=== PATIENT | female | born 1940 | race Caucasian/White ===

== ENCOUNTER 2023-04-08 11:16 | Outpatient (OUT) | payer MEDICARE, SELFPAY ==
--- NOTE | 2023-04-08 11:19 | MM_ITS ---
Patient Name: ARLEY TIPTON MR#: [id number] : 1940 Exam Date: 04/08/2023 Ordering Doctor: DR. ANABEL SALINAS . RADIOLOGY REPORT PROCEDURE: MM TOMOSYNTHESIS SCREENING BI COMPARISON: MG MAMM SCREEN 3D JAMEE CAD, 04/04/2021. MG MAMM SCREEN 3D JAMEE CAD, 04/07/2022. INDICATIONS: Screening Calculator Name NCI Breast Cancer Risk Assessment Tool 5 Year Breast Cancer Risk 1.10% Lifetime Breast Cancer Risk 1.50% Personal Breast Cancer No Personal Ovarian Cancer No Treatments None Family Cancers Aunt-maternal with breast cancer at age ~60. LOCATION: [facility] BREAST COMPOSITION: Heterogeneously dense,which may obscure small masses. FINDINGS: DIAGNOSTIC CATEGORY 2--BENIGN FINDING. NO CHANGE FROM COMPARISON. Scattered benign-appearing calcifications are present. Scattered benign-appearing lymph nodes are present. RIGHT BREAST: No significant suspicious finding. LEFT BREAST: No significant suspicious finding. RECOMMENDATIONS: ROUTINE MAMMOGRAM AND CLINICAL EVALUATION IN 12 MONTHS. PLEASE NOTE: A NORMAL MAMMOGRAM DOES NOT EXCLUDE THE POSSIBILITY OF BREAST CANCER. A CLINICALLY SUSPICIOUS PALPABLE LUMP SHOULD BE BIOPSIED. Dictated by: Remigio Martinez MD on 04/09/2023 at 08:20 Approved by: Remigio Martinez MD on 04/09/2023 at 08:24
== END 2023-04-08 11:17 | disposition home or self-care (01) ==
LOC: MAMMO 11:16
PROVIDERS: PCP Family Medicine; Visit Provider Family Medicine
DX: Z12.31 Encounter for screening mammogram for malignant neoplasm of breast (principal); Z80.3 Family history of malignant neoplasm of breast
CPT/HCPCS: 77063; 77067

== ENCOUNTER 2024-04-11 09:27 | Outpatient (OUT) | payer MEDICARE, SELFPAY ==
--- NOTE | 2024-04-11 09:29 | MM_ITS ---
Patient Name: ARLEY TIPTON MR#: [id number] : 1940 Exam Date: 04/11/2024 Ordering Doctor: DR. ANABEL SALINAS . RADIOLOGY REPORT PROCEDURE: MM TOMOSYNTHESIS SCREENING BI COMPARISON: MG MAMM SCREEN 3D JAMEE CAD, 04/07/2022. MM TOMOSYNTHESIS SCREENING BI, 04/08/2023. INDICATIONS: Screening Calculator Name NCI Breast Cancer Risk Assessment Tool 5 Year Breast Cancer Risk 1.10% Lifetime Breast Cancer Risk 1.30% Personal Breast Cancer No Personal Ovarian Cancer No Treatments None Family Cancers Aunt-maternal with breast cancer at age ~60. LOCATION: [facility] BREAST COMPOSITION: The breasts are heterogeneously dense,which may obscure small masses. FINDINGS: DIAGNOSTIC CATEGORY 2--BENIGN FINDING. NO CHANGE FROM COMPARISON. Scattered benign-appearing calcifications are present. Scattered benign-appearing lymph nodes are present. RIGHT BREAST: No significant suspicious finding. LEFT BREAST: No significant suspicious finding. RECOMMENDATIONS: ROUTINE MAMMOGRAM AND CLINICAL EVALUATION IN 12 MONTHS. PLEASE NOTE: A NORMAL MAMMOGRAM DOES NOT EXCLUDE THE POSSIBILITY OF BREAST CANCER. A CLINICALLY SUSPICIOUS PALPABLE LUMP SHOULD BE BIOPSIED. Dictated by: Remigio Martinez MD on 04/11/2024 at 12:05 Approved by: Remigio Martinez MD on 04/11/2024 at 12:07
== END 2024-04-11 09:28 | disposition home or self-care (01) ==
LOC: MAMMO 09:27
PROVIDERS: PCP Family Medicine; Visit Provider Family Medicine
DX: Z12.31 Encounter for screening mammogram for malignant neoplasm of breast (principal); Z80.3 Family history of malignant neoplasm of breast
CPT/HCPCS: 77063; 77067

== ENCOUNTER 2025-03-12 14:31 | Outpatient (REF) | payer MEDICARE, SELFPAY ==
--- OUTSIDE RECORDS SUMMARY | 2025-03-07 10:11 | XMS_ITS | Continuity of Care Document ---
Author Organization [facility] Address [address] [place] [address] Phone Care Team Providers Care Recreational Therapist Name Role Phone Elbert Clifford MD Other Provider Reinaldo Linton MD Attending Provider Reinaldo Linton MD Referring Provider Mehnaz Cooney APPRAISER-C Primary Care Provider Deepak Marshall II, MD Attending Provider [phone] NO FAMILY, PHYSICIAN Primary Care Provider Unava ilable Deepak Marshall II, MD Other Provider Merlene Wiley RN Other Provider Unavailable Misty Merino RN Other Provider Unavailable Helen De La Cruz RN Other Provider Unavailable Nicole Ball RN Other Provider Unavailable Liliana Costello RN Other Provider Unavailable Monse Nunes RN Other Provider Unavailable Maame Renee MD Other Provider Gianna Veloz DO Other Provider [phone] Ismael Merchant MD Other Provider Jose Garcia DO Other Provider Yovanny Boss MD Other Provider Clarisa Omer MD Other Provider Steve Valdez DO Other Provider Unavailab Paxton Guerrero MD Other Provider Unavailable Zak-Roland, Fela ELECTRICAL LABORATORY TECHNICIAN Other Provider [phone] Lydia Shipley MD Other Provider Gail Gutiérrez MD Other Provider Unavailable Jennifer Rodriguez MD Other Provider Steve Gutierrez DO Other Provider [phone] Darell Nobles MD Other Provider Nic Garcia MD Other Provider Annika Espinal APPRAISER-C Other Provider Chaya Muñoz ELECTRICAL LABORATORY TECHNICIAN Other Provider Unavailable Ashkan Mcbride MD Other Provider Ashwin Gamboa MD Other Provider Shamika Jaimes MD Other Provider Unavailable Warren Novoa DO Other Provider Smiley Nance APRN Other Provider Dennis Rao DO Other Provider Zelda Bejarano MD Other Provider Cat Bruner ELECTRICAL LABORATORY TECHNICIAN Other Provider Luzmaria Caceres ELECTRICAL LABORATORY TECHNICIAN Other Provider [phone] Noemi Luke MD Other Provider Unavailable Uli Robertson MD Other Provider Gris Nunez DO Other Provider Jerry Tellez MD Other Provider Yvonne Osborne MD Other Provider Shirley Greene APRN Other Provider Unavailable Rommel Hoyos MD Other Provider Alli Campos MD Other Provider [phone] Paxton Gonsalves MD Other Provider Brenton Rouse MD Other Provider Marta Fried APRN Other Provider Sveta Cerrato ELECTRICAL LABORATORY TECHNICIAN Other Provider Eliza Bojorquez MD Other Provider Tina Wang RN Other Provider Unavailable Alli Nunes MD Other Provider Ildefonso Lawrence MD Attending Provider Alli Nunes MD Admit Provider Candace Potter APRN Attending Provider Alli Nunes MD Attending Provider NON STAFF Primary Care Provider Lui Reeder MD Emergency Provider Deepak Marshall II, MD Admit Provider Care Teams Patient Care Team Team Status: Active Member Role/Relationship Status Dates Mehnaz Cooney NP-C Primary Care Provider Active Visit Care Team Team Status: Inactive Member Role/Relationship Status Dates Elbert Clifford MD Other Provider Active Start: January 09, 2025 End: January 09, 2025Mahmoud Othman , MDAttending ProviderActiveStart: January 09, 2025 End: January 09, 2025Mahmoud Othman , MDReferring ProviderActiveStart: January 09, 2025 End: January 09, 2025Jocordelia Cooney APPRAISER-CPrimary Care ProviderActive Start: January 09, 2025 End: January 09, 2025 Visit Care Team Team Status: Inactive Member Role/Relationship Status Dates Deepak Marshall II, MD Attending Provider Active Start: January 10, 2025 End: January 10, 2025Mehnaz Cooney APPRAISER-CPrimary Care ProviderActive Start: January 10, 2025 End: January 10, 2025 Visit Care Team Team Status: Active Member Role/Relationship Status Dates Deepak Marshall II, MD Attending Provider Active Start: January 18, 2025 Mehnaz Cooney APPRAISER-CPrimary Care ProviderActiveStart: January 18, 2025 Visit Care Team Team Status: Inactive Member Role/Relationship Status Dates PHYSICIAN NO FAMILY Primary Care Provider Active Start: January 18, 2025 End: January 18, 2025Apolonia Saldivar II ProviderActiveStart: January 18, 2025 End: January 18, 2025 Visit Care Team Team Status: Inactive Member Role/Relationship Status Dates PHYSICIAN NO FAMILY Primary Care Provider Active Start: January 19, 2025 End: January 19, 2025Apolonia Saldivar II ProviderActiveStart: January 19, 2025 End: January 19, 2025 Visit Care Team Team Status: Active Member Role/Relationship Status Dates Deepak Marshall II, MD Other Provider Active S tart: January 29, 2025 PHYSICIAN NO FAMILYPrimary Care ProviderActiveStart: January 29, 2025 Merlene Wiley , RNOther ProviderActiveStart: January 29, 2025 Misty Merino , RNOther ProviderActiveStart: January 29, 2025 Helen De La Cruz , ANTONIOOther ProviderActiveStart: January 29, 2025 Nicole Ball , ANTONIOOther ProviderActiveStart: January 29, 2025 Liliana Costello , ANTONIOOther ProviderActiveStart: January 29, 2025 Monse Nunes , ANTONIOOther ProviderActiveStart: January 29, 2025 Maaem Renee MDOther ProviderActiveStart: January 29, 2025 Gianna Veloz , DOOther ProviderActiveStart: January 29, 2025 Ismael Merchant MDOther ProviderActiveStart: January 29, 2025 Jose Garcia DOOther ProviderActiveStart: January 29, 2025 Yovanny Boss MDOther ProviderActiveStart: January 29, 2025 Clarisa Omer MDOther ProviderActiveStart: January 29, 2025 Steve Valdez , DOOther ProviderActiveStart: January 29, 2025 Paxton Parker MDOther ProviderActiveStart: January 29, 2025 Fela Mi , APRNOther ProviderActiveStart: January 29, 2025 Lydia Shipley MDOther ProviderActiveStart: January 29, 2025 Gail Gutiérrez MDOther ProviderActiveStart: January 29, 2025 Jennifer Rodriguez MDOther ProviderActiveStart: January 29, 2025 Steve Gutierrez , DOOther ProviderActiveStart: January 29, 2025 Darell Nobles MDOther ProviderActiveStart: January 29, 2025 Nic Garcia MDOther ProviderActiveStart: January 29, 2025 Annika Espinal , APPRAISER-COther ProviderActiveStart: January 29, 2025 Chaya Muñoz , APRNOther ProviderActiveStart: January 29, 2025 Ashkan Mcbride MDOther ProviderActiveStart: January 29, 2025 Ashwin Gamboa MDOther ProviderActiveStart: January 29, 2025 Shamika Jaimes MDOther ProviderActiveStart: January 29, 2025 Warren Novoa , DOOther ProviderActiveStart: January 29, 2025 Smiley Nance , APRNOther ProviderActiveStart: January 29, 2025 Dennis Rao , DOOther ProviderActiveStart: January 29, 2025 Zelda Bejarano MDOther ProviderActiveStart: January 29, 2025 aCt Bruner , APRNOther ProviderActiveStart: January 29, 2025 Luzmaria Caceres , APRNOther ProviderActiveStart: January 29, 2025 Noemi Luke MDOther ProviderActiveStart: January 29, 2025 Uli Robertson MDOther ProviderActiveStart: January 29, 2025 Gris Nunez , DOOther ProviderActiveStart: January 29, 2025 Jerry Tellez MDOther ProviderActiveStart: January 29, 2025 Yvonne Osborne MDOther ProviderActiveStart: January 29, 2025 Shirley Greene , APRNOther ProviderActiveStart: January 29, 2025 Rommel Hoyos MDOther ProviderActiveStart: January 29, 2025 Alli Campos MDOther ProviderActiveStart: January 29, 2025 Paxton Gonsalves MDOther ProviderActiveStart: January 29, 2025 Brenton Rouse MDOther ProviderActiveStart: January 29, 2025 Marta Fried , APRNOther ProviderActiveStart: January 29, 2025 Sveta Cerrato , APRNOther ProviderActiveStart: January 29, 2025 Eliza Bojorquez MDOther ProviderActiveStart: January 29, 2025 Tina Wang , ANTONIOOther ProviderActiveStart: January 29, 2025 Alli Nunes MDOther ProviderActiveStart: January 29, 2025 Ildefonso Lawrence MDAttending ProviderActiveStart: January 29, 2025 Visit Care Team Team Status: Active Member Role/Relationship Status Dates PHYSICIAN NO FAMILY Primary Care Provider Active Start: January 30, 2025 Alli Nunes MDAdmit ProviderActiveStart: January 30, 2025 Alli Nunes MDOther ProviderActiveStart: January 30, 2025 Merlene Wiley , ANTONIOOther ProviderActiveStart: January 30, 2025 Misty Merino , ANTONIOOther ProviderActiveStart: January 30, 2025 Helen De La Cruz , ANTONIOOther ProviderActiveStart: January 30, 2025 Nicole Ball , ANTONIOOther ProviderActiveStart: January 30, 2025 Liliana Costello RNOther ProviderActiveStart: January 30, 2025 Monse Nunes RNOther ProviderActiveStart: January 30, 2025 Maame Renee MDOther ProviderActiveStart: January 30, 2025 Gianna Veloz , DOOther ProviderActiveStart: January 30, 2025 Ismael Merchant MDOther ProviderActiveStart: January 30, 2025 Jose Garcia , DOOther ProviderActiveStart: January 30, 2025 Yovanny Boss MDOther ProviderActiveStart: January 30, 2025 Clarisa Omer MDOther ProviderActiveStart: January 30, 2025 Steve Valdez DOOther ProviderActiveStart: January 30, 2025 Paxton Parker MDOther ProviderActiveStart: January 30, 2025 Fela Mi , APRNOther ProviderActiveStart: January 30, 2025 Lydia Shipley MDOther ProviderActiveStart: January 30, 2025 Gail Gutiérrez MDOther ProviderActiveStart: January 30, 2025 Jennifer Rodriguez MDOther ProviderActiveStart: January 30, 2025 Steve Gutierrez DOOther ProviderActiveStart: January 30, 2025 Darell Nobles MDOther ProviderActiveStart: January 30, 2025 Nic Garcia MDOther ProviderActiveStart: January 30, 2025 Annika Espinal , APPRAISER-COther ProviderActiveStart: January 30, 2025 Chaya Muñoz , APRNOther ProviderActiveStart: January 30, 2025 Ashkan Mcbride MDOther ProviderActiveStart: January 30, 2025 Ashwin Gamboa MDOther ProviderActiveStart: January 30, 2025 Shamika Jaimes MDOther ProviderActiveStart: January 30, 2025 Warren Novoa , DOOther ProviderActiveStart: January 30, 2025 Smiley Nance , APRNOther ProviderActiveStart: January 30, 2025 Dennis Rao , DOOther ProviderActiveStart: January 30, 2025 Zelda Bejarano MDOther ProviderActiveStart: January 30, 2025 Cat Bruner , APRNOther ProviderActiveStart: January 30, 2025 Luzmaria Caceres , APRNOther ProviderActiveStart: January 30, 2025 Noemi Luke MDOther ProviderActiveStart: January 30, 2025 Uil Robertson MDOther ProviderActiveStart: January 30, 2025 Gris Nunez , DOOther ProviderActiveStart: January 30, 2025 Jerry Tellez MDOther ProviderActiveStart: January 30, 2025 Yvonne Osborne MDOther ProviderActiveStart: January 30, 2025 Shirley Greene , APRNOther ProviderActiveStart: January 30, 2025 Rommel Hoyos MDOther ProviderActiveStart: January 30, 2025 Alli Campos MDOther ProviderActiveStart: January 30, 2025 Paxton Gonsalves MDOther ProviderActiveStart: January 30, 2025 Brenton Rouse MDOther ProviderActiveStart: January 30, 2025 Marta Fried , APRNOther ProviderActiveStart: January 30, 2025 Sveta Cerrato , APRNOther ProviderActiveStart: January 30, 2025 Eliza Bojorquez MDOther ProviderActiveStart: January 30, 2025 Tina Wang RNOther ProviderActiveStart: January 30, 2025 Candace Potter APRNAttending ProviderActiveStart: January 30, 2025 Visit Care Team Team Status: Active Member Role/Relationship Status Dates PHYSICIAN NO FAMILY Primary Care Provider Active Start: February 06, 2025 Patience Courtney ProviderActiveStart: February 06, 2025 Johnie Courtneyending ProviderActiveStart: February 06, 2025 Alli Nunes MDOther ProviderActiveStart: February 06, 2025 Merlene Wiley , ANTONIOOther ProviderActiveStart: February 06, 2025 Misty Merino , ANTONIOOther ProviderActiveStart: February 06, 2025 Helen De La Cruz , ANTONIOOther ProviderActiveStart: February 06, 2025 Nicole Ball , ANTONIOOther ProviderActiveStart: February 06, 2025 Liliana Costello , ANTONIOOther ProviderActiveStart: February 06, 2025 Monse Nunes , ANTONIOOther ProviderActiveStart: February 06, 2025 Maame Renee MDOther ProviderActiveStart: February 06, 2025 Gianna Veloz DOOther ProviderActiveStart: February 06, 2025 Ismael Merchant MDOther ProviderActiveStart: February 06, 2025 Jose Garcia DOOther ProviderActiveStart: February 06, 2025 Yovanny Boss MDOther ProviderActiveStart: February 06, 2025 Clarisa Omer MDOther ProviderActiveStart: February 06, 2025 Steve Valdez DOOther ProviderActiveStart: February 06, 2025 Paxton Parker MDOther ProviderActiveStart: February 06, 2025 Fela Mi , APRNOther ProviderActiveStart: February 06, 2025 Lydia Shipley MDOther ProviderActiveStart: February 06, 2025 Gail Gutiérrez MDOther ProviderActiveStart: February 06, 2025 Jennifer Rodriguez MDOther ProviderActiveStart: February 06, 2025 Steve Gutierrez DOOther ProviderActiveStart: February 06, 2025 Darell Nobles MDOther ProviderActiveStart: February 06, 2025 Nic Garcia MDOther ProviderActiveStart: February 06, 2025 Annika J Pampa , APPRAISER-COther ProviderActiveStart: February 06, 2025 Chaya Muñoz , APRNOther ProviderActiveStart: February 06, 2025 Ashkan Mcbride MDOther ProviderActiveStart: February 06, 2025 Ashwin Gamboa MDOther ProviderActiveStart: February 06, 2025 Shamika Jaimes MDOther ProviderActiveStart: February 06, 2025 Warren Novoa , DOOther ProviderActiveStart: February 06, 2025 Smiley Nance , APRNOther ProviderActiveStart: February 06, 2025 Dennis Rao , DOOther ProviderActiveStart: February 06, 2025 Zelda Bejarano MDOther ProviderActiveStart: February 06, 2025 Cat Bruner , APRNOther ProviderActiveStart: February 06, 2025 Luzmaria Caceres , APRNOther ProviderActiveStart: February 06, 2025 Noemi Luke MDOther ProviderActiveStart: February 06, 2025 Uli Robertson MDOther ProviderActiveStart: February 06, 2025 Gris Nunez , DOOther ProviderActiveStart: February 06, 2025 Jerry Tellez MDOther ProviderActiveStart: February 06, 2025 Yvonne Osborne MDOther ProviderActiveStart: February 06, 2025 Shirley Greene , APRNOther ProviderActiveStart: February 06, 2025 Rommel Hoyos MDOther ProviderActiveStart: February 06, 2025 Alli Campos MDOther ProviderActiveStart: February 06, 2025 Paxton Gonsalves MDOther ProviderActiveStart: February 06, 2025 Brenton Rouse MDOther ProviderActiveStart: February 06, 2025 Marta Fried , APRNOther ProviderActiveStart: February 06, 2025 Sveta Cerrato , APRNOther ProviderActiveStart: February 06, 2025 Eliza Bojorquez MDOther ProviderActiveStart: February 06, 2025 Tina Wang RNOther ProviderActiveStart: February 06, 2025 Visit Care Team Team Status: Inactive Member Role/Relationship Status Dates NON STAFF Primary Care Provider Active Start: February 11, 2025 End: February 11, 2025Lui Bruner MDEmer[facility]cy ProviderActiveStart: February 11, 2025 End: February 11, 2025 Visit Care Team Team Status: Inactive Member Role/Relationship Status Dates Deepak Marshall II, MD Attending Provider Active Start: February 14, 2025 End: February 14, 2025NON STAFFPrimary Care ProviderActiveStart: February 14, 2025 End: February 14, 2025 Visit Care Team Team Status: Inactive Member Role/Relationship Status Dates NON STAFF Primary Care Provider Active Start: February 14, 2025 End: February 14, 2025Apolonia Saldivar II ProviderActiveStart: February 14, 2025 End: February 14, 2025 Visit Care Team Team Status: Inactive Member Role/Relationship Status Dates Deepak Marshall II, MD Attending Provider Active Start: February 21, 2025 End: February 21, 2025Jocordelia Cooney , APPRAISER-CPrimary Care ProviderActiveStart: February 21, 2025 End: February 21, 2025 Visit Care Team Team Status: Inactive Member Role/Relationship Status Dates Deepak Marshall II, MD Attending Provider Active Start: February 21, 2025 End: February 21, 2025Jocordelia Cooney , APPRAISER-CPrimary Care ProviderActiveStart: February 21, 2025 End: February 21, 2025 Visit Care Team Team Status: Active Member Role/Relationship Status Dates Mehnaz Cooney , APPRAISER-C Primary Care Provider Active Start: February 21, 2025 Patience Saldivar II ProviderActiveStart: February 21, 2025 Deepak Marshall II, MDOther ProviderActiveStart: February 21, 2025 Apolonia Courtney ProviderActiveStart: February 21, 2025 Alli Nunes MDOther ProviderActiveStart: February 21, 2025 Misty Merino , ANTONIOOther ProviderActiveStart: February 21, 2025 Hleen De La Cruz , ANTONIOOther ProviderActiveStart: February 21, 2025 Nicole Ball , ANTONIOOther ProviderActiveStart: February 21, 2025 Liliana Costello , ANTONIOOther ProviderActiveStart: February 21, 2025 Monse Nunes , ANTONIOOther ProviderActiveStart: February 21, 2025 Maame Renee MDOther ProviderActiveStart: February 21, 2025 Gianna Veloz , DOOther ProviderActiveStart: February 21, 2025 Ismael Merchant MDOther ProviderActiveStart: February 21, 2025 Jose Garcia , DOOther ProviderActiveStart: February 21, 2025 Yovanny Boss MDOther ProviderActiveStart: February 21, 2025 Clarisa Omer MDOther ProviderActiveStart: February 21, 2025 Steve Valdez , DOOther ProviderActiveStart: February 21, 2025 Paxton Parker MDOther ProviderActiveStart: February 21, 2025 Fela Mi , APRNOther ProviderActiveStart: February 21, 2025 Lydia Shipley MDOther ProviderActiveStart: February 21, 2025 Gail Gutiérrez MDOther ProviderActiveStart: February 21, 2025 Jennifer Rodriguez MDOther ProviderActiveStart: February 21, 2025 Steve Gutierrez , DOOther ProviderActiveStart: February 21, 2025 Darell Nobles MDOther ProviderActiveStart: February 21, 2025 Nic Garcia MDOther ProviderActiveStart: February 21, 2025 Annika Espinal , APPRAISER-COther ProviderActiveStart: February 21, 2025 Chaya Muñoz , APRNOther ProviderActiveStart: February 21, 2025 Ashkan Mcbride MDOther ProviderActiveStart: February 21, 2025 Ashwin Gamboa MDOther ProviderActiveStart: February 21, 2025 Shamika Jaimes MDOther ProviderActiveStart: February 21, 2025 Warren Novoa , DOOther ProviderActiveStart: February 21, 2025 Smiley Nance , APRNOther ProviderActiveStart: February 21, 2025 Dennis Rao DOOther ProviderActiveStart: February 21, 2025 Zelda Bejarano MDOther ProviderActiveStart: February 21, 2025 Cat Bruner , APRNOther ProviderActiveStart: February 21, 2025 Luzmaria Caceres , APRNOther ProviderActiveStart: February 21, 2025 Noemi Luke MDOther ProviderActiveStart: February 21, 2025 Uli Robertson MDOther ProviderActiveStart: February 21, 2025 Gris Nunez , DOOther ProviderActiveStart: February 21, 2025 Jerry Tellez MDOther ProviderActiveStart: February 21, 2025 Yvonne Osborne MDOther ProviderActiveStart: February 21, 2025 Shirley Greene , APRNOther ProviderActiveStart: February 21, 2025 Rommel Hoyos MDOther ProviderActiveStart: February 21, 2025 Alli Campos MDOther ProviderActiveStart: February 21, 2025 Paxton Gonsalves MDOther ProviderActiveStart: February 21, 2025 Brenton Rouse MDOther ProviderActiveStart: February 21, 2025 Marta Fried , APRNOther ProviderActiveStart: February 21, 2025 Sveta Cerrato , APRNOther ProviderActiveStart: February 21, 2025 Eliza Bojorquez MDOther ProviderActiveStart: February 21, 2025 Tina Wang RNOther ProviderActiveStart: February 21, 2025 Visit Care Team Team Status: Active Member Role/Relationship Status Dates Mehnaz Cooney APPRAISER-C Primary Care Provider Active Start: February 23, 2025 Patience Courtney ProviderActiveStart: February 23, 2025 Alli Nunes MDOther ProviderActiveStart: February 23, 2025 Merlene Wiley RNOther ProviderActiveStart: February 23, 2025 Misty Merino , ANTONIOOther ProviderActiveStart: February 23, 2025 Helen De La Cruz , ANTONIOOther ProviderActiveStart: February 23, 2025 Nicole Ball RNOther ProviderActiveStart: February 23, 2025 Liliana Costello RNOther ProviderActiveStart: February 23, 2025 Monse Nunes RNOther ProviderActiveStart: February 23, 2025 Maame Renee MDOther ProviderActiveStart: February 23, 2025 Gianna Veloz , DOOther ProviderActiveStart: February 23, 2025 Ismael Merchant MDOther ProviderActiveStart: February 23, 2025 Jose Garcia , DOOther ProviderActiveStart: February 23, 2025 Yovanny Boss MDOther ProviderActiveStart: February 23, 2025 Clarisa Omer MDOther ProviderActiveStart: February 23, 2025 Steve Valdez , DOOther ProviderActiveStart: February 23, 2025 Paxton Parker MDOther ProviderActiveStart: February 23, 2025 Fela Mi , APRNOther ProviderActiveStart: February 23, 2025 Lydia Shipley MDOther ProviderActiveStart: February 23, 2025 Gail Gutiérrez MDOther ProviderActiveStart: February 23, 2025 Jennifer Rodriguez MDOther ProviderActiveStart: February 23, 2025 Steve Gutierrez , DOOther ProviderActiveStart: February 23, 2025 Darell Nobles MDOther ProviderActiveStart: February 23, 2025 Nic Garcia MDOther ProviderActiveStart: February 23, 2025 Annika Espinal , APPRAISER-COther ProviderActiveStart: February 23, 2025 Chaya Muñoz , APRNOther ProviderActiveStart: February 23, 2025 Ashkan Mcbride MDOther ProviderActiveStart: February 23, 2025 Ashwin Gamboa MDOther ProviderActiveStart: February 23, 2025 Shamika Jaimes MDOther ProviderActiveStart: February 23, 2025 Warren Novoa , DOOther ProviderActiveStart: February 23, 2025 Smiley Nance , APRNOther ProviderActiveStart: February 23, 2025 Dennis Roa , DOOther ProviderActiveStart: February 23, 2025 Zelda Bejarano MDOther ProviderActiveStart: February 23, 2025 Cat Bruner , APRNOther ProviderActiveStart: February 23, 2025 Luzmaria Caceres , APRNOther ProviderActiveStart: February 23, 2025 Noemi Luke MDOther ProviderActiveStart: February 23, 2025 Uli Robertson MDOther ProviderActiveStart: February 23, 2025 Gris Nnuez , DOOther ProviderActiveStart: February 23, 2025 Jerry Tellez MDOther ProviderActiveStart: February 23, 2025 Yvonne Osborne MDOther ProviderActiveStart: February 23, 2025 Shirley Greene , APRNOther ProviderActiveStart: February 23, 2025 Rommel Hoyos MDOther ProviderActiveStart: February 23, 2025 Alli Campos MDOther ProviderActiveStart: February 23, 2025 Paxton Gonsalves MDOther ProviderActiveStart: February 23, 2025 Brenton Rouse MDOther ProviderActiveStart: February 23, 2025 Marta Fried , APRNOther ProviderActiveStart: February 23, 2025 Sveta Cerrato , APRNOther ProviderActiveStart: February 23, 2025 Eliza Bojorquez MDOther ProviderActiveStart: February 23, 2025 Tina Wang RNOther ProviderActiveStart: February 23, 2025 Ildefonso Lawrence MDAttending ProviderActiveStart: February 23, 2025 Visit Care Team Team Status: Active Member Role/Relationship Status Dates Mehnaz Cooney APPRAISER-C Primary Care Provider Active Start: February 28, 2025 Patience Saldivar II ProviderActiveStart: February 28, 2025 Apolonia Saldivar II ProviderActiveStart: February 28, 2025 Deepak Marshall II, MDOther ProviderActiveStart: February 28, 2025 Perez Courtney ProviderActiveStart: February 28, 2025 Visit Care Team Team Status: Active Member Role/Relationship Status Dates Mehnaz Cooney APPRAISER-C Primary Care Provider Active Start: March 02, 2025 Patience Courtney ProviderActiveStart: March 02, 2025 Apolonia Courtney ProviderActiveStart: March 02, 2025 Alli Des , MDOther ProviderActiveStart: March 02, 2025 Merlene Wiley , ANTONIOOther ProviderActiveStart: March 02, 2025 Misty Merino , ANTONIOOther ProviderActiveStart: March 02, 2025 Helen De La Cruz , ANTONIOOther ProviderActiveStart: March 02, 2025 Nicole Ball , ANTONIOOther ProviderActiveStart: March 02, 2025 Liliana Costello , RNOther ProviderActiveStart: March 02, 2025 Monse Nunes , ANTONIOOther ProviderActiveStart: March 02, 2025 Maame Renee MDOther ProviderActiveStart: March 02, 2025 Gianna Veloz , DOOther ProviderActiveStart: March 02, 2025 Ismael Merchant MDOther ProviderActiveStart: March 02, 2025 Jose Garcia , DOOther ProviderActiveStart: March 02, 2025 Yovanny Boss MDOther ProviderActiveStart: March 02, 2025 Clarisa Omer MDOther ProviderActiveStart: March 02, 2025 Steve Valdez DOOther ProviderActiveStart: March 02, 2025 Paxton Parker MDOther ProviderActiveStart: March 02, 2025 Fela Mi , APRNOther ProviderActiveStart: March 02, 2025 Lydia Shipley MDOther ProviderActiveStart: March 02, 2025 Gail Gutiérrez MDOther ProviderActiveStart: March 02, 2025 Jennifer Rodriguez MDOther ProviderActiveStart: March 02, 2025 Steve Gutierrez DOOther ProviderActiveStart: March 02, 2025 Darell Nobles MDOther ProviderActiveStart: March 02, 2025 Nic Garcia MDOther ProviderActiveStart: March 02, 2025 Annika Espinal , APPRAISER-COther ProviderActiveStart: March 02, 2025 Chaya Muñoz , APRNOther ProviderActiveStart: March 02, 2025 Ashkan Mcbride MDOther ProviderActiveStart: March 02, 2025 Ashwin Gamboa MDOther ProviderActiveStart: March 02, 2025 Shamika Jaimes MDOther ProviderActiveStart: March 02, 2025 Warren R Sommer , DOOther ProviderActiveStart: March 02, 2025 Smiley Nance , APRNOther ProviderActiveStart: March 02, 2025 Dennis Rao , DOOther ProviderActiveStart: March 02, 2025 Zelda Bejarano MDOther ProviderActiveStart: March 02, 2025 Cat Bruner , APRNOther ProviderActiveStart: March 02, 2025 Luzmaria Caceres , APRNOther ProviderActiveStart: March 02, 2025 Noemi Luke MDOther ProviderActiveStart: March 02, 2025 Uli Robertson MDOther ProviderActiveStart: March 02, 2025 Gris Nunez , DOOther ProviderActiveStart: March 02, 2025 Jerry Tellez MDOther ProviderActiveStart: March 02, 2025 Yvonne Osborne MDOther ProviderActiveStart: March 02, 2025 Shirley Greene , APRNOther ProviderActiveStart: March 02, 2025 Rommel Hoyos MDOther ProviderActiveStart: March 02, 2025 Alli Campos MDOther ProviderActiveStart: March 02, 2025 Paxton Gonsalves MDOther ProviderActiveStart: March 02, 2025 Brenton Rouse MDOther ProviderActiveStart: March 02, 2025 Marta Fried , APRNOther ProviderActiveStart: March 02, 2025 Sveta Cerrato , APRNOther ProviderActiveStart: March 02, 2025 Eliza Bojorquez MDOther ProviderActiveStart: March 02, 2025 Tina Wang RNOther ProviderActiveStart: March 02, 2025 Chief Complaint and Reason for Visit Chief Complaint Admit Date Z01.810 sob January 09, 2025 10:37am Hip pain January 10, 2025 9:58am Pre Op RTH January 18, 2025 11:02am H&P RTHA -INPT/REHAB January 18 11:55am Prolonged January 19, 2025 6:00am Hip pain January 29, 2025 10 :48am right hip osteoarthritis s/p volodymyr January 30, 2025 4:21pm right hip osteoarthritis s/p volodymyr February 06, 2025 12:00am Right hip pain, hx hip replacement Octob er 2024 4:06pm 2 WK POST OP RTHA February 14, 2025 1 :43pm standing February 14, 2025 2 :10pm GROIN PAIN February 21, 2025 8 :56am Z47.1 - Aftercare following joint replac ement surg February 21, 2025 9:01am Orif - Rt Proximal Femur/Total Hip Jimmie ion February 21, 2025 10:54am Right Periprosthetic Femur Fx s/p VOLODYMYR Re vision February 23, 2025 6:47pm Orif - Rt Proximal Femur/Total Hip Jimmie ion February 28, 2025 12:00am Right Periprosthetic Femur Fx s/p VOLODYMYR Re vision March 02, 2025 12:00am Reason for Visit Admit Date Primary osteoarthritis of right hip Sept emb2024 11:55am 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 O ctober 2024 10:48am Status post total replacement of right h ip January 29, 2025 10:48am Primary osteoarthritis of right hip Jano 2024 10:48am Age-related osteoporosis wit hout current pathological fracture January 30, 2025 4:21pm Class 2 obesity with body ma ss index (BMI) of 37.0 to 37.9 in adult January 30, 2025 4:21pm Hyperlipidemia January 30, 2025 4: 21pm Hypertension January 30, 2025 4: 21pm Impaired mobility and activities of mohamud y living January 30, 2025 4:21pm Postoperative anemia January 30, 2025 4 :21pm Status post total replacement of right h ip January 30, 2025 4:21pm Primary osteoarthritis of right hip 2024 4:21pm Aftercare following right hip joint repl acement surgery February 14, 2025 1:43pm Aftercare following right hip joint repl acement surgery February 21, 2025 8:56am Periprosthetic fracture arou nd internal prosthetic right hip joint February 21, 2025 8:56am Status post total replacement of right h ip February 21, 2025 8:56am Aftercare following right hip joint repl acement surgery February 21, 2025 10:54am Age-related osteoporosis wit hout current pathological fracture February 21, 2025 10:54am Class 2 obesity with body ma ss index (BMI) of 37.0 to 37.9 in adult February 21, 2025 10:54am Impaired mobility and activities of mohamud y living February 21, 2025 10:54am Postoperative anemia February 21, 2025 10:54am Periprosthetic fracture arou nd internal prosthetic right hip joint February 21, 2025 10:54am Status post total replacement of right h ip February 21, 2025 10:54am Primary osteoarthritis of right hip Octo 2024 10:54am Age-related osteoporosis wit hout current pathological fracture February 23, 2025 6:47pm Class 2 obesity with body ma ss index (BMI) of 37.0 to 37.9 in adult February 23, 2025 6:47pm Hyperlipidemia February 23, 2025 6 :47pm Hypertension February 23, 2025 6 :47pm Impaired mobility and activities of mohamud y living February 23, 2025 6:47pm Pain February 23, 2025 6 :47pm Postoperative anemia February 23, 2025 6:47pm Periprosthetic fracture arou nd internal prosthetic right hip joint February 23, 2025 6:47pm Status post total replacement of right h ip February 23, 2025 6:47pm Reason for Referral Type Reason(s) Provider Provider Contact Information P rovider Address Start Date Follow up with rehab physician as needed-PCP, call to schedule follow up appointment with PCP after dischargeFollow up as need with rehab physicianCall to schedule follow up appointment with PCP after dischargeAnastasia Oh MD Work Phone: [phone] [employer] [place] [employer] [facility] [address]Vzieeh up with rehab physician as neededAlli Nunes MDWork Phone: [phone] [facility], [address] [facility] [address]FisotlAnastasia Oh MDWork Phone: [phone] [employer] [facility] [address]-PBR, call to schedule follow up appointment with PCP after dischargeMehnaz Cooney CNPWork Phone: [facility] [address] [facility] [address]FOD [id number] [address] [facility] [address]QcbojcAnastasia Oh MDWork Phone: [phone] [place] [address]Kdzuti up as need with rehab physicianAlli Nunes MDWork Phone: [phone] [facility], [address] [place] [address]EmskcjAnastasia Oh MDWork Phone: [phone] [place] [address]Aznj to schedule follow up appointment with PCP after discharge Mehnaz Cooney CNPWork Phone: [facility] [address] [facility] [address] Allergies, Adverse Reactions, Alerts Allergen Type Severity Reaction Last Updated Verified Status Sulfa (Sulfonamide Antibiotics) Allergy Unknown itch February 21, 2025 8:46am Yes Active oxycodone Adverse Reaction Unknown Nausea February 21, 2025 8:46am Yes Active Social History Smoking Status Status Start Date End Date Date of Observa tion Never smoked tobacco (finding) February 24, 2025 3:43pm Observation Status Observation Response Date of Response Legal Sex Female (finding) Sex Assigned At [facility] 1940 Social History Assessments Assessment Value Date Recorded SDOH Follow up February 02, 2025 1:44pmQuestionAnswerDate RecordedHas the SDOH screening changed since admission?NOctober 2024 1:44pm Assessment Value Date Recorded SDOH Follow up February 23, 2025 11:16amQuestionAnswerDate RecordedHas the SDOH screening changed since admission?NOctober 2024 11:16am Assessment Value Date Recorded SDOH Follow up March 02, 2025 1:24pmQuestionAnswerDate RecordedHas the SDOH screening changed since admission?NNoveerica 2024 1:24pm Family History Relationship Condition Age at Onset Recorded Date/T krista father Myocardial infarction Unknown motherCerebrovascular accident (CVA)UnknownType 2 diabetes mellitusUnknown HypertensionUnknownbrotherMalignant neoplasm of lungUnknownbrotherMalignant neoplasm of lungUnknownbrotherMalignant neoplasm of lungUnknownbrotherChronic obstructive pulmonary diseaseUnknownsisterMalignant neoplasm of stomachUnknown Problems Active Problems Problem Diagnosis/Recorded Date Onset Date Stat us Insomnia March 06, 2025 12:15pm Unknown Active 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 November 09, 2024 2:40pm Unknown Active Age-related osteoporosis wit hout current pathological fracture November 09, 2024 2:39pm Unknown Active Impaired mobility and activi ties of daily living January 31, 2025 4:48pm Unknown Active Pain February 02, 2025 11:46am Unknown A ctive Hyperlipidemia January 08, 2023 11:31am Unknown Active Aftercare following right hi p joint replacement surgery February 14, 2025 1:34pm Unknown Active Postoperative anemia January 31, 2025 3:44pm Unknown Active Right hip pain November 08, 2024 12:34pm Unknown Ac tive Hypertension January 10, 2025 9:44am Unknown Active Class 2 obesity with body ma ss index (BMI) of 37.0 to 37.9 in adult January 31, 2025 9:02am Unknown Acti ve Inactive/Resolved Problems Problem Diagnosis/Recorded Date Onset Date Stat us Periprosthetic fracture arou nd internal prosthetic right hip joint February 22, 2025 7:33am Unknown Resolve d Status post total replacemen t of right hip January 30, 2025 10:59am Unknown Resolved Strain of muscle of right hip February 11, 2025 6:46p m Unknown Resolved Medications Medication Status Dose Units Route Directions Qty Days Refills S tart Date Stop Date End Date Reason(s) Instructions Adherence Ketorolac 10 mg tablet Discontinued 10 MG PO Ever y 6 hours as needed for pain 20 0Oct2024 11:00pmOctober 2024 5:05pmmaximum total duration of 5 days from all oral, intranasal, or parenteral formulationsTramadol 50 mg tablet Iqwjgvobijzo96HQGXT1N as needed for Pain Scale 6 - 704691Amygcxe 2024 2:19pmNovember 2024 12:16pmPain Status post total replacement of right hip Pain, unspecified Presence of right artificial hip jointOxycodone 5 mg jmcrjpYjmggnutiunv0LSRMR8S as needed for Lzjf8169Izxfoza 2024October 2024 8:48amAftercare following right hip joint replacement surgery Aftercare following joint replacement surgery Presence of right artificial hip jointMultivitamin qzberjCjqfjopwgzfk4WIZZZWkkto morningSeptember 2024 11:00pmOctober 2024 11:47amLactobacillus Combination No.4 (Probiotic) 3 billion cell haqmyduYzwzndrzqver6896XAD CELLSPO Every morningSeptember 2024 11:00pmOctober 2024 11:47amadminister with a mealCalcium Carbonate-Vitamin D3 (Calcium 600 + D(3)) 600 mg-10 mcg (400 unit) hqoaiuQimsmfytoamr4EKQMXCfeda dailySeptember 2024 11:00pmOctober 2024 11:47amCoenzyme Q10 (Coq-10) 100 mg jdhqyqtVlbfetknutla205PKYBRebvl at bedtimeSeptember 2024 11:00pmOctober 2024 11:47amAmlodipine 2.5 mg tabletDiscontinued2.5MGPODaily at bedtimeSeptember 2024 11:00pm January 18, 2025 11:06amAcetaminophen 500 mg afmkpbDrcxsxfqwkpu3444UEKRIggsa 6 hours as needed for painSept2024 11:00pmJanuary 30, 2025 3:05pmOn Hold: Resume on 03/01/25.Nabumetone 500 mg olupanAqxapqfapopd404PIIUZgzsx daily January 07, 2023 11:00pmJuly 2024 12:04pmPravastatin 20 mg tablet Phcroivctyab02DWFYNensv at bedtimeSeptember 2022 11:00pmOctober 2024 11:47amAspirin 81 mg Tablet,Delayed Release (Dr/Ec)Oxxbedgfteze25LFUKIzjpm at bedtimeSeptember 2022 11:00pmOct2024 11:47amOn Hold: Resume on 03/06/25.Polyethylene Glycol 3350 (Miralax) 17 gram/dose gmvvekDbgblttehcwa44ME POdaily as needed for constipationJanuary 29, 2025 11:00pmOctober 2024 11:47am1 packed mixed with 8 ounces of fluid.Amlodipine 5 mg TabletDiscontinued5 JNBWHghqj44843Djebknl 9th, 2025 11:00pmOctober 2024 10:24amAspirin 81 mg Tablet,Delayed Release (Dr/Ec)Ibstkgynflkd49XEUTTjdkd fqgfu91916Dcdluiv 9th, 2025 11:00pmNov2024 12:16pmCefadroxil 500 mg QtbceneZoyxmrssyjac413 MGPOTwice grfaa621JvkfxaaFebruary 01, 2025 11:00pmOct2024 12:52pmDocusate Sodium 100 mg QhlzxzvPurjihgcsmyg159ZTOJBtbyl daily as needed for Wbkotgkfhpey36 0Oct2024 11:00pmOct2024 12:52pmPravastatin 20 mg Tablet Wuvsct94LHLMTbzzg at itidyxk58706Kbtswsl 9th, 2025 11:00pmUnknownGabapentin 100 mg GoenkafKqmfvr351CIWNXidxm at uivjkln52206Fmupyll 2024 11:00pmUnknown Calcium Carbonate-Vitamin D3 (Oyster Shell Calcium-Vit D3) 500 mg-5 mcg (200 unit) HqrkyoKkupehtnzyba4FOZCIQmoom ppvek08040Jyfyzjc 9th, 2025 11:00pmNov2024 12:15pmMelatonin 5 mg TueovqSopohkakccjm7DDZGLjgcf at clnpedr30226 February 01, 2025 11:00pmOcttristar [facility] 2024 10:24amMultivitamin With Folic Acid (Thera) 400 mcg WwiieiRqcgki0VRXPKQhksw pbpmakq18233Gjzsjdc2024 11:00pm UnknownL.Acid,Para-B.Bifidum-S.Therm (Risaquad) 8 billion cell BwyugpaLflpll4FGF POEvery ofpklnp13559Ykbfmpa 9th, 2025 11:00pmUnknownPrednisone 10 mg Tablet Rfcfujyclkez31CFOZHphlg654Ewhrboe 9th, 2025 11:00pmOct2024 12:52pm Tramadol 50 mg FzaetdAuwgybeuynjc24ZXBBF3R as needed for Pain Scale 6 - 475752 February 01, 2025 11:00pmOct2024 2:20pmPain Status post total replacement of right hip Pain, unspecified Presence of right artificial hip jointHydrocodone-Acetaminophen 5-325 mg tablet Discontinued0.5TABPOEVERY 4-6 HOURS as needed for Mcry031Nkvfhxc2024March 06, 2025 12:16pmStrain of muscle of right hip Strain of muscle, fascia and tendon of right hip, initial encounterDocusate Sodium 100 mg srcqotzHqqfuohbejir598LZONSypxi as needed for constipationOct2024 11:00pmMarch 06, 2025 12:16pmAmlodipine 5 mg CovgzzLfbhmd1UDNR Every eveningOcttristar [facility] 2024 11:00pmUnknownAcetaminophen 500 mg tablet Enbmkxetlkfr9287NRCQZtgem 6 hoursOct2024 11:00pmMarch 06, 2025 12:16pmdo not reconcile dos 01/29/25. med to bedMelatonin 5 mg CpzouvPxaqju4RZSK Daily at bedtime as needed for sleepOcttristar [facility] 2024 11:00pmUnknownTemazepam 7.5 mg CapsuleActive7.5MGPODaily at bedtime as needed for Tlzmtkzb15838Tcwerxag 11th, 2025 12:00amInsomnia Insomnia, unspecifiedUnknownLoperamide 2 mg IxnbssjOplnfw7GGRHL6W as needed for Ifpzmlay21Welljept2024 12:00amUnknownHydrocodone-Acetaminophen 5-325 mg GxfdwzHthxtc9UCGXAP5L as needed for pain (scale score 7-10)3070March 06ftercare following right hip joint replacement surgery Pain of right hip Aftercare following joint replacement surgery Presence of right artificial hip joint Pain in right hipUnknownPantoprazole 40 mg Tablet,Delayed Release (Dr/Ec)Active 24VPVEYgtnl69489Zgpxuwdj 11th, 2025 12:00amUnknownRx Discharge Order Notice Lxdqvu5SGTXECHEIVFODAPouv66Tfffanyu 11th, 2025 12:00amUnknownAcetaminophen 500 mg UjtrqsHvakit3206ANNLF9O as needed for Fever Or Echh12Plakhcsb2024 12:00amUnknownAscorbic Acid (Vitamin C) (Vitamin C) 500 mg WpagcdUssxxn349YKCX Twice pqxaw32461EmthsyodMarch 06, 2025 12:00amUnknownAspirin 81 mg Tablet,Delayed Release (Dr/Ec)Dltmxc53WSWPSvuma pjojm43703Ozkqtpmw 11th, 2025 12:15pmUnknown Calcium Carbonate-Vitamin D3 (Oyster Shell Calcium-Vit D3) 500 mg-5 mcg (200 unit) TcsuanJjfmza8OVVNZQsncm mhqrh40670Luuzpfwc 11th, 2025 12:15pmUnknown Amlodipine 5 mg bjremfVglmbzizfbeg3FKFKMrpyrNfugtssdc 2024 11:00pmOctober 2024 11:47amSennosides-Docusate Sodium (Senokot-S) 8.6-50 mg tablet Rmsqyrvkxvwv3KAYIBqhyza96712Rtcwngnhy 2024 11:00pmOctober 2024 3:07pm do not reconcile dos 01/29/25. med to bedAcetaminophen 500 mg tabletDiscontinued 3937MHZLW1E300417Ifchctdtt 2024 11:00pmOctober 2024 10:24amdo not reconcile dos 01/29/25. med to bedCefadroxil 500 mg tnzwkudBzaxbwwloevo285WCTZ U55D1096Htqdngsid 2024 11:00pmOctober 2024 11:47amdo not reconcile dos 01/29/25. med to bedPolyethylene Glycol 3350 (Miralax) 17 gram/dose powder Mkqtouyzfton11QGTNwrdcr504Twifjfuan 2024 11:00pmOct2024 3:08pm1 packed mixed with 8 ounces of fluid.Tramadol 50 mg jcmfhrOnegclqmgdow94FNBRA6H as needed for Pemq9843Btkigtoqy 2024 11:00pmOctober 2024 3:08pm Primary osteoarthritis of right hip Unilateral primary osteoarthritis, right hipPrednisone 10 mg tabletDiscontinued 27YOAKtnzpy98592Wwloqdjto 2024 11:00pmOctober 2024 11:47amdo not reconcile dos 01/29/25. med to bedOndansetron Hcl 4 mg fhlyojGveonqgaefsr5RMFBG4H as needed for Sptgwz63Grbisiqvx 5 11:00pmOctober 2024 11:47amdo not reconcile dos 01/29/25. med to bedOxycodone 5 mg qdygkvHcrgumewwksq4FZSOC0E as needed for Qrey8810Favijasnn 25th, 2025October 2024 11:47amPrimary osteoarthritis of right hip Unilateral primary osteoarthritis, right hipdo not reconcile dos 01/29/25. med to bedAspirin 81 mg tablet,delayed release (DR/EC)Oykoqmpdkohg24WPPOLdcpi lzckv9010 0Sept2024 11:00pmOctober 2024 11:47amdo not reconcile dos 01/29/25. med to bedGabapentin 100 mg eokbmqfKfihzsrxtytg279FYPRUyedl at bedtime November 08, 2024 11:00pmOctober 2024 11:47amEtodolac 500 mg tablet Rtxkdbndtpfi848FZUQSwlfl morningJuly 2024 11:00pmOctober 2024 11:47amOn Hold: Resume on 03/01/25.Methylprednisolone (Medrol (Enoc)) 4 mg tablets,dose sfcoDdaiqbrwnclq8FVSXyr woodbvih65Nssuxdn 21st, 2025 11:00pmOctober 2024 8:48am Medical Equipment Device Date Implanted Date Explanted Device Deta ils Coated femoral stem prosthesis, modular February 22, 2025 JOSE: ()[id number] Issuing Agency: [facility] Device Id: [id number] Expiration Date: 2032-09-22 Lot Number: [id number] femoral stem prosthesis, modularOct2024 JOSE: ()[id number] Issuing Agency: [facility] Device Id: [id number] Expiration Date: 2032-11-15 Lot Number: [id number] femoral head prosthesisOctober 2024UDI: [id number] Issuing Agency: [facility] Device Id: [id number] Expiration Date: 2034-10-27 Lot Number: [id number] bone wireOctober 2024UDI: ()[id number] Issuing Agency: [facility] Device Id: [id number] Expiration Date: 2035-01-07 Lot Number: [id number] bone wireOctober 2024UDI: ()[id number] Issuing Agency: [facility] Device Id: [id number] Expiration Date: 2035-01-07 Lot Number: [id number] bone wireOctober 2024UDI: ()[id number] Issuing Agency: [facility] Device Id: [id number] Expiration Date: 2035-01-07 Lot Number: [id number] bone wireOctober 2024UDI: ()[id number] Issuing Agency: [facility] Device Id: [id number] Expiration Date: 2035-01-07 Lot Number: [id number] bone wireOctober 2024UDI: ()[id number] Issuing Agency: [facility] Device Id: [id number] Expiration Date: 2035-01-07 Lot Number: [id number] 30CC CRUSHEDOctober , ANCELLOUS 30CC CRUSHEDOctober , etabular shellOctober 2024UDI: ()[id number] Issuing Agency: [facility] Device Id: [id number] Expiration Date: 2033-05-14 Lot Number: [id number] bone screw, non-bioabsorbable, sterileOctober 2024UDI: ()[id number] Issuing Agency: [facility] Device Id: [id number] Expiration Date: 2034-05-31 Lot Number: [id number] bone screw, non-bioabsorbable, sterileOctober 2024UDI: ()[id number] Issuing Agency: [facility] Device Id: [id number] Expiration Date: 2034-09-14 Lot Number: [id number]-asudmcvqwqf polyethylene acetabular linerOctober 2024UDI: ()[id number] Issuing Agency: [facility] Device Id: [id number] Expiration Date: 2029-11-04 Lot Number: [id number] femoral head prosthesisOctober , 2024October 2024UDI: ()[id number] Issuing Agency: [facility] Device Id: [id number] Expiration Date: 2034-11-28 Lot Number: [id number] hip femur prosthesis, modularOctober , 2024October 2024UDI: ()[id number] Issuing Agency: [facility] Device Id: [id number] Expiration Date: 2029 Lot Number: [id number] Procedures Procedure Date Performed Status Urine Culture January 10, 2025 completed XR hip RT min 2V(w/wo pelvis)* February 21 8:02am completed NM natalee perf SPECT rest & str January 08 11:00pm completed XR hip RT min 2V(w/wo pelvis)* February 11 5:56pm completed XR hip RT min 2V(w/wo pelvis)* February 14 1:10pm completed Relevant Diagnostic Tests and/or Laboratory Data Laboratory Results Test Collection Date/Time Result Date/Time Result Interpretation Reference Range Result Comment Performing Site Corrected White Blood Count January 10, 2025 9:45am January 10, 2025 10:26am 9.2 10*3/uL 3.8-11.6[facility] [id number] [address] [place] [address]Dwbzzpsngbt WBC CountSeptember 2024 9:45amSeptember 2024 10:26am9.2 10*3/uL3.8-11.6F[facility] [id number] [address] [facility] [address]Bxv Blood CountSeptember 2024 9:45amSeptember 2024 10:26am4.67 10*6/uL3.60-5.00[facility] [id number] [address] [facility] [address]CcakcydtikCotyaeymv 2024 9:45amSeptember 2024 10:26am13.8 g/dL11.8-15.4FSub[facility] [id number] [address] [facility] [address]VntdyfbyziNegigcgwv 2024 9:45amSeptember 2024 10:26am41.7 %34.0-46.4FSub[facility] [id number] [address] [facility] [address]Elym Corpuscular VolumeSeptember 2024 9:45amSeptember 2024 10:26am89.4 yL82-168DwaxrazsuClinton Memorial [facility] [id number] [address] [facility] [address]Pcjq Corpuscular HemoglobinSeptember 2024 9:45amSeptember 2024 10:26am29.7 pg24.7-34.3FSub[facility] [id number] [address] [facility] [address]Omuz Corpuscular Hemoglobin ConcentSeptember 2024 9:45am Aleshia 2024 10:26am33.2 g/dL32.0-35.0[facility] [id number] [address] [facility] [address]Jdw Cell Distribution WidthSeptember 2024 9:45amSeptember 2024 10:26am13.4 %11.9-15.3FSub[facility] [id number] [address] [facility] [address]Lsajvval CountSeptember 2024 9:45amSeptember 2024 10:04qc926 10*3/wW232-387JuxgcpkveCl[facility] [id number] [address] [facility] [address]Uqti Platelet VolumeSeptember 2024 9:45amSeptember 2024 10:26am6.9 fL6.3-10.7FSub[facility] [id number] [address] [facility] [address]Xbtmnqzaumq (%) (Auto)January 10, 2025 9:45amSeptember 2024 10:26am64.5 %.[facility] [id number] [address] [facility] [address]Tfqtcpttews (%) (Auto)January 10, 2025 9:45amSeptember 2024 10:26am26.2 %.[facility] [id number] [address] [facility] [address]Gfmyajudt (%) (Auto)January 10, 2025 9:45amSeptember 2024 10:26am5.9 %.[facility] [id number] [address] [facility] [address]Ffzpkqwafkc (%) (Auto)January 10, 2025 9:45amSeptember 2024 10:26am2.2 %.[facility] [id number] [address] [facility] [address]Ibcrehquf (%) (Auto)January 10, 2025 9:45amSeptember 2024 10:26am1.2 %.[facility] [id number] [address] [facility] 32[address]Klmpyrmzz RBC Relative Count (auto)January 10, 2025 9:45am January 10, 2025 10:26am0.0 /100{WBC}0-0.5FSub[facility] [id number] [address] [facility] [address]Eyrwvyqfesn # (Auto)January 10, 2025 9:45amSeptember 2024 10:26am5.9 10*3/uL1.8-7.7FSub[facility] [id number] [address] [facility] [address]Skaapjdxgwz # (Auto)January 10, 2025 9:45amSeptember 2024 10:26am2.4 10*3/uL1.00-4.8[facility] [id number] [address] [facility] [address]Uswfpwcpj # (Auto)January 10, 2025 9:45amSeptember 2024 10:26am0.5 10*3/uL0.0-0.8[facility] [id number] [address] [facility] [address]Mllhvuwoigw # (Auto)January 10, 2025 9:45amSeptember 2024 10:26am0.2 10*3/uL0.0-0.45[facility] [id number] [address] [facility] [address]Ezshzlpwm # (Auto)January 10, 2025 9:45amSeptember 2024 10:26am0.1 10*3/uL0.0-0.2FSub[facility] [id number] [address] [facility] [address]Leyue ColorSeptember 2024 10:15amSeptember 2024 10:50amYellowYellowClinton Memorial Hospital Ctr [id number] [address] [facility] [address]Wkvum AppearanceSeptember 2024 10:15amSeptember 2024 10:50amCloudyAbnormal (applies to non-numeric results)ClearClinton [facility] [id number] [address] [facility] [address]Rbiqw Specific GravitySeptember 2024 10:15amSeptember 2024 10:50am1.0211.001-1.030[facility] [id number] [address] [facility] [address]Rdrni pHSeptember 2024 10:15amSeptember 2024 10:50am5.55.0-9.0[facility] [id number] [address] [facility] 16[address]Ohckc Leukocyte EsteraseSeptember 2024 10:15amSeptember 2024 10:50am4+Above high normalNegativeClinton Memorial Hospital [facility]tr [id number] [address] [facility] [address]Zhvhs NitriteSeptember 2024 10:15amSeptember 2024 10:50amPositiveAbove high normalNegativeClinton [facility] [id number] [address] [facility] [address]Gyleo ProteinSeptember 2024 10:15amSeptember 2024 10:50amNegative mg/dLNegativeClinton [facility] [id number] [address] [facility] [address]Gctsw Glucose (UA)January 10, 2025 10:15amSeptember 2024 10:50amNormal mg/dLNormalClinton Memorial Hospital Ctr [id number] [address] [facility] [address]Rxhse KetonesSeptember 2024 10:15amSeptember 2024 10:50amNegativeNegativeClinton Memorial Hospital [facility] [id number] [address] [facility] [address]Apeaz UrobilinogenSeptember 2024 10:15amSeptember 2024 10:50amNormal mg/dLNormHocking [facility] [id number] [address] [facility] [address]Xtpyw BilirubinSeptember 2024 10:15amSeptember 2024 10:50am2+Above high normalNegOur [facility] [id number] [address] [facility] [address]Bjfmu Occult BloodSeptember 2024 10:15amSeptember 2024 10:50amNegativeNegativeClinton Memorial Hospital [facility] [id number] [address] [facility] [address]Mkuuy RBCSeptember 2024 10:15amSeptember 2024 10:78qy6-4 [HPF]0-[facility] [id number] [address] [facility] [address]Zobgn WBCSeptember 2024 10:15amSeptember 2024 10:67ad72-441 [HPF]Above high normal0-4FSub[facility] [id number] [address] [facility] [address]Wkree WBC ClumpsSeptember 2024 10:15amSeptember 2024 10:50amMany [LPF]Above high normalNone [facility] [id number] [address] [facility] [address]Petey Squamous Epithelial CellsSeptember 2024 10:15am Aleshia 2024 10:39ol3-0 [HPF]Above high normal0-2F[facility] [id number] [address] [facility] [address]Hpfjy BacteriaSeptember 2024 10:15amSeptember 2024 10:50am4+ [HPF]Above high normalNone [facility] [id number] [address] [facility] [address]Vfrhx Hyaline CastsSeptember 2024 10:15amSeptember 2024 10:81tt2-6 [LPF]0-8[facility] [id number] [address] [facility] [address]Fwzoa MucusSeptember 2024 10:15amSeptember 2024 10:50amRare [LPF][facility] [id number] [address] [facility] 18396Pruwnrs LevelSeptember 2024 9:45amSeptember 2024 11:12am96 mg/nL87-171EMQ recommended reference rangeRandom Glucose Reference Range is dependent on time and content of last meal. Glucose of more than 200 mg/dL in a nonstressed, ambulatory subject supports the diagnosisof Diabetes Mellitus.[facility] [id number] [address] [facility] [address]Btacm Urea NitrogenSeptember 2024 9:45amSeptember 2024 11:12am25 mg/dL7-25[facility] [id number] [address] [facility] [address]87[address]RpfdthwlrvVninpdyfy 2024 9:45amSeptember 2024 11:12am0.92 mg/dL0.60-1.20[facility] [id number] [address] [facility] [address]246Vgaetvayp GFR (CKD-EPI)January 10, 2025 9:45amSeptember 2024 11:12am> 60.0 mL/MinClinton Memorial Hospital Ctr [id number] [address] [facility] [address]Pcxyqq LevelSeptember 2024 9:45amSeptember 2024 11:41rw350 mmol/V804-620OwklnjskmClinton Memorial Hospital Ctr [id number] [address] [facility] 318[address]Xgdgxdfju LevelSeptember 2024 9:45amSeptember 2024 11:12am4.4 mmol/L3.5-5.1FSuburban Community Hospital & [facility] [id number] [address] [facility] [address]Ntxbthdd LevelSeptember 2024 9:45amSeptember 2024 11:45yt039 mmol/J38-456AtesedfesClinton Memorial Hospital Ctr [id number] [address] [facility] [address]003Pqptfu Dioxide LevelSeptember 2024 9:45amSeptember 2024 11:12am25.9 mmol/L21.0-31.0[facility] [id number] [address] [facility] [address]31Qdzyo GapSeptember 2024 9:45amSeptember 2024 11:12am13.5 mEq/L6.0-15.0[facility] [id number] [address] [facility] 19957Usqqvzf LevelSeptember 2024 9:45amSeptember 2024 11:12am9.9 mg/dL8.6-10.3FSub[facility] & [facility] [id number] [address] [facility] [address]444Umpfzpbg Creatinine Clearance (ChemSeptember 2024 9:45am January 10, 2025 11:12amN/AFSuburban Community Hospital & [facility] [id number] [address] [facility] 24887NbppylieliydYqmpixoio 2024 9:45amSeptember 2024 3:62rf346 umol/L0-285Published reference interval for apparently healthysubjects between age 20 and 60 is 205 - 285 umol/L and in apoorly controlled diabetic population is 228 - 563 umol/Lwith a mean of 396 umol/L.Performed at: - [facility] [id number] Director: Kasi Loera PhD, Phone: [phone] Microbiology Results Procedure Source Result Collection Date/Time Result Date/Time Result Comment Performing Site Urine Culture Urine, Clean-Voided Midstream Escherichia coli January 10, 2025 11:15am January 12, 2025 9:26am [facility] [id number] [address] [place], [place] [address] Diagnostic Imaging Reports Author Opal Cook [facility] HospitalAuthoredSeptember 2024 6:59pmReport Dictated Date/TimeDictated ByStatusRadiology ReportSeptember 2024 6:59pm Anastasia Connor MD [facility] [place] [address] [place] [address] Nuclear Medicine Report Signed Patient: Kristy Ashraf MR#: [id number] : 1940 Acct:[id number] Age/Sex: 84 / F ADM Date: 5 Loc: Room: Type: [facility] Attending Dr: Reinaldo Linton MD Copies to: Opal Cook MD, [facility] Reinaldo Linton MD~ Ordering Provider: Reinaldo Linton MD Date of Service: 01/09/25 NM/NM natalee perf SPECT rest & str: chest pain Lexiscan Cardiolite Stress Test ORDERED BY: Dr. Reinaldo Linton. INDICATION: An 85-year-old patient with chest pain. Resting images were obtained after intravenous administration of 25.8 mCi of Cardiolite given on 01/10/2025, and stress images were obtained after intravenous administration of 29 mCi of Cardiolite given after Lexiscan administration on 01/09/2025. Subsequently, gated SPECT MPI was obtained. TOMOGRAPHIC DATA: The study is normal and demonstrated homogeneous tracer uptake. The gated study is normal and demonstrated normal ejection fraction at 62% with normal TID at 1.22. CONCLUSION: 1. Normal Lexiscan Cardiolite SPECT MPI. 2. No tomographic evidence of ischemia or prior myocardial infarction. 3. Normal left ventricular volume and wall motion. Ejection fraction 62% with normal TID at 1.22. No previous studies are available for comparison. Transcribed By: JULIAN 01/11/25 2519 Dictated By: Opal Cook MD, [facility] 01/11/25 7969 Signed By: <Electronically signed by [facility] Opal Cook> 01/12/25 0850 Author Fermín Lozoya [facility] HospitalAuthoredOcttristar [facility] 2024 8:29amReportDictated Date/TimeDictated ByStatusRadiology ReportOctober 2024 8:29amMamilton Lozoya II MDcompSuburban [facility] [place] [address] [place] [address] XRay Report Signed Patient: Kristy Ashraf MR#: [id number] : 1940 Acct:[id number] Age/Sex: 84 / F ADM Date: 5 Loc: ER Room: Type: [facility] ER Attending Dr: Copies to: Lui Bruner MD~ Ordering Provider: Lui Bruner MD Date of Service: 02/11/25 XR/XR hip RT min 2V(w/wo pelvis)*: Extremity Injury, Lower XR hip RT min 2V(w/wo pelvis)* 02/11/2025 7:22 PM SIGNS AND SYMPTOMS: Right hip and groin pain PROTOCOL: Frontal radiograph of the pelvis with frontal and crosstable lateral views of the right hip COMPARISON: 01/29/2025 FINDINGS: Total hip arthroplasty hardware is present bilaterally. No evidence of fracture or dislocation. Postoperative subcutaneous emphysema is noted lateral to the greater trochanter. Degenerative changes are noted in the lumbar spine. XR/XR hip RT min 2V(w/wo pelvis)* IMPRESSION: Uncomplicated total hip arthroplasty hardware bilaterally. Subcutaneous emphysema is noted adjacent to the greater trochanter of the right hip which may be postoperative. No underlying infectious etiology is not excluded. Impression dictated by: Fermín Lozoya M.D. 02/12/2025 8:30 AM Dictation Location: RADIO-PC-23 Transcribed By: OG 02/12/25829 Dictated By: Fermín Lozoya II, MD 02/12/25828 Signed By: <Electronically signed by Fermín Lozoya II, MD in OV> 02/12/25829 Author Fermín Lozoya [facility] HospitalAuthosutter medical center, sacramentoOcttristar [facility] 2024 9:09pmReportDictated Date/TimeDictated ByStatusRadiology ReportOctober 2024 9:09pmFermín Lozoya II [facility] [address] [place] [address] XRay Report Signed Patient: Kristy Ashraf MR#: [id number] : 1940 Acct:[id number] Age/Sex: 84 / F ADM Date: 5 [place] [facility] [place]: Type: [facility] Attending Dr: Deepak Marshall II, MD Copies to: Deepak Marshall MD~ Ordering Provider: Deepak Marshall MD Date of Service: 02/14/25 XR/XR hip RT min 2V(w/wo pelvis)*: standing XR hip RT min 2V(w/wo pelvis)* 02/14/2025 3:11 PM SIGNS AND SYMPTOMS: Total hip arthroplasty hardware PROTOCOL: Frontal radiograph of the pelvis with crosstable lateral view of the right hip COMPARISON: 02/11/2025 FINDINGS: Total hip arthroplasty hardware is redemonstrated without change in alignment or hardware complication. There is no fracture or dislocation. Postoperative subcutaneous emphysema is noted along the soft tissues lateral to the right hip. XR/XR hip RT min 2V(w/wo pelvis)* IMPRESSION: Uncomplicated total right hip arthroplasty. Impression dictated by: Fermín Lozoya M.D. 02/14/2025 9:09 PM Dictation Location: RADIO-PC-17 Transcribed By: OG 02/14/252108 Dictated By: Fermín Lozoya II, MD 02/14/252108 Signed By: <Electronically signed by Fermín Lozoya II, MD in [place]> 02/14/252108 Author Sharron Valentine [facility] HospitalOcttristar [facility] 2024 10:26amReport Dictated Date/TimeDictated ByStatusRadiology ReportOctober 2024 10:26am June [facility] centerjyotsnaC[facility] [address] [place] [address] XRay Report Signed Patient: Kristy Ashraf MR#: [id number] : 1940 Acct:[id number] Age/Sex: 84 / F ADM Date: 5 [place] [facility] [place]: Type: [facility] Attending Dr: Deepak Marshall II, MD Copies to: Deepak Marshall MD~ Ordering Provider: Deepak Marshall MD Date of Service: 02/21/25 XR/XR hip RT min 2V(w/wo pelvis)*: Z47.1 - Aftercare following joint replacement surgery AP WEIGHTBEARING PELVIS AND RIGHT HIP - 2 views: CLINICAL HISTORY: Follow-up hip replacement COMPARISON: 02/12/2025 AP weightbearing view the pelvis and crosstable lateral view of the right hip were obtained. Patient has bilateral hip prostheses. There is no new periprosthetic fracture at the proximal right femur with mild telescoping of the femoral component down the shaft. The left hip prosthesis is stable. There is also a partially imaged plate at the left femoral shaft. An old left inferior pubic ramus fracture is seen. There is no dislocation. The SI joints are intact. Degenerative changes visualized at the lower imaged lumbar spine. There are no significant soft tissue abnormalities. XR/XR hip RT min 2V(w/wo pelvis)* IMPRESSION: NEW RIGHT PERIPROSTHETIC FEMUR FRACTURE. Impression dictated by: Sharron Valentine M.D. 02/21/2025 10:31 AM Dictation Location: [place] [address] Transcribed By: [facility] 02/21/25 1031 Dictated By: Sharron Valentine MD 02/21/25 1026 Signed By: <Electronically signed by MD Sharron Valentine in [place]> 02/21/25 1031 Vital Signs Vital Reading Result Reference Range Collection Date/Time Heart Rate 85 /min 60-100 January 09, 2025 10:24am BP Systolic 167 mm[Hg] 100-140 January 09, 2025 10:24am BP Diastolic 74 mm[Hg] 60-100 January 09, 2025 10:24am Height 60 [in_i] January 18, 2025 11:84wbTmqycw23.82 kgSeptember 2024 11:07amBP Yvqoifzw260 mm[Hg]100-140September 2024 11:42amBP Recfrkxhd50 mm[Hg]60-100 January 18, 2025 11:42amBMI (Body Mass Index)36.5 kg/x6Ntogojuog 2024 11:40jwGnbiul75 [in_i]January 29, 2025 5:34mfSgipaw28.70 kgOctober 2024 5:00amBody Eitvmirnvjz67.3 [degF]97.6-99.0January 30, 2025 3:00amHeart Rate89 /otp81-988Djdgrdw 2024 11:32amRespiratory rate16 /ywq55-97Gksslhz 2024 11:32amOxygen saturation by Pulse yostyahe97 %95-100January 30, 2025 11:32amBP Xvixcuhl020 mm[Hg]100-140January 30, 2025 11:32amBP Nzzsuavvp52 mm[Hg]60-100 January 30, 2025 11:32amInhaled oxygen flow rate2 L/minOctober 2024 11:59chNybblh55 [in_i]January 31, 2025 11:31inOxsanf37.00 kgOctober 2024 5:00amBody Fctoiehufth27.7 [degF]97.6-99.0October 2024 12:58pmHeart Rate79 /zwb11-348Rfgrwdr 2024 12:58pmRespiratory rate18 /tis41-79Hrgoumu 2024 12:58pmOxygen saturation by Pulse %95-100October 2024 12:58pmBP Olzwammb260 mm[Hg]100-140February 04, 2025 12:58pmBP Dobbtyrbt98 mm[Hg]60-100February 04, 2025 12:45xxOkdqcp26 [in_i]February 11, 2025 3:17pm Jvsvcl40.00 kgOctober 2024 3:17pmBody Nplltvqcjlq29.1 [degF]97.6-99.0 February 11, 2025 5:35pmHeart Rate73 /sxf10-416Thiphvh 2024 5:35pm Respiratory rate18 /uhf45-69Wgshulg 2024 5:35pmOxygen saturation by Pulse qzbdypnt542 %95-100[facility] 2024 5:35pmBP Evksnydf785 mm[Hg]100-140[facility] 2024 5:35pmBP Penrhzxvx92 mm[Hg]60-100[facility] 2024 5:05ntTumtwc61 [in_i]February 22, 2025 12:15jbAysqlb95.60 [facility] 2024 5:00amBody Jtyqvzslyag90.0 [degF]97.6-99.0[facility] 2024 2:32pmHeart Rate99 /tos32-890 February 23, 2025 2:32pmRespiratory rate18 /pds31-20Ozumgce 2024 2:32pm Oxygen saturation by Pulse bksunsqj58 %95-100[facility] 2024 2:32pmBP Idoazfle408 mm[Hg]100-140[facility] 2024 2:32pmBP Ryfbkppql56 mm[Hg]60-100 February 23, 2025 2:32pmInhaled oxygen flow rate1 L/minUp Health System 2024 3:16kxGavojb87 [in_i]March 01, 2025 12:89ulQwhxjm01.20 [facility] 2024 6:22amBody Tjkawpukhph24.4 [degF]97.6-99.0[facility] 2024 2:00pmHeart Rate 119 /yur57-240Dnuefdul 2024 2:00pmRespiratory rate18 /fsc90-73Tizpozkl 12th, 2025 2:00pmOxygen saturation by Pulse qovmttde39 %95-100[facility]2024 2:00pmBP Mitpbfai126 mm[Hg]100-140[facility] 2024 2:00pmBP Dzceircog62 mm[Hg]60-100[facility]2024 2:00pmInhaled oxygen flow rate1 L/minOhio County Hospital 2024 5:48am Advance Directives Advance Directive Response Recorded Date/ Time Advance Directives No December 4:01pm Insurance Providers Guarantor Kristy Fox Ashraf Address [address] [place] [address]Pzwev[employer] Info.Home Phone: Coverage Status Update:2025 Payer Group Member ID Coverage Type Subscriber Relationship to Subscriber Effective Date Expiration Date Medicare [id number] Ruddy Ashraf Id: [id number] [address] [place] [address] Home Phone: Email: [email or web address] Rehab-IP Part A [id number] Ruddy Ashraf Id: [id number] [address] [place] [address] Home Phone: Email: [email or web address] [place] [address] Work Phone: [phone] A Ashraf Id: [id number] [address] [place] [address] Home Phone: Email: [email or web address] Encounters Encounter Location(s) Arrival/Admit Date Discharge/Departure Date Discharge/Departure Disposition Provider(s) Departed Clinical -Electrodiag nostics January 09, 2025 10:37am January 09, 2025 10:38am Discharged to home care or self care (routine discharge) Reinaldo Linton MD Departed Clinical -Pre-Surgica l Testing January 10, 2025 9:58am January 10, 2025 9:59am Discharged to home care or self care (routine discharge) Anastasia Oh MD Registered Recurring -Physical Therapy [place] Dec 11:02am Anastasia Oh MDDeparted Physician/Provider [facility] 11:55amSeptember 2024 1:02pmDischarged to home care or self care (routine discharge)Anastasia Oh MDDeparted Physician/Provider [facility] 20[facility] 6:00amSeptember 2024 11:59pmDischarged to home care or self care (routine discharge)Anastasia Oh-patient / Wls-noxqj-Dwufcvesj [facility]October 2024 10:48amGarcía Stroud-patient / Qzx-nbfiv-Himzaefvt [facility]October 2024 4:21pmElenMONA Lynnon-patient / Rnq-eeqbn-Ucqfpqxqa [facility]ineOctober 2024 12:00amMeghan Courtneyarted Emergency-Emergency RoomOctober 2024 4:06pmOctober 2024 8:09pmDischarged to home care or self care (routine discharge)[facility]ed [facility] February 14, 2025 1:43pmOctober 2024 2:33pmDischarged to home care or self care (routine discharge)Anastasia Oh MDDeparted Clinical-[facility] [place] [facility] 2024 2:10pmOctober 2024 2:11pmDischarged to home care or self care (routine discharge)Anastasia Oh MDDeparted Physician/Provider [facility] 2024 8:56amOctober 2024 10:35amDischarged to home care or self care (routine discharge)Anastasia Oh MDDeparted Clinical-[facility]Ray [facility] 2024 9:01amOctober 2024 9:02amDischarged to home care or self care (routine discharge)Anastasia Oh-patient / Uep-itdlz-Rhmzboqew [facility]October 2024 10:54amBraydon Courtney-patient / Muz-xlemm-Gwhfgprgb [facility]ineOctober 2024 6:47pmGarcía Stroud-patient / Rij-hswob-Kfdxmllwj [facility] 2024 12:00amAnastasia Oh-patient / Src-fihyb-Azwxyfdxh [facility] 2024 12:00amAlli Nunes MD Recent Diagnosis Onset Date Admit Date Primary osteoarthritis of right hip Unknown January 18, 2025 11:55am Other nursing home (current) drug therapy Unknown January 29, 2025 10:48am Status post total replacement of right hip Unkno wn January 29, 2025 10:48am Primary osteoarthritis of right hip Unknown January 29, 2025 10:48am Age-related osteoporosis wit hout current pathological fracture Unknown January 30, 2025 4:21pm Class 2 obesity with body ma ss index (BMI) of 37.0 to 37.9 in adult Unknown January 30, 2025 4:21pm Hyperlipidemia Unknown January 30 4:21pm Hypertension Unknown January 30 4:21pm Impaired mobility and activi ties of daily living Unknown January 30, 2025 4:21pm Postoperative anemia Unknown January 4:21pm Status post total replacement of right hip Unkno wn January 30, 2025 4:21pm Primary osteoarthritis of right hip Unknown January 30, 2025 4:21pm Aftercare following right hi p joint replacement surgery Unknown February 14, 2025 1:43pm Aftercare following right hi p joint replacement surgery Unknown February 21, 2025 8:56am Periprosthetic fracture arou nd internal prosthetic right hip joint Unknown February 21, 2025 8:56am Status post total replacement of right hip Unkno wn February 21, 2025 8:56am Aftercare following right hi p joint replacement surgery Unknown February 21, 2025 10:54am Age-related osteoporosis wit hout current pathological fracture Unknown February 21, 2025 10:54am Class 2 obesity with body ma ss index (BMI) of 37.0 to 37.9 in adult Unknown February 21, 2025 10:54am Impaired mobility and activi ties of daily living Unknown February 21, 2025 10:54am Postoperative anemia Unknown January 10:54am Periprosthetic fracture arou nd internal prosthetic right hip joint Unknown February 21, 2025 10:54am Status post total replacement of right hip Unkno wn February 21, 2025 10:54am Primary osteoarthritis of right hip Unknown February 21, 2025 10:54am Age-related osteoporosis wit hout current pathological fracture Unknown February 23, 2025 6:47pm Class 2 obesity with body ma ss index (BMI) of 37.0 to 37.9 in adult Unknown February 23, 2025 6:47pm Hyperlipidemia Unknown February 23 6:47pm Hypertension Unknown February 23 6:47pm Impaired mobility and activi ties of daily living Unknown February 23, 2025 6:47pm Pain Unknown February 23 6:47pm Postoperative anemia Unknown January 6:47pm Periprosthetic fracture arou nd internal prosthetic right hip joint Unknown February 23, 2025 6:47pm Status post total replacement of right hip Unkno wn February 23, 2025 6:47pm Assessments Diagnosis Onset Date Resolution Status Admit Date Primary osteoarthritis of right hip deletedSept2024 11:55am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acute January 29, 2025 10:48amStatus post total replacement of right hipinactive January 29, 2025 10:48amPrimary osteoarthritis of right hipdeletedOct2024 10:48amAge-related osteoporosis without current pathological fractureacute January 30, 2025 4:21pmClass 2 obesity with body mass index (BMI) of 37.0 to 37.9 in adultacuteOctober 2024 4:21pmHyperlipidemiaacuteOctober 2024 4:21pmHypertensionacuteOctober 2024 4:21pmImpaired mobility and activities of daily livingacuteOctober 2024 4:21pmPostoperative anemiaacuteOctober 2024 4:21pmStatus post total replacement of right hipinactiveOctober 2024 4:21pmPrimary osteoarthritis of right hipdeletedOctober 2024 4:21pm Aftercare following right hip joint replacement surgeryacuteOctober 2024 1:43pmAftercare following right hip joint replacement surgeryacuteOctober 2024 8:56amPeriprosthetic fracture around internal prosthetic right hip joint inactiveOctober 2024 8:56amStatus post total replacement of right hip inactiveOctober 2024 8:56amAftercare following right hip joint replacement surgeryacuteOctober 2024 10:54amAge-related osteoporosis without current pathological fractureacuteOctober 2024 10:54amClass 2 obesity with body mass index (BMI) of 37.0 to 37.9 in adultacuteOctober 2024 10:54amImpaired mobility and activities of daily livingacuteOctober 2024 10:54am Postoperative anemiaacuteOctober 2024 10:54amPeriprosthetic fracture around internal prosthetic right hip jointinactiveOctober 2024 10:54am Status post total replacement of right hipinactiveOctober 2024 10:54am Primary osteoarthritis of right hipdeletedOctober 2024 10:54amAge-related osteoporosis without current pathological fractureacuteOctober 2024 6:47pm Class 2 obesity with body mass index (BMI) of 37.0 to 37.9 in adultacuteOctober 2024 6:47pmHyperlipidemiaacuteOctober 2024 6:47pmHypertensionacute February 23, 2025 6:47pmImpaired mobility and activities of daily livingacute February 23, 2025 6:47pmPainacuteOctober 2024 6:47pmPostoperative anemia acuteOctober 2024 6:47pmPeriprosthetic fracture around internal prosthetic right hip jointinactiveOctober 2024 6:47pmStatus post total replacement of right hipinactiveOctober 2024 6:47pm Plan of Treatment Future Tests Future scheduled test information is unavailable Pending Tests Pending diagnostic test information is unavailable Future Visits Future appointment information is unavailable Future Procedures Procedure Name Ordered Date Scheduled Date Admit Status Order January 29, 2025 6:28am Octo 2024 4:55pm Consult to Adult Hospitalist January 29, 2025 6 :28am January 29, 2025 4:55pm Discharge Order January 30, 2025 1:05pm January 30, 2025 1:05pm Consult to Physiatry January 29, 2025 6:28am Oc tober 2024 4:55pm Initiate Home Health February 01, 2025 11:56am Admit Status OrderOctober 2024 3:22pmOctober 2024 3:24pmConsult to Adult HospitalistOctober 2024 3:22pmOctober 2024 3:24pmDischarge Order February 02, 2025 11:47amOctober 2024 11:47amDiet SupplementOctober 2024 6:58pmOctober 2024 6:58pmAdmit Status OrderOctober 2024 6:54pm February 22, 2025 6:55pmDischarge OrderOctober 2024 4:20pmOctober 2024 4:20pmConsult to PhysiatryOctober 2024 6:54pmOctober 2024 6:56pmInit[facility] 2024 12:14pmDME Home Medical Equipment March 02, 2025 12:13pmDiet SupplementOctober 2024 6:24pmOctober 2024 6:24pmAdmit Status OrderOctober 2024 6:10pmOctober 2024 6:10pm Consult to Adult HospitalistOcttristar [facility] 2024 6:10pmOctober 2024 6:10pm Discharge [facility] 2024 12:11pmNovember 2024 12:11pm Future Medications Future medication information is unavailable Patient Instructions Instruction Admit Date 3M Prevana Plus 125 Therapy January 29, 2025 10:48am 3M Prevana Plus 125 Therapy Know your MedsOctober 2024 4:21pmHip pain in adults Leg Muscle Strain EDOctober 2024 4:06pm3M Prevana Plus 125 TherapyOctober 2024 10:54amKnow your MedsOctober 2024 6:47pm
--- OUTSIDE RECORDS SUMMARY | 2025-03-12 14:38 | XMS_ITS | Continuity of Care Document ---
Author Organization [facility] Address [address] [place] [address] Phone Care Team Providers Care Marble Mechanic Helper Name Role Phone Elbert Clifford MD Other Provider Reinaldo Linton MD Attending Provider Reinaldo Linton MD Referring Provider Mehnaz Cooney RESEARCH ASSOCIATE MOLECULAR BIOLOGY-C Primary Care Provider Deepak Marshall II, MD Attending Provider NO FAMILY, PHYSICIAN Primary Care Provider Unava ilable Deepak Marshall II, MD Other Provider Merlene Wiley RN Other Provider Unavailable Misty Merino RN Other Provider Unavailable Helen De La Cruz RN Other Provider Unavailable Nicole Ball RN Other Provider Unavailable Liliana Costello RN Other Provider Unavailable Monse Nunes RN Other Provider Unavailable Maame Renee MD Other Provider [phone] Gianna Veloz DO Other Provider Ismael Merchant MD Other Provider [phone] Jose Garcia DO Other Provider Yovanny Boss MD Other Provider Clarisa Omer MD Other Provider Steve Valdez DO Other Provider Unavailab Paxton Guerrero MD Other Provider Unavailable Zak[place], Fela SAMPLING THEORY TEACHER Other Provider [phone] Lydia Shipley MD Other Provider Gail Gutiérrez MD Other Provider Unavailable Jennifer Rodriguez MD Other Provider Steve Gutierrez DO Other Provider Darell Nobles MD Other Provider Nic Garcia MD Other Provider Annika Espinal RESEARCH ASSOCIATE MOLECULAR BIOLOGY-C Other Provider Chaya Muñoz SAMPLING THEORY TEACHER Other Provider Unavailable Ashkan Mcbride MD Other Provider Ashwin Gamboa MD Other Provider Shamika Jaimes MD Other Provider Unavailable Warren Novoa DO Other Provider Smiley Nance APRN Other Provider Dennis Rao DO Other Provider Zelda Bejarano MD Other Provider Cat Bruner SAMPLING THEORY TEACHER Other Provider [phone] Luzmaria Caceres SAMPLING THEORY TEACHER Other Provider Noemi Luke MD Other Provider Unavailable Uli Robertson MD Other Provider [phone] Gris Nunez DO Other Provider [phone] Jerry Tellez MD Other Provider Yvonne Osborne MD Other Provider Shirley Greene APRN Other Provider Unavailable Rommel Hoyos MD Other Provider Alli Campos MD Other Provider Paxton Gonsalves MD Other Provider Brenton Rouse MD Other Provider Marta Fried APRN Other Provider Sveta Cerrato SAMPLING THEORY TEACHER Other Provider Eliza Bojorquez MD Other Provider Tina Wang RN Other Provider Unavailable Alli Nunes MD Other Provider Ildefonso Lawrence MD Attending Provider Alli Nnues MD Admit Provider Candace Potter APRN Attending Provider [phone] Alli Nunes MD Attending Provider NON STAFF Primary Care Provider Lui Reeder MD Emergency Provider Deepak Marshall II, MD Admit Provider Care Teams Patient Care Team Team Status: Active Member Role/Relationship Status Dates Mehnaz Cooney RESEARCH ASSOCIATE MOLECULAR BIOLOGY-C Primary Care Provider Active Visit Care Team Team Status: Inactive Member Role/Relationship Status Dates Elbert Clifford MD Other Provider Active Start: January 09, 2025 End: January 09, 2025Mahmoud Othman , MDAttending ProviderActiveStart: January 09, 2025 End: January 09, 2025Mahmoud Othman , MDReferring ProviderActiveStart: January 09, 2025 End: January 09, 2025Jocordelia Cooney RESEARCH ASSOCIATE MOLECULAR BIOLOGY-CPrimary Care ProviderActive Start: January 09, 2025 End: January 09, 2025 Visit Care Team Team Status: Inactive Member Role/Relationship Status Dates Deepak Marshall II, MD Attending Provider Active Start: January 10, 2025 End: January 10, 2025Mehnaz Cooney RESEARCH ASSOCIATE MOLECULAR BIOLOGY-CPrimary Care ProviderActive Start: January 10, 2025 End: January 10, 2025 Visit Care Team Team Status: Active Member Role/Relationship Status Dates Deepak Marshall II, MD Attending Provider Active Start: January 18, 2025 Mehnaz Cooney RESEARCH ASSOCIATE MOLECULAR BIOLOGY-CPrimary Care ProviderActiveStart: January 18, 2025 Visit Care [...] Start: January 19, 2025 End: January 19, 2025RobApolonia Cervantes II ProviderActiveStart: January 19, 2025 End: January [...] Cruz , ANTONIOOther ProviderActiveStart: January 29, 2025 Nicoel Ball , ANTONIOOther ProviderActiveStart: January 29, 2025 Liliana Costello , ANTONIOOther ProviderActiveStart: January 29, 2025 Monse Nunes , ANTONIOOther ProviderActiveStart: January 29, 2025 Maame Renee MDOther ProviderActiveStart: January 29, 2025 Gianna Veloz , DOOther ProviderActiveStart: January 29, 2025 Ismael Merchant MDOther ProviderActiveStart: January 29, 2025 Jose Garcia , DOOther ProviderActiveStart: January 29, 2025 Yovanny Boss [...] ProviderActiveStart: January 29, 2025 Annika Espinal , RESEARCH ASSOCIATE MOLECULAR BIOLOGY-COther ProviderActiveStart: January 29, 2025 Chaya Muñoz , [...] Zelda Bejarano MDOther ProviderActiveStart: January 29, 2025 Cat Bruner , APRNOther ProviderActiveStart: January 29, 2025 [...] ProviderActiveStart: January 29, 2025 Tina Wang , ANTONOIOther ProviderActiveStart: January 29, 2025 Alli Nunes MDOther ProviderActiveStart: January 29, 2025 Ildefonso Lawrence MDAttending ProviderActiveStart: January 29, 2025 Visit Care Team Team Status: Active Member Role/Relationship Status Dates PHYSICIAN NO FAMILY Primary Care Provider Active Start: January 30, 2025 Sade Courtneyit ProviderActiveStart: January 30, 2025 Alli Nunes MDOther [...] MDOther ProviderActiveStart: January 30, 2025 Jose Garcia DOOther ProviderActiveStart: January 30, 2025 Yovanny Boss [...] ProviderActiveStart: January 30, 2025 Annika Espinal , RESEARCH ASSOCIATE MOLECULAR BIOLOGY-COther ProviderActiveStart: January 30, 2025 Chaya Muñoz , [...] Noemi Luke MDOther ProviderActiveStart: January 30, 2025 Uli Robertson MDOther ProviderActiveStart: January 30, 2025 Gris [...] APRNOther ProviderActiveStart: January 30, 2025 Sveta Cerrato APRNOther ProviderActiveStart: January 30, 2025 Eliza Bojorquez [...] Nic Garcia MDOther ProviderActiveStart: February 06, 2025 Annkia J [place] , RESEARCH ASSOCIATE MOLECULAR BIOLOGY-COther ProviderActiveStart: February 06, 2025 Chaya Muñoz , [...] 11, 2025 End: February 11, 2025Lui Bruner MDEmerchicot memorial [facility] centercy ProviderActiveStart: February 11, 2025 End: [...] 2025 End: February 21, 2025Jocordelia Cooney , RESEARCH ASSOCIATE MOLECULAR BIOLOGY-CPrimary Care ProviderActiveStart: February 21, 2025 End: February 21, 2025 Visit Care Team Team Status: Inactive Member Role/Relationship Status Dates Deepak Marshall II, MD Attending Provider Active Start: February 21, 2025 End: February 21, 2025Jocordelia Cooney , RESEARCH ASSOCIATE MOLECULAR BIOLOGY-CPrimary Care ProviderActiveStart: February 21, 2025 End: February 21, 2025 Visit Care Team Team Status: Active Member Role/Relationship Status Dates Mehnaz Cooney , RESEARCH ASSOCIATE MOLECULAR BIOLOGY-C Primary Care Provider Active Start: February 21, 2025 Patience Saldivar II ProviderActiveStart: February 21, 2025 Deepak Marshall II, MDOther ProviderActiveStart: February 21, 2025 Apolonia Courtney ProviderActiveStart: February 21, 2025 Alli Nunes MDOther ProviderActiveStart: February 21, 2025 Misty Merino , ANTONIOOther ProviderActiveStart: February 21, 2025 Helen De La Cruz , ANTONIOOther ProviderActiveStart: February 21, 2025 Nicole Ball RNOther ProviderActiveStart: February 21, 2025 Liliana Costello RNOther ProviderActiveStart: February 21, 2025 Monse Nunes RNOther ProviderActiveStart: February 21, 2025 Maame Renee MDOther ProviderActiveStart: February 21, 2025 Gianna Veloz , DOOther ProviderActiveStart: February 21, 2025 Ismael Merchant MDOther ProviderActiveStart: February 21, 2025 Jose Garcia , DOOther ProviderActiveStart: February 21, 2025 Yovanny Boss MDOther ProviderActiveStart: February 21, 2025 Clarisa Omer MDOther ProviderActiveStart: February 21, 2025 Steve Valdez DOOther ProviderActiveStart: February 21, 2025 Paxton Parker [...] ProviderActiveStart: February 21, 2025 Annika Espinal , RESEARCH ASSOCIATE MOLECULAR BIOLOGY-COther ProviderActiveStart: February 21, 2025 Chaya Muñoz , APRNOther ProviderActiveStart: February 21, 2025 Ashkan Mcbride MDOther ProviderActiveStart: February 21, 2025 Ashwin Gamboa MDOther ProviderActiveStart: February 21, 2025 Shamika Jaimes MDOther ProviderActiveStart: February 21, 2025 Warren Novoa , DOOther ProviderActiveStart: February 21, 2025 Smiley Nance APRNOther ProviderActiveStart: February 21, 2025 Dennis Rao [...] Active Member Role/Relationship Status Dates Mehnaz Cooney RESEARCH ASSOCIATE MOLECULAR BIOLOGY-C Primary Care Provider Active Start: February 23, 2025 Patience Courtney ProviderActiveStart: February 23, 2025 Alli Nunes MDOther ProviderActiveStart: February 23, 2025 Merlene Wiley RNOther ProviderActiveStart: February 23, 2025 Misty Merino , ANTONIOOther ProviderActiveStart: February 23, 2025 Helen De La Cruz , ANTONIOOther ProviderActiveStart: February 23, 2025 Nicole Ball , ANTONIOOther ProviderActiveStart: February 23, 2025 Liliana Costello RNOther ProviderActiveStart: February 23, 2025 Monse Nunes , ANTONIOOther ProviderActiveStart: February 23, 2025 Maame Renee MDOther [...] ProviderActiveStart: February 23, 2025 Annika Espinal , RESEARCH ASSOCIATE MOLECULAR BIOLOGY-COther ProviderActiveStart: February 23, 2025 Chaya Muñoz , APRNOther ProviderActiveStart: February 23, 2025 Ashkan Mcbride MDOther ProviderActiveStart: February 23, 2025 Ashwin Gamboa MDOther ProviderActiveStart: February 23, 2025 Shamika Jaimes MDOther ProviderActiveStart: February 23, 2025 Warren Novoa , DOOther ProviderActiveStart: February 23, 2025 Smiley Nance , APRNOther ProviderActiveStart: February 23, 2025 Dennis Rao , DOOther ProviderActiveStart: February 23, 2025 Zelda Bejarano MDOther ProviderActiveStart: February 23, 2025 Cat Bruner , APRNOther ProviderActiveStart: February 23, 2025 Luzmaria Caceres , APRNOther ProviderActiveStart: February 23, 2025 Noemi Luke MDOther ProviderActiveStart: February 23, 2025 Uli Robertson MDOther ProviderActiveStart: February 23, 2025 Katiefaisal Greensein , DOOther ProviderActiveStart: February 23, 2025 Jerry [...] Active Member Role/Relationship Status Dates Mehnaz Cooney RESEARCH ASSOCIATE MOLECULAR BIOLOGY-C Primary Care Provider Active Start: February 28, 2025 Patience Saldivar II ProviderActiveStart: February 28, 2025 Apolonia Saldivar II ProviderActiveStart: February 28, 2025 Deepak Marshall II, MDOther ProviderActiveStart: February 28, 2025 Alli Nunes MDOther ProviderActiveStart: February 28, 2025 Visit Care Team Team Status: Active Member Role/Relationship Status Dates Mehnaz Cooney RESEARCH ASSOCIATE MOLECULAR BIOLOGY-C Primary Care Provider Active Start: March 02, 2025 Patience Courtney ProviderActiveStart: March 02, 2025 Apolonia Courtney ProviderActiveStart: March 02, 2025 Alli Des , MDOther ProviderActiveStart: March 02, 2025 Merlene Wiley , ANTONIOOther ProviderActiveStart: March 02, 2025 Misty Merino , ANTONIOOther ProviderActiveStart: March 02, 2025 Helen De La Cruz , ANTONIOOther ProviderActiveStart: March 02, 2025 Nicole Ball , RNOther ProviderActiveStart: March 02, 2025 Liliana Costello , [...] ProviderActiveStart: March 02, 2025 Annika Espinal , RESEARCH ASSOCIATE MOLECULAR BIOLOGY-COther ProviderActiveStart: March 02, 2025 Chaya Muñoz , APRNOther ProviderActiveStart: March 02, 2025 Ashkan Mcbride MDOther ProviderActiveStart: March 02, 2025 Ashwin Gamboa MDOther ProviderActiveStart: March 02, 2025 Shamika Jaimes MDOther ProviderActiveStart: March 02, 2025 Warren Novoa DOOther ProviderActiveStart: March 02, 2025 Smiley Nance , APRNOther ProviderActiveStart: March 02, 2025 Dennis Rao , DOOther ProviderActiveStart: March 02, 2025 Zelda Bejarano MDOther ProviderActiveStart: March 02, 2025 Cat Bruner , APRNOther ProviderActiveStart: March 02, 2025 Luzmaria Caceres , APRNOther ProviderActiveStart: March 02, 2025 Noemi Luke MDOther ProviderActiveStart: March 02, 2025 Uli Robertson MDOther ProviderActiveStart: March 02, 2025 Katiefaisal Nunez , DOOther ProviderActiveStart: March 02, 2025 [...] of right hip Sept emb2024 11:55am Other snf (current) drug therapy O ctober 2024 10:48am [...] 2025 4:21pm Primary osteoarthritis of right hip Jano 2024 4:21pm Aftercare following right hip joint [...] PCP after dischargeAnastasia Oh MD Work Phone: [phone] [email or web address] [place] [employer] [facility] [address]Twejlc up with rehab physician as neededAlli Nunes MDWork Phone: [phone] [facility], [address] [facility] [address]PpzyutAnastasia Oh MDWork Phone: [phone] [email or web address] [facility] [address], call to schedule follow up appointment with PCP after dischargeMehnaz Cooney CNPWork Phone: [facility] [address] [facility] [address]GKV [id number] [employer] [facility] [address]SnjlklAnastasia Oh MDWork Phone: [phone] [place] [address]Uzemft up as need with rehab physicianAlli Nunes MDWork Phone: [phone] [facility], [address] [place] [address]NjetuoAnastasia Oh MDWork Phone: [phone] [place] [address]Qvfr to schedule follow up appointment with PCP after discharge Mehnaz Cooney CNPWork Phone: [facility] [address] [facility] [address] Allergies, Adverse Reactions, Alerts Allergen Type Severity [...] Legal Sex Female (finding) Sex Assigned At [facility] 1940 Social History Assessments Assessment Value Date [...] Problems Problem Diagnosis/Recorded Date Onset Date Stat Other intermission coordinator (current) drug therapy November 09, 2024 2:40pm [...] Problems Problem Diagnosis/Recorded Date Onset Date Stat Periprosthetic fracture arou nd internal prosthetic right [...] 6 hours as needed for pain 20 0October 2024 11:00pmOctober 2024 5:05pmmaximum total duration of 5 days from all oral, intranasal, or parenteral formulationsTramadol 50 mg tablet Bnihjd90XSXXZ8S as needed for Pain Scale 6 - 029480Uuvgdnh 2024 2:19pmPain Status post total replacement of right hip Pain, unspecified Presence of right artificial hip jointComplies with drug therapyOxycodone 5 mg teneniKensmicqlnnh3AELPB9X as needed for Wnkf4833Aefqfvk 2024October 2024 8:48amAftercare following right hip joint replacement surgery Aftercare following joint replacement surgery Presence of right artificial hip jointMultivitamin vojqddIzeicugzvxuv2YCLTJCsjwt morningSeptember 2024 11:00pmOctober 2024 11:47amLactobacillus Combination No.4 (Probiotic) 3 billion cell tidnaaeQprwgtkweegw1112QJN CELLSPO Every morningSeptember 2024 11:00pmOctober 2024 11:47amadminister with a mealCalcium Carbonate-Vitamin D3 (Calcium 600 + D(3)) 600 mg-10 mcg (400 unit) qqzexxLdxfcwblfcmo4MMNTQRngiy dailySeptember 2024 11:00pmOctober 2024 11:47amCoenzyme Q10 (Coq-10) 100 mg ehqqhhiWutysiefxdhq575IIZOXiwmf at bedtimeSeptember 2024 11:00pmOctober 2024 11:47amAmlodipine 2.5 mg tabletDiscontinued2.5MGPODaily at bedtimeSeptember 2024 11:00pm January 18, 2025 11:06amAcetaminophen 500 mg zgmanaQfxwrxqmlygn9884ZQLGPfwkr 6 hours as needed for painSeptember 2024 11:00pmOct2024 3:05pmOn Hold: Resume on 03/01/25.Nabumetone 500 mg jbnulsDyrgmsbintgt250CJMGWguve daily January 07, 2023 11:00pmJuly 2024 12:04pmPravastatin 20 mg tablet Oltbyecgxojb29TCTUBngix at bedtimeSeptember 2022 11:00pmOct2024 11:47amAspirin 81 mg Tablet,Delayed Release (Dr/Ec)Qhvkbfwksuzn98VLMSKphkp at bedtimeSeptember 2022 11:00pmFebruary 02, 2025 11:47amOn Hold: Resume on 03/06/25.Polyethylene Glycol 3350 (Miralax) 17 gram/dose enohbkJeohuftnilwc63YN POdaily as needed for constipationJanuary 29, 2025 11:00pmOctober 2024 11:47am1 packed mixed with 8 ounces of fluid.Amlodipine 5 mg TabletDiscontinued5 DJAEVbare32967Gvxireb 2024 11:00pmOctober 2024 10:24amAspirin 81 mg Tablet,Delayed Release (Dr/Ec)Jcnqby17URMAKbqfc jehva92011Vdjfhdu 9th, 2025 11:00pmComplies with drug therapyCefadroxil 500 mg XqjfmdbMgmhhihinxjo815EZLR Twice xjvdo551Bwrwxaw 9th, 2025 11:00pmOct2024 12:52pmDocusate Sodium 100 mg LnvplsyAyhybzwsfnzu259ZGCHXjrfr daily as needed for Gnrzqpktgcbw253 February 01, 2025 11:00pmOct2024 12:52pmPravastatin 20 mg Tablet Ijouzu32ITMNFmega at efjthwc10366Mogdhcx 2024 11:00pmComplies with drug therapyGabapentin 100 mg NavprjfPrnekn150HVRBQzyak at qggnzpp99253Exqupnr 9th, 2025 11:00pmComplies with drug therapyCalcium Carbonate-Vitamin D3 (Oyster Shell Calcium-Vit D3) 500 mg-5 mcg (200 unit) IiqqmjTqkuny3TXQPNZvqqy tdhtb16657 February 01, 2025 11:00pmComplies with drug therapyMelatonin 5 mg Tablet Tafolibareuy8OCJVGprjm at nsuuqhm56356Xzkgbwr 2024 11:00pmOct2024 10:24amMultivitamin With Folic Acid (Thera) 400 mcg EahyiyPhybmf4ZYAFJVkczx aeqwfjr83561Bqpmlvz 9th, 2025 11:00pmComplies with drug therapy L.Acid,Para-B.Bifidum-S.Therm (Risaquad) 8 billion cell FoytnasXkgziy7JUKYNLtyde rrycqkv11122Hninsab 9th, 2025 11:00pmComplies with drug therapyPrednisone 10 mg HtnxiaIawfoicnjbdj48NEAPFaedn784Fljgzfq 9th, 2025 11:00pmOct2024 12:52pmTramadol 50 mg OorfabFpwbkjhkvauc00MKTYL0Y as needed for Pain Scale 6 - 270011Fifemyl 2024 11:00pmOctober 2024 2:20pmPain Status post total replacement of right hip Pain, unspecified Presence of right artificial hip jointHydrocodone-Acetaminophen 5-325 mg tablet Active0.5TABPOEVERY 4-6 HOURS as needed for Neiu910Sfozela 2024Strain of muscle of right hip Strain of muscle, fascia and tendon of right hip, initial encounterComplies with drug therapyDocusate Sodium 100 mg ardfruhHogmmx005ZXKZMwhzj as needed for constipationOct2024 11:00pmComplies with drug therapyAmlodipine 5 mg LhuuuvFjgugn8XHQTEksnd eveningOct2024 11:00pmComplies with drug therapyAcetaminophen 500 mg yiisxxSdrfep0556OCLLJoadr 6 hoursOct2024 11:00pmdo not reconcile dos 01/29/25. med to bedComplies with drug therapy Melatonin 5 mg TbeazaNmwhcr5QYEDNyowc at bedtime as needed for sleepOct2024 11:00pmComplies with drug therapyAmlodipine 5 mg tabletDiscontinued5 MGPODailySeptember 2024 11:00pmOctober 2024 11:47amSennosides- Docusate Sodium (Senokot-S) 8.6-50 mg ttetgvSjebiwgrstms4AFKRSrzoew51062 January 17, 2025 11:00pmOctober 2024 3:07pmdo not reconcile dos 01/29/25. med to bedAcetaminophen 500 mg vhpjsbKwebkyqjpnxk6632SRQFC9Q828922 January 17, 2025 11:00pmOctober 2024 10:24amdo not reconcile dos 01/29/25. med to bedCefadroxil 500 mg dvyriuzEoaoolljbhwh036DCANR52G4404Ibaiikkwg 2024 11:00pmOctober 2024 11:47amdo not reconcile dos 01/29/25. med to bedPolyethylene Glycol 3350 (Miralax) 17 gram/dose gigdfgUryslxnvhrif96PFCSmypbk 770September 2024 11:00pmOctober 2024 3:08pm1 packed mixed with 8 ounces of fluid.Tramadol 50 mg grucsjQnpssudxrwmu69BNEQM6D as needed for Fyla787 0Sept2024 11:00pmOctober 2024 3:08pmPrimary osteoarthritis of right hip Unilateral primary osteoarthritis, right hipPrednisone 10 mg tabletDiscontinued 11ZMSSppkwc63337Hfxbrtqvb 2024 11:00pmOctober 2024 11:47amdo not reconcile dos 01/29/25. med to bedOndansetron Hcl 4 mg szhplqGdjboaawcfct5OKMVS2W as needed for Jdvnnd49Ufspezjdv 2024 11:00pmOctober 2024 11:47amdo not reconcile dos 01/29/25. med to bedOxycodone 5 mg guynbuMjotbpvclcod4SBTNX1B as needed for Nbbf5992Hfxshkjvt 25th, 2025Oct2024 11:47amPrimary osteoarthritis of right hip Unilateral primary osteoarthritis, right hipdo not reconcile dos 01/29/25. med to bedAspirin 81 mg tablet,delayed release (DR/EC)Dodemiwyrawh77YZZWYjutm wvenp2928 0Sept2024 11:00pmOctober 2024 11:47amdo not reconcile dos 01/29/25. med to bedGabapentin 100 mg rlywmhiTfluscgwvywe194MACUDjfdi at bedtime November 08, 2024 11:00pmOct2024 11:47amEtodolac 500 mg tablet Pjapaieywwwy926YEYYOhpgc morningJuly 2024 11:00pmOctober 2024 11:47amOn Hold: Resume on 03/01/25.Methylprednisolone (Medrol (Enoc)) 4 mg tablets,dose jikzUacutozindvc0AYULnq jazgzpmn65Picviee 21st, 2025 11:00pmOctober 2024 8:48am Medical Equipment Device Date Implanted Date Explanted Device Deta ils Coated femoral stem prosthesis, modular February 22, 2025 JOSE: [id number] Issuing Agency: [employer] Device Id: [id number] Expiration Date: 2032-09-22 Lot Number: [id number] femoral stem prosthesis, modularOct2024 JOSE: ()[id number] Issuing Agency: [facility] Device Id: [id number] Expiration Date: 2032-11-15 Lot Number: [id number] femoral head prosthesisOctober 2024UDI: ()[id number] Issuing Agency: [facility] Device Id: [id number] Expiration Date: 2034-10-27 Lot Number: [id number] bone wireOctober 2024UDI: ()[id number] Issuing Agency: [facility] Device Id: [id number] Expiration Date: 2035-01-07 Lot Number: [id number] bone wireOctober 2024UDI: ()[id number] Issuing Agency: [facility] Device Id: [id number] Expiration Date: 2035-01-07 Lot Number: [id number] bone wireOctober 2024UDI: ()[id number] Issuing Agency: [facility] Device Id: [id number] Expiration Date: 2035-01-07 Lot Number: [id number] bone wireOctober 2024UDI: ()[id number] Issuing Agency: [facility] Device Id: [id number] Expiration Date: 2035-01-07 Lot Number: [id number] bone wireOctober 2024UDI: ()[id number] Issuing Agency: [facility] Device Id: [id number] Expiration Date: 2035-01-07 Lot Number: [id number] 30CC CRUSHEDOctober , ANCELLOUS 30CC CRUSHEDOctober 6th, etabular shellOctober , 2024UDI: ()[id number] Issuing Agency: [facility] Device Id: [id number] Expiration Date: 2033-05-14 Lot Number: [id number] bone screw, non-bioabsorbable, sterileOctober 2024UDI: ()[id number] Issuing Agency: [facility] Device Id: [id number] Expiration Date: 2034-05-31 Lot Number: [id number] bone screw, non-bioabsorbable, sterileOctober 2024UDI: ()[id number] Issuing Agency: [facility] Device Id: [id number] Expiration Date: 2034-09-14 Lot Number: [id number]-cihccafelbk polyethylene acetabular linerOctober 2024UDI: ()[id number] Issuing Agency: [facility] Device Id: [id number] Expiration Date: 2029-11-04 Lot Number: [id number] femoral head prosthesisOctober , 2024October 2024UDI: ()[id number] Issuing Agency: [facility] Device Id: [id number] Expiration Date: 2034-11-28 Lot Number: [id number] hip femur prosthesis, modularOctober , 2024October 2024UDI: ()[id number] Issuing Agency: [facility] Device Id: [id number] Expiration Date: 2029 Lot Number: [id number] Procedures Procedure Date Performed Status Urine Culture [...] 9:45am January 10, 2025 10:26am 9.2 10*3/[facility]L [facility] [id number] [address] [facility] [address]Fvdzwpznngc WBC CountSeptember 2024 9:45amSeptember 2024 10:26am9.2 10*3/uL3.8-11.6[facility] [id number] [address] [facility] [address]Cyb Blood CountSeptember 2024 9:45amSeptember 2024 10:26am4.67 10*6/uL3.60-5.00[facility] [id number] [address] [facility] [address]UmphrpptupSyujjvdli 2024 9:45amSeptember 2024 10:26am13.8 g/dL11.8-15.4[facility] [id number] [address] [place] [address]LqzdgvfkumVuaxkdazi 2024 9:45amSeptember 2024 10:26am41.7 %34.0-46.4[facility] [id number] [address] [facility] [address]Ztok Corpuscular VolumeSeptember 2024 9:45amSeptember 2024 10:26am89.4 oJ30-300RugecjcbpOhiohealth [facility] [id number] [address] [facility] [address]Oqpu Corpuscular HemoglobinSeptember 2024 9:45amSeptember 2024 10:26am29.7 pg24.7-34.3[facility] [id number] [address] [facility] [address]Rriz Corpuscular Hemoglobin ConcentSeptember 2024 9:45am January 10, 2025 10:26am33.2 g/dL32.0-35.0[facility] [id number] [address] [facility] [address]Jcq Cell Distribution WidthSept2024 9:45amSeptember 2024 10:26am13.4 %11.9-15.3[facility] [id number] [address] Health [address]Glkifzzj CountSeptember 2024 9:45amSept2024 10:63gy598 10*3/oG555-168FtgfgqrmiOhiohealth [facility] [id number] [address] [facility] [address]Phqa Platelet VolumeSeptember 2024 9:45amSeptember 2024 10:26am6.9 fL6.3-10.7[facility] [id number] [address] [facility] 02572Dkqaibufewy (%) (Auto)January 10, 2025 9:45amSept2024 10:26am64.5 %.[facility] [id number] [address] [facility] 35044Ddbywsufipw (%) (Auto)January 10, 2025 9:45amSept2024 10:26am26.2 %.[facility] [id number] [address] [facility] 35197Kqcescbwb (%) (Auto)January 10, 2025 9:45amSept2024 10:26am5.9 %.[facility] [id number] [address] [facility] 47472Uhatbbcfuoq (%) (Auto)January 10, 2025 9:45amSept2024 10:26am2.2 %.[facility] [id number] [address] [facility] 60539Luryedgdc (%) (Auto)January 10, 2025 9:45amSept2024 10:26am1.2 %.[facility] [id number] [address] [facility] 24157Ktwjvwqyg RBC Relative Count (auto)January 10, 2025 9:45am January 10, 2025 10:26am0.0 /100{WBC}0-0.5[facility] [id number] [address] [facility] 03052Krococfkxpc # (Auto)January 10, 2025 9:45amSeptember 2024 10:26am5.9 10*3/uL1.8-7.7[facility] [id number] [address] [facility] 54010Dknngqfpcyg # (Auto)January 10, 2025 9:45amSeptember 2024 10:26am2.4 10*3/uL1.00-4.8[facility] [id number] [address] [facility] 01473Jdoxmwsts # (Auto)January 10, 2025 9:45amSeptember 2024 10:26am0.5 10*3/uL0.0-0.8[facility] [id number] [address] [facility] 09283Rxzhldrqbjn # (Auto)January 10, 2025 9:45amSeptember 2024 10:26am0.2 10*3/uL0.0-0.45[facility] [id number] [address] [facility] 55643Kkodyiusv # (Auto)January 10, 2025 9:45amSeptember 2024 10:26am0.1 10*3/uL0.0-0.2[facility] [id number] [address] [facility] 23[address]Iokje ColorSeptember 2024 10:15amSeptember 2024 10:50amYellowYellowOhiohealth O'Bleness Hospital Ctr [id number] [address] [facility] 08702Dyhvd AppearanceSeptember 2024 10:15amSeptember 2024 10:50amCloudyAbnormal (applies to non-numeric results)ClearOhiohealth O'Bleness Hospital [facility] [id number] [address] [facility] 35713Tofuv Specific GravitySeptember 2024 10:15amSeptember 2024 10:50am1.0211.001-1.030[facility] [id number] [address] [facility] 85948Feupk pHSeptember 2024 10:15amSeptember 2024 10:50am5.55.0-9.0[facility] [id number] [address] [facility] 05000Fdvfw Leukocyte EsteraseSeptember 2024 10:15amSeptember 2024 10:50am4+Above high normalNegativeOhiohealth O'Bleness Hospital [facility] [id number] [address] [facility] 80256Tytdd NitriteSeptember 2024 10:15amSeptember 2024 10:50amPositiveAbove high normalNegativeOhiohealth O'Bleness [facility] [id number] [address] [facility] 39384Nkvrd ProteinSeptember 2024 10:15amSeptember 2024 10:50amNegative mg/dLNegativeOhiohealth O'Blen[facility] [id number] [address] [facility] 11146Gxyui Glucose (UA)January 10, 2025 10:15amSeptember 2024 10:50amNormal mg/dLNormalOhiohealth O'Bleness Hospital [facility]tr [id number] [address] [facility] 80349Etpak KetonesSeptember 2024 10:15amSeptember 2024 10:50amNegativeNegativeOhiohealth O'Bleness Hospital [facility] [id number] [address] [facility] 550[address]Gaion UrobilinogenSeptember 2024 10:15amSeptember 2024 10:50amNormal mg/dLNormalOhiohealth O'Bleness Hospital [facility] [id number] [address] [facility] 94837Hjzaf BilirubinSeptember 2024 10:15amSeptember 2024 10:50am2+Above high normalNegativeOhiohealth O'Bleness [facility] [id number] [address] [facility] 04065Rxjdi Occult BloodSeptember 2024 10:15amSeptember 2024 10:50amNegativeNegativeOhiohealth O'Bleness Hospital [facility] [id number] [address] [facility] 74529Rfxnt RBCSeptember 2024 10:15amSeptember 2024 10:72dm5-6 [HPF]0-4FL[facility] [id number] [address] [facility] 09694Qqssk WBCSeptember 2024 10:15amSeptember 2024 10:03ge55-368 [HPF]Above high normal0-4[facility] [id number] [address] [facility] 64330Kzapi WBC ClumpsSeptember 2024 10:15amSeptember 2024 10:50amMany [LPF]Above high normalNone SeenOhiohealth O'Bleness Hospital Ctr [id number] [address] [facility] 55737Xsfxa Squamous Epithelial CellsSeptember 2024 10:15am Aleshia 2024 10:10rr4-6 [HPF]Above high normal0-2[facility] [id number] [address] [facility] 64698Bjmuy BacteriaSeptember 2024 10:15amSeptember 2024 10:50am4+ [HPF]Above high normalNone [facility] [id number] [address] [facility] 15810Jmdwi Hyaline CastsSeptember 2024 10:15amSeptember 2024 10:90fq1-0 [LPF]0-8[facility] [id number] [address] [facility] 66725Gjhkh MucusSeptember 2024 10:15amSeptember 2024 10:50amRare [LPF][facility] [id number] [address] [facility] 17645Wfzsyqg LevelSeptember 2024 9:45amSeptember 2024 11:12am96 mg/pY23-482MLG recommended reference rangeRandom Glucose Reference Range is dependent on time and content of last meal. Glucose of more than 200 mg/dL in a nonstressed, ambulatory subject supports the diagnosisof Diabetes Mellitus.[facility] [id number] [address] [facility] 08708Tuoma Urea NitrogenSeptember 2024 9:45amSeptember 2024 11:12am25 mg/dL7-25[facility] [id number] [address] [facility] 44568ItiwtgxkmxNqpbvqyuc 2024 9:45amSeptember 2024 11:12am0.92 mg/dL0.60-1.20[facility] [id number] [address] [facility] 81455Fuuszrnex GFR (CKD-EPI)January 10, 2025 9:45amSeptember 2024 11:12am> 60.0 mL/MinOhiohealth O'Bleness Hospital Ctr [id number] [address] [facility] 81116Bprsep LevelSeptember 2024 9:45amSeptember 2024 11:72lc903 mmol/A418-427KwnkomwofOhiohealth O'Bleness Hospital Ctr [id number] [address] [place] 3829870Potassium LevelSeptember 2024 9:45amSeptember 2024 11:12am4.4 mmol/L3.5-5.1FL[facility] [id number] [address] [facility] 18002Zqwsycdd LevelSeptember 2024 9:45amSeptember 2024 11:72bk805 mmol/G61-462EdptzipubOhiohealth O'Bleness Hospital Ctr [id number] [address] [place] 3829870Carbon Dioxide LevelSeptember 2024 9:45amSeptember 2024 11:12am25.9 mmol/L21.0-31.0[facility] [id number] [address] [facility] 94617Pivqq GapSeptember 2024 9:45amSeptember 2024 11:12am13.5 mEq/L6.0-15.0[facility] [id number] [address] [facility] 62826Oxaxlec LevelSeptember 2024 9:45amSeptember 2024 11:12am9.9 mg/dL8.6-10.3[facility] [id number] [address] [place] 3829870Pharmacy Creatinine Clearance (ChemSeptember 2024 9:45am January 10, 2025 11:12amN/[facility] [id number] [address] [place] [address] 41594GdnystcqxcxaUecxhwrgo 17th, 2025 9:45amSept2024 3:91pt489 umol/L0-285Published reference interval for apparently healthysubjects between age 20 and 60 is 205 - 285 umol/L and in apoorly controlled diabetic population is 228 - 563 umol/Lwith a mean of 396 umol/L.Performed at: - [facility] [id number] Director: Kasi Loera PhD, Phone: [phone] Microbiology Results Procedure Source Result Collection Date/Time Result Date/Time Result Comment Performing Site Urine Culture Urine, Clean-Voided Midstream Escherichia coli January 10, 2025 11:15am January 12, 2025 9:26am [facility] [id number] [address] [place], [place] [address] Diagnostic Imaging Reports Author Opal Cook [facility] HospitalAuthoredSept2024 6:59pmReport Dictated Date/TimeDictated ByStatusRadiology ReportSept2024 6:59pm Anastasia Connor MD FACCcompBarney [facility] [place] [address] [place], [place] [address] Nuclear Medicine Report Signed Patient: Kristy Ashraf MR#: [id number] : 1940 Acct:[id number] Age/Sex: 84 / F ADM Date: 5 Loc: Room: Type: [facility] Attending Dr: Reinaldo Linton MD Copies to: Opal Cook MD, [facility] Reinaldo Linton MD~ Ordering Provider: Reinaldo Linton [...] studies are available for comparison. Transcribed By: NTS 01/11/25 7945 Dictated By: Opal Cook MD, [facility] 01/11/25 5158 Signed By: <Electronically signed by [facility] Opal Cook> 01/12/25 0850 Author Fermín Lozoya [facility] HospitalAuthoredOcttrigg county hospital 2024 8:29amReportDictated Date/TimeDictated ByStatusRadiology ReportOctober 2024 8:29amMarharsha Lozoya II [facility]ikaompBarney [facility] [place] [address] [place] [address] XRay Report Signed Patient: Kristy Ashraf MR#: [id number] : 1940 Acct:[id number] Age/Sex: 84 / F ADM Date: 5 Loc: ER Room: Type: [facility] ER Attending Dr: Copies to: Lui Bruner [...] Lozoya M.D. 02/12/2025 8:30 AM Dictation Location: [facility] Transcribed By: [facility] 02/12/25829 Dictated By: Fermín Lozoya II, MD 02/12/25828 Signed By: <Electronically signed by Fermín Lozoya II, MD in [place]> 02/12/25 08 Author Fermín Lozoya [facility] HospitalAuthoredOcttrigg county hospital 2024 9:09pmReportDictated Date/TimeDictated ByStatusRadiology ReportOctober 2024 9:09pmFermín Lozoya II [facility] [place] [facility] [address] [place] [address] XRay Report Signed Patient: Kristy Ashraf MR#: [id number] : 1940 Acct:[id number] Age/Sex: 84 / F ADM Date: 5 Loc: [facility]: [facility] Att[facility] Dr: Deepak Marshall II, MD Copies [...] Lozoya M.D. 02/14/2025 9:09 PM Dictation Location: RADIO--17 Transcribed By: [facility] 02/14/252108 Dictated By: Fermín Lozoya II, MD 02/14/252108 Signed By: <Electronically signed by Fermín Lozoya II, MD in [place]> 02/14/252108 Author Sharron Valentine [facility] HospitalAuthoredOcttrigg county hospital 2024 10:26amReport Dictated Date/TimeDictated ByStatusRadiology ReportOctober 2024 10:26am Sharron Valentine [facility] WaurikaompleteFlower Hospital [facility] [address] [place] [id number] XRay Report Signed Patient: Kristy Ashraf MR#: [id number] : 1940 Acct:[id number] Age/Sex: 84 / F ADM Date: 5 Loc: [facility] Room: Type[facility] Attending Dr: Deepak Marshall II, MD Copies [...] Valentine M.D. 02/21/2025 10:31 AM Dictation Location: [place] [address] Transcribed By: OG 02/21/25 1031 Dictated By: Sharron Valentine MD 02/21/25 1026 Signed By: <Electronically signed by MD Sharron Valentine in [place]> 02/21/25 1031 Vital Signs Vital Reading Result Reference Range Collection Date/Time Heart Rate 85 /min 60-100 January 09, 2025 10:24am BP Systolic 167 mm[Hg] 100-140 January 09, 2025 10:24am BP Diastolic 74 mm[Hg] 60-100 January 09, 2025 10:24am Height 60 [in_i] January 18, 2025 11:12jwBzmnju83.82 kgSept2024 11:07amBP Miaidfla122 mm[Hg]100-140Sept2024 11:42amBP Aoceuddsy25 mm[Hg]60-100 January 18, 2025 11:42amBMI (Body Mass Index)36.5 kg/e5Emymegjjp2024 11:78lbOdhvat06 [in_i]January 29, 2025 5:30iqWovmlr09.70 kgOct2024 5:00amBody Zpvvwnrzdmi67.3 [degF]97.6-99.0Oct2024 3:00amHeart Rate89 /lqs19-070IbkzdjcJanuary 30, 2025 11:32amRespiratory rate16 /say66-59Fpiohlv 7th, 2025 11:32amOxygen saturation by Pulse uhyqujma34 %95-100January 30, 2025 11:32amBP Fvwmidru791 mm[Hg]100-140January 30, 2025 11:32amBP Eqluiexln98 mm[Hg]60-100 January 30, 2025 11:32amInhaled oxygen flow rate2 L/minOct2024 11:33btTxhkqe50 [in_i]January 31, 2025 11:77wsOxtmqo50.00 kgOctober 2024 5:00amBody Ojtuzqahrxe29.7 [degF]97.6-99.0Oct2024 12:58pmHeart Rate79 /kbh49-683IzewvvnFebruary 04, 2025 12:58pmRespiratory rate18 /hpw95-84Mxwviob , 2025 12:58pmOxygen saturation by Pulse %95-100October 2024 12:58pmBP Akcrlscn924 mm[Hg]100-140Oct2024 12:58pmBP Pfayrcpco71 mm[Hg]60-100Oct2024 12:50pbTvztur08 [in_i]February 11, 2025 3:17pm Tlejlu66.00 kgOcttrigg county hospital 2024 3:17pmBody Cescjznsouj06.1 [degF]97.6-99.0 February 11, 2025 5:35pmHeart Rate73 /uep14-911Zktpqsv 2024 5:35pm Respiratory rate18 /non39-85Qnbmpcn 19th, 2025 5:35pmOxygen saturation by Pulse uplibofl857 %95-100Octtrigg [facility] hospital 2024 5:35pmBP Ndfirllu389 mm[Hg]100-140Oct2024 5:35pmBP Vsjsjkdgg48 mm[Hg]60-100Oct2024 5:30zcWfazuu38 [in_i]February 22, 2025 12:95vfQskgte38.60 kgOcttrigg county hospital 2024 5:00amBody Mjavksidhvg12.0 [degF]97.6-99.0[facility] 2024 2:32pmHeart Rate99 /ggu09-075 February 23, 2025 2:32pmRespiratory rate18 /hfp39-47Omkutvl 31st, 2025 2:32pm Oxygen saturation by Pulse vdvloegd19 %95-100[facility] 2024 2:32pmBP Skrsanut891 mm[Hg]100-140February 23, 2025 2:32pmBP Kondqplpe91 mm[Hg]60-100 February 23, 2025 2:32pmInhaled oxygen flow rate1 L/minOcttrigg county hospital 2024 3:09uhZpicqb52 [in_i]March 01, 2025 12:88mpGmcjax50.20 kgSaint [facility] 2024 6:22amBody Qsxihyoibch75.6 [degF]97.6-99.0[facility] 2024 5:00amHeart Rate89 /ezy11-581Ltnxapbs 2024 5:00amRespiratory rate16 /ija07-17RzrufvhlMarch 06, 2025 5:00amOxygen saturation by Pulse dqqznzud25 %95-100March 06, 2025 5:00amBP Qasytywz371 mm[Hg]100-140March 06, 2025 5:00amBP Nvhcywjtc23 mm[Hg]60-100March 06, 2025 5:00amInhaled oxygen flow rate1 L/minMarch 03, 2025 5:48am Advance Directives Advance Directive Response Recorded Date/ Time Advance Directives No December 4:01pm Insurance Providers Guarantor Kristy A Ashraf Address [address] [place] [address]Ocwlkvo Info.Home Phone: Coverage Status Update:2025 Payer Group Member ID Coverage Type Subscriber Relationship to Subscriber Effective Date Expiration Date Medicare [id number] A Mayer Id: [id number] [address] [place] [address] Home Phone: Email: [email or web address] [facility] center Rehab-IP Part A [id number] A Ashraf Id: [id number] [address] [place] [address] Home Phone: Email: [email or web address] Care Hospitalna [facility] [address] [place] [address] Work Phone: [phone] A Ashraf Id: [id number] [address] [place] [address] Home Phone: Email: [email or web address] [email or web address] Encounter Location(s) Arrival/Admit Date Discharge/Departure Date [...] Oh MD Registered Recurring -Physical Therapy [place] Sept ember 2024 11:02am Anastasia Oh MDDeparted Physician/Provider [facility] 11:55amSeptember 2024 1:02pmDischarged to home care or self care (routine discharge)Anastasia Oh MDDeparted Physician/Provider [facility] 20[facility] 6:00amSeptember 2024 11:59pmDischarged to home care or self care (routine discharge)Anastasia Oh-patient / Gmc-goxud-[facility]u [facility] 2024 10:48amGarcía Stroud-patient / Ejl-lbngw-Zmbwpwtgh [facility]October 2024 4:21pmJose Angel Hull-patient / Viv-nimww-Qoqosnyhw [facility]October 2024 12:00amYANNI Courtneyeparted Emergency-Emergency RoomOctober 2024 4:06pmOctober 2024 8:09pmDischarged to home care or self care (routine discharge)Departed Physician/Provider Office Visit-[facility] February 14, 2025 1:43pmOctober 2024 2:33pmDischarged to home care or self care (routine discharge)Anastasia Oh MDDeparted Clinical-[facility] 20[facility] 2:10pmOctober 2024 2:11pmDischarged to home care or self care (routine discharge)Anastasia Oh MDDeparted Physician/Provider [facility] 20[facility] 8:56amOctober 2024 10:35amDischarged to home care or self care (routine discharge)Anastasia Oheparted Clinical-XRay [facility] 2024 9:01amOctober 2024 9:02amDischarged to home care or self care (routine discharge)Anastasia Oh-patient / Ltl-ervsn-Kiyusjvfs [facility]October 2024 10:54amAlli Nunes MDNon-patient / Srl-umays-Xxhbvjyow [facility]October 2024 6:47pmGarcía Stroud MDCobre [facility] / Nqw-vcslv-Llkosszwx [facility] 2024 12:00amAnastasia Oh-patient / Lwy-trods-Mofrkwsbu [facility]ineSaint [facility] 2024 12:00amAlli Nunes MD Recent Diagnosis Onset Date Admit Date Primary osteoarthritis of right hip Unknown January 18, 2025 11:55am Other intermission coordinator (current) drug therapy Unknown January 29, 2025 [...] February 21, 2025 10:54am Age-related osteoporosis wit hojulio current pathological fracture Unknown February 23, 2025 [...] Admit Date Primary osteoarthritis of right hip deletedSeptember 2024 11:55amOther intermission coordinator (current) drug therapyacute January 29, 2025 10:48amStatus [...] Health February 01, 2025 11:56am Admit Status OrderOct2024 3:22pmOctober 2024 3:24pmConsult to Adult HospitalistJanuary 30, 2025 3:22pmOctober 2024 3:24pmDischarge Order February 02, 2025 11:47amOctober 2024 11:47amDiet SupplementOct2024 6:58pmOctober 2024 6:58pmAdmit Status OrderOct2024 6:54pm February 22, 2025 6:55pmDischarge OrderOct2024 4:20pmOctober 2024 4:20pmConsult to PhysiatryOctober 2024 6:54pmOctober 2024 6:56pmInitiate Home HealthMarch 02, 2025 12:14pmDME Home Medical Equipment March 02, 2025 12:13pmDiet SupplementOct2024 6:24pmOctober 2024 6:24pmAdmit Status OrderOctober 2024 6:10pmOctober 2024 6:10pm Consult to Adult HospitalistOctober 2024 6:10pmOctober 2024 6:10pm Code StatusOctober 2024 6:10pmOctober 2024 6:10pm Future Medications Future medication information is unavailable Patient Instructions Instruction Admit Date 3M Prevana Plus 125 Therapy January 29, 2025 10:48am 3M Prevana Plus 125 Therapy Know your MedsOctober 2024 4:21pmHip pain in adults Leg Muscle Strain EDOctober 2024 4:06pm3M Prevana Plus 125 TherapyOctober 2024 10:54amKnow your MedsOctober 2024 6:47pm
--- OUTSIDE RECORDS SUMMARY | 2025-03-12 14:39 | XMS_ITS | CCD ---
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 Name Role Phone DR DELMY HOBBS Primary Care Unavailable ANJEL, DR DELMY Paiz Admitting Unavailable ANJEL, DR DELMY Paiz Attending Unavailable ANJEL, DR DELMY Paiz Consulting Unavailable PAMELA, DR GEOVANNA Gross Consulting Unavailable ANJEL, DR DELMY Paiz Admitting Unavailable ANJEL, DR DELMY Paiz Attending Unavailable AJNEL, DR DELMY Paiz Consulting Unavailable ANJEL, DR DELMY Paiz Primary Care Unavailable DELMY HOBBS Primary Care Physician Luiz Costello Primary Care Physician MD Luiz Costello Primary Care Provider DO Dawit Mccormick Attending Provider Micah Cooney Primary Care Physician [phone] MD Luiz Costello Admitting Unavailable MD Luiz Costello Attending Unavailable MD Luiz Costello Admitting Unavailable MD Luiz Costello Attending Unavailable MD Luiz Costello Attending Unavailable MD Luiz Costello Attending Unavailable MD Luiz Costello Attending Unavailable MONICA Cooney Admitting Unavailable MONICA Cooney Attending Unavailable Luiz Costello Admitting Unavailable Luiz Costello Attending Unavailable Luiz Costello Attending Unavailable Luiz Costello Attending Unavailable OBVANESSA CLAUDIO Admitting UnaVANESSA Domingo Attending Luiz Quintero Attending Unavailable Luiz Costello Admitting Unavailable Luiz Costello Attending Unavailable Luiz Costello MD Primary Care Provider [phone] Brandon Gordon Attending Unavailable Brandon Gordon Referring Unavailable Brandon Gordon Admitting Unavailable EVELYN BRENNAN Admitting Unavailable EVELYN BRENNAN Attending Unavailable Tank Kasper Attending Unavailable BOONE RAMIREZ A Attending Unavailable BROWNLEROYS A Referring Unavailable BROWNLEROYS A Attending Unavailable HILLS, BRANDON D Attending Unavailable HILLS, BRANDON D Referring Unavailable PETITTI, NEHAL A Attending Unavailable PETITTI, NEHAL A Attending Unavailable HILLS, BRANDON D Referring Unavailable HILLS, BRANDON D Attending Unavailable ANGIE CHAPPELL Referring Unavailable HILLS, BRANDON D Referring Unavailable HILLS, BRANDON D Referring Unavailable Ivet, Micah L Admitting Unavailable Ivet, Micah L Attending Unavailable Luiz Costello Attending Unavailable Luiz Costello Attending Unavailable Blake Grimes Admitting Unavailable Blake Grimes Attending Unavailable Blake Grimes Referring Unavailable OBERMEYER, VANESSA POLK Admitting Unavai nighat OBERMDECLAN, VANESSA POLK Attending Unavai Blake Akbar Admitting Unavailable Blake Grimes Attending Unavailable EVELYN BRENNAN Referring Unavailable Luiz Costello Attending Unavailable Ivet, OIL WELL ENGINEER Micah Eugene Attending Unavailable Luiz Costello Attending Unavailable Deepak Marshall MD Attending Provider Luiz Costello MD Primary Care Provider NO FAMILY, PHYSICIAN Primary Care Provider Unava ilable Blake Grimes Attending Unavailable Blake Grimes Referring Unavailable ANU, EVELYN Admitting Unavailable BRENNAN, EVELYN Attending Unavailable BRENNAN, EVELYN Referring Unavailable Ivet, Micah Eugene Admitting Unavailable Ivet, Micah Eugene Attending Unavailable BRENNAN, EVELYN Admitting Unavailable BRENNAN, EVELYN Attending Unavailable Blake Grimes Admitting Unavailable Blake Grimes Attending Unavailable MD Luiz Costello Referring Unavailable MD Luiz Costello Attending Unavailable Luiz Costello Attending Unavailable Luiz Costello MD Primary Care Provider Elbert Clifford MD Other Provider Reinaldo Linton MD Attending Provider Reinaldo Linton MD Referring Provider [phone] Ivet PROBATION AND PATROL AGENT-CMicah Primary Care Provider Ivet, OIL WELL ENGINEER Micah L Attending Unavailable Ivet, OIL WELL ENGINEER Micah L Admitting Unavailable Ivet, OIL WELL ENGINEER Micah L Attending Unavailable Ivet, OIL WELL ENGINEER Micah L Admitting Unavailable Ivet, OIL WELL ENGINEER Micah L Attending Unavailable Ievt, Micah L Referring Unavailable Othman, Mahmoud Attending Unavailable Othman, Mahmoud Admitting Unavailable Othman, Mahmoud Attending Unavailable NONE, XXXX Referring Unavailable Othman, Mahmoud Referring Unavailable Othman, Mahmoud Admitting Unavailable Othman, Mahmoud Attending Unavailable Ivet, Micah L Admitting Unavailable Ivet, Micah L Attending Unavailable Ivet, Micah L Attending Unavailable Ivet, Micah L Attending Unavailable Ivet, Micah L Attending Unavailable Ivet, Micah L Admitting Unavailable Blake Grimes Attending Unavailable Blake Grimes Admitting Unavailable Luiz Costello Referring Unavailable Blake Grimes Attending Unavailable Blake Grimes Admitting Unavailable Luiz Costello Referring Unavailable Blake Grimes Attending Unavailable Blake Grimes Admitting Unavailable Luiz Costello Referring Unavailable Blake Grimes Attending Unavailable Blake Grimes Admitting Unavailable Luiz Costello Referring Unavailable Ivet, Imcah L Referring Unavailable Othman, Mahmoud Attending Unavailable Rolando SOLOMON, Deepak Oconnor Other Provider Saurabh ALVAREZ, Merlene Other Provider Unavailable Angelique RN, Misty Other Provider Unavailable Jono RN, Helen Other Provider Unavailable Quinn RN, Nicole Other Provider Unavailable Pravin ALVAREZ, Liliana Other Provider Unavailable Des RN, Monse Other Provider Unavailable Maame Renee MD Other Provider Gianna Veloz DO Other Provider [phone] Ismael Merchant MD Other Provider Jose Garcia DO Other Provider [phone] Yovanny Boss MD Other Provider Clarisa Omer MD Other Provider Angie Valdez DO Other Provider Unavailab nancy Parker MD, Paxton Other Provider Unavailable Fela Mi APRN Other Provider [phone] Lydia Shipley MD Other Provider Gail Gutiérrez MD Other Provider Unavailable Jennifer Rodriguez MD Other Provider Angie Gutierrez DO Other Provider Darell Nobles MD Other Provider Nic Garcia MD Other Provider Teddy PROBATION AND PATROL AGENT-C, Annika Li Other Provider Chaya Muñoz APRN Other Provider Unavailable Ashkan Mcbride MD Other Provider Cooper SOLOMON, Aswhin Other Provider Shamika Jaimes MD Other Provider Unavailable Warren Novoa DO Other Provider Smiley Nance APRN Other Provider Dennis Rao DO Other Provider Darci SOLOMON, Zelda Oconnor Other Provider Cat Bruner APRN Other Provider Luzmaria Caceres APRN Other Provider Marly SOLOMON, Noemi Other Provider Unavailable Uli Robertson MD Other Provider Gris Nunez DO Other Provider Jerry Tellez MD Other Provider Yvonne Osborne MD Other Provider [phone] Shirley Greene APRN Other Provider Unavailable Rommel Hoyos MD Other Provider Alli Campos MD Other Provider Paxton Gonsalves MD Other Provider Brenton Rouse MD Other Provider Marta Fried APRN Other Provider CharlizaSveta Flores APRN Other Provider Reno SOLOMON, Eliza Fox Other Provider Tina Wang RN Other Provider Unavailable Alli Nunes MD Other Provider Alli Nunes MD Admit Provider Alli Nunes MD Attending Provider Melinda SOLOMON, Ildefonso Mariano Attending Provider Candace Potter APRN Attending Provider eDepak Marshall MD Attending Provider [phone] Alli Nunes MD Attending Provider NON STAFF Primary Care Provider Unavailkrishna Bruner MD, Lui Fox Emergency Provider [phone] Deepak Marshall MD Attending Provider NO FAMILY, PHYSICIAN Primary Care Provider Unava ilable Deepak Marshall MD Admit Provider Alli Nunes Admitting Unavailable Alli Nunes Attending Unavailable NO FAMILY, PHYSICIAN Primary Care Unavailable Merlene Wiley Consulting Unavailable Misty Merino Consulting Unavailable DensHelen nuñez Consulting Unavailable Nicole Ball Consulting Unavailable Liliana Costello Consulting Unavailable Monse Nunes Consulting Unavailable Maame Renee Consulting Unavailable Gianna Veloz Consulting Unavailable Ismael Merchant Consulting Unavailable Jose Garcia Consulting UnavailYovanny Walls Consulting Unavailable Clarisa Omer Consulting Unavailable Angie Valdez Consulting Unavailable Paxton Parker Consulting Unavailable Fela Mi Consulting UnavailLydia Jones Consulting Unavailable Gail Gutiérrez Consulting Unavailable Jennifer Rodriguez Consulting Unavailable Angie Gutierrez Consulting Unavailable Darell Nobles Consulting Unavailable Nic Garcia Consulting Unavailable Annika Espinal Consulting Unavailable Chaya Muñoz Consulting Unavailable Ashkan Mcbride Consulting Unavailab Ashwin Fernandez Consulting Unavailable Shamika Jaimes Consulting Unavailable Warren Novoa Consulting Unavailable Smiley Nance Consulting Unavailable Dennis Rao Consulting Unavailable Daromar, Obaydah M Consulting Unavailable Cat Bruner Consulting Unavailable Luzmaria Caceres Consulting Unavailable Alajuan pabload, Alaa Consulting Unavailable Uli Robertson Consulting Unavailable Gris Nunez Consulting Unavailable Jerry Tellez Consulting Unavailable Yvonne Osborne Consulting Unava ilable Shirley Greene Consulting Unavailable Rommel Hoyos Consulting Unavailable Alli Campos Consulting Unavailable Paxton Gonsalves Consulting Unavailable Brenton Rouse Consulting Unavailable Marta Fried Consulting Unavailable Bolzaramy-BinSveta Consulting Unavaila Eliza Grimes Consulting Unavailable Tina Wang Consulting Unavailable NO FAMILY, PHYSICIAN Primary Care Unavailable [place] II, Deepak Oconnor Attending Unavailabl e [place] II, Deepak Oconnor Admitting Unavailabl e Elbert Clifford Consulting Unavai lable Othman, Mahmoud Admitting Unavailable Othman, Mahmoud Referring Unavailable Shaila Mahjonesud Attending Unavailable Micah Cooney Primary Care Unavailable [place] II, Deepak Oconnor Admitting Unavailabl e Rolando II, Deepak Oconnor Attending Unavailabl e NON STAFF Primary Care Unavailable Micah Cooney Primary Care Unavailable [place] II, Deepak Oconnor Attending Unavailabl e [place] II, Deepak Oconnor Admitting UnavailLui Castellano Attending Unavailable NON STAFF Primary Care Unavailable Lui Bruner Admitting Unavailable IvetMicah daigle Primary Care Unavailable Rolando II, Deepak Oconnor Admitting Unavailabl e [place] II, Deepak Oconnor Attending Unavailabl e Micah Cooney Primary Care Unavailable [place] II, Deepak Oconnor Admitting Unavailabl e [place] II, Deepak Oconnor Attending Unavailabl Luiz Sandra Primary Care Unavailable [place] II, Deepak Oconnor Attending Unavailabl e Rolando II, Deepak Oconnor Admitting Unavailabl e IvetMicah daigle Primary Care Unavailable Alli Nunes Consulting Unavailable [place] DOUGLAS, Deepak Oconnor Admitting Unavailabl e [place] II, Deepak Oconnor Attending UnavailMerlene Naylor Consulting Unavailable NO FAMILY, PHYSICIAN Primary Care Unavailable Rolando II, Deepak Oconnor Admitting Unavailabl e [place] II, Deepak Oconnor Attending Unavailabl e Misty Merino Consulting Unavailable Helen De La Cruz Consulting Unavailable Nicole Ball Consulting Unavailable Liliana Costello Consulting Unavailable Monse Nunes Consulting Unavailable Maame Renee Consulting Unavailable Tonya Velozr Consulting Unavailable Ismael Merchant Consulting Unavailable Jose Garcia Consulting UnavailYovanny Walls Consulting Unavailable Clarisa Omer Consulting Unavailable Angie Valdez Consulting Unavailable Paxton Parker Consulting Unavailable Fela Mi Consulting UnavailLydia Jones Consulting Unavailable Gail Gutiérrez Consulting Unavailable Jennifer Rodriguez Consulting Unavailable Angie Gutierrez Consulting Unavailable Darell Nobles Consulting Unavailable Nic Garcia Consulting Unavailable Annika Espinal Consulting Unavailable Chaya Muñoz Consulting Unavailable Ashkan Mcbride Consulting Unavailab Ashwin Fernandez Consulting Unavailable Shamika Jaimes Consulting Unavailable Warren Novoa Consulting Unavailable Smiley Nance Consulting Unavailable Dennis Rao Consulting Unavailable Zelda Bejarano Consulting Unavailable Cat Bruner Consulting Unavailable Luzmaria Caceres Consulting Unavailable Alahmad Alaa Consulting Unavailable Uli Robertson Consulting Unavailable Gris Nunez Consulting Unavailable Jerry Tellez Consulting Unavailable Yvonne Osborne Consulting Unava Shirley Blanchard Consulting Unavailable Rommel Hoyos Consulting Unavailable Alli Campos Consulting Unavailable Paxton Gonsalves S Consulting Unavailable Brenton Rouse Consulting Unavailable Marta Fried Consulting Unavailable Sveta Cerrato Consulting Unavaila Eliza Grimes Consulting Unavailable Tina Wang Consulting Unavailable Alli Nunes Consulting Unavailable Alli Nunes Admitting Unavailable Alli Nunes Attending Unavailable Merlene Wiley Consulting Unavailable Micah Cooney Primary Care Unavailable Misty Merino Consulting Unavailable Helen De La [place] Consulting Unavailable Nicole Ball Consulting Unavailable Liliana Costello Consulting Unavailable Monse Nunes Consulting Unavailable Maame Renee Consulting Unavailable Magdiel, Ronobir Consulting Unavailable Mayur Ismael Consulting Unavailable Mir Garciaistopher Consulting UnavailYovanny Walls Consulting Unavailable Dahlia Omera Consulting Unavailable Angie Valdez Consulting Unavailable Paxton Parker Consulting Unavailable Fela Mi Consulting UnavailLydia Jones Consulting Unavailable Gail Gutiérrez Consulting Unavailable Jennifer Rodriguez Consulting Unavailable Angie Gutierrez Consulting Unavailable Darell Nobles Consulting Unavailable Nic Garcia Consulting Unavailable Annika Espinal Consulting Unavailable Chaya Muñoz Consulting Unavailable Ashkan Mcbride Consulting UnavailAshwin Troy Consulting Unavailable Shamika Jaimes Consulting Unavailable Warren Novoa Consulting Unavailable ObSmiley gomez Consulting Unavailable Dennis Rao Consulting Unavailable DaromaZelda gross Consulting Unavailable Cat Bruner Consulting Unavailable Luzmaria Caceres Consulting Unavailable Noemi Luke Consulting Unavailable Uli Robertson Consulting Unavailable Gris Nunez Consulting Unavailable Jerry Tellez Consulting Unavailable Yvonne Osborne Consulting Unava Shirley Blanchard Consulting Unavailable Rommel Hoyos Consulting Unavailable Alli Campos Consulting Unavailable Paxton Gonsalves Consulting Unavailable Brenton Rouse Consulting Unavailable Marta Fried Consulting Unavailable Sveta Cerrato Consulting Unavaila Eliza Grimes Consulting Unavailable Tina Wang Consulting Unavailable Allergies Allergy ClassificationReported Allergen(s)Allergy TypeDate of OnsetReaction(s) Facility (20 sources)Sulfonamides (Antibiotic); Translations: [sulfa drugs]Drug allergy Unknown (qualifier value)[facility] (18 sources)PhenytoinDrug [id number] Healthcare Work Phone: (18 sources)Sulfonamides (Antibiotic)Drug Sytcjlc61-82-1740AxtjtisDOBY Healthcare (8 sources)oxyCODONE; Translations: [oxycodone]Drug Clknunu73-11-5777LhqrtdChildren'[facility] (8 sources)Sulfonamides (Antibiotic); Translations: [Sulfa (Sulfonamide Antibiotics)]Allergy to [id number] Medications Current Medications MedicationDrug Class(es)DatesSig (Normalized)Sig (Original)acetaminophen 500 mg oral tablet (20 sources)Start: 83-66-5587zygy 2 tablets by mouth every six hoursStart: 01-18-2025 End: 19-85-2732xrjj 2 tablets by mouth every eight hoursAcetaminophen 500 mg tablet Discontinued 1000 MG PO Q8H 180 30 0 January 18, 2025 12:00am February 21, 2025 11:24am do not reconcile dos 01/29/25. med to bedStart: 01-10-2025 End: 71-92-4626hfjg 2 tablets by mouth every six hours as needed for pain Acetaminophen 500 mg tablet Discontinued 1000 MG PO Every 6 hours as needed for pain January 10, 2025 12:00am January 30, 2025 4:05pm On Hold: Resume on 03/01/25.Start: 31-20-2140cekn 650 mg by mouth three times daily as needed for painTylenol 650 mg, Oral, TID, PRN as needed for pain, Refills(s) 0 Start Date: 08/01/24 Status: Ordered Repeat number: 1acetaminophen 325 mg / HYDROcodone bitartrate 5 mg oral tablet (6 sources)Opioid AgonistStart: 76-30-1433fmeq 0.5 tablet by mouth every four to six hours as needed for painacetaminophen 325 mg / oxyCODONE hydrochloride 5 mg oral tablet (1 source)Opioid AgonistStart: 05-21-2024 End: 35-22-5347utlsawpbmdkwp-oxycodone 325 mg-5 mg Tab 1 tab(s), Oral, q6hr for pain for 3 day(s), 12 tab(s), Refill(s) 0, [facility]/pharmacy #[id number], 159, cm, 05/21/24 10:41:00 EST, Height/Length Dosing, 84.5, kg, 05/21/24 10:41:00 EST, Weight Dosing Start Date: 05/21/24 Stop Date: 05/24/24 Status: Orderedaspirin 81 mg delayed release oral tablet (20 sources)Platelet Aggregation Inhibitor, Nonsteroidal Anti-inflammatory Drug Start: 01-18-2025 End: 63-77-2178jhvm 1 tablet by mouth twice dailyStart: 01-08-2023 End: 32-55-7431crzq 1 tablet by mouth once daily at bedtimeAspirin 81 mg Tablet,Delayed Release (Dr/Ec) Discontinued 81 MG PO Daily at bedtime December 12:00am February 02, 2025 12:47pm On Hold: Resume on 03/06/25.ASPIRIN 81 PO Take by mouth ActiveAspirin 81 mg Tab-EC (18 sources)Start: 22-29-7616jeln 1 tablet by mouth once dailyAspirin 81 mg Tab- EC 81 mg = 1 tab(s), Oral, Daily, Refills(s) 0, Blood Thinner Start Date: 04/21/14 Status: Ordered Repeat number: 1Start: 30-92-0338jeyo 1 tablet by mouth once dailyAspirin 81 mg Tab-EC 81 mg = 1 tab(s), Oral, Daily, Refills(s) 0, Blood Thinner Start Date: 04/21/14 Status: Orderedazithromycin 250 mg oral tablet (1 source)Macrolide AntimicrobialStart: 05-24-2024 End: 12-83-7316opjj 1 tablet by mouth once dailyazithromycin (Zithromax Z-Enoc) 250 MG tablet Indications: Cellulitis of right foot Take 1 tablet (250 mg) by mouth Daily for 5 days Use as directed 6 tablet 05/24/2024 05/29/2024 Active Calcium (18 sources)Phosphate Binder, CalciumStart: 92-01-7799Uzpgidx 600+D See Instructions, Refill(s) 0, Take one orally twice a day, Prophylaxis Start Date: 06/04/16 Status: Ordered Repeat number: 1Start: 97-96-8153Zmiehbp 600+D See Instructions, Refill(s) 0, Take one orally twice a day, Prophylaxis Start Date: 06/04/16 Status: OrderedStart: 09-74-9229Wcjlalh 600+D See Instructions, Refill(s) 0, Prophylaxis Start Date: 06/04/16 Status: Orderedcalcium carbonate 1500 mg oral tablet (18 sources)calcium carbonate 1500 (600 Ca) MG tablet every 12 (twelve) hours. Activecalcium carbonate 1250 mg / cholecalciferol 200 unt oral tablet (18 sources)Vitamin DStart: 70-26-4896atto 1 tablet by mouth twice dailyStart: 01-10-2025 End: 56-30-0305wiiw 1 tablet by mouth twice dailyCalcium Carbonate-Vitamin D3 (Calcium 600 + D(3)) 600 mg-10 mcg (400 unit) tablet Discontinued 1 TAB PO Twice daily January 10, 2025 12:00am February 02, 2025 12:47pmCentrum Silver (18 sources)Start: 53-30-6051pswj 1 tablet by mouth once dailyCentrum Silver 1 tab(s), Oral, Daily, Refill(s) 0 Start Date: 06/08/19 Status: Ordered Repeat number: 1Start: 21-74-4012mcdl 1 tablet by mouth once dailyCentrum Silver 1 tab(s), Oral, Daily, Refill(s) 0 Start Date: 06/08/19 Status: Orderedcephalexin 500 mg oral capsule (2 sources)Cephalosporin AntibacterialStart: 01-07-2023 End: 98-89-2846jngf 1 capsule by mouth twice dailycephalexin (Keflex) 500 MG capsule Indications: Basal cell carcinoma of skin of nose Take 1 capsuleby mouth, twice daily, for 10 days. 20 capsule 01/07/2023 05/10/2024 Discontinued (Therapy completed)cetirizine hydrochloride 10 mg oral tablet (3 sources)Histamine-1 Receptor AntagonistStart: 19-28-5313iojf 1 tablet by mouth once dailycetirizine 10 mg Tab 10 mg = 1 tab(s), Oral, Daily, # 90 tab(s), Refills(s) 0, Pharmacy: [facility] [id number], 149, cm, 08/16/23 11:33:00 EDT, Height/Length Dosing, 89.9, kg, 08/16/23 11:33:00 EDT, WeightDosing Start Date: 08/16/23 Status: Ordereddiclofenac sodium 75 mg delayed release oral tablet (4 sources)Nonsteroidal Anti-inflammatory DrugStart: 26-10-3740vfqk 1 tablet by mouth once daily as needed for arthritisdiclofenac sodium 75 mg Oral EC Tab 75 mg = 1 tab(s), Oral, Daily, as needed for arthritis, Refills(s) 0 Start Date: 08/12/22 Status: Ordered End: 08-87-4000jehapcrels sodium (Voltaren XR) 100 mg 24 hr tablet 1 (one) time each day at the same time. 05/10/2024 Discontinued (Therapy completed)disabilty parking placard (18 sources)Start: 60-16-8786smsfbwdzs parking placard disabilty parking placard, multiple medical problems, As Directed for 5 year(s), Print Requisition, Supply Start Date: 08/18/22 Status: Ordered Repeat number: 1Start: 32-21-8076mjhltcorl parking placard disabilty parking placard, multiple medical problems, As Directed for 5 year(s), Print Requisition, Supply Start Date: 08/18/22 Status: Ordereddocusate sodium 100 mg oral capsule (9 sources)Start: 32-54-6857lgqt 1 capsule by mouth once daily as needed for constipationStart: 02-02-2025 End: 49-14-1543whba 1 capsule by mouth twice daily as needed for constipation Docusate Sodium 100 mg Capsule Discontinued 100 MG PO Twice daily as needed for Constipation 60 0 February 02, 2025 12:00am February 14, 2025 1:52pm doxycycline hyclate 100 mg oral capsule (6 sources)Tetracycline-class DrugStart: 03-27-2024 End: 17-85-6714labuwctsqhq (Vibramycin) 100 MG capsule Indications: Cellulitis of right foot Take 1 capsule (100 mg) by mouth in the morning and 1 capsule (100 mg) before bedtime. Do all this for 10 days. Take withat least 8 ounces (large glass) of water, do not lie down for 30 minutes after. 20 capsule 05/23/2024 06/02/2024 Activeelppa CoQ10 50 mg oral capsule (18 sources)Start: 70-26-9489pymc 1 capsule by mouth once dailyelppa CoQ10 50 mg oral capsule 50 mg = 1 cap(s), Oral, Daily, # 30 cap(s), Refills(s) 0 Start Date:04/21/14 Status: Ordered Quantity: 30.0 Unit: cap(s) Repeat number: 1Start: 17-28-8999typj 1 capsule by mouth once dailyelppa CoQ10 50 mg oral capsule 50 mg = 1 cap(s), Oral, Daily, # 30 cap(s), Refills(s) 0 Start Date:04/21/14 Status: Orderedfluconazole 150 mg oral tablet (5 sources)Azole AntifungalStart: 62-98-9250tjqx 1 tablet by mouth onceDiflucan 150 mg Tab 150 mg = 1 tab(s), Oral, Once, # 1 tab(s), Refills(s) 0, Pharmacy: [facility]/pharmacy#[id number], 159, cm, 03/27/24 13:39:00 EST, Height/Length Dosing, 88, kg, 03/27/24 13:39:00 EST, Weight Dosing Start Date: 03/27/24 Status: Ordered Quantity: 1.0 Unit: tab(s) Repeat number: 1 Indications: Pain in unspecified knee; Low back pain, unspecified; Other specified health status; Other obesity due to excess calories; Body mass index [BMI] 34.0-34.9, adult; Urinary tract infection, site not specified;gabapentin 100 mg oral capsule (20 sources)Anti-epileptic AgentStart: 11-09-2024 End: 30-71-5194smec 2 capsules by mouth once daily at bedtimeStart: 11-09-2024 Start: 08-01-2024 End: 71-88-5296daiz 2 capsules by mouth twice dailygabapentin 100 mg Cap 200 mg = 2 cap(s), Oral, BID, X 30 day(s), # 120 cap(s), Refills(s) 2, [id number], cm, 08/01/24 12:40:00 EDT, Height/Length Dosing, 80.9, kg, 08/01/24 12:40:00 EDT, Weight Dosing Start Date: 08/01/24 Stop Date: 10/30/24 Status: Ordered Quantity: 120.0 Unit: cap(s) Repeat number: 3 L.Acid,Para-B.Bifidum-S.Therm (Risaquad) 8 billion cell Capsule (7 sources)Start: 79-02-1157dltp 8 capsules by mouth once daily in the morning L.Acid,Para-B.Bifidum-S.Therm (Risaquad) 8 billion cell Capsule Active 1 CAP PO Every morning February 02, 2025 12:00am Complies with drug therapyStart: 94-15-2521yepk 8 capsules by mouth once daily in the morningStart: 02-02-2025 take 8 capsules by mouth once daily in the morningmelatonin 5 mg oral tablet (9 sources)Start: 02-02-2025 End: 60-90-1470jrsp 1 tablet by mouth once daily at bedtime as needed for sleep Multiple Vitamins-Minerals (CENTRUM SILVER PO) (18 sources)Multiple Vitamins-Minerals (CENTRUM SILVER PO) Take by mouth Active Multivitamin With Folic Acid (Thera) 400 mcg Tablet (7 sources)Start: 24-26-4639kmzn 1 tablet by mouth once daily in the morning Multivitamin With Folic Acid (Thera) 400 mcg Tablet Active 1 TAB PO Every morning 30 30 0 February 02, 2025 12:00am Complies with drug therapyStart: 01-21-9979oqzj 1 tablet by mouth once daily in the morningStart: 98-58-2549dzae 1 tablet by mouth once daily in the morningProbiotic (18 sources)Start: 41-44-3694Ziioygvjg Probiotic Start Date: 05/30/19 Status: Ordered Repeat number: 1Start: 50-06-9862Qdqewkbsl Probiotic Start Date: 05/30/19 Status: OrderedProbiotic Product (PROBIOTIC PO) (18 sources)Probiotic Product (PROBIOTIC PO) Take by mouth ActivetraMADol hydrochloride 50 mg oral tablet (20 sources)Opioid AgonistStart: 02-02-2025 End: 61-76-5705zkzi 1 tablet by mouth every six hours as needed for painStart: 01-18-2025 End: 49-88-3336wxot 1 tablet by mouth every six hours as needed for painTramadol 50 mg tablet Discontinued 50 MG PO Q6H as needed for Pain 40 7 0 January 18, 2025 12:00am January 30, 2025 4:08pm Primary osteoarthritis of right hip Unilateral primary osteoarthritis, right hipStart: 26-19-1841idkh 1 tablet by mouth once daily as neededtraMADOL 50 mg Tab 50 mg = 1 tab(s), Oral, Daily, take as needed, Refills(s) 0 Start Date: 11/18/23 Status: OrderedStart: 10-06-2022 take 1-2 tablets by mouth twice daily as needed for paintraMADOL 50 mg Tab TAKE 1-2 TABLETS BY MOUTH TWICE A DAY NEEDED FOR KNEE PAIN Start Date: 09/23/23 Status: OrderedTumeric (2 sources)Start: 68-28-2831Bvbjqpd Tumeric Start Date: 05/30/19 Status: Ordered ubiquinol 100 mg oral capsule (18 sources)Ubiquinol (Qunol CoQ10/Ubiquinol/Brandon) 100 MG capsule as directed Orally Active Completed/Discontinued Medications MedicationDrug Class(es)DatesSig (Normalized)Sig (Original)amLODIPine 5 mg oral tablet (20 sources)Dihydropyridine Calcium Channel BlockerStart: 01-18-2025 End: 55-23-3630tfms 1 tablet by mouth once dailyAmlodipine 5 mg Tablet Discontinued 5 MG PO Daily 30 30 0 February 02, 2025 12:00am February 21, 2025 11:24amStart: 01-10-2025 End: 21-40-4545uemc 1 tablet by mouth once daily at bedtimeAmlodipine 2.5 mg tablet Discontinued 2.5 MG PO Daily at bedtime January 10, 2025 12:00am January 18, 2025 12:06pmcefadroxil 500 mg oral capsule (16 sources)Cephalosporin AntibacterialStart: 02-02-2025 End: 23-87-8812jvxe 1 capsule by mouth twice dailyCefadroxil 500 mg Capsule Discontinued 500 MG PO Twice daily 6 3 0 February 02, 2025 12:00am February 14, 2025 1:52pmStart: 01-18-2025 End: 05-53-7877ynjj 1 capsule by mouth every twelve hoursCefadroxil 500 mg capsule Discontinued 500 MG PO Q12H 14 7 0 January 18, 2025 12:00am February 02, 2025 12:47pm do not reconcile dos 01/29/25. med to beddocusate sodium 50 mg / sennosides, fdc 8.6 mg oral tablet (9 sources)Start: 01-18-2025 End: 43-67-0236beuc 2 tablets by mouth once dailySennosides-Docusate Sodium (Senokot-S) 8.6-50 mg tablet Discontinued 2 TAB PO daily 60 30 0 January 18, 2025 12:00am January 30, 2025 4:07pm do not reconcile dos 01/29/25. med to bed etodolac 500 mg oral tablet (20 sources)Nonsteroidal Anti-inflammatory DrugStart: 11-09-2024 End: 01-44-4078zsvk 1 tablet by mouth once daily in the morningEtodolac 500 mg tablet Discontinued 500 MG PO Every morning November 09, 2024 12:00am February 02, 2025 12:47pm On Hold: Resume on 03/01/25.Start: 00-08-7019teim 1 tablet by mouth once dailyetodolac 500 mg Tab 500 mg = 1 tab(s), Oral, Daily, Refills(s) 0 Start Date: 02/15/24 Status: Ordered Repeat number: 1Start: 69-49-0307ezsz 1 tablet by mouth twice dailyetodolac 500 mg Tab 500 mg = 1 tab(s), Oral, BID, Refills(s) 0 Start Date: 02/15/24 Status: OrderedRepeat number: 1ketorolac tromethamine 10 mg oral tablet (3 sources)Nonsteroidal Anti-inflammatory Drug, Cyclooxygenase InhibitorStart: 02-18-2025 End: 30-78-9386jbov 1 tablet by mouth every six hours as needed for pain Ketorolac 10 mg tablet Discontinued 10 MG PO Every 6 hours as needed for pain 20 0 February 18, 2025 12:00am February 23, 2025 6:05pm maximum total duration of 5 days from all oral, intranasal, or parenteral formulationsLactobacillus Combination No.4 (Probiotic) 3 billion cell capsule (11 sources)Start: 01-10-2025 End: 99-88-9598mxjp 3 capsules by mouth once daily in the morningLactobacillus Combination No.4 (Probiotic) 3 billion cell capsule Discontinued 3000 MMU CELLS PO Every morning January 10, 2025 12:00am February 02, 2025 12:47pm administer with a mealStart: 27-06-5212krrc 3 capsules by mouth once daily in the morningLactobacillus Combination No.4 (Probiotic) 3 billion cell capsule Active 3000 MMU CELLS PO Every morning January 10, 2025 12:00am administer with a meal Complies with drug therapyStart: 83-79-8065vcmh 3 capsules by mouth once daily in the morningmethylPREDNISolone 4 mg oral tablet (5 sources)CorticosteroidStart: 02-14-2025 End: 55-87-5975Nngfekjiazzwevzmpj (Medrol (Enoc)) 4 mg tablets,dose pack Discontinued 4 MG PO as directed 1 0 February 14, 2025 12:00am February 21, 2025 9:48amMultivitamin tablet (11 sources)Start: 01-10-2025 End: 73-15-0501epnp 1 tablet by mouth once daily in the morningMultivitamin tablet Discontinued 1 TAB PO Every morning January 10, 2025 12:00am February 02, 2025 12:47pmStart: 22-28-3891tkih 1 tablet by mouth once daily in the morningMultivitamin tablet Active 1 TAB PO Every morning January 10, 2025 12:00am Complies with drug therapyStart: 20-04-7572wfhh 1 tablet by mouth once daily in the morningnabumetone 500 mg oral tablet (20 sources)Nonsteroidal Anti-inflammatory DrugStart: 09-23-2023 End: 96-74-0808oera 1 tablet by mouth three times dailynabumetone 500 mg Tab 500 mg = 1 tab(s), Oral, TID, TAKE 1 TABLET BY MOUTH THREE TIMES A DAY Start Date: 09/23/23 Status: OrderedStart: 10-06-2022 End: 84-86-4987rlqw 1 tablet by mouth twice dailyNabumetone 500 mg tablet Discontinued 500 MG PO Twice daily January 08, 2023 12:00am October 1:04pmondansetron 4 mg oral tablet (9 sources)Serotonin-3 Receptor AntagonistStart: 01-18-2025 End: 78-56-5597swmr 1 tablet by mouth every eight hours as needed for nausea Ondansetron Hcl 4 mg tablet Discontinued 4 MG PO Q8H as needed for Nausea 9 0 January 18, 2025 12:00am February 02, 2025 12:47pm do not reconcile dos 01/29/25. med to bedoxyCODONE hydrochloride 5 mg oral tablet (12 sources)Opioid AgonistStart: 02-19-2025 End: 70-40-9569zxrz 1 tablet by mouth every eight hours as needed for pain Oxycodone 5 mg tablet Discontinued 5 MG PO Q8H as needed for Pain 20 7 0 February 19, 20252024 9:48am Aftercare following right hip joint replacement surgery Aftercare following jointreplacement surgery Presence of right artificial hip jointStart: 01-18-2025 End: 15-39-7222yrvx 1 tablet by mouth every four hours as needed for pain Oxycodone 5 mg tablet Discontinued 5 MG PO Q4H as needed for Pain 42 7 0 January 18, 2025 February 02, 2025 12:47pm Primary osteoarthritis of right hip Unilateral primary osteoarthritis, right hip do not reconcile dos 01/29/25. med to bedpolyethylene glycol 3350 68938 mg powder for oral solution (17 sources)Osmotic LaxativeStart: 01-18-2025 End: 78-82-3507Cshtjpgupwyc Glycol 3350 (Miralax) 17 gram/dose powder Discontinued 17 GM PO daily as needed for constipation January 30, 2025 12:00am February 02, 2025 12:47pm 1 packed mixed with 8 ounces of fluid.pravastatin sodium 20 mg oral tablet (20 sources)HMG-CoA Reductase InhibitorStart: 09-22-2015 End: 23-84-5607daxr 1 tablet by mouth once daily at bedtimePravastatin 20 mg tablet Discontinued 20 MG PO Daily at bedtime January 08, 2023 12:00am February 02, 2025 12:47pmpredniSONE 10 mg oral tablet (16 sources)Start: 01-18-2025 End: 00-92-4095iykk 1 tablet by mouth once dailyPrednisone 10 mg Tablet Discontinued 10 MG PO Daily 7 7 0 February 02, 2025 12:00am February 14, 2025 1:52pmubidecarenone 100 mg oral capsule (11 sources)Start: 01-10-2025 End: 91-84-6765Xuqnrxup Q10 (Coq-10) 100 mg capsule Discontinued 100 MG PO Daily at bedtime January 10, 2025 12:00am February 02, 2025 12:47pm Problems Active Problems Problem ClassificationProblemDateDocumented DateEpisodic/ChronicAbdominal pain (1 source)Right lower quadrant pain; Translations: [Right lower quadrant pain] Onset: 58-24-7817HtvmmyokJaljzxporcnrpv/social admission (17 sources)Other reduced mobility; Translations: [Impaired mobility and activities of daily living]Onset: 851522-11-4953XifcuftpAppsvqq kidney disease (7 sources)Chronic kidney disease stage 6A40-23-1796OdsanzkZvzbkpbpieugt of surgical procedures or medical care (4 sources)Periprosthetic fracture; Translations: [Periprosthetic fracture around internal prosthetic right hip joint, initial encounter]Onset: 02-21-2025 13-96-5876RvhdqbisCwfumxivyq associated with dizziness or vertigo (3 sources)Noaddjlde33-36-9092DrmddfchWblyzadlfp and other anemia (15 sources)Anemia; Translations: [Anemia, unspecified]36-20-7467Kyimvphq Deficiency and other anemia (1 source)Anemia, unspecified; Translations: [Anemia, unspecified]Onset: 95-41-0200WtkciicuAtzptzsdl of lipid metabolism (20 sources)Pure hypercholesterolemia, unspecified; Translations: [Mixed hypercholesterolemia and hypertriglyceridemia]Onset: 07-19-2021 Resolved: 88-77-1776UwfthjcXwxnifzlq hypertension (15 sources)Hypertensive disorder; Translations: [Essential (primary) hypertension]Onset: 647337-58-3152PghqbynQjooqidh of lower limb (4 sources)Closed fracture middle phalanx, toe ; Translations: [Nondisplaced fracture of middle phalanx of right lesser toe(s), initial encounter for closed fracture]37-19-7624NtdhnbrnUolfohnr of neck of femur (hip) (1 source)Displaced fracture of lesser trochanter of right femur, initial encounter for closed fracture; Translations: [Displaced fracture of lesser trochanter of right femur, initial encounter for closed fracture]Onset: 26-83-8332RjnbsyebMlumxuuwtnmgm symptoms and ill-defined conditions (20 sources)Female stress incontinence; Translations: [Urge incontinence of urine]Onset: 01-07-2023 Resolved: 692169-65-8612KodqmprZuytcznbxmbbt symptoms and ill-defined conditions (20 sources)Increased frequency of urination; Translations: [Microscopic hematuria]Onset: 01-07-2023 Resolved: 910707-64-7947MsvyfyakHpwppopuj of unspecified nature or uncertain behavior (2 sources)Neoplastic disease; Translations: [Neoplasm of unspecified behavior of bone, soft tissue, and skin]79-18-4281VmpdsdmpMedoyctyksqpbz (20 sources)Arthritis; Translations: [Osteoarthritis]Onset: 01-07-2023 Resolved: 914922-79-4474UfstoyuVzjyktupnxht (20 sources)Senile osteoporosis; Translations: [Age-related osteoporosis without current pathological fracture]Onset: 287298-49-9638OabbmooAtmcw aftercare (13 sources)Patient encounter status; Translations: [Aftercare following joint replacement surgery]71-86-3383YlqdudiDudnq aftercare (1 source)Aftercare following joint replacement surgery; Translations: [Aftercare following joint replacementsurgery]Onset: 94-40-7696QddnfutZxrag aftercare (20 sources)Long-term current use of drug therapy; Translations: [Other skilled nursing (current) drug therapy]EpisodicOther and unspecified benign neoplasm (2 sources)Melanocytic nevus of left upper limb; Translations: [Melanocytic nevi of left upper limb, includingshoulder]80-14-1582SfhuvkgqSfilp bone disease and musculoskeletal deformities (20 sources)Osteopenia; Translations: [Other specified disorders of bone density and structure, unspecified site]Onset: 01-07-2023 Resolved: 433345-53-9657YuelkmweCzkee connective tissue disease (20 sources)History of total hip arthroplasty; Translations: [Presence of right artificial hip joint]63-37-8552YhswezmElegy connective tissue disease (1 source)Presence of right artificial hip joint; Translations: [Presence of right artificial hip joint]Onset: 10-73-7302QnkbcolMwnlu connective tissue disease (3 sources)Pain in right foot; Translations: [Pain in right foot]Onset: 71-79-8712NyckdlysNasjh connective tissue disease (1 source)Pain in left foot; Translations: [Pain in left foot]Onset: 05-21-2024 EpisodicOther non-epithelial cancer of skin (2 sources)History of malignant basal cell neoplasm of skin; Translations: [Personal history of other malignant neoplasm of skin]75-67-1282XljxweunVkvor non-traumatic joint disorders (16 sources)Hip pain; Translations: [Pain in right hip]58-54-7399UpkklrovRekpa nutritional; endocrine; and metabolic disorders (1 source)Body mass index 40+ - severely obese; Translations: [Body mass index (BMI) 40.0-44.9, adult]Onset: 09-57-6912EiskkqyMpauz nutritional; endocrine; and metabolic disorders (15 sources)Body mass index 30+ - vgufwxm50-61-9001LrhsqqgHtosc nutritional; endocrine; and metabolic disorders (15 sources)Obesity; Translations: [Class 2 obesity with body mass index (BMI) of 37.0 to 37.9 in adult]22-50-5652RxtnxgaLojuo nutritional; endocrine; and metabolic disorders (1 source)Body mass index (BMI) 37.0-37.9, adult; Translations: [Body mass index [BMI] 37.0-37.9, adult]Onset: 33-19-1814HehsyjhOvued nutritional; endocrine; and metabolic disorders (19 sources)Weight yhii04-65-7283NqwfyppqQbwsy screening for suspected conditions (not mental disorders or infectious disease) (4 sources)Encounter for screening mammogram for malignant neoplasm of breast; Translations: [ENC SCR MAMMO MALIG NEOPLASM BREAST]Onset: 03-61-1174Vnnsgpdu Other skin disorders (4 sources)Actinic keratosis; Translations: [Actinic keratosis]07-24-2024 EpisodicOther skin disorders (2 sources)Lentiginosis; Translations: [Other melanin hyperpigmentation] 20-45-3028XvjqfestZxnaj upper respiratory disease (17 sources)Seasonal gyptnnp29-88-1068WskhaezFdwdjviygt and visceral atherosclerosis (20 sources)Abdominal aortic atherosclerosis; Translations: [Vascular disorder] Onset: 01-07-2023 Resolved: 712378-94-0630EjrobcsQjcpglw on above:added per 11/24/2023 query response.Residual codes; unclassified (1 source)Family history of malignant neoplasm of breast; Translations: [FAMILY HX MALIG NEOPLASM OF BREAST]Onset: 83-69-1130BpaficdrAvgqxsmr codes; unclassified (7 sources)Pain; Translations: [Pain, unspecified]07-52-3854BhqeplxhNojnamlm codes; unclassified (1 source)Insomnia, unspecified; Translations: [Insomnia, unspecified]Onset: 05-38-1335QhmvruqiXfhfkovc codes; unclassified (1 source)Other specified health status; Translations: [Other specified health status]Onset: 93-58-7495GskusmtdPtobinfq codes; unclassified (1 source)Pain, unspecified; Translations: [Pain, unspecified]Onset: 01-30-2025 EpisodicSkin and subcutaneous tissue infections (5 sources)Cellulitis of right foot; Translations: [Cellulitis of right lower limb]72-34-3810GpszwrwcSljfujcblkc; intervertebral disc disorders; other back problems (11 sources)Lumbosacral spondylosis with radiculopathy; Translations: [Other spondylosis with radiculopathy, lumbosacral region]86-29-2899ArbnyujHxiigtn and strains (7 sources)Strain of muscle of right hip; Translations: [Strain of muscle, fascia and tendon of right hip, initial encounter]Onset: EpisodicUnclassified (14 sources)Does mobilize using rsdh06-32-8409Taomaxnajuzj (7 sources)Hgs-pigivv96-60ochjaq85-86-6178Obflhhgrsowv (14 sources)Follow up with rehab physician as neededUnclassified (14 sources)-PCP, call to schedule follow up appointment with PCP after dischargeUnclassified (1 source)Obesity, class 2; Translations: [Obesity, class 2]Onset: 01-30-2025 Past or Other Problems Problem ClassificationProblemDateDocumented DateEpisodic/ChronicMalaise and fatigue (20 sources)Other fatigue; Translations: [Fatigue]Onset: 07-23-2021 Resolved: 645391-85-7229ZjytttuaVnbod aftercare (1 source)Other oil heaterman (current) drug therapy; Translations: [Other skilled nursing (current) drug therapy]Onset: 99-78-7110VctzfnkuGcdvn circulatory disease (18 sources)Raynaud's disease; Translations: [Raynaud's syndrome without gangrene]Onset: 01-07-2023 Resolved: 228318-51-0742NpzkykdByrqk non-traumatic joint disorders (1 source)Pain in right hip; Translations: [Pain in right hip]Onset: 11-20-2024 EpisodicOther nutritional; endocrine; and metabolic disorders (18 sources)Weight increased; Translations: [Abnormal weight gain]Onset: 01-07-2023 Resolved: 326005-08-8357OyqspcqtNadcrgduf cerebral ischemia (20 sources)Transient cerebral ischemia; Translations: [Transient cerebral ischemic attack, unspecified]Onset: 01-07-2023 Resolved: 641847-96-4135LqmzxboNpfky infection (20 sources)Coronavirus infection; Translations: [Coronavirus infection, unspecified]Onset: 01-07-2023 Resolved: 360819-07-2167Wohhgesd Results Test NameValueInterpretationReference RangeFacilityBasic Metabolic Panelon 83-41-5988Lhvhe gap [Moles/Vol]14.7 mmol/LNormal6.0-15.0The [facility] Physician GroupComment on above:Performed By: #### BMP, CBC #### [place] [address] USACalcium [Mass/Vol]9.0 mg/dLNormal8.6-10.3The [facility] Physician GroupComment on above:Performed By: #### BMP, CBC #### [place] [address] USAChloride [Moles/Vol]105 mmol/VPindyr39-488Vmx [facility] Physician GroupComment on above:Performed By: #### BMP, CBC #### [place] [address] USACO2 [Moles/Vol]24.0 mmol/XDsdinh94.0-31.0The [facility] Physician GroupComment on above:Performed By: #### BMP, CBC #### [facility] [address] [place] [address] USACreatinine [Mass/Vol]0.88 mg/dLNormal0.60-1.20The [facility] Physician GroupComment on above:Performed By: #### BMP, CBC #### [facility] [address] [place] [address] USACreatinine Clr Calc Hanzclxo59.25NormalThe [facility] Physician GroupComment on above:Result Comment: PERFORMED BY: [place] [address] PATHOLOGIST CUTTING TABLE OPERATOR MERY LEAVITT M.D.Performed By: #### BMP, CBC #### [place] [address] USAGFR/1.73 sq M.predicted MDRD (S/P/Bld) [Vol rate/Area] mL/min/{1.73_m2}NormalThe [facility] Physician GroupComment on above:Performed By: #### BMP, CBC #### [place] [address] USAGlucose [Mass/Vol]118 mg/lYVtbk54-729Qnq [facility]ician GroupComment on above:Result Comment: Random Glucose Reference Range is dependent on time and content of last meal. Glucose of more than 200 mg/dL in a nonstressed, ambulatory subject supports the diagnosis of Diabetes Mellitus. ADA recommended reference rangePerformed By: #### BMP, CBC #### [place] [address] USAPotassium [Moles/Vol]3.7 mmol/LNormal3.5-5.1The [facility] Physician GroupComment on above:Performed By: #### BMP, CBC #### [place] [address] USASodium [Moles/Vol]140 mmol/DFbaxhx735-471Jcw [facility] Physician GroupComment on above:Performed By: #### BMP, CBC #### [place] [address] USAUrea nitrogen [Mass/Vol]18 mg/dLNormal7-25The [facility] Physician GroupComment on above:Performed By: #### BMP, CBC #### [place] [address] USAComplete Blood Count Auto Diffon 13-51-3450Sbbxisxds (Bld) [#/Vol]0.1 10*3/uLNormal0.0-0.2The [facility] Physician GroupComment on above: Result Comment: PERFORMED BY: [place] [address] PATHOLOGIST CUTTING TABLE OPERATOR MERY LEAVITT M.D.Performed By: #### BMP, CBC #### [facility] [address] [place] [address] USABasophils/100 WBC (Bld)1.0 %Normal.The [facility] Physician GroupComment on above:Performed By: #### BMP, CBC #### [facility] [address] [place] [address] USAEosinophils (Bld) [#/Vol]0.5 10*3/uLHigh0.0-0.45The [facility] Physician GroupComment on above:Performed By: #### BMP, CBC #### [facility] [address] [place] [address] USAEosinophils/100 WBC (Bld)3.4 %Normal.The [facility] Physician GroupComment on above:Performed By: #### BMP, CBC #### [place] [address] USAErythrocyte distribution width (RBC) [Ratio]14.9 %Normal 11.9-15.3The [facility] Physician GroupComment on above:Performed By: #### BMP, CBC #### [place] [address] USAHematocrit (Bld) [Volume fraction]30.8 %Low34.0-46.4The [facility] Physician GroupComment on above:Performed By: #### BMP, CBC #### [place] [id number] USAHemoglobin (Bld) [Mass/Vol]9.9 g/dLLow11.8-15.4The [facility] Physician GroupComment on above:Performed By: #### BMP, CBC #### [place] [id number] USALymphocytes (Bld) [#/Vol]3.5 10*3/uLNormal1.00-4.8The [facility] Physician GroupComment on above:Performed By: #### BMP, CBC #### [place] [id number] USALymphocytes/100 WBC (Bld)23.7 %Normal.The [facility] Physician GroupComment on above:Performed By: #### BMP, CBC #### [facility] [address]H (RBC) [Entitic mass]28.3 nzVcqndj61.7-34.3The [facility] Physician GroupComment on above:Performed By: #### BMP, CBC #### [facility] [address] [place] [address] USAMCV (RBC) [Entitic vol]87.7 aNAlnlmm86-635Oxj [facility] GroupComment on above:Performed By: #### BMP, CBC #### [facility] [address] [place] [address] USAMean Corpuscular HGB Conc32.2 g/gJHrkjis72.0-35.0The [facility] Physician GroupComment on above:Performed By: #### BMP, CBC #### [place] [address] USAMonocytes (Bld) [#/Vol]0.8 10*3/uLNormal0.0-0.8The [facility] Physician GroupComment on above:Performed By: #### BMP, CBC #### [facility] [address] [place] [address] USAMonocytes/100 WBC (Bld)5.1 %Normal.The [facility] Physician GroupComment on above:Performed By: #### BMP, CBC #### [facility] [address] [place] [address] USANeutrophils (Bld) [#/Vol]9.9 10*3/uLHigh1.8-7.7The [facility] Physician GroupComment on above:Performed By: #### BMP, CBC #### [facility] [address] [place] [address] USANeutrophils/100 WBC (Bld)66.8 %Normal.The [facility] Physician GroupComment on above:Performed By: #### BMP, CBC #### [facility] [address] [place] [address] USANRBC%0.1 /100{WBC}Normal0-0.5The [facility] Comment on above:Performed By: #### BMP, CBC #### [place] [address] USAPlatelet mean volume (Bld) [Entitic vol]6.8 fLNormal 6.3-10.7The [facility] Physician GroupComment on above:Performed By: #### BMP, CBC #### [place] [address] USAPlatelets (Bld) [#/Vol]622 10*3/xNFjtt280-061Ypg [facility] GroupComment on above:Performed By: #### BMP, CBC #### [place] [address] USARBC (Bld) [#/Vol]3.52 10*6/uLLow3.60-5.00The [facility] Physician GroupComment on above:Performed By: #### BMP, CBC #### [place] [address] USAWBC (Bld) [#/Vol]14.8 10*3/uLHigh3.8-11.6The [facility] Physician GroupComment on above:Performed By: #### BMP, CBC #### [place] [address] USAWhite Blood Count14.8 [CFU]/mLHigh3.8-11.6The [facility] Physician GroupComment on above:Performed By: #### BMP, CBC #### [place] [address] USABasic Metabolic Panelon 33-54-8905Tnnei gap [Moles/Vol] 11.9 mmol/LNormal6.0-15.0The [facility] Physician GroupComment on above:Performed By: #### BMP, CBC #### [place] [address] USACalcium [Mass/Vol]8.9 mg/dLNormal8.6-10.3The [facility] Physician GroupComment on above:Performed By: #### BMP, CBC #### [address] [address] USAChloride [Moles/Vol]107 mmol/XXsteyp39-395Jgi [facility] GroupComment on above:Performed By: #### BMP, CBC #### [place] [address] USACO2 [Moles/Vol]25.1 mmol/MQttysp13.0-31.0The [facility] Physician GroupComment on above:Performed By: #### BMP, CBC #### [place] [address] USACreatinine [Mass/Vol]0.77 mg/dLNormal0.60-1.20The [facility] Physician GroupComment on above:Performed By: #### BMP, CBC #### [place] [address] USACreatinine Clr Calc Edghwlvl32.12NormalThe [facility] Physician GroupComment on above:Result Comment: PERFORMED BY: [place] [address] PATHOLOGIST CUTTING TABLE OPERATOR MERY LEAVITT M.D.Performed By: #### BMP, CBC #### [place] [address] USAGFR/1.73 sq M.predicted MDRD (S/P/Bld) [Vol rate/Area] mL/min/{1.73_m2}NormalThe [facility] HospitalComment on above:Performed By: #### BMP, CBC #### [place] [address] USAGlucose [Mass/Vol]91 mg/xNTaqqco49-667Hdd [facility] GroupComment on above:Result Comment: Random Glucose Reference Range is dependent on time and content of last meal. Glucose of more than 200 mg/dL in a nonstressed, ambulatory subject supports the diagnosis of Diabetes Mellitus. ADA recommended reference rangePerformed By: #### BMP, CBC #### [place] [address] USAPotassium [Moles/Vol]4.0 mmol/LNormal3.5-5.1The [facility] GroupComment on above:Performed By: #### BMP, CBC #### [place] [address] USASodium [Moles/Vol]140 mmol/GPkctmo517-931Wiw [facility] Physician GroupComment on above:Performed By: #### BMP, CBC #### [place] [address] USAUrea nitrogen [Mass/Vol]21 mg/dLNormal7-25The [facility] Physician GroupComment on above:Performed By: #### BMP, CBC #### [place] [address] USAComplete Blood Count Auto Diffon [id number] (Bld) [#/Vol]0.0 10*3/uLNormal0.0-0.2The [facility] Physician GroupComment on above: Result Comment: PERFORMED BY: [place] [address] PATHOLOGIST CUTTING TABLE OPERATOR MERY LEAVITT M.D.Performed By: #### BMP, CBC #### [place] [address] USABasophils/100 WBC (Bld)0.2 %Normal.The [facility] Physician GroupComment on above:Performed By: #### BMP, CBC #### [place] [address] USAEosinophils (Bld) [#/Vol]0.5 10*3/uLHigh0.0-0.45The [facility] Physician GroupComment on above:Performed By: #### BMP, CBC #### [place] [address] USAEosinophils/100 WBC (Bld)3.4 %Normal.The [facility] Physician GroupComment on above:Performed By: #### BMP, CBC #### [place] [address] USAErythrocyte distribution width (RBC) [Ratio]15.1 %Normal 11.9-15.3The [facility] Physician GroupComment on above:Performed By: #### BMP, CBC #### [place] [address] USAHematocrit (Bld) [Volume fraction]27.8 %Low34.0-46.4The [facility] Physician GroupComment on above:Performed By: #### BMP, CBC #### [place] [address] USAHemoglobin (Bld) [Mass/Vol]9.0 g/dLLow11.8-15.4The [facility] Physician GroupComment on above:Performed By: #### BMP, CBC #### [place] [address] USALymphocytes (Bld) [#/Vol]3.4 10*3/uLNormal1.00-4.8The [facility] Physician GroupComment on above:Performed By: #### BMP, CBC #### [place] [address] USALymphocytes/100 WBC (Bld)23.2 %Normal.The [facility] Physician GroupComment on above:Performed By: #### BMP, CBC #### [place] [address] USAMCH (RBC) [Entitic mass]28.3 whEfpyxs58.7-34.3The [facility] Physician GroupComment on above:Performed By: #### BMP, CBC #### [place] [address] USAMCV (RBC) [Entitic vol]87.4 vIIopeax37-272Vzs [facility] Physician GroupComment on above:Performed By: #### BMP, CBC #### [place] [address] USAMean Corpuscular HGB Conc32.4 g/hTHaphoc23.0-35.0The [facility] Physician GroupComment on above:Performed By: #### BMP, CBC #### [place] [address] USAMonocytes (Bld) [#/Vol]0.9 10*3/uLHigh0.0-0.8The [facility] Physician GroupComment on above:Performed By: #### BMP, CBC #### [facility] [address] [place] [address] USAMonocytes/100 WBC (Bld)6.0 %Normal.The [facility] Physician GroupComment on above:Performed By: #### BMP, CBC #### [facility] [address] [place] [address] USANeutrophils (Bld) [#/Vol]9.7 10*3/uLHigh1.8-7.7The [facility] Physician GroupComment on above:Performed By: #### BMP, CBC #### [facility] [address] [place] [address] USANeutrophils/100 WBC (Bld)67.2 %Normal.The [facility] Physician GroupComment on above:Performed By: #### BMP, CBC #### [facility] [address] [place] [address] USANRBC%0.1 /100{WBC}Normal0-0.5The [facility] Comment on above:Performed By: #### BMP, CBC #### [facility] [address] [place] [address] USAPlatelet mean volume (Bld) [Entitic vol]6.5 fLNormal 6.3-10.7The [facility] Physician GroupComment on above:Performed By: #### BMP, CBC #### [facility] [address] [place] [address] USAPlatelets (Bld) [#/Vol]512 10*3/tBFkqe227-346Wam [facility] Physician GroupComment on above:Performed By: #### BMP, CBC #### [facility] [address] [place] [address] USARBC (Bld) [#/Vol]3.18 10*6/uLLow3.60-5.00The [facility] Physician GroupComment on above:Performed By: #### BMP, CBC #### [facility] [address] [place] [address] USAWBC (Bld) [#/Vol]14.5 10*3/uLHigh3.8-11.6The [facility] Physician GroupComment on above:Performed By: #### BMP, CBC #### [facility] [address] [place] [address] USAWhite Blood Count14.5 [CFU]/mLHigh3.8-11.6The [facility] Physician GroupComment on above:Performed By: #### BMP, CBC #### [facility] [address] [place] [address] USAXR chest 1V portableon [id number] chest 1V portable [facility] [address] [place], [place] [id number] XRay Report Signed Patient: Arley Ashraf MR#: [id number] : 1940 Acct:[id number] Age/Sex: 84 / F ADM Date: 02/23/25 Loc: Room: [address] [place] [address] Type: ADM IN Attending Dr: Alli Nunes MD Copies to: MD Fela Courtney APRN Ordering Provider: Fela Mi APRN Date of Service: 03/04/25 XR/XR chest 1V portable: intermittent hypoxia XR chest 1V portable 03/04/2025 5:10 AM SIGNS AND SYMPTOMS: intermittent hypoxia PROTOCOL: Frontal radiograph of the chest COMPARISON: None FINDINGS: The trachea is midline. Atherosclerotic changes are noted in the thoracic aorta. The heart and mediastinal structures are within normal limits. The lung parenchyma is clear. The bony thorax is intact. Degenerative changes are noted in the shoulders and thoracic spine. XR/XR chest 1V portable IMPRESSION: No acute cardiopulmonary pathology. Impression dictated by: Fermín Lozoya M.D. 03/04/2025 8:50 AM Dictation Location: [place] [address] Transcribed By: [facility] 03/04/25 0850 Dictated By: Fermín Lozoya II, MD 03/04/25 0848 Signed By: 03/04/25 0850NoUNC Health Physician GroupBasic Metabolic Panelon [id number] gap [Moles/Vol]11.1 mmol/LNormal6.0-15.0The [facility] Physician GroupComment on above:Performed By: #### BMP, CBC #### [facility] [address] [place] [address] USACalcium [Mass/Vol]9.1 mg/dLNormal8.6-10.3The [facility] Physician GroupComment on above:Performed By: #### BMP, CBC #### [facility] [address] [place] [address] USAChloride [Moles/Vol]105 mmol/SAqkppl79-364Rja [facility] Physician GroupComment on above:Performed By: #### BMP, CBC #### [facility] [address] [place] [address] USACO2 [Moles/Vol]28.3 mmol/MNfbwgg83.0-31.0The [facility] Physician GroupComment on above:Performed By: #### BMP, CBC #### [facility] [address] [place] [address] USACreatinine [Mass/Vol]0.80 mg/dLNormal0.60-1.20The [facility] Physician GroupComment on above:Performed By: #### BMP, CBC #### [facility] [address] [place] [address] USACreatinine Clr Calc Cdpsowkt87.12NormAdventHealth Lake Wales Physician GroupComment on above:Result Comment: PERFORMED BY: [place] [address] PATHOLOGIST CUTTING TABLE OPERATOR MERY LEAVITT M.D.Performed By: #### BMP, CBC #### [place] [address] USAGFR/1.73 sq M.predicted MDRD (S/P/Bld) [Vol rate/Area] mL/min/{1.73_m2}NormalThe [facility] Physician GroupComment on above:Performed By: #### BMP, CBC #### [facility] [address] [place] [address] USAGlucose [Mass/Vol]90 mg/dUDbqrrw31-957Cfb [facility] Physician GroupComment on above:Result Comment: Random Glucose Reference Range is dependent on time and content of last meal. Glucose of more than 200 mg/dL in a nonstressed, ambulatory subject supports the diagnosis of Diabetes Mellitus. ADA recommended reference rangePerformed By: #### BMP, CBC #### [place] [address] USAPotassium [Moles/Vol]4.4 mmol/LNormal3.5-5.1The [facility] Physician GroupComment on above:Performed By: #### BMP, CBC #### [place] [address] USASodium [Moles/Vol]140 mmol/HFjpipq323-473Pzf [facility] Physician GroupComment on above:Performed By: #### BMP, CBC #### [place] [address] USAUrea nitrogen [Mass/Vol]20 mg/dLNormal7-25The [facility] Physician GroupComment on above:Performed By: #### BMP, CBC #### [place] [address] USAComplete Blood Count Auto Diffon [id number] (Bld) [#/Vol]0.1 10*3/uLNormal0.0-0.2The [facility] Physician GroupComment on above: Result Comment: PERFORMED BY: [place] [address] PATHOLOGIST CUTTING TABLE OPERATOR MERY LEAVITT M.D.Performed By: #### CBC, BMP #### [place] [address] USABasophils/100 WBC (Bld)0.6 %Normal.The [facility] Physician GroupComment on above:Performed By: #### CBC, BMP #### [place] [address] USAEosinophils (Bld) [#/Vol]0.6 10*3/uLHigh0.0-0.45The [facility] Physician GroupComment on above:Performed By: #### CBC, BMP #### [place] [address] USAEosinophils/100 WBC (Bld)3.6 %Normal.The [facility] Physician GroupComment on above:Performed By: #### CBC, BMP #### [place] [address] USAErythrocyte distribution width (RBC) [Ratio]14.8 %Normal 11.9-15.3The [facility] Physician GroupComment on above:Performed By: #### CBC, BMP #### [place] [address] USAHematocrit (Bld) [Volume fraction]28.0 %Low34.0-46.4The [facility] Physician GroupComment on above:Performed By: #### CBC, BMP #### [place] [address] USAHemoglobin (Bld) [Mass/Vol]9.0 g/dLLow11.8-15.4The [facility] Physician GroupComment on above:Performed By: #### CBC, BMP #### [place] [address] USALymphocytes (Bld) [#/Vol]3.8 10*3/uLNormal1.00-4.8The [facility] Physician GroupComment on above:Performed By: #### CBC, BMP #### [place] [address] USALymphocytes/100 WBC (Bld)24.5 %Normal.The [facility] Physician GroupComment on above:Performed By: #### CBC, BMP #### [place] [address] USAMCH (RBC) [Entitic mass]28.2 ntGxshfj62.7-34.3The [facility] Physician GroupComment on above:Performed By: #### CBC, BMP #### [place] [address] USAMCV (RBC) [Entitic vol]87.2 nNXtaibl55-849Paw [facility] Physician GroupComment on above:Performed By: #### CBC, BMP #### [address] [place] [address] USAMean Corpuscular HGB Conc32.3 g/mUVoutjj01.0-35.0The [facility] Physician GroupComment on above:Performed By: #### CBC, BMP #### [facility] [address] [place] [address] USAMonocytes (Bld) [#/Vol]0.9 10*3/uLHigh0.0-0.8The [facility] Physician GroupComment on above:Performed By: #### CBC, BMP #### [facility] [address] [place] [address] USAMonocytes/100 WBC (Bld)5.8 %Normal.The [facility] Physician GroupComment on above:Performed By: #### CBC, BMP #### [facility] [address] [place] [address] USANeutrophils (Bld) [#/Vol]10.2 10*3/uLHigh1.8-7.7The [facility] Physician GroupComment on above:Performed By: #### CBC, BMP #### [facility] [address] [place] [address] USANeutrophils/100 WBC (Bld)65.5 %Normal.The [facility] Physician GroupComment on above:Performed By: #### CBC, BMP #### [facility] [address] [place] [address] USANRBC%0.1 /100{WBC}Normal0-0.5The [facility] Comment on above:Performed By: #### CBC, BMP #### [facility] [address] [place] [id number] USAPlatelet mean volume (Bld) [Entitic vol]6.5 fLNormal 6.3-10.7The [facility] Physician GroupComment on above:Performed By: #### CBC, BMP #### [facility] [address] [place] [address] USAPlatelets (Bld) [#/Vol]544 10*3/eJOiys485-865Lbi [facility] Physician GroupComment on above:Performed By: #### CBC, BMP #### [facility] [address] [place] [address] USARBC (Bld) [#/Vol]3.21 10*6/uLLow3.60-5.00The [facility] Physician GroupComment on above:Performed By: #### CBC, BMP #### [facility] [address] [place] [address] USAWBC (Bld) [#/Vol]15.5 10*3/uLHigh3.8-11.6The [facility] Physician GroupComment on above:Performed By: #### CBC, BMP #### [facility] [address] [place] [address] USAWhite Blood Count15.5 [CFU]/mLHigh3.8-11.6The [facility] Physician GroupComment on above:Performed By: #### CBC, BMP #### [facility] [address] [place] [address] USABasic Metabolic Panelon 68-94-5313Uwmge gap [Moles/Vol] 13.0 mmol/LNormal6.0-15.0The [facility] Physician GroupComment on above:Performed By: #### BMP, CBC ####[place] [address] USACalcium [Mass/Vol]8.4 mg/dLLow8.6-10.3The [facility] Comment on above:Performed By: #### BMP, CBC ####[facility] [place] [address] USAChloride [Moles/Vol]107 mmol/LNormal 98-107The [facility] Physician GroupComment on above:Performed By: #### BMP, CBC ####[place] [address] USACO2 [Moles/Vol]25.1 mmol/NXwghbf63.0-31.0The [facility] Physician GroupComment on above:Performed By: #### BMP, CBC ####[place] [address] USACreatinine [Mass/Vol]0.86 mg/dLNormal0.60-1.20The [facility] Physician GroupComment on above:Performed By: #### BMP, CBC ####[address] [address] USA Creatinine Clr Calc Xyeqpbtv86.41NormalThe [facility] Physician GroupComment on above:Result Comment: PERFORMED BY: [facility] [address] [place] [id number] PATHOLOGIST CUTTING TABLE OPERATOR MERY LEAVITT M.D.Performed By: #### BMP, CBC ####[place] [address] USAGFR/1.73 sq M.predicted MDRD (S/P/Bld) [Vol rate/Area]mL/min/{1.73_m2}NormalThe [facility] Physician GroupComment on above:Performed By: #### BMP, CBC ####[place] [address] USAGlucose [Mass/Vol]93 mg/iWBvkneq41-904Dgu [facility] Physician GroupComment on above:Result Comment: Random Glucose Reference Range is dependent on time and content of last meal. Glucose of more than 200 mg/dL in a nonstressed, ambulatory subject supports the diagnosis of Diabetes Mellitus. ADA recommended reference rangePerformed By: #### BMP, CBC ####[address] [address] USAPotassium [Moles/Vol] 4.1 mmol/LNormal3.5-5.1The [facility] Physician GroupComment on above:Performed By: #### BMP, CBC ####[place] [address] USASodium [Moles/Vol]141 mmol/VTgtvhv133-160Jap [facility] Physician GroupComment on above:Performed By: #### BMP, CBC ####[place] [address] USAUrea nitrogen [Mass/Vol]25 mg/dL Normal7-25The [facility] Physician GroupComment on above:Performed By: #### BMP, CBC ####[place] [address] [facility] Complete Blood Count Auto Diffon [id number] (Bld) [#/Vol]0.2 10*3/uL Normal0.0-0.2The [facility] Physician GroupComment on above:Result Comment: PERFORMED BY: [facility] [address] [place] [address] PATHOLOGIST CUTTING TABLE OPERATOR MERY LEAVITT M.D.Performed By: #### BMP, CBC ####[place] [address] USABasophils/100 WBC (Bld)1.2 %Normal.The [facility] Physician GroupComment on above:Performed By: #### BMP, CBC ####[address] Eosinophils (Bld) [#/Vol]0.6 10*3/uLHigh0.0-0.45The [facility] Comment on above:Performed By: #### BMP, CBC ####[place] [address] USAEosinophils/100 WBC (Bld)3.9 %Normal. The [facility] Physician GroupComment on above:Performed By: #### BMP, CBC ####[address] Erythrocyte distribution width (RBC) [Ratio]14.9 %Xguyxx35.9-15.3The [facility] Physician GroupComment on above:Performed By: #### BMP, CBC ####[place] [address] USAHematocrit (Bld) [Volume fraction]24.8 %Low34.0-46.4The [facility] Physician GroupComment on above:Performed By: #### BMP, CBC ####[place] [address] USAHemoglobin (Bld) [Mass/Vol]8.0 g/dLLow11.8-15.4The [facility] Physician GroupComment on above:Performed By: #### BMP, CBC ####[address] Lymphocytes (Bld) [#/Vol]3.4 10*3/uLNormal1.00-4.8The [facility] Comment on above:Performed By: #### BMP, CBC ####[place] [address] USALymphocytes/100 WBC (Bld)22.5 %Normal. The [facility] Physician GroupComment on above:Performed By: #### BMP, CBC ####[address]H (RBC) [Entitic mass]28.3 xiZbqejl71.7-34.3The [facility] Physician GroupComment on above:Performed By: #### BMP, CBC ####[address]V (RBC) [Entitic vol]87.3 jUFwskmi98-556Waa [facility] Physician GroupComment on above:Performed By: #### BMP, CBC ####[place] [address] USAMean Corpuscular HGB Conc32.4 g/bMSoetnl81.0-35.0The [facility] Physician GroupComment on above:Performed By: #### BMP, CBC ####[place] [address] USAMonocytes (Bld) [#/Vol]1.0 10*3/uLHigh0.0-0.8 The [facility] Physician GroupComment on above:Performed By: #### BMP, CBC ####[place] [address] USA Monocytes/100 WBC (Bld)6.8 %Normal.The [facility] Physician GroupComment on above:Performed By: #### BMP, CBC ####[place] [address] USANeutrophils (Bld) [#/Vol]9.8 10*3/uLHigh1.8-7.7The [facility] Physician GroupComment on above:Performed By: #### BMP, CBC ####[address] [address] USA Neutrophils/100 WBC (Bld)65.6 %Normal.The [facility] Physician GroupComment on above:Performed By: #### BMP, CBC ####[address] [address] USANRBC%0.1 /100{WBC}Normal0-0.5The [facility] Physician GroupComment on above:Performed By: #### BMP, CBC ####[place] [address] USAPlatelet mean volume (Bld) [Entitic vol]6.6 fLNormal6.3-10.7The [facility] Physician GroupComment on above: Performed By: #### BMP, CBC ####[address] [address] USAPlatelets (Bld) [#/Vol]430 10*3/nBNhpupu246-887Vub [facility] Physician GroupComment on above:Performed By: #### BMP, CBC ####[address] [address] USARBC (Bld) [#/Vol]2.85 10*6/uLLow3.60-5.00The [facility] Physician GroupComment on above:Performed By: #### BMP, CBC ####[address] [address] USAWBC (Bld) [#/Vol]15.0 10*3/uLHigh3.8-11.6The [facility] Physician GroupComment on above:Performed By: #### BMP, CBC ####[address] [address] USAWhite Blood Count15.0 [CFU]/mLHigh3.8-11.6The [facility] Physician GroupComment on above:Performed By: #### BMP, CBC ####[place] [address] USAXR hip RT min 2V(w/wo pelvis)*on [id number] hip RT min 2V(w/wo pelvis)*[facility] [address] [place] [place] [address] XRay Report Signed Patient: Arley Ashraf MR#: [id number] : 1940 Acct:[id number] Age/Sex: 84 / F ADM Date: 02/23/25 Loc: Room: [address] [place] [address] Type: ADM IN Attending Dr: Alli Nunes MD Copies to: Alli Nunes MD Ordering Provider: Alli Nunes MD Date of Service: 03/02/25 XR/XR hip RT min 2V(w/wo pelvis)*: f/u hip XR hip RT min 2V(w/wo pelvis)* 03/02/2025 2:36 PM SIGNS AND SYMPTOMS: Status post total right hip arthroplasty revision PROTOCOL: 4 views of the right hip COMPARISON: 02/22/2025 FINDINGS: There is total right hip arthroplasty hardware status post revision. No hardware complication or malalignment. No fracture or dislocation. 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 Impression dictated by: Fermín Lozoya M.D. 03/02/2025 4:54 PM Dictation Location: [place] [address] Transcribed By: [facility] 03/02/25 1654 Dictated By: Fermín Lozoya II, MD 03/02/25 165 Signed By: 03/02/25 1654NoUNC Health Physician GroupBasic Metabolic Panelon 01-43-4700Iekja gap [Moles/Vol]12.3 mmol/LNormal6.0-15.0The [facility] GroupComment on above:Performed By: #### CBC, BMP ####[facility] [address] [place] [address] USACalcium [Mass/Vol]9.0 mg/dLNormal 8.6-10.3The [facility] Physician GroupComment on above:Performed By: #### CBC, BMP ####[facility] [address] [place] [address] USA Chloride [Moles/Vol]105 mmol/DEbzoru54-693Dyn [facility] Physician GroupComment on above:Performed By: #### CBC, BMP ####[place] [address] [place] [address] USACO2 [Moles/Vol]25.7 mmol/DGcgnwr17.0-31.0The [facility] Physician GroupComment on above:Performed By: #### CBC, BMP ####[place] [address] [place] [address] USA Creatinine [Mass/Vol]0.94 mg/dLNormal0.60-1.20The [facility] Comment on above:Performed By: #### CBC, BMP ####[place] [address] [place] [address] USACreatinine Clr Calc Daaqpfuf85.21 NormalThe [facility] Physician GroupComment on above:Result Comment: PERFORMED BY: [facility] [address] [facility]ENTER[facility] [place] [id number] PATHOLOGIST CUTTING TABLE OPERATOR MERY LEAVITT M.D.Performed By: #### CBC, BMP ####[address] [address] USAGFR/1.73 sq M.predicted MDRD (S/P/Bld) [Vol rate/Area]59.833 mL/min/{1.73_m2}NormalThe [facility] [place] Physician [facility] Comment on above:Performed By: #### CBC, BMP ####[address] [address] USAGlucose [Mass/Vol]114 mg/fRXplc06-474 The [facility] Physician GroupComment on above:Result Comment: Random Glucose Reference Range is dependent on time and content of last meal. Glucose of more than 200 mg/dL in a nonstressed, ambulatory subject supports the diagnosis of Diabetes Mellitus. ADA recommended reference rangePerformed By: #### CBC, BMP ####[place] [address] [place] [address] USAPotassium [Moles/Vol] 4.0 mmol/LNormal3.5-5.1The [facility] Physician GroupComment on above:Performed By: #### CBC, BMP ####[place] [address] USASodium [Moles/Vol]139 mmol/GJoetwi594-541Stf [facility] Physician GroupComment on above:Performed By: #### CBC, BMP ####[address] StreetUrea nitrogen [Mass/Vol]21 mg/dL Normal7-25The [facility] Physician GroupComment on above:Performed By: #### CBC, BMP ####[address] Complete Blood Count Auto Diffon [id number] (Bld) [#/Vol]0.1 10*3/uL Normal0.0-0.2The [facility] [place] [facility] HospitalComment on above:Result Comment: PERFORMED BY: [address] [place] [address] PATHOLOGIST CUTTING TABLE OPERATOR MERY LEAVITT M.D.Performed By: #### CBC, BMP ####[place] [address] USABasophils/100 WBC (Bld)1.1 %Normal.The [facility] Physician GroupComment on above:Performed By: #### CBC, BMP ####[address] Eosinophils (Bld) [#/Vol]0.6 10*3/uLHigh0.0-0.45The [facility] [facility] Comment on above:Performed By: #### CBC, BMP ####[place] [address] USAEosinophils/100 WBC (Bld)4.1 %Normal. The [facility] Physician GroupComment on above:Performed By: #### CBC, BMP ####[address] Erythrocyte distribution width (RBC) [Ratio]13.9 %Ewkqzv78.9-15.3The [facility] Physician GroupComment on above:Performed By: #### CBC, BMP ####[place] [address] USAHematocrit (Bld) [Volume fraction]26.8 %Low34.0-46.4The [facility] Physician GroupComment on above:Performed By: #### CBC, BMP ####[place] [address] USAHemoglobin (Bld) [Mass/Vol]8.7 g/dLLow11.8-15.4The [facility] Physician GroupComment on above:Performed By: #### CBC, BMP ####[place] [address] [place] Lymphocytes (Bld) [#/Vol]2.7 10*3/uLNormal1.00-4.8The [facility] [facility] Comment on above:Performed By: #### CBC, BMP ####[place] [address] USALymphocytes/100 WBC (Bld)20.0 %Normal. The [facility] Physician GroupComment on above:Performed By: #### CBC, BMP ####[place] [address] USAMCH (RBC) [Entitic mass]28.6 hjHqvoyu53.7-34.3The [facility] Physician GroupComment on above:Performed By: #### CBC, BMP ####[place] [address] USAMCV (RBC) [Entitic vol]87.6 hSQbtnnf26-174Jjb [facility] Physician GroupComment on above:Performed By: #### CBC, BMP ####[place] [address] USAMean Corpuscular HGB Conc32.6 g/bSDcvkvx52.0-35.0The [facility] Physician GroupComment on above:Performed By: #### CBC, BMP ####[place] [address] USAMonocytes (Bld) [#/Vol]1.1 10*3/uLHigh0.0-0.8 The [facility] Physician GroupComment on above:Performed By: #### CBC, BMP ####[address] [address] [place] Monocytes/100 WBC (Bld)8.0 %Normal.The [facility] Physician GroupComment on above:Performed By: #### CBC, BMP ####[address] [address] USANeutrophils (Bld) [#/Vol]8.9 10*3/uLHigh1.8-7.7The [facility] [place] Physician GroupComment on above:Performed By: #### CBC, BMP ####[address] [address] [place] Neutrophils/100 WBC (Bld)66.8 %Normal.The [facility] [place] Physician GroupComment on above:Performed By: #### CBC, BMP ####[address] [address] USANRBC%0.0 /100{WBC}Normal0-0.5The [facility] Physician GroupComment on above:Performed By: #### CBC, BMP ####[address] [address] USAPlatelet mean volume (Bld) [Entitic vol]7.1 fLNormal6.3-10.7The [facility] Physician GroupComment on above: Performed By: #### CBC, BMP ####[address] [address] USAPlatelets (Bld) [#/Vol]366 10*3/mJFadaoe490-961Bcs [facility] Physician GroupComment on above:Performed By: #### CBC, BMP ####[address] [address] USARBC (Bld) [#/Vol]3.06 10*6/uLLow3.60-5.00The [facility] Physician GroupComment on above:Performed By: #### CBC, BMP ####[address] [address] USAWBC (Bld) [#/Vol]13.4 10*3/uLHigh3.8-11.6The [facility] Physician GroupComment on above:Performed By: #### CBC, BMP ####[place] [address] USAWhite Blood Count13.4 [CFU]/mLHigh3.8-11.6The [facility] Physician GroupComment on above:Performed By: #### CBC, BMP ####[place] [address] USAComplete Blood Count Auto Diffon [id number] (Bld) [#/Vol]0.1 10*3/uLNormal0.0-0.2The [facility] Physician GroupComment on above:Result Comment: PERFORMED BY: [place] [address] PATHOLOGIST CUTTING TABLE OPERATOR MERY LEAVITT M.D.Performed By: #### CBC, CMP, PAB ####[place] [address] USABasophils/100 WBC (Bld)0.8 % Normal.The [facility] Physician GroupComment on above:Performed By: #### CBC, CMP, PAB ####[place] [address] USAEosinophils (Bld) [#/Vol]0.3 10*3/uLNormal0.0-0.45The [facility] Physician GroupComment on above:Performed By: #### CBC, CMP, PAB ####[place] [address] USAEosinophils/100 WBC (Bld)2.7 % Normal.The [facility] Physician GroupComment on above:Performed By: #### CBC, CMP, PAB ####[place] [address] USAErythrocyte distribution width (RBC) [Ratio]13.4 %Sdqtro28.9-15.3The [facility] Physician GroupComment on above:Performed By: #### CBC, CMP, PAB ####[place] [address] [place] Hematocrit (Bld) [Volume fraction]21.6 %Low34.0-46.4The [facility] Physician GroupComment on above:Performed By: #### CBC, CMP, PAB ####[place] [address] USAHemoglobin (Bld) [Mass/Vol]7.0 g/dLLow11.8-15.4The [facility] Physician GroupComment on above:Performed By: #### CBC, CMP, PAB ####[place] [address] USALymphocytes (Bld) [#/Vol]3.4 10*3/uLNormal1.00-4.8The [facility] Physician GroupComment on above:Performed By: #### CBC, CMP, PAB ####[place] [address] USALymphocytes/100 WBC (Bld)25.9 %Normal.The [facility] Physician GroupComment on above:Performed By: #### CBC, CMP, PAB ####[address] StreetMCH (RBC) [Entitic mass]27.9 bjZarmip99.7-34.3The [facility] Physician GroupComment on above:Performed By: #### CBC, CMP, PAB ####[place] [address] USAMCV (RBC) [Entitic vol]85.7 dECqbvgw32-680Dnc [facility] Physician GroupComment on above:Performed By: #### CBC, CMP, PAB ####[place] [address] USAMean Corpuscular HGB Conc32.6 g/gTQheety72.0-35.0The [facility] Physician GroupComment on above:Performed By: #### CBC, CMP, PAB ####[place] [address] [place] Monocytes (Bld) [#/Vol]1.0 10*3/uLHigh0.0-0.8The [facility] Comment on above:Performed By: #### CBC, CMP, PAB ####[address] [address] USAMonocytes/100 WBC (Bld)7.5 %Normal. The [facility] Physician GroupComment on above:Performed By: #### CBC, CMP, PAB ####[address] [address] [place] Neutrophils (Bld) [#/Vol]8.2 10*3/uLHigh1.8-7.7The [facility] Comment on above:Performed By: #### CBC, CMP, PAB ####[address] [address] USANeutrophils/100 WBC (Bld)63.1 %Normal .The [facility] Physician GroupComment on above:Performed By: #### CBC, CMP, PAB ####[place] [address] USANRBC% 0.1 /100{WBC}Normal0-0.5The [facility] Physician GroupComment on above:Performed By: #### CBC, CMP, PAB ####[address] [address] USAPlatelet mean volume (Bld) [Entitic vol]6.9 fLNormal 6.3-10.7The [facility] Physician GroupComment on above:Performed By: #### CBC, CMP, PAB ####[address] [address] USAPlatelets (Bld) [#/Vol]315 10*3/mLQysxes662-079Rvz [facility] Comment on above:Performed By: #### CBC, CMP, PAB ####[address] [address] USARBC (Bld) [#/Vol]2.52 10*6/uLLow 3.60-5.00The [facility] Physician GroupComment on above:Performed By: #### CBC, CMP, PAB ####[place] [address] USAWBC (Bld) [#/Vol]13.1 10*3/uLHigh3.8-11.6The [facility] Physician GroupComment on above:Performed By: #### CBC, CMP, PAB ####[address] [address] USAWhite Blood Count13.1 [CFU]/mLHigh 3.8-11.6The [facility] Physician GroupComment on above:Performed By: #### CBC, CMP, PAB ####[address] [address] USAComprehensive Metabolic Panelon 85-56-9865Egufxqo [Mass/Vol]3.1 g/dLLow 3.5-5.7The [facility] Physician GroupComment on above:Performed By: #### CBC, CMP, PAB ####[place] [address] USAAlbumin/Globulin [Mass ratio]1.2 {ratio}NormalThe [facility]ician [facility] Comment on above:Performed By: #### CBC, CMP, PAB ####[address] [address] USAALP [Catalytic activity/Vol]58 U/L Hmoehm33-836Ihp [facility] Physician GroupComment on above:Performed By: #### CBC, CMP, PAB ####[address] [address] USAALT [Catalytic activity/Vol]5 U/LLow7-52The [facility] Comment on above:Performed By: #### CBC, CMP, PAB ####[address] [address] USAAnion gap [Moles/Vol]9.7 mmol/LNormal 6.0-15.0The [facility] Physician GroupComment on above:Performed By: #### CBC, CMP, PAB ####[address] [address] USAAST [Catalytic activity/Vol]14 U/FHoztxb94-13Vnb [facility] Comment on above:Performed By: #### CBC, CMP, PAB ####[place] [address] USABilirubin [Mass/Vol]0.3 mg/dLNormal 0.3-1.0The [facility] Physician GroupComment on above:Performed By: #### CBC, CMP, PAB ####[place] [address] USACalcium [Mass/Vol]9.1 mg/dLNormal8.6-10.3The [facility] Physician GroupComment on above:Performed By: #### CBC, CMP, PAB ####[place] [address] USAChloride [Moles/Vol]104 mmol/LNormal 98-107The [facility] Physician GroupComment on above:Performed By: #### CBC CMP, PAB ####[place] [address] [place] CO2 [Moles/Vol]28.8 mmol/VVkndhh95.0-31.0The [facility] Physician GroupComment on above:Performed By: #### CBC, CMP, PAB ####[place] [address] USACreatinine [Mass/Vol]1.27 mg/dLHigh0.60-1.20 The [facility] Physician GroupComment on above:Performed By: #### ROCHELLE CMP, PAB ####[place] [address] USA Creatinine Clr Calc Mjikqehp81.46NormAdventHealth Lake [facility] Physician GroupComment on above:Performed By: #### CBC, CMP, PAB ####[place] [address] USAGFR/1.73 sq M.predicted MDRD (S/P/Bld) [Vol rate/Area]41.700 mL/min/{1.73_m2}NormalThe [facility] Physician GroupComment on above:Performed By: #### CBC, CMP, PAB ####[place] [address] USAGlobulin (S) [Mass/Vol]2.5 g/dLNormAdventHealth [facility] Physician GroupComment on above:Performed By: #### CBC, CMP, PAB ####[address] [address] USAGlucose [Mass/Vol]99 mg/wYQcygkf86-702Mjf [facility] Physician GroupComment on above: Result Comment: Random Glucose Reference Range is dependent on time and content of last meal. Glucose of more than 200 mg/dL in a nonstressed, ambulatory subject supports the diagnosis of Diabetes Mellitus. ADA recommended reference rangePerformed By: #### CBC, CMP, PAB ####[place] [address] USAPotassium [Moles/Vol] 4.5 mmol/LNormal3.5-5.1The [facility] Physician GroupComment on above:Performed By: #### CBC, CMP, PAB ####[place] [address] USAProtein [Mass/Vol]5.6 g/dLLow6.4-8.9The [facility] HospitalComment on above:Performed By: #### CBC, CMP, PAB ####[place] [address] USASodium [Moles/Vol]138 mmol/EKnwnai662-320Ehz [facility] Physician GroupComment on above:Performed By: #### CBC, CMP, PAB ####[place] [address] USAUrea nitrogen [Mass/Vol]28 mg/dLHigh7-25The [facility]ician [facility] HospitalComment on above:Performed By: #### CBC, CMP, PAB ####[place] [address] USALeukoReduced RBCon 02-24-2025 LeukoReduced RBCTRANSFUSED 02/24/25 1403NormAdventHealth [facility]ician Group Prealbuminon 25-30-2220Xkufhblzkv [Mass/Vol]18.3 mg/uCGcvdbm09.0-34.0The [facility] Physician GroupComment on above:Result Comment: PERFORMED BY: [facility] [address] [facility] [place] [id number] PATHOLOGIST CUTTING TABLE OPERATOR MERY LEAVITT M.D.Performed By: #### CBC, CMP, PAB ####[facility] [address] [place] [address] USAType and Screenon 02-24-2025 ABO and Rh group Nom (Bld)Blood group A Rh(D) positiveNoUNC Health Physician GroupComment on above:Order Comment: Comment On hold for OR Transfuse now? N Transfuse now? Y Number of units to transfuse now? 1Result Comment: PERFORMED BY: [facility] [address] [place] [address] PATHOLOGIST CUTTING TABLE OPERATOR MERY LEAVITT M.D.CT femur RT wo conon [id number] femur RT wo [facility] [place] [address] [place] [address] CT Scan Report Signed Patient: Arley Ashraf MR#: [id number] : 1940 Acct:[id number] Age/Sex: 84 / F ADM Date: 02/21/25 Loc: Room: 4V7094-0 Type: ADM IN Attending Dr: Deepak Marshall II, MD Copies to: Deepak Marshall MD Ordering Provider: Deepak Marshall MD Date of Service: 02/21/25 CT/CT femur RT wo con: Sx planning CT right femur WITHOUT CONTRAST WITH 3D RECONSTRUCTIONS: CLINICAL HISTORY: Suspected fracture of femur. Status post VOLODYMYR 01/29/2025. COMPARISON: None TECHNIQUE: Spiral axial unenhanced images were obtained through the right femur. Sagittal, coronal and 3D volume-rendered reconstructions were also reviewed. This CT exam was performed using one or more following dose reduction techniques: Automated exposure control, adjustment of the mA and/or kV according to patient size, or use of iterative reconstruction technique. FINDINGS: Right VOLODYMYR is in place. There appears to be a comminuted fracture involving the anterior cortex of the subtrochanteric region of the right femur. Postoperative changes are seen involving the adjacent musculature and soft tissues with soft tissue gas noted, fluid and swelling. Right pubic rami are intact. CT/CT femur RT wo con IMPRESSION: RIGHT VOLODYMYR IN PLACE WITH SURROUNDING POSTOPERATIVE CHANGES. THERE APPEARS BE A COMMINUTED FRACTURE INVOLVING THE ANTERIOR CORTEX OF THE SUBTROCHANTERIC REGION OF THE RIGHT FEMUR. Impression dictated by: Alli Butler Jr., D.O. 02/23/2025 11:31 AM Dictation Location: [place] [address] Transcribed By: [facility] 02/23/25 1131 Dictated By: Alli Butler Jr, DO 02/23/25 0941 Signed By: 02/23/25 1131NormAdventHealth [facility] Physician [facility] HospitalComplete Blood Count Auto Diffon [id number] (Bld) [#/Vol]0.0 10*3/uLNormal0.0-0.2The [facility] HospitalComment on above:Result Comment: PERFORMED BY: [place] [address] PATHOLOGIST CUTTING TABLE OPERATOR MERY LEAVITT M.D.Performed By: #### CBC, MG, CMP ####[place] [address] USABasophils/100 WBC (Bld)0.3 % Normal.The [facility] Physician GroupComment on above:Performed By: #### CBC, MG, CMP ####[place] [address] [place] Eosinophils (Bld) [#/Vol]0.0 10*3/uLNormal0.0-0.45The [facility] Comment on above:Performed By: #### CBC, MG, CMP ####[place] [address] USAEosinophils/100 WBC (Bld)0.0 %Normal. The [facility] Physician GroupComment on above:Performed By: #### CBC, MG, CMP ####[place] [address] [place] Erythrocyte distribution width (RBC) [Ratio]13.4 %Myleqx49.9-15.3The [facility] HospitalComment on above:Performed By: #### CBC, MG, CMP ####[place] [address] USAHematocrit (Bld) [Volume fraction]25.9 %Low34.0-46.4The [facility] Physician GroupComment on above:Performed By: #### CBC, MG, CMP ####[place] [address] USAHemoglobin (Bld) [Mass/Vol]8.5 g/dLLow 11.8-15.4The [facility] Physician GroupComment on above:Performed By: #### CBC, MG, CMP ####[place] [address] USALymphocytes (Bld) [#/Vol]1.4 10*3/uLNormal1.00-4.8The [facility] Physician GroupComment on above:Performed By: #### CBC, MG, CMP ####[place] [address] USALymphocytes/100 WBC (Bld)9.8 % Normal.The [facility] Physician GroupComment on above:Performed By: #### CBC, MG, CMP ####[address] MCH (RBC) [Entitic mass]28.1 djAwrbwm59.7-34.3The [facility] Comment on above:Performed By: #### CBC, MG, CMP ####[place] [address] USAMCV (RBC) [Entitic vol]85.8 fLNormal 80-100The [facility] Physician GroupComment on above:Performed By: #### CBC, MG, CMP ####[address] Mean Corpuscular HGB Conc32.7 g/qJOzlhan93.0-35.0The [facility] Comment on above:Performed By: #### CBC, MG, CMP ####[place] [address] USAMonocytes (Bld) [#/Vol]0.4 10*3/uL Normal0.0-0.8The [facility] Physician GroupComment on above:Performed By: #### CBC, MG, CMP ####[place] [address] USAMonocytes/100 WBC (Bld)3.0 %Normal.The [facility] Physician GroupComment on above:Performed By: #### CBC, MG, CMP ####[place] [address] USANeutrophils (Bld) [#/Vol]12.4 10*3/uLHigh 1.8-7.7The [facility] Physician GroupComment on above:Performed By: #### CBC, MG, CMP ####[place] [address] [place] Neutrophils/100 WBC (Bld)86.9 %Normal.The [facility] Physician GroupComment on above:Performed By: #### CBC, MG, CMP ####[place] [address] USANRBC%0.0 /100{WBC}Normal0-0.5The [facility] Physician GroupComment on above:Performed By: #### CBC, MG, CMP ####[place] [address] USAPlatelet mean volume (Bld) [Entitic vol]6.6 fLNormal6.3-10.7The [facility] Physician GroupComment on above:Performed By: #### CBC, MG, CMP ####[place] [address] USAPlatelets (Bld) [#/Vol]357 10*3/uLNormal 150-450The [facility] Physician GroupComment on above:Performed By: #### CBC, MG, CMP ####[place] [address] [place] RBC (Bld) [#/Vol]3.02 10*6/uLLow3.60-5.00The [facility] Physician GroupComment on above:Performed By: #### CBC, MG, CMP ####[place] [address] USAWBC (Bld) [#/Vol]14.3 10*3/uLHigh3.8-11.6The [facility] Physician GroupComment on above:Performed By: #### CBC, MG, CMP ####[address] [address] USAWhite Blood Count14.3 [CFU]/mLHigh3.8-11.6The [facility] Physician GroupComment on above:Performed By: #### CBC, MG, CMP ####[place] [address] USAComprehensive Metabolic Panelon 02-23-2025 Albumin [Mass/Vol]3.2 g/dLLow3.5-5.7The [facility] Physician GroupComment on above:Performed By: #### CBC, MG, CMP ####[place] [address] USAAlbumin/Globulin [Mass ratio]1.3 {ratio}Normal The [facility] Physician GroupComment on above:Performed By: #### CBC, MG, CMP ####[place] [address] USAALP [Catalytic activity/Vol]66 U/KCeqwic28-443Ntv [facility] Physician GroupComment on above:Performed By: #### CBC, MG, CMP ####[place] [address] USAALT [Catalytic activity/Vol]7 U/LNormal7-52The [facility] Physician GroupComment on above:Performed By: #### CBC, MG, CMP ####[place] [address] USAAnion gap [Moles/Vol]11.3 mmol/LNormal6.0-15.0The [facility] Physician GroupComment on above:Performed By: #### CBC, MG, CMP ####[place] [address] USAAST [Catalytic activity/Vol]15 U/WZbmrlb25-09 The [facility] Physician GroupComment on above:Performed By: #### CBC, MG, CMP ####[address] Bilirubin [Mass/Vol]0.3 mg/dLNormal0.3-1.0The [facility] Physician GroupComment on above:Performed By: #### CBC, MG, CMP ####[place] [address] USACalcium [Mass/Vol]9.0 mg/dLNormal8.6-10.3The [facility] Physician GroupComment on above:Performed By: #### CBC, MG, CMP ####[place] [address] [place] Chloride [Moles/Vol]104 mmol/VWfxcmh44-871Oix [facility] Physician GroupComment on above:Performed By: #### CBC, MG, CMP ####[place] [address] USACO2 [Moles/Vol]26.9 mmol/QWwvodc73.0-31.0The [facility] Physician GroupComment on above:Performed By: #### CBC, MG, CMP ####[address] Creatinine [Mass/Vol]1.15 mg/dLNormal0.60-1.20The [facility] Comment on above:Performed By: #### CBC, MG, CMP ####[place] [address] USACreatinine Clr Calc Xgnocomt58.92 NormalThe [facility] Physician GroupComment on above:Performed By: #### CBC, MG, CMP ####[place] [address] [place] GFR/1.73 sq M.predicted MDRD (S/P/Bld) [Vol rate/Area]46.974 mL/min/{1.73_m2} NormalThe [facility] Physician GroupComment on above:Performed By: #### CBC, MG, CMP ####[address] Globulin (S) [Mass/Vol]2.5 g/dLNormalThe [facility] Physician GroupComment on above:Performed By: #### CBC, MG, CMP ####[address] [address] USAGlucose [Mass/Vol]137 mg/oTXnpg43-063Jdo [facility] Physician GroupComment on above:Result Comment: Random Glucose Reference Range is dependent on time and content of last meal. Glucose of more than 200 mg/dL in a nonstressed, ambulatory subject supports the diagnosis of Diabetes Mellitus. ADA recommended reference rangePerformed By: #### CBC, MG, CMP ####[place] [address] USAPotassium [Moles/Vol] 5.2 mmol/LHigh3.5-5.1The [facility] Physician GroupComment on above:Performed By: #### CBC, MG, CMP ####[place] [address] USAProtein [Mass/Vol]5.7 g/dLLow6.4-8.9The [facility] Comment on above:Performed By: #### CBC, MG, CMP ####[place] [address] USASodium [Moles/Vol]137 mmol/LNormal 136-145The [facility] Physician GroupComment on above:Performed By: #### CBC, MG, CMP ####[place] [address] [place] Urea nitrogen [Mass/Vol]24 mg/dLNormal7-25The [facility] Physician GroupComment on above:Performed By: #### CBC, MG, CMP ####[place] [address] USAMagnesiumon 73-61-5587Fhaupceuf [Mass/Vol]1.7 mg/dLLow1.9-2.7The [facility] Physician GroupComment on above:Result Comment: PERFORMED BY: [address] [place] [id number] PATHOLOGIST CUTTING TABLE OPERATOR MERY LEAVITT M.D.Performed By: #### CBC, MG, CMP ####[address] [place] [address] USADipstick and Microscopicon 14-17-1303Fdofmhhmzt (U)ClearNormalClearJackson Memorial Hospital Physician GroupComment on above:Order Comment: Name Collection Type:: VoidedPerformed By: #### ADDONUAPLUS, CUU #### [place] [address] USABacteria,UrineRareNormalNone SeenJackson Memorial Hospital Physician GroupComment on above:Order Comment: Name Collection Type:: VoidedPerformed By: #### ADDONUAPLUS, CUU #### [place] [address] USABilirubin,UrineNegativeNormalNegativeJackson Memorial Hospital Physician GroupComment on above:Order Comment: Name Collection Type:: Voided Performed By: #### ADDONUAPLUS, CUU #### [place] [address] USAColor (U)Light-YellowNormalYellowJackson Memorial Hospital Physician GroupComment on above:Order Comment: Name Collection Type:: VoidedPerformed By: #### ADDONUAPLUS, CUU #### [place] [address] USAGlucose Ql (U)NormalNormalNormalThe [facility] Physician GroupComment on above:Order Comment: Name Collection Type:: VoidedPerformed By: #### ADDONUAPLUS, CUU #### [place] [address] USAHyaline Casts,UrineNoneNormal0-8The [facility] Physician GroupComment on above:Order Comment: Name Collection Type:: VoidedResult Comment: PERFORMED BY: [place] [address] PATHOLOGIST CUTTING TABLE OPERATOR MERY LEAVITT M.D.Performed By: #### ADDONUAPLUS, CUU #### [place] [address] USAKetones Ql (U)NegativeNormalNegativeJackson Memorial Hospital Physician GroupComment on above:Order Comment: Name Collection Type:: Voided Performed By: #### ADDONUAPLUS, CUU #### [place] [address] USALeukocyte esterase Test strip Ql (U)4+NormalNegativeThe [facility] Physician GroupComment on above:Order Comment: Name Collection Type:: VoidedPerformed By: #### ADDONUAPLUS, CUU #### [place] [address] USANitrite,UrinePositiveNormalNegativeThe [facility] Physician GroupComment on above:Order Comment: Name Collection Type:: VoidedPerformed By: #### ADDONUAPLUS, CUU #### [place] [address] USAOccult Blood,UrineNegativeNormalNegativeThe [facility] Physician GroupComment on above:Order Comment: Name Collection Type:: Voided Result Comment: PERFORMED BY: [place] [address] PATHOLOGIST CUTTING TABLE OPERATOR MERY LEAVITT M.D.Performed By: #### ADDONUAPLUS, CUU #### [place] [address] USApH (U)7.0 [pH]Normal5.0-9.0The [facility] Comment on above:Order Comment: Name Collection Type:: VoidedPerformed By: #### ADDONUAPLUS, CUU #### [place] [address] USAProtein,UrineNegativeNormalNegativeThe [facility] Physician GroupComment on above:Order Comment: Name Collection Type:: VoidedPerformed By: #### ADDONUAPLUS, CUU #### [place] [address] USARBC,UrineNone SeenNormal0-4The [facility] Comment on above:Order Comment: Name Collection Type:: VoidedPerformed By: #### ADDONUAPLUS, CUU #### [place] [address] USASpecificy [place],Urine1.433Daltpx4.001-1.030The [facility] Physician GroupComment on above:Order Comment: Name Collection Type:: Voided Performed By: #### ESVIN, CUU #### [place] [address] USAUrobilinogen,UrineNormalNormalNormalThe [facility] Physician GroupComment on above:Order Comment: Name Collection Type:: Voided Performed By: #### DARLENEPLUS, CUU #### [place] [address] USAWBC,Gaavv70-92Qmtbco5-7Kcn [facility] Comment on above:Order Comment: Name Collection Type:: VoidedPerformed By: #### ESVIN, CUU #### [place] [address] USAUrine Cultureon 26-03-1435Uprmsnuo identified Cx Nom (U) <9,000 colonies/ml mixed bacterial skin contaminants 2 Days PERFORMED BY: [place] [address] PATHOLOGIST CUTTING TABLE OPERATOR MERY LEAVITT M.D.NormalJackson Memorial Hospital Physician GroupComment on above: Performed By: #### ESVIN, CUU #### [place] [address] USAXR hip RT min 2V(w/wo pelvis)*on 43-90-3009JH hip RT min 2V(w/wo pelvis)*[facility] [place] [address] XRay Report Signed Patient: Arley Ashraf MR#: [id number] : 1940 Acct:[id number] Age/Sex: 84 / F ADM Date: 02/21/25 Loc: 4N Room: 9D5130-4 Type: ADM IN Attending Dr: Deepak Marshall II, MD Copies to: Deepak Marshall MD Ordering Provider: Deepak Marshall MD Date of Service: 02/22/25 XR/XR hip RT min 2V(w/wo pelvis)*: TOTAL RIGHT HIP REVISION Intraoperative fluoroscopy INDICATION: Periprosthetic fracture/revision Dose: 5.06 mGy XR/XR hip RT min 2V(w/wo pelvis)* FINDINGS AND IMPRESSION: Intraoperative images demonstrates removal of the femoral stem, placement of cerclage wires across the fracture and placement of a femoral stem. Impression dictated by: Patrick Zhong M.D. 02/22/2025 10:02 PM Dictation Location: RADIO-PC-29 Transcribed By: OG 02/22/252201 Dictated By: Patrick Zhong MD 02/22/252200 Signed By: 02/22/252201[facility] HospitalXR low pelvis w/RT x-table hipon 38-08-6429TT low pelvis w/RT x-table hipPIKE [facility] [address] XRay Report Signed Patient: Arley Ashraf MR#: [id number] : 1940 Acct:[id number] Age/Sex: 84 / F ADM Date: 02/21/25 Loc: Room: [address] [place] [address] Type: ADM IN Attending Dr: Deepak Marshall II, MD Copies to: Deepak Marshall MD Ordering Provider: Deepak Marshall MD Date of Service: 02/22/25 XR/XR low pelvis w/RT x-table hip: Total hip, do in PACU Single view pelvis and single view crosstable right hip INDICATION: Total hip revision Comparison: 02/21/2025 FINDINGS: Postsurgical changes status post right total hip revision with cerclage wires across the femoral stem. Improved alignment of the periprosthetic fracture status post cerclage wire fixation. Stable appearance of the extensive surgical changes left proximal femur and acetabulum. XR/XR low pelvis w/RT x-table hip IMPRESSION: Satisfactory alignment of the periprosthetic fracture right hip status post cerclage wire placement. Otherwise stable bilateral total hip arthroplasties Impression dictated by: Patrick Zhong M.D. 02/22/2025 9:16 PM Dictation Location: RADIO-PC-29 Transcribed By: OG 02/22/252115 Dictated By: Patrick Zhong MD 02/22/252111 Signed By: 02/22/252115[facility] Physician GroupABO/Rh Retypeon 00-60-5699LAF/RH Recheck ResultPositiveFairmont Hospital and ClinicComment on above: Result Comment: PERFORMED BY: [place] [address] PATHOLOGIST CUTTING TABLE OPERATOR MERY LEAVITT M.D.Basic Metabolic Panelon 66-18-0983Upnyofbvvi Clr Calc Sppmssir92.81NoUNC Health Physician Wayne General HospitalComment on above:Result Comment: PERFORMED BY: [place] [address] PATHOLOGIST CUTTING TABLE OPERATOR MERY LEAVITT M.D.Performed By: #### ESVIN, CUU #### [address] [address] USAGFR/1.73 sq M.predicted MDRD (S/P/Bld) [Vol rate/Area] 58.341 mL/min/{1.73_m2}NormalThe [facility] Physician [facility] HospitalComment on above: Performed By: #### ESVIN, CUU #### [address] [address] USABasophils [#/volume] in Blood by Automated countOrdered By: Deepak Marshall on 40-95-6009Cfgbpejrk (Bld) [#/Vol]0.2 10*3/uLNormal0.0-0.2 [facility] HospitalComment on above:Result Comment: PERFORMED BY: [address] [address] PATHOLOGIST CUTTING TABLE OPERATOR MERY LEAVITT M.D.Performed By: #### BMP, CBC #### [address] [address] USABasophils/100 leukocytes in Blood by Automated count Ordered By: Deepak Marshall on 16-81-7183Biophyybg/100 WBC (Bld)1.3 %Normal. [facility] HospitalComment on above:Performed By: #### BMP, CBC #### [facility] [address] [place] [address] USACalcium [Mass/volume] in Serum or PlasmaOrdered By: Deepak Marshall on 81-66-1107Urjtvah [Mass/Vol]9.6 mg/dLNormal8.6-10.3FBlanchard Valley Health System Blanchard Valley HospitalComment on above:Performed By: #### PAULUAPLUS, CUU #### [facility] [address] [place] [address] USACarbon dioxide, total [Moles/volume] in Serum or Plasma Ordered By: Deepak Marshall on 65-74-2999NJ2 [Moles/Vol]26.5 mmol/LNormal 21.0-31.0[facility] HospitalComment on above:Performed By: #### ADDONUADANIEL, CUU #### [facility] [address] [place] [address] USAChloride [Moles/volume] in Serum or PlasmaOrdered By: Deepak Marshall on 93-51-6929Jfeykysu [Moles/Vol]102 mmol/UUxendh70-547GtyjdhplkHarrison Community HospitalComment on above:Performed By: #### ESVIN, CUU #### [facility] [address] [place] [address] USAComplete Blood Count Auto Diffon 52-88-7688Npvq Corpuscular HGB Conc32.7 g/lNJcgciu70.0-35.0The [facility] Physician GroupComment on above:Performed By: #### BMP, CBC #### [facility] [address] [place] [address] USANRBC%0.0 /100{WBC}Normal0-0.5The [facility]ician Group Comment on above:Performed By: #### BMP, CBC #### [facility] [address] [place] [address] USAWhite Blood Count14.4 [CFU]/mLHigh3.8-11.6The [facility] Physician GroupComment on above:Performed By: #### BMP, CBC #### [facility] [address] [place] [address] USACreatinine [Mass/volume] in Serum or PlasmaOrdered By: Deepak Marshall on 71-16-9263Poxqsdrjid [Mass/Vol]0.96 mg/dLNormal0.60-1.20 [facility] HospitalComment on above:Performed By: #### ADDONUAPLUS, CUU #### [facility] [address] [place] [id number] USAECG 12 lead ECGon 78-86-1594LZX 12 lead [facility]PI[facility] [address] [place] [address] Electrocardiograph Report Signed Patient: Arley Ashraf MR#: [id number] : 1940 Acct:[id number] Age/Sex: 84 / F ADM Date: 02/21/25 Loc: Room: [address] [place] [address] Type: ADM IN Attending Dr: Deepak Marshall II, MD Ordering Provider: Rommel Hoyos MD Date of Service: 02/21/25 ECG/ECG 12 lead ECG: preop Copies to: Test Reason : Blood Pressure : */* mmHG Vent. Rate : 79 BPM Atrial Rate : 79 BPM P-R Int : 154 ms QRS Dur : 82 ms QT Int : 400 ms P-R-T Axes : 62 79 35 degrees QTcB Int : 458 ms Normal sinus rhythm Low voltage QRS Junctional ST depression, probably normal Borderline ECG When compared with ECG of 07-Jan-2023 17:16, Right bundle branch block is no longer present Confirmed by Elbert Clifford ([id number]) on 02/21/2025 3:40:27 PM Referred By: Electronically Signed By: Elbert Clifford Transcribed By: MUS Signed By Elbert Clifford MD 02/21/25 1540[facility] Physician GroupEosinophils [#/volume] in Blood by Automated countOrdered By: Deepak Marshall on 01-26-0351Zdcqzklrecs (Bld) [#/Vol]0.6 10*3/uLHigh0.0-0.45[facility] HospitalComment on above: Performed By: #### BMP, CBC #### [facility] [address] [place] [id number] USAEosinophils/100 leukocytes in Blood by Automated count Ordered By: Deepak Marshall on 40-36-2149Repqjgltxaj/100 WBC (Bld)4.2 %Normal. [facility] HospitalComment on above:Performed By: #### BMP, CBC #### [facility] [address] [place] [address] USAErythrocyte distribution width [Ratio] by Automated count Ordered By: Deepak Marshall on 45-81-1175Hopalijqfig distribution width (RBC) [Ratio]13.6 %Cexeba75.9-15.3FBlanchard Valley Health System Blanchard Valley HospitalComment on above: Performed By: #### BMP, CBC #### [facility] [address] [place] [address] USAErythrocytes [#/volume] in Blood by Automated countOrdered By: Deepak Marshall on 78-40-6054KWB (Bld) [#/Vol]3.71 10*6/uLNormal3.60-5.00 [facility] HospitalComment on above:Performed By: #### BMP, CBC #### [facility] [address] [place] [address] USAGlomerular filtration rate [Volume Rate/Area] in Serum, Plasma or Blood by CreatinineOrdered By: Deepak Marshall on 59-11-0500Lhkrjfhbyg filtration rate [Volume Rate/Area] in Serum, Plasma or Blood by Yjzlibruwl33.341 mL/MinHarrison Community HospitalGlucose [Mass/volume] in Serum or Plasma Ordered By: Deepak Marshall on 32-14-8378Itfljos [Mass/Vol]93 mg/pEKqlqwq39-531 [facility] HospitalComment on above:ADA recommended reference rangeRandom Glucose Reference Range is dependent on time and content of last meal. Glucose of more than 200 mg/dL in a nonstressed, ambulatory subject supports the diagnosisof Diabetes Mellitus.Result Comment: Random Glucose Reference Range is dependent on time and content of last meal. Glucose of more than 200 mg/dL in a nonstressed, ambulatory subject supports the diagnosis of Diabetes Mellitus. ADA recommended reference rangePerformed By: #### ADDONUAPLUS, CUU #### [facility] [address] [place] [address] USAHematocrit [Volume Fraction] of Blood by Automated count Ordered By: Deepak Marshall on 62-35-8959Jiwvnpsmkw (Bld) [Volume fraction]32.1 %Low34.0-46.4FBlanchard Valley Health System Bl[facility] Valley HospitalComment on above:Performed By: #### BMP, CBC #### [facility] [address] [place] [address] USAHemoglobin [Mass/volume] in BloodOrdered By: Deepak Marshall on 82-14-5193Tpqehyirtz (Bld) [Mass/Vol]10.5 g/dLLow11.8-15.4FBlanchard Valley Health System Bl[facility] Valley HospitalComment on above:Performed By: #### BMP, CBC #### [place] [address] USALeukoReduced RBCon 82-08-7520OqsxzNcjpcjd RBCREADYNormal The [facility] Physician GroupLeukocytes [#/volume] corrected for nucleated erythrocytes in Blood by Automated counOrdered By: Deepak Marshall on 02-21-2025 WBC corrected for nucl RBC Auto (Bld) [#/Vol]14.4 10*3/uLHigh3.8-11.6FBlanchard Valley Health System Blanchard Valley HospitalLeukocytes [#/volume] in Blood by Automated countOrdered By: Deepak Marshall on 36-19-2038GNZ (Bld) [#/Vol]14.4 10*3/uLHigh3.8-11.6 [facility] HospitalComment on above:Performed By: #### BMP, CBC #### [facility] [address] [place] [id number] USALymphocytes [#/volume] in Blood by Automated countOrdered By: Deepak Marshall on 54-75-5587Qqjumbfmdhn (Bld) [#/Vol]2.4 10*3/uLNormal 1.00-4.8[facility] HospitalComment on above:Performed By: #### BMP, CBC #### [address] [place] [address] USALymphocytes/100 leukocytes in Blood by Automated count Ordered By: Deepak Marshall on 57-12-8063Zyktyxhvspj/100 WBC (Bld)16.4 %Normal. [facility] HospitalComment on above:Performed By: #### BMP, CBC #### [address] [Entitic mass] by Automated countOrdered By: Deepak Marshall on 23-78-1334PSK (RBC) [Entitic mass]28.3 ugUpjihw16.7-34.3FBlanchard Valley Health System Blanch[facility] Valley HospitalComment on above:Performed By: #### BMP, CBC #### [address] Auto (RBC) [Mass/Vol]Ordered By: Deepak Marshall on 43-89-7106OKWA (RBC) [Mass/Vol]32.7 g/dL32.0-35.0M[facility] Memorial HospitalV [Entitic volume] by Automated countOrdered By: Deepak Marshall on 39-09-3271BWE (RBC) [Entitic vol]86.4 mSPbjjja08-697EvbjkhdmdHarrison Community HospitalComment on above:Performed By: #### BMP, CBC #### [place] [address] USAMonocytes [#/volume] in Blood by Automated countOrdered By: Deepak Marshall on 76-47-6470Afbhhqndy (Bld) [#/Vol]0.9 10*3/uLHigh0.0-0.8 [facility] HospitalComment on above:Performed By: #### BMP, CBC #### [place] [address] USAMonocytes/100 leukocytes in Blood by Automated count Ordered By: Deepak Marshall on 27-82-3602Lecxkrwzk/100 WBC (Bld)6.0 %Normal. [facility] HospitalComment on above:Performed By: #### BMP, CBC #### [place] [address] USANeutrophils [#/volume] in Blood by Automated countOrdered By: Deepak Marshall on 96-16-5931Mzxiwjrutso (Bld) [#/Vol]10.4 10*3/uLHigh 1.8-7.7FBlanchard Valley Health System Blanch[facility] Valley HospitalComment on above:Performed By: #### BMP, CBC #### [facility] [address] [place] [address] USANeutrophils/100 leukocytes in Blood by Automated count Ordered By: Deepak Marshall on 48-23-8560Jnrcmolkgnz/100 WBC (Bld)72.1 %Normal. [facility] HospitalComment on above:Performed By: #### GABBY, CBC #### [facility] [address] [place] [address] USANo Panel InformationOrdered By: Deepak Marshall on 43-85-4104Tutdlulg Creatinine Clearance (Chem42.81[facility] Community HospitalNucleated erythrocytes [Presence] in Blood by Automated countOrdered By: Deepak Marshall on 09-44-8898Yimumtpgv RBC Auto Ql (Bld)0.0 /100{WBC}0-0.5 [facility] Community HospitalPlatelet mean volume [Entitic volume] in Blood by Automated countOrdered By: Deepak Marshall on 13-80-1552Fgwirdlk mean volume (Bld) [Entitic vol]6.5 fLNormal6.3-10.7FBlanchard Valley Health System [facility] HospitalComment on above:Performed By: #### BMP, CBC #### [facility] [address] [place] [address] USAPlatelets [#/volume] in Blood by Automated countOrdered By: Deepak Marshall on 79-32-7731Eitqkbqxo (Bld) [#/Vol]456 10*3/mTSkqz026-798 [facility] HospitalComment on above:Performed By: #### BMP, CBC #### [place] [address] USAPotassium [Moles/volume] in Serum or PlasmaOrdered By: Deepak Marshall on 58-85-4942Hootchdgb [Moles/Vol]4.2 mmol/LNormal3.5-5.1 [facility] HospitalComment on above:Performed By: #### ESVIN, CUU #### [place] [address] USASerum or plasma anion gap determinationOrdered By: Deepak Marshall on 75-17-2892Fxxzm gap [Moles/Vol]11.7 mmol/LNormal6.0-15.0[facility] HospitalComment on above:Performed By: #### ESVIN, CUU #### [place] [address] USASodium [Moles/volume] in Serum or PlasmaOrdered By: Deepak Marshall on 82-53-0018Vutpml [Moles/Vol]136 mmol/ZBcvmuj750-671KrifigldwHarrison Community HospitalComment on above:Performed By: #### ESVIN, CUU #### [facility] [address] [place] [address] USAType and Screenon 22-81-5218SPF and Rh group Nom (Bld) Blood group A Rh(D) positiveNoUNC Health Physician GroupComment on above: Order Comment: Comment On hold for OR Transfuse now? NResult Comment: PERFORMED BY: [place] [address] PATHOLOGIST CUTTING TABLE OPERATOR MERY LEAVITT M.D.Urea nitrogen [Mass/volume] in Serum or PlasmaOrdered By: Deepak Marshall on 03-18-7533Vvwf nitrogen [Mass/Vol]34 mg/dLHigh7-25[facility] HospitalComment on above:Performed By: #### ESVIN, CUU #### [place] [id number] USAX-ray reportOrdered By: Sharron Valentine on 45-19-8397Syvmd reportPIKE [facility] [address] [place] [id number] XRay Report Signed Patient: Arley Ashraf MR#: [id number] : 1940 Acct:[id number] Age/Sex: 84 / F ADM Date: 5 Loc: SOXD Room: Type: REG CLI Attending Dr: Deepak Marshall II, MD Copies [...] proximal right femur with mild telescoping of thefemoral component down the shaft. The left hip [...] Valentine M.D. 02/21/2025 10:31 AM Dictation Location: [place] [address] Transcribed By: [facility] 02/21/25 1031 Dictated By: Sharron Valentine MD 02/21/25 1026 Signed By: 02/21/25 1031 [facility] Work Phone: XR hip RT min 2V(w/wo pelvis)*on 09-37-7317SQ hip RT min 2V(w/wo pelvis)*[facility] [address] [place] [address] XRay Report Signed Patient: Arley Ashraf MR#: [id number] : 1940 Acct:[id number] Age/Sex: 84 / F ADM Date: 02/21/25 Loc: SOXD Room: Type: REG CLI Attending Dr: Deepak Marshall II, MD Copies to: Deepak Marshall MD Ordering Provider: Deepak Marshall MD Date of [...] Valentine M.D. 02/21/2025 10:31 AM Dictation Location: [place] [address] Transcribed By: [facility] 02/21/25 1031 Dictated By: Sharron Valentine MD 02/21/25 1026 Signed By: 02/21/25 1031[facility] Physician GroupX-ray reportOrdered By: Fermín Lozoya on 12-65-0857Ppecz reportPIKE COMMUNITY [facility] [address] [place] [address] XRay Report Signed Patient: Arley Ashraf MR#: [id number] : 1940 Acct:[id number] Age/Sex: 84 / F ADM Date: 5 Loc: [facility] Room: Type: [facility] Attending Dr: Deepak Marshall II, MD [...] hardware is redemonstrated without change in alignment orhardware complication. There is no fracture or dislocation. Postoperative subcutaneous emphysema is noted along the soft tissues lateral to the right hip. XR/XR hip RT min 2V(w/wo pelvis)* IMPRESSION: Uncomplicated total right hip arthroplasty. Impression dictated by: Fermín Lozoya M.D. 02/14/2025 9:09 PM Dictation Location: [place] [address] Transcribed By: [facility] 02/14/252108 Dictated By: Fermín Lozoya II, MD 02/14/252108 Signed By: 02/14/252108 [facility] Work Phone: XR hip RT min 2V(w/wo pelvis)*on 85-33-6266FA hip RT min 2V(w/wo pelvis)*[facility] [place] [facility] [address] [place] [address] XRay Report Signed Patient: Arley Ashraf MR#: [id number] : 1940 Acct:[id number] Age/Sex: 84 / F ADM Date: 02/14/25 Loc: [facility] Room: Type: [facility] Attending Dr: Deepak Marshall II, MD Copies to: Deepak Marshall MD Ordering Provider: Deepak Marshall MD Date of [...] Fermín Lozoya II, MD 02/14/252108 Signed By: 02/14/252108[facility] Physician [facility] HospitalXR hip RT min 2V(w/wo pelvis)*on 52-01-1832FN hip RT min 2V(w/wo pelvis)*[facility] [address] [place] [address] XRay Report Signed Patient: Arley Ashraf MR#: [id number] : 1940 Acct:[id number] Age/Sex: 84 / F ADM Date: 02/11/25 Loc: ER Room: Type: [facility] ER Attending Dr: Copies to: Lui Bruner MD Ordering Provider: Lui Bruner MD Date of [...] Fermín Lozoya II, MD 02/12/25828 Signed By: 02/12/2530NormalThe [facility] Physician GroupComplete Blood Count Auto Diffon 09-19-3990Owgkcimtr (Bld) [#/Vol]0.2 10*3/uLNormal0.0-0.2The [facility] Physician GroupComment on above:Result Comment: PERFORMED BY: [place] [address] PATHOLOGIST CUTTING TABLE OPERATOR MERY LEAVITT M.D.Performed By: #### ADDANIKETPLUS, CUU #### [place] [address] USABasophils/100 WBC (Bld)1.2 %Normal.The [facility] Physician GroupComment on above:Performed By: #### ADDBRIANUAPLUS, CUU #### [place] [address] USAEosinophils (Bld) [#/Vol]0.3 10*3/uLNormal0.0-0.45The [facility] Physician GroupComment on above:Performed By: #### ADDONUAPLUS, CUU #### [place] [address] USAEosinophils/100 WBC (Bld)2.1 %Normal.The [facility] Physician GroupComment on above:Performed By: #### ADDONUAPLUS, CUU #### [place] [address] USAErythrocyte distribution width (RBC) [Ratio]12.7 %Normal 11.9-15.3The [facility] Physician GroupComment on above:Performed By: #### ADDONUAPLUS, CUU #### [place] [address] USAHematocrit (Bld) [Volume fraction]29.5 %Low34.0-46.4The [facility] Physician GroupComment on above:Performed By: #### ADDONUAPLUS, CUU #### [place] [address] USAHemoglobin (Bld) [Mass/Vol]9.8 g/dLLow11.8-15.4The [facility] Physician GroupComment on above:Performed By: #### ESVIN, CUU #### [place] [address] USALymphocytes (Bld) [#/Vol]2.7 10*3/uLNormal1.00-4.8The [facility] Physician GroupComment on above:Performed By: #### ESVIN, CUU #### [place] [address] USALymphocytes/100 WBC (Bld)19.8 %Normal.The [facility] Physician GroupComment on above:Performed By: #### ESVIN, CUU #### [place] [address] USAMCH (RBC) [Entitic mass]29.4 ibCioogj78.7-34.3The [facility] Physician GroupComment on above:Performed By: #### ESVIN, CUU #### [place] [address] USAMCV (RBC) [Entitic vol]88.9 vNApqknl60-845Prx [facility] Physician GroupComment on above:Performed By: #### ESVIN, CUU #### [place] [address] USAMean Corpuscular HGB Conc33.1 g/uLKrvkus69.0-35.0The [facility] Physician GroupComment on above:Performed By: #### ESVIN, CUU #### [place] [address] USAMonocytes (Bld) [#/Vol]1.2 10*3/uLHigh0.0-0.8The [facility] Physician GroupComment on above:Performed By: #### DARLENEPLUS, CUU #### [place] [address] USAMonocytes/100 WBC (Bld)8.6 %Normal.The [facility] Physician GroupComment on above:Performed By: #### ADDONUAPLUS, CUU #### [facility] [address] [place] [address] USANeutrophils (Bld) [#/Vol]9.4 10*3/uLHigh1.8-7.7The [facility] Physician GroupComment on above:Performed By: #### ADDONUAPLUS, CUU #### [facility] [address] [place] [address] USANeutrophils/100 WBC (Bld)68.3 %Normal.The [facility] Physician GroupComment on above:Performed By: #### ADDONUAPLUS, CUU #### [facility] [address] [place] [address] USANRBC%0.1 /100{WBC}Normal0-0.5The [facility] Comment on above:Performed By: #### ESVIN, CUU #### [facility] [address] [place] [address] USAPlatelet mean volume (Bld) [Entitic vol]6.8 fLNormal 6.3-10.7The [facility] Physician GroupComment on above:Performed By: #### ESVIN, CUU #### [facility] [address] [place] [address] USAPlatelets (Bld) [#/Vol]299 10*3/hDOpwnfv325-594Rmi [facility] Physician GroupComment on above:Performed By: #### ADDONSAMPLUS, CUU #### [facility] [address] [place] [address] USARBC (Bld) [#/Vol]3.32 10*6/uLLow3.60-5.00The [facility] Physician GroupComment on above:Performed By: #### CHRISTOPHERONUAPLUS, CUU #### [facility] [address] [place] [address] USAWBC (Bld) [#/Vol]13.7 10*3/uLHigh3.8-11.6The [facility] Physician GroupComment on above:Performed By: #### ADDONUAPLUS, CUU #### [facility] [address] [place] [address] USAWhite Blood Count13.7 [CFU]/mLHigh3.8-11.6The [facility] Physician GroupComment on above:Performed By: #### ESVIN, CUU #### [place] [address] USAComprehensive Metabolic Panelon 34-28-8625Fvwdldj [Mass/Vol]3.4 g/dLLow3.5-5.7The [facility] Physician GroupComment on above: Performed By: #### ESVIN, CUU #### [place] [address] USAAlbumin/Globulin [Mass ratio]1.3 {ratio}NormalThe [facility] Physician GroupComment on above:Performed By: #### ESVIN, CUU #### [place] [address] USAALP [Catalytic activity/Vol]52 U/ZMtirwk90-201Vac [facility] Physician GroupComment on above:Performed By: #### ESVIN, CUU #### [place] [address] USAALT [Catalytic activity/Vol]7 U/LNormal7-52The [facility] Physician GroupComment on above:Performed By: #### ESVIN, CUU #### [place] [address] USAAnion gap [Moles/Vol]10.7 mmol/LNormal6.0-15.0The [facility] Physician GroupComment on above:Performed By: #### ESVIN, CUU #### [facility] [address] [place] [address] USAAST [Catalytic activity/Vol]16 U/YLzhyho86-59Rsq [facility] Physician GroupComment on above:Performed By: #### ESVIN, CUU #### [facility] [address] [place] [address] USABilirubin [Mass/Vol]0.5 mg/dLNormal0.3-1.0The [facility] Physician GroupComment on above:Performed By: #### ESVIN, CUU #### [place] [address] USACalcium [Mass/Vol]8.4 mg/dLLow8.6-10.3The [facility] Physician GroupComment on above:Performed By: #### ESVIN, CUU #### [place] [address] USAChloride [Moles/Vol]107 mmol/VAwdxev38-786Fyr [facility] Physician GroupComment on above:Performed By: #### ESVIN, CUU #### [place] [address] USACO2 [Moles/Vol]25.4 mmol/VJqzxmf41.0-31.0The [facility] Physician GroupComment on above:Performed By: #### ESVIN, CUU #### [place] [address] USACreatinine [Mass/Vol]0.87 mg/dLNormal0.60-1.20The [facility] Physician GroupComment on above:Performed By: #### ESVIN CUU #### [place] [address] USACreatinine Clr Calc Cmvcbjng83.40NormDelaware County Hospitale [facility] Physician GroupComment on above:Performed By: #### ESVIN, CUU #### [place] [address] USAGFR/1.73 sq M.predicted MDRD (S/P/Bld) [Vol rate/Area] mL/min/{1.73_m2}NormalThe [facility] Physician GroupComment on above:Performed By: #### ESVIN, CUU #### [place] [address] USAGlobulin (S) [Mass/Vol]2.7 g/dLNormDelaware County Hospitale [facility] Physician GroupComment on above:Performed By: #### ESVIN, CUU #### [place] [address] USAGlucose [Mass/Vol]99 mg/hCVukaiv91-278Wca [facility] Physician GroupComment on above:Result Comment: Random Glucose Reference Range is dependent on time and content of last meal. Glucose of more than 200 mg/dL in a nonstressed, ambulatory subject supports the diagnosis of Diabetes Mellitus. ADA recommended reference rangePerformed By: #### ESVIN, CUU #### [place] [address] USAPotassium [Moles/Vol]4.1 mmol/LNormal3.5-5.1The [facility] Physician GroupComment on above:Performed By: #### ESVIN CUU #### [place] [address] USAProtein [Mass/Vol]6.1 g/dLLow6.4-8.9The [facility] Physician GroupComment on above:Performed By: #### ESVIN, CUU #### [place] [address] USASodium [Moles/Vol]139 mmol/TEzhpwi317-074Qud [facility] Physician GroupComment on above:Performed By: #### ESVIN CUU #### [place] [address] USAUrea nitrogen [Mass/Vol]19 mg/dLNormal7-25The [facility] Physician GroupComment on above:Performed By: #### ESVIN CUU #### [place] [address] USAPrealbuminon 10-53-3624Jkhmprfdtb [Mass/Vol]16.1 mg/dLLow 17.0-34.0The [facility] Physician GroupComment on above:Result Comment: PERFORMED BY: [place] [address] PATHOLOGIST CUTTING TABLE OPERATOR MERY LEAVITT M.D.Performed By: #### ESVIN, CUU #### [place] [address] USABasic Metabolic Panelon 76-47-8885Qanuk gap [Moles/Vol] 10.0 mmol/LNormal6.0-15.0The [facility] Physician GroupComment on above:Performed By: #### ESVIN CUU #### [place] [address] USACalcium [Mass/Vol]8.5 mg/dLLow8.6-10.3The [facility] Physician GroupComment on above:Performed By: #### ESVIN CUU #### [place] [address] USAChloride [Moles/Vol]106 mmol/RWzzzgw13-184Lkl [facility] Physician GroupComment on above:Performed By: #### ESVIN CUU #### [place], [place] [address] USACO2 [Moles/Vol]25.5 mmol/CIvduge78.0-31.0The [facility] Physician GroupComment on above:Performed By: #### ESVIN CUU #### [place] [address] USACreatinine [Mass/Vol]0.87 mg/dLNormal0.60-1.20The [facility] Physician GroupComment on above:Performed By: #### ESVIN CUU #### [place] [address] USACreatinine Clr Calc Ohokwnqt15.40NormalThe [facility] Physician GroupComment on above:Result Comment: PERFORMED BY: [place] [address] PATHOLOGIST CUTTING TABLE OPERATOR MERY LEAVITT M.D.Performed By: #### ESVIN CUU #### [place] [address] USAGFR/1.73 sq M.predicted MDRD (S/P/Bld) [Vol rate/Area] mL/min/{1.73_m2}NormalThe [facility] Physician GroupComment on above:Performed By: #### ESVIN CUU #### [place] [id number] USAGlucose [Mass/Vol]115 mg/cNUhbp45-029Tfg [facility] Physician GroupComment on above:Result Comment: Random Glucose Reference Range is dependent on time and content of last meal. Glucose of more than 200 mg/dL in a nonstressed, ambulatory subject supports the diagnosis of Diabetes Mellitus. ADA recommended reference rangePerformed By: #### ESVIN, CUU #### [place] [address] USAPotassium [Moles/Vol]4.5 mmol/LNormal3.5-5.1The [facility] Physician GroupComment on above:Performed By: #### ESVIN CUU #### [place] [address] USASodium [Moles/Vol]137 mmol/OKxspxm019-302Mik [facility] Physician GroupComment on above:Performed By: #### ESVIN CUU #### [place] [address] USAUrea nitrogen [Mass/Vol]25 mg/dLNormal7-25The [facility] Physician GroupComment on above:Performed By: #### ESVIN CUU #### [place] [address] USAComplete Blood Count Auto Diffon 35-47-4093Yexosocvx (Bld) [#/Vol]0.1 10*3/uLNormal0.0-0.2The [facility] Physician GroupComment on above: Result Comment: PERFORMED BY: [place] [address] PATHOLOGIST CUTTING TABLE OPERATOR MERY LEAVITT M.D.Performed By: #### ESVIN, CUU #### [place] [address] USABasophils/100 WBC (Bld)1.0 %Normal.The [facility] Physician GroupComment on above:Performed By: #### ESVIN, CUU #### [place] [address] USAEosinophils (Bld) [#/Vol]0.1 10*3/uLNormal0.0-0.45The [facility] Physician GroupComment on above:Performed By: #### ESVIN, CUU #### [place] [address] USAEosinophils/100 WBC (Bld)1.1 %Normal.The [facility] Physician GroupComment on above:Performed By: #### ESVIN, CUU #### [place] [address] USAErythrocyte distribution width (RBC) [Ratio]12.6 %Normal 11.9-15.3The [facility] Physician GroupComment on above:Performed By: #### ESVIN, CUU #### [place] [address] USAHematocrit (Bld) [Volume fraction]31.0 %Low34.0-46.4The [facility] Physician GroupComment on above:Performed By: #### ESVIN, CUU #### [place] [address] USAHemoglobin (Bld) [Mass/Vol]10.2 g/dLLow11.8-15.4The [facility] Physician GroupComment on above:Performed By: #### ESVIN, CUU #### [place] [address] USALymphocytes (Bld) [#/Vol]2.4 10*3/uLNormal1.00-4.8The [facility] Physician GroupComment on above:Performed By: #### ESVIN, CUU #### [place] [address] USALymphocytes/100 WBC (Bld)18.7 %Normal.The [facility] Physician GroupComment on above:Performed By: #### ESVIN, CUU #### [place] [address] USAMCH (RBC) [Entitic mass]29.3 cpXxwmrg30.7-34.3The [facility] Physician GroupComment on above:Performed By: #### ESVIN, CUU #### [place] [address] USAMCV (RBC) [Entitic vol]88.5 xCQsomvj22-981Dln [facility] Physician GroupComment on above:Performed By: #### ESVIN, CUU #### [place] [address] USAMean Corpuscular HGB Conc33.1 g/kHNlygat75.0-35.0The [facility] Physician GroupComment on above:Performed By: #### ESVIN CUU #### [place] [address] USAMonocytes (Bld) [#/Vol]1.0 10*3/uLHigh0.0-0.8The [facility] Physician GroupComment on above:Performed By: #### ESVIN CUU #### [place] [address] USAMonocytes/100 WBC (Bld)7.8 %Normal.The [facility] Physician GroupComment on above:Performed By: #### ESVIN CUU #### [place] [address] USANeutrophils (Bld) [#/Vol]9.2 10*3/uLHigh1.8-7.7The [facility] Physician GroupComment on above:Performed By: #### ESVIN CUU #### [place] [address] USANeutrophils/100 WBC (Bld)71.4 %Normal.The [facility] Physician GroupComment on above:Performed By: #### ESVIN, CUU #### [place] [address] USANRBC%0.1 /100{WBC}Normal0-0.5The [facility] Comment on above:Performed By: #### ESVIN, CUU #### [address] [place] [address] USAPlatelet mean volume (Bld) [Entitic vol]6.5 fLNormal 6.3-10.7The [facility] Physician GroupComment on above:Performed By: #### ESVIN, CUU #### [facility] [address] [place] [address] USAPlatelets (Bld) [#/Vol]340 10*3/tHNfwuof186-789Cxm [facility] Physician GroupComment on above:Performed By: #### ESVIN, CUU #### [facility] [address] [place] [address] USARBC (Bld) [#/Vol]3.50 10*6/uLLow3.60-5.00The [facility] Physician GroupComment on above:Performed By: #### ESVIN, CUU #### [place] [address] USAWBC (Bld) [#/Vol]12.9 10*3/uLHigh3.8-11.6The [facility] Physician GroupComment on above:Performed By: #### ESVIN, CUU #### [place] [address] USAWhite Blood Count12.9 [CFU]/mLHigh3.8-11.6The [facility] Physician GroupComment on above:Performed By: #### ESVIN, CUU #### [place] [address] USALon 01-29-2025 Specimen: [id number] Received: 01/30/25 Status: DADA Reece Num: [id number] Spec Type: Surgical Subm Dr: Deepak Marshall MD Tissues: A Gross Only (R HIP BONE AND TISSUE) Procedures: Level 1 Gross Age/ Patient Sex Location Account Attending Physician Arley Ashraf 84/F [place] [id number] Deepak Marshall MD SPEC NUM: [id number] RECD: 01/30/25 STATUS: DADA CHEVY NUM: [id number] [place]: 01/29/250000 SUBM DR: Deepak Marshall MD ENTERED: 01/30/25 [facility] DR: MARINO TYPE: Surgical DEPT: S ENTERED BY: [id number] RECV BY: [id number] ORDERED: Level 1 Gross ORDERED: Level 1 Gross Pathological Diagnosis Right hip, bone and tissue, right total hip arthroplasty: - Right femoral head with degenerative changes. - Gross examination. Clinical Information Right hip osteoarthritis Gross Description Received in formalin labeled with the patient's name, date of , and bone and tissue, right hip is a femoral head, 4.2 x 4 x 3.2 cm, and detached granular bone fragments admixed with a small amount of fibrous tissue, 7 x 5 x 2 cm in aggregate. The articular surface is remarkable for granular degeneration and eburnation. The subarticular capsular surface ranges from less than 0.1 to 0.2 cm in thickness. The medullary bone is baumann, firm and uniform. The fibrous tissue is sectioned to reveal burns-pink, glistening and uniform cut surfaces. GROSS ONLY- Microscopic Description Gross examination only. Specimen: [id number] Received: 01/30/25 Status: DADA Chevy Num: [id number] Spec Type: Surgical Subm Dr: Deepak Marshall MD Tissues: A Gross Only (R HIP BONE AND TISSUE) Procedures: Level 1 Gross Patient: AshrafNacho maldonadoia [id number] (Continued) Specimen: [id number] Received: 01/30/25 (Continued) Signed (signature on file) Yao Toribio MD 01/31/25 0919 Specimen: [id number] Received: 01/30/25 Status: DADA Reece Num: [id number] Spec Type: Surgical Subm Dr: Deepak Marshall MD Tissues: A Gross Only (R HIP BONE AND TISSUE) Procedures: Level 1 Gross Patient: Arley Ashraf [id number] (Continued) Specimen: [id number] Received: 01/30/25 (Continued) CPT Codes 73591 Specimen: [id number] Received: 01/30/25 Status: DADA Reece Num: [id number] Spec Type: Surgical Subm Dr: Deepak Marshall MD Tissues: A Gross Only (R HIP BONE AND TISSUE) Procedures: Level 1 Gross Patient: Arley Ashraf [id number] (Continued) Signed (signature on file) Yao Toribio MD 01/31/25 0919Normal The [facility] Physician GroupXR hip RT 1Von [id number] hip RT 1[place] [address] XRay Report Signed Patient: Arley Ashraf MR#: [id number] : 1940 Acct:[id number] Age/Sex: 84 / F ADM Date: 01/29/25 Loc: Room: [address] [place] [address] Type: REG [facility] Attending Dr: Deepak Marshall II, MD Copies to: Deepak Marshall MD Ordering Provider: Deepak Marshall MD Date of Service: 01/29/25 XR/XR hip RT 1V: RIGHT ANTERIOR HIP IN OR Intraoperative study. Reason for exam: Right VOLODYMYR Findings: 10 images were obtained intraoperatively. Hardware was placed Cumulative Air Kerma in mGy: 8.78 mGy XR/XR hip RT 1V Impression: Intraoperative study. Impression dictated by: Alli Butler Jr., D.O. 01/29/2025 4:00 PM Dictation Location: RADIO-PC-22 Transcribed By: PWS 01/29/25 1600 Dictated By: Alli Butler Jr, DO 01/29/25 1600 Signed By: 01/29/25 1600[facility] ClinicXR low pelvis w/RT x-table hipon 86-66-7651FY low pelvis w/RT x-table [facility]PI[facility] [place] [address] XRay Report Signed Patient: Arley Ashraf MR#: [id number] [birth year] : 1940 Acct:[id number] Age/Sex: 84 / F ADM Date: 01/29/25 Loc: Room: [address] [place] [address] Type: [facility] Attending Dr: Deepak Marshall II, MD Copies to: Deepak Marshall MD Ordering Provider: Deepak Marshall MD Date of Service: 01/29/25 XR/XR low pelvis w/RT x-table hip: Total hip, do in PACU Right hip 2 views. Reason for exam: Right VOLODYMYR placement COMPARISON: Intraoperative study. FINDINGS: Right VOLODYMYR without hardware complication. Soft tissues demonstrate postoperative change. Partially visualized left hip hardware. XR/XR low pelvis w/RT x-table hip IMPRESSION: Right VOLODYMYR without hardware complication. Impression dictated by: Alli Butler Jr., D.O. 01/29/2025 4:49 PM Dictation Location: RADIO-PC-22 Transcribed By: PWS 01/29/25 1649 Dictated By: Alli Butler Jr DO 01/29/25 1648 Signed By: 01/29/25 1649[facility] ClinicH[facility] Medicine Office/Clinic Noteon 55-64-3432Icmjbx Medicine Office/Clinic NoteFafederal medical center, [place] Medicine Office/Clinic Note HPI Staff Pt is here for 3 month f/u She is having surgery on January 29 for hip replacement all meds but gabapentin and amlodipine She wants to make sure her UTI is cleared u she had one January 10 with [facility] [place] [place] checked urine with no sx History of Present Illness pt presents today for follow up has hip replacement scheduled for Jan.29. Review of Systems PHQ Score Initial Depression Screen Score: 0 SCORE Physical Exam Vitals & Measurements T: 36.2 ???C(Temporal Artery) HR: 82(Peripheral) RR: 18 BP: 150/86 SpO2: 99% HT: 153.0 cm HT: 60 in WT: 190.259 lb WT: 86.3 kg BMI: 36.87 General: alert, no acute distress ENMT: oral mucosa moist, no pharyngeal erythema or exudate Cardiovascular: regular rate and rhythm, normal peripheral perfusion Respiratory: Lungs CTA, respirations non labored Extremities: no deformity, no trauma Neurological: oriented x 4, LOC appropriate for age, CN II-XII intact, motor strength equal & normal bilaterally, speech normal Assessment/Plan 1. Hypertension (I10: Essential (primary) hypertension) pt presents today for follow up. she is scheduled for hip replacement on 01-29. she has been clearedby cardiology. they increased her amlodipine to 5mg and told her to discuss changing pravastatin toatorvastatin. new rx sent in. pt will continue to monitor BP at home. she is following up with cardiology in 6 months and will see me after. RTC 6 months Ordered: atorvastatin, 20 mg = 1 tab(s), Oral, Daily, # 90 tab(s), Refills(s) 1, Pharmacy: [facility]/pharmacy #[id number], 153, cm, 01/25/25 14:25:00 EDT, Height/Length Dosing, 86.3, kg, 01/25/25 14:25:00 EDT, Weight Dosing 2. Mixed hyperlipidemia (E78.2: Mixed hyperlipidemia) atrovastatin ordered. Ordered: atorvastatin, 20 mg = 1 tab(s), Oral, Daily, # 90 tab(s), Refills(s) 1, Pharmacy: [facility]/pharmacy #[id number], 153, cm, 01/25/25 14:25:00 EDT, Height/Length Dosing, 86.3, kg, 01/25/25 14:25:00 EDT, Weight Dosing 3. BMI 36.0-36.9,adult, (Z68.36: Body mass index [BMI] 36.0-36.9, adult)Body mass index [BMI] 36.0-36.9, adult BMI education Ordered: atorvastatin, 20 mg = 1 tab(s), Oral, Daily, # 90 tab(s), Refills(s) 1, [id number] 153, cm, 01/25/25 14:25:00 EDT, Height/Length Dosing, 86.3, kg, 01/25/25 14:25:00 EDT, Weight Dosing 4. Class 2 severe obesity with serious comorbidity and body mass index (BMI) of 36.0 to 36.9 in adult (E66.812: Obesity, class 2) see above Ordered: atorvastatin, 20 mg = 1 tab(s), Oral, Daily, # 90 tab(s), Refills(s) 1, Pharmacy: [facility]/pharmacy #[id number], 153, cm, 01/25/25 14:25:00 EDT, Height/Length Dosing, 86.3, kg, 01/25/25 14:25:00 EDT, Weight Dosing 5. Non-smoker (Z78.9: Other specified health status) continue not smoking Ordered: atorvastatin, 20 mg = 1 tab(s), Oral, Daily, # 90 tab(s), Refills(s) 1, Pharmacy: [facility]/pharmacy #[id number], 153, cm, 01/25/25 14:25:00 EDT, Height/Length Dosing, 86.3, kg, 01/25/25 14:25:00 EDT, Weight Dosing 6. Frequency of urination (R35.0: Frequency of micturition) u/a negative Ordered: Urnls Dip Stick Auto w/o Microscopy POC 02938 Morbid (severe) obesity due to excess calories (E66.01: Morbid (severe) obesity due to excess calories) Follow-up No qualifying data available Problem List/Past Medical History Ongoing Abdominal aortic atherosclerosis Ambulates with cane Arthritis Bulging lumbar disc CKD stage 3a, GFR 45-59 ml/min Excessive sweating Frequency of urination Hypertension Mixed hyperlipidemia Nonsmoker Osteopenia Pre-op exam Right hip pain Seasonal allergies Short of breath on exertion Urge incontinence Weight gain Historical Elevated cholesterol with elevated triglycerides CASSIE (stress urinary incontinence, female) Urgency of urination Procedure/Surgical History Injection of knee joint (11/30/2024), Injection of knee (11/23/2024), Injection of hip using fluoroscopic guidance (09/25/2024), Epidural injection of lumbar spine using fluoroscopic guidance (08/14/2024), Cystoscopy (06/08/2019), Surgery (07/30/1992), Appendectomy, Appendectomy, Cancer of tip of nose, Cataract, Colonoscopy, Hip replacement. Medications aspirin 81 mg Oral EC Tab, 81 mg= 1 tab(s), Oral, Daily, Not taking atorvastatin 20 mg Tab, 20 mg= 1 tab(s), Oral, Daily, 1 refills Calcium 600+D, See Instructions, Not taking Centrum Silver, 1 tab(s), Oral, Daily, Not taking: ll these meds are on hold until her surgery until January 29 Hip replacement disabilty parking placard, 0, As Directed, Not taking elppa CoQ10 50 mg oral capsule, 50 mg= 1 cap(s), Oral, Daily, Not taking etodolac 500 mg Tab, 500 mg= 1 tab(s), Oral, Daily, Not taking gabapentin 100 mg Cap, 100 mg= 1 cap(s), Oral, Daily nitrofurantoin macrocrystals-monohydrate 100 mg Cap, Not taking Norvasc 5 mg Tab, 5 mg= 1 tab(s), Oral, Daily, 2 refills Probiotic, Not taking Tylenol, 650 mg, Oral, TID, PRN, Not taking Allergies sulfa drugs (Unknown) Social Hi (more content not included)...[facility] CenterComment on above:Result Comment: Electronically Signed By: Micah Choi\.nikolay\Date and Time Signed: 01/25/25 16:06 EDTHeart and Vascular Office/Clinic Noteon 85-59-9377Brdtf and Vascular Office/Clinic NoteHeart and Vascular Office/Clinic Note Chief Complaint follow up History of Present Illness This a pleasant 84-year-old female with past medical history significant for dyslipidemia chronic kidney disease, arthritis, hypertension who is coming here to get clearance for hip surgery. Patient was seen in the by me few weeks ago and at that time she did undergo stress test and echo which basically both of them came back unremarkable. I did start her on Norvasc 2.5 and she has been tolerating it well. Patient denies chest pain or shortness of breath. She had also a heart monitor that also came back unremarkable Review of Systems PHQ Score Initial Depression Screen Score: 0 SCORE As per HPI no chest pain, shortness of breath at this visit. Knee and hip pain Physical Exam Vitals & Measurements HR: 79(Peripheral) RR: 16 BP: 145/60 SpO2: 97% HT: 153 cm HT: 60 in WT: 85.4 kg WT: 188.275 lb BMI: 36.48 Pleasant no acute distress. Heart regular rhythm S1-S2. Lungs decreased breath sounds. Abdomen nontender. Extremities no edema Assessment/Plan 1. Preoperative clearance (Z01.818: Encounter for other preprocedural examination) For hip surgery. Patient did undergo stress test and echo both of them came back unremarkable. She will be cleared to proceed with the surgery at moderate risk from cardiac standpoint. Continue current management. DVT prophylaxis per Ortho team recommendations. Okay to stop aspirin 5 to 7 days before the surgery 2. Hypertension (I10: Essential (primary) hypertension) Will increase her Norvasc to 5 mg p.o. daily 3. Dyslipidemia (E78.5: Hyperlipidemia, unspecified) Consider switching to Crestor or Lipitor if no contraindications Orders: amlodipine, 5 mg = 1 tab(s), Oral, Daily, # 90 tab(s), Refills(s) 2, Pharmacy: [facility]/pharmacy #[id number], 153, cm, 01/15/25 14:10:00 EDT, Height/Length Dosing, 85.4, kg, 01/15/25 14:10:00 EDT, Weight Dosing Follow-up in 6 months or sooner if needed Follow-up No qualifying data available Problem List/Past Medical History Ongoing Abdominal aortic atherosclerosis Ambulates with cane Arthritis BMI 34.0-34.9,adult BMI 37.0-37.9, adult Bulging lumbar disc CKD stage 3a, GFR 45-59 ml/min Excessive sweating Frequency of urination Mixed hyperlipidemia Nonsmoker Obesity (BMI 30-39.9) Osteopenia Pre-op exam Right hip pain Seasonal allergies Short of breath on exertion Urge incontinence Weight gain Historical Elevated cholesterol with elevated triglycerides CASSIE (stress urinary incontinence, female) Urgency of urination Procedure/Surgical History Injection of knee joint (11/30/2024), Injection of knee (11/23/2024), Injection of hip using fluoroscopic guidance (09/25/2024), Epidural injection of lumbar spine using fluoroscopic guidance (08/14/2024), Cystoscopy (06/08/2019), Surgery (07/30/1992), Appendectomy, Appendectomy, Cancer of tip of nose, Cataract, Colonoscopy, Hip replacement. Medications aspirin 81 mg Oral EC Tab, 81 mg= 1 tab(s), Oral, Daily Calcium 600+D, See Instructions Centrum Silver, 1 tab(s), Oral, Daily disabilty parking placard, 0, As Directed elppa CoQ10 50 mg oral capsule, 50 mg= 1 cap(s), Oral, Daily etodolac 500 mg Tab, 500 mg= 1 tab(s), Oral, Daily gabapentin 100 mg Cap, 100 mg= 1 cap(s), Oral, Daily Macrobid 100 mg Cap, 100 mg= 1 cap(s), Oral, BID nitrofurantoin macrocrystals-monohydrate 100 mg Cap Norvasc 5 mg Tab, 5 mg= 1 tab(s), Oral, Daily, 2 refills pravastatin 20 mg Tab, See Instructions Probiotic Tylenol, 650 mg, Oral, TID, PRN Allergies sulfa drugs (Unknown) Social History Alcohol - Denies Alcohol Use, 09/23/2023 Never, 09/28/2024 Substance Abuse - Denies Substance Abuse, 09/23/2023 Never, 09/28/2024 Tobacco - Denies Tobacco Use, 09/17/2022 Never (less than 100 in lifetime) Tobacco Use:. Never Smokeless Tobacco Use:., 01/15/2025 Family History Acute myocardial infarction: Father. Hypertension: Mother. Primary malignant neoplasm of lung: Sister, Brother, Brother and Brother. Immunizations Vaccine Date Status influenza virus vaccine, inactivated 02/03/2024 Recorded influenza virus vaccine, inactivated 02/01/2023 Recorded influenza virus vaccine, inactivated 02/03/2022 Recorded influenza virus vaccine, inactivated 02/18/2021 Recorded SARS-CoV-2 (COVID-19) mRNA-1273 vaccine 09/10/2020 Recorded SARS-CoV-2 (COVID-19) mRNA-1273 vaccine 08/08/2020 Recorded pneumococcal 23-valent vaccine 01/17/2020 Recorded influenza virus vaccine, inactivated 01/17/2020 Recorded influenza virus vaccine, inactivated 01/30/2019 Recorded influenza virus vaccine, live, trivalent 01/24/2019 Recorded pneumococcal 13-valent vaccine 06/03/2018 Recorded influenza virus vaccine, inactivated 02/08/2017 Recorded influenza virus vaccine, inactivated 03/03/2016 Recorded influenza virus vaccine, inactivated 02/09/2015 Recorded influenza, whole 02/09/2009 Recorded influenza, whole 02/25/2005 RecordedUniversity Hospitals Conneaut Medical CenterComment on above:Result Comment: Electronically Signed By: Shaila SOLOMON, Reinaldo\.br\Date and Time Signed: 01/16/25 08:04 EDTNM natalee perf SPECT rest stron 99-37-9960TJ natalee perf SPECT rest [facility] [place] [address] Nuclear Medicine Report Signed Patient: Arley Ashraf MR#: [id number] [birth year] : 1940 Acct:[id number] Age/Sex: 84 / F ADM Date: 01/09/25 Loc: Room: Type: [facility] Attending Dr: Reinaldo Linton MD Copies to: Opal Klein MD, [facility] Reinaldo Linton MD Ordering Provider: Reinaldo Linton MD Date of Service: 01/09/25 NM/NM natalee perf SPECT rest str: chest pain Lexiscan Cardiolite Stress Test [...] available for comparison. Transcribed By: NTS 01/11/25 5652 Dictated By: Opal Klein MD, [facility] 01/11/25 6959 Signed By: 01/12/[address] [place] [address] Physician [facility] HospitalAppearance of UrineOrdered By: Deepak Marshall on 58-01-3501Xtbzsvmdxk (U)CloudyCritically abnormalClear Harrison Community HospitalComment on above:Order Comment: Name Collection Type:: Clean-Voided MidstreamPerformed By: #### ESVIN, CUU #### [place] [address] USABacteria [Presence] in Urine by AutomatedOrdered By: Deepak Marshall on 81-57-7523Lpkginod Auto Ql (U)4+ [HPF]HighMcKitrick HospitalBasic Metabolic Panelon 48-60-4440CBU/1.73 sq M.predicted MDRD (S/P/Bld) [Vol rate/Area]mL/min/{1.73_m2}NormalThe [facility] Physician [facility] HospitalComment on above:Performed By: #### ESVIN CUU #### [place] [address] USABasophils [#/volume] in Blood by Automated countOrdered By: Deepak Marshall on 37-68-6556Zbzvrjvti (Bld) [#/Vol]0.1 10*3/uLNormal0.0-0.2 [facility] HospitalComment on above:Result Comment: PERFORMED BY: [place] [address] PATHOLOGIST CUTTING TABLE OPERATOR MERY LEAVITT M.D.Performed By: #### ESVIN CUU #### [place] [address] USABasophils/100 leukocytes in Blood by Automated count Ordered By: Deepak Marshall on 36-88-2482Oomjdwinv/100 WBC (Bld)1.2 %Normal. [facility] HospitalComment on above:Performed By: #### ESVIN, CUU #### [facility] [address] [place] [address] USABilirubin Test strip Ql (U)Ordered By: Deepak Marshall on 48-36-6078Wrlmzhtvv Ql (U)2+HighNegativeHarrison Community HospitalCalcium [Mass/volume] in Serum or PlasmaOrdered By: Deepak Marshall on 01-10-2025 Calcium [Mass/Vol]9.9 mg/dLNormal8.6-10.3FBlanchard Valley Health System [facility] Comment on above:Result Comment: PERFORMED BY: [place] [address] PATHOLOGIST CUTTING TABLE OPERATOR MERY LEAVITT M.D.Performed By: #### ESVIN, CUU #### [place] [address] USACarbon dioxide, total [Moles/volume] in Serum or Plasma Ordered By: Deepak Marshall on 75-54-9445WY7 [Moles/Vol]25.9 mmol/LNormal 21.0-31.0[facility] HospitalComment on above:Performed By: #### ESVIN, CUU #### [place] [address] USAChloride [Moles/volume] in Serum or PlasmaOrdered By: Deepak Marshall on 27-64-5826Hsfkdvdd [Moles/Vol]104 mmol/WIyxtdm83-401KbkxbblhgHarrison Community HospitalComment on above:Performed By: #### ESVIN, CUU #### [place] [id number] USAColor of Urine by AutoOrdered By: Deepak Marshall on 49-59-2341Osere (U)YellowNormalYellowHarrison Community HospitalComment on above:Order Comment: Name Collection Type:: Clean-Voided MidstreamPerformed By: #### ESVIN, CUU #### [place] [address] USAComplete Blood Count Auto Diffon 74-08-8876Xbjo Corpuscular HGB Conc33.2 g/nMOfourg43.0-35.0The [facility] Physician GroupComment on above:Performed By: #### ESVIN, CUU #### [place] [address] USANRBC%0.0 /100{WBC}Normal0-0.5[facility] Comment on above:Performed By: #### ESVIN, CUU #### [place] [address] USAWhite Blood Count9.2 [CFU]/mLNormal3.8-11.6The [facility] Physician GroupComment on above:Performed By: #### ESVIN, CUU #### [place] [address] USACreatinine [Mass/volume] in Serum or PlasmaOrdered By: Deepak Marshall on 60-81-8303Tqnxqudffh [Mass/Vol]0.92 mg/dLNormal0.60-1.20 [facility] HospitalComment on above:Performed By: #### ESVIN, CUU #### [place] [address] USADipstick and Microscopicon 26-77-3292Zrjuaxel,Urine4+ [HPF]NormalNone SeenThe [facility] Physician GroupComment on above:Order Comment: Name Collection Type:: Clean-Voided MidstreamPerformed By: #### ADDONUAPLUS, CUU #### [place] [address] USABilirubin,Urine2+NormalNegativeThe [facility] Physician GroupComment on above:Order Comment: Name Collection Type:: Clean-Voided MidstreamPerformed By: #### CHRISTOPHERONSAMPLUS, CUU #### [place] [address] USAGlucose Ql (U)NormalNormalNormalThe [facility] Physician GroupComment on above:Order Comment: Name Collection Type:: Clean-Voided MidstreamPerformed By: #### ADDONUAPLUS, CUU #### [place] [address] USAHyaline Casts,Swumc6-8Zwgccg3-9Tgf [facility] Physician GroupComment on above:Order Comment: Name Collection Type:: Clean-Voided MidstreamPerformed By: #### ADDONUAPLUS, CUU #### [place] [address] USAMucus,UrineRareNormalThe [facility] Physician GroupComment on above:Order Comment: Name Collection Type:: Clean-Voided MidstreamResult Comment: PERFORMED BY: [place] [address] PATHOLOGIST CUTTING TABLE OPERATOR MERY LEAVITT M.D.Performed By: #### ADDONUAPLUS, CUU #### [place] [address] USANitrite,UrinePositiveNormalNegativeThe [facility] Physician GroupComment on above:Order Comment: Name Collection Type:: Clean-Voided MidstreamPerformed By: #### ADDONUAPLUS, CUU #### [place] [id number] USAOccult Blood,UrineNegativeNormalNegativeThe [facility] Physician GroupComment on above:Order Comment: Name Collection Type:: Clean- Voided MidstreamResult Comment: PERFORMED BY: [place] [address] PATHOLOGIST CUTTING TABLE OPERATOR MERY LEAVITT M.D.Performed By: #### ADDONUAPLUS, CUU #### [place] [address] USAProtein,UrineNegativeNormalNegativeThe [facility] Physician GroupComment on above:Order Comment: Name Collection Type:: Clean-Voided MidstreamPerformed By: #### ADDONUAPLUS, CUU #### [facility] [address] [place], [place] [id number] USARBC,Xpeuw4-0Ulhonp8-1Bvi [facility] Physician GroupComment on above:Order Comment: Name Collection Type:: Clean-Voided MidstreamPerformed By: #### ADDONUAPLUS, CUU #### [place] [address] USASpecificy [place],Urine1.720Oldsdt0.001-1.030The [facility] Physician GroupComment on above:Order Comment: Name Collection Type:: Clean- Voided MidstreamPerformed By: #### ADDONUAPLUS, CUU #### [place] [address] USASquamous Epithelial Cell,Nzxjc6-5Ndcocp2-5Nws [facility] Physician GroupComment on above:Order Comment: Name Collection Type:: Clean- Voided MidstreamPerformed By: #### ADDONUAPLUS, CUU #### [place] [address] USAUrobilinogen,UrineNormalNormalNormalThe [facility] Physician GroupComment on above:Order Comment: Name Collection Type:: Clean- Voided MidstreamPerformed By: #### ADDONUAPLUS, CUU #### [place] [address] USAWBC CLUMP, UrineManyNormalNone SeenThe [facility] Physician GroupComment on above:Order Comment: Name Collection Type:: Clean-Voided MidstreamPerformed By: #### ADDONUAPLUS, CUU #### [place] [address] USAWBC,Singd04-532Pqghqa8-4Swt [facility] Comment on above:Order Comment: Name Collection Type:: Clean-Voided Midstream Performed By: #### ADDONUAPLUS, CUU #### [place] [address] USAECH echo transthoracicon 46-54-5642TRS echo transthoracic [facility] [place] [address] [place] [address] Echocardiogram Signed Patient: Arley Ashraf MR#: [id number] [birth year] : 1940 Acct:[id number] Age/Sex: 84 / F ADM Date: 01/10/25 Loc: PS Room: Type: [facility] Attending Dr: Deepak Marshall II, MD Ordering Provider: Deepak Marshall MD Date of Service: 01/10/25/ ECH/ECH echo transthoracic: sob, pre op clearance Copies to: Opal Klein MD, FACC Deepak Marshall MD Weight: 191 lb Performed By: Molly Colin RDCS BSA: 1.8 m2 Reason For Study: sob, pre op clearance History: pre surgical clearance Interpretation Summary The left ventricular size, thickness and function are normal Ejection Fraction = 55-60%. A variety of Doppler measurements indicate impaired left ventricular relaxation, which is associated with grade I/IV or mild diastolic dysfunction. There is no prior echocardiogram noted for this patient. Procedure/Quality: A two-dimensional transthoracic echocardiogram with color flow and Doppler was performed. The study was technically fair in quality. There is no prior echocardiogram noted for this patient. Left Ventricle: The left ventricular size, thickness and function are normal. Ejection Fraction = 55-60%. A variety of Doppler measurements indicate impaired left ventricular relaxation, which is associated with grade I/IV or mild diastolic dysfunction. Left Atrium: The left atrium appears normal in size. The atrial septum appears normal. Right Atrium: The right atrium appears normal in size. Right Ventricle: The right ventricular size, thickness and function are normal. Aortic Valve: The aortic valve is mildly sclerotic. The aortic valve is trileaflet. Mitral Valve: The mitral valve is mildly sclerotic. Tricuspid Valve: The tricuspid valve is normal in structure. Pulmonic Valve: The pulmonic valve is not well seen, but is grossly normal. Arteries: The aortic root is normal size. Pericardium/Pleura: No pericardial effusion seen. There is no pleural effusion. IVC/Hepatic Veins: The IVC is normal in size with an inspiratory collapse of greater then 50%, suggesting normal right atrial pressure. Miscellaneous: No thrombus, vegetation or mass is seen. Measurements with Normals IVSd: 1.1 cm (0.7-1.1 cm)LVIDd: 4.7 cm (3.7-5.4 cm) LVPWd: 0.90 cm (0.7-1.1 cm)LVIDs: 3.0 cm (2.3-3.6 cm) LA dimension: 3.9 cm (2.3-4.0 cm)Ao root diam: 3.1 cm(2.0-3.6 cm) asc Aorta Diam: 2.9 cm(2.1-3.4cm) Doppler with Normals LV V1 max: 89.3 cm/sec (0.7-1.7m/s)MV E max renato: 63.0 cm/sec(0.8-1.3m/s) MV A max renato: 106.7 cm/sec(0.0-0.0m/s) MV E/A: 0.59 (<1.5) MMode/2D Measurements Calculations RVDd: 3.5 cm FS: 37.4 % Ao root area: LVOT diam: 2.0 cm TAPSE: 2.3 cm EDV(Teich): 7.6 cm2 LVOT area: 3.2 cm2 RV S Renato: 104.1 ml 12.0 cm/sec ESV(Teich): 34.0 ml EF(Teich): 67.3 % __ LVLd ap4: 7.3 cm SV(MOD-sp4): LAV(MOD-sp4): LA A2 area: 15.3 cm2 EDV(MOD-sp4): 36.1 ml 62.1 ml 57.4 ml LAV(MOD-sp2): LA A4 area: 20.8 cm2 LVLs ap4: 6.6 cm 36.2 ml LA length (vol): ESV(MOD-sp4): 5.6 cm 21.3 ml LA vol: 48.1 ml EF(MOD-sp4): 62.9 % LA vol index: 26.3 ml/m2 Doppler Measurements Calculations MV dec time: MV V2 max: E/E' lat: 9.7 MV dec slope: 0.22 sec 138.1 cm/sec E/E' med: 10.9 MV max P.7 mmHg 290.9 cm/sec2 MV V2 mean: 79.0 cm/sec MV mean P.8 mmHg MV V2 VTI: 27.0 cm MVA(VTI): 2.7 cm2 __ Ao V2 max: LV V1 max PG: RAP systole: 138.8 cm/sec 3.2 mmHg 3.0 mmHg Ao max P.7 mmHg LV V1 mean PG: Ao mean P.6 mmHg 4.2 mmHg LV V1 mean: Ao V2 mean: 60.4 cm/sec 101.1 cm/sec LV V1 VTI: 22.2 cm Ao V2 VTI: 36.5 cm MARTHA(I,D): 2.0 cm2 MARTHA(V,D): 2.1 cm2 Transcribed By: SCV Performed At: 01/10/25 1141 Signed By: Opal Klein MD, [facility] 01/10/25 1757[facility] Physician GroupEosinophils [#/volume] in Blood by Automated countOrdered By: Deepak Marshall on 75-05-6165Dtcfywdhymb (Bld) [#/Vol]0.2 10*3/uLNormal0.0-0.45 [facility] HospitalComment on above:Performed By: #### MYA MCALLISTERU #### [facility] [address] [place] [address] USAEosinophils/100 leukocytes in Blood by Automated count Ordered By: Deepak Marshall on 42-75-2488Zqhezegwvkg/100 WBC (Bld)2.2 %Normal. [facility] HospitalComment on above:Performed By: #### ESVIN CUU #### [facility] [address] [place] [address] USAEpithelial cells.squamous [#/area] in Urine sediment by Automated countOrdered By: Deepak Marshall on 90-13-6565Pqksrusfje cells.squamous Auto (Urine sed) [#/Area]3-4 [HPF]High0-2FBlanchard Valley Health System Blanchard Valley HospitalErythrocyte distribution width [Ratio] by Automated countOrdered By: Deepak Marshall on 27-48-6878Azfrduqnqpc distribution width (RBC) [Ratio] 13.4 %Opyrmd41.9-15.3FBlanchard Valley Health System Blanchard Valley HospitalComment on above:Performed By: #### ESVIN, CUU #### [facility] [address] [place], [place] [id number] USAErythrocytes [#/area] in Urine sediment by Automated count Ordered By: Deepak Marshall on 22-77-2091HSW Auto (Urine sed) [#/Area]1-2 [HPF] 0-4FBlanchard Valley Health System Blanchard Valley HospitalErythrocytes [#/volume] in Blood by Automated countOrdered By: Deepak Marshall on 79-50-6707OQO (Bld) [#/Vol]4.67 10*6/uLNormal3.60-5.00[facility] HospitalComment on above: Performed By: #### ESVIN, CUU #### [facility] [address] [place] [address] USAFructosamineon 99-73-1147Iagjpuoundlb410 umol/LNormal0-285 The [facility] Physician GroupComment on above:Result Comment: Published reference interval for apparently healthy subjects between age 20 and 60 is 205 - 285 umol/L and in a poorly controlled diabetic population is 228 - 563 umol/L with a mean of 396 umol/L. Performed at: [facility] [id number] Caseworker: Kasi Loera PhD, Phone: [phone] PERFORMED BY: [place] [address] PATHOLOGIST CUTTING TABLE OPERATOR MERY LEAVITT M.D.Performed By: #### ESVIN, CUU #### [place] [id number] USAFructosamine [Moles/volume] in Serum or PlasmaOrdered By: Deepak Marshall on 49-20-8516Inhzporyotof [Moles/Vol]231 umol/L0-285[facility] HospitalComment on above:Published reference interval for apparently healthysubjects between age 20 and 60 is 205 - 285 umol/L and in apoorly controlled diabetic population is 228 - 563 umol/Lwith a mean of 396 umol/L.Performed at: - [facility] [id number] Director: Kasi Loera PhD, Phone: [phone] filtration rate [Volume Rate/Area] in Serum, Plasma or Blood by Creatinine Ordered By: Deepak Marshall on 60-58-2926Ueovwgnyez filtration rate [Volume Rate/Area] in Serum, Plasma or Blood by Creatinine> 60.0 mL/MinHarrison Community HospitalGlucose [Mass/volume] in Serum or PlasmaOrdered By: Deepak Marshall on 75-66-4367Vszmsee [Mass/Vol]96 mg/qPQhzjjg68-474UeihktfpfHarrison Community HospitalComment on above:ADA recommended reference rangeRandom Glucose Reference Range is dependent on time and content of last meal. Glucose of more than 200 mg/dL in a nonstressed, ambulatory subject supports the diagnosisof Diabetes Mellitus.Result Comment: Random Glucose Reference Range is dependent on time and content of last meal. Glucose of more than 200 mg/dL in a nonstressed, ambulatory subject supports the diagnosis of Diabetes Mellitus. ADA recommended reference rangePerformed By: #### PAULUAPLUS, CUU #### [facility] [address] [place] [address] USAGlucose [Mass/volume] in Urine by Test stripOrdered By: Deepak Marshall on 70-43-1302Fvhprkp Test strip (U) [Mass/Vol]Normal mg/dLNormal [facility] HospitalHematocrit [Volume Fraction] of Blood by Automated countOrdered By: Deepak Marshall on 40-61-1012Ocxjvuoprj (Bld) [Volume fraction]41.7 %Idvlah68.0-46.4FBlanchard Valley Health System Blanchard Valley HospitalComment on above:Performed By: #### DARLENEPLUS, CUU #### [facility] [address] [place] [address] USAHemoglobin Test strip Ql (U)Ordered By: Deepak Marshall on 60-32-8780Crszratzmn Ql (U)NegativeNegToledo Hospital Hemoglobin [Mass/volume] in BloodOrdered By: Deepak Marshall on 01-10-2025 Hemoglobin (Bld) [Mass/Vol]13.8 g/jDHezhhj43.8-15.4FBlanchard Valley Health System Blanchard Valley HospitalComment on above:Performed By: #### ESVIN, CUU #### [facility] [address] [place] [id number] USAHyaline casts [#/area] in Urine sediment by Automated countOrdered By: Deepak Marshall on 38-54-0518Xzvdkyz casts Auto (Urine sed) [#/Area]0-8 [LPF]0-8[facility] HospitalKetones [Presence] in Urine by Test stripOrdered By: Deepak Marshall on 43-94-1508Parjtaz Ql (U)Negative NormalNegToledo HospitalComment on above:Order Comment: Name Collection Type:: Clean-Voided MidstreamPerformed By: #### ESVIN, CUU #### [place] [id number] USALeukocyte clumps [Presence] in Urine by AutomatedOrdered By: Deepak Marshall on 23-95-1007Deidpxbxo clumps Auto Ql (U)Many [LPF]HighNone SeenHarrison Community HospitalLeukocyte esterase [Presence] in Urine by Test stripOrdered By: Deepak Marshall on 93-72-7268Smnuxhplu esterase Test strip Ql (U)4+NormalNegToledo HospitalComment on above:Order Comment: Name Collection Type:: Clean-Voided MidstreamPerformed By: #### ESVIN, CUU #### [place] [id number] USALeukocytes [#/area] in Urine sediment by Automated count Ordered By: Deepak Marshall on 91-62-3502LVY Auto (Urine sed) [#/Area]50-100 [HPF]High0-4FBlanchard Valley Health System Blanchard Valley HospitalLeukocytes [#/volume] corrected for nucleated erythrocytes in Blood by Automated counOrdered By: Deepak Marshall on 82-29-7446ATE corrected for nucl RBC Auto (Bld) [#/Vol]9.2 10*3/uL3.8-11.6 [facility] HospitalLeukocytes [#/volume] in Blood by Automated countOrdered By: Deepak Marshall on 69-58-5343SDU (Bld) [#/Vol]9.2 10*3/uLNormal 3.8-11.6FBlanchard Valley Health System Blanchard Valley HospitalComment on above:Performed By: #### DARLENEPLUS, CUU #### [facility] [address] [place] [address] USALymphocytes [#/volume] in Blood by Automated countOrdered By: Deepak Marshall on 71-29-6657Prxunjxkzcq (Bld) [#/Vol]2.4 10*3/uLNormal 1.00-4.8[facility] HospitalComment on above:Performed By: #### ESVIN, CUU #### [facility] [address] [place] [id number] USALymphocytes/100 leukocytes in Blood by Automated count Ordered By: Deepak Marshall on 78-00-0714Dghrbxovlxi/100 WBC (Bld)26.2 %Normal. [facility] HospitalComment on above:Performed By: #### ESVIN, CUU #### [facility] [address] [place], [place] [address] [facility] [Entitic mass] by Automated countOrdered By: Deepak Marshall on 51-96-8472QMJ (RBC) [Entitic mass]29.7 plKvncus83.7-34.3FBlanchard Valley Health System Blanchard Valley HospitalComment on above:Performed By: #### ESVIN, CUU #### [place] [id number] [facility] Auto (RBC) [Mass/Vol]Ordered By: Deepak Marshall on 23-19-2366LURM (RBC) [Mass/Vol]33.2 g/dL32.0-35.0[facility] HospitalMCV [Entitic volume] by Automated countOrdered By: Deepak Marshall on 30-30-4508NFH (RBC) [Entitic vol]89.4 dYFpoujl63-172QgpdjushtHarrison Community HospitalComment on above:Performed By: #### ESVIN, CUU #### [facility] [address] [place] [address] USAMonocytes [#/volume] in Blood by Automated countOrdered By: Deepak Marshall on 46-54-3748Myzonboxj (Bld) [#/Vol]0.5 10*3/uLNormal0.0-0.8 [facility] HospitalComment on above:Performed By: #### ESVIN, CUU #### [facility] [address] [place] [address] USAMonocytes/100 leukocytes in Blood by Automated count Ordered By: Deepak Marshall on 43-84-4039Dtcmdocel/100 WBC (Bld)5.9 %Normal. [facility] HospitalComment on above:Performed By: #### ESVIN, CUU #### [facility] [address] [place] [address] USAMucus [Presence] in Urine by AutomatedOrdered By: Deepak Marshall on 67-97-4877Zjhhp Auto Ql (U)Rare [LPF][facility] HospitalNeutrophils [#/volume] in Blood by Automated countOrdered By: Deepak Marshall on 91-61-5367Uuwkydaillj (Bld) [#/Vol]5.9 10*3/uLNormal1.8-7.7FBlanchard Valley Health System Blanchard Valley HospitalComment on above:Performed By: #### DARLENEPLUS, CUU #### [facility] [address] [place] [id number] USANeutrophils/100 leukocytes in Blood by Automated count Ordered By: Deepak Marshall on 77-86-2318Lxpkshchgwf/100 WBC (Bld)64.5 %Normal. [facility] HospitalComment on above:Performed By: #### DARLENEPLUS, CUU #### [facility] [address] [place] [id number] USANitrite Test strip Ql (U)Ordered By: Deepak Marshall on 78-31-7621Fzcmhir Ql (U)PositiveHighNegToledo HospitalNo Panel InformationOrdered By: Deepak Marshall on 30-89-0414Rfpmfeae Creatinine Clearance (ChemN/AFBlanchard Valley Health System Blanchard Valley HospitalNucleated erythrocytes [Presence] in Blood by Automated countOrdered By: Deepak Marshall on 01-10-2025 Nucleated RBC Auto Ql (Bld)0.0 /100{WBC}0-0.5FBlanchard Valley Health System [facility] Hospital Platelet mean volume [Entitic volume] in Blood by Automated countOrdered By: Deepak Marshall on 48-17-3846Iqmpfakq mean volume (Bld) [Entitic vol]6.9 fL Normal6.3-10.7FBlanchard Valley Health System Blanchard Valley HospitalComment on above:Performed By: #### ESVIN, CUU #### [facility] [address] [place] [address] USAPlatelets [#/volume] in Blood by Automated countOrdered By: Deepak Marshall on 26-95-7390Kopckiavl (Bld) [#/Vol]357 10*3/rBStxkku102-326 [facility] HospitalComment on above:Performed By: #### ESVIN, CUU #### [place] [id number] USAPotassium [Moles/volume] in Serum or PlasmaOrdered By: Deepak Marshall on 19-03-4529Qxdpaezag [Moles/Vol]4.4 mmol/LNormal3.5-5.1 [facility] HospitalComment on above:Performed By: #### ESVIN, CUU #### [place] [address] USAProtein Test strip (U) [Mass/Vol]Ordered By: Deepak Marshall on 63-31-6701Jcbgqdz (U) [Mass/Vol]NegativeNegativeOhio Valley HospitalTR cardiac stress/lexiscanon 35-46-6998EPN cardiac stress/lexiscanPIKE [facility] [place] [address] [place], [place] [address] Cardiac Stress Test Signed Patient: Arley Ashraf MR#: [id number] [birth year] : 1940 Acct:[id number] Age/Sex: 84 / F ADM Date: 01/09/25 Loc: Room: Type: [facility] Attending Dr: Reinaldo Linton MD Copies to: Opal Klein MD, [facility] Reinaldo Linton MD Ordering Provider: Reinaldo Linton MD Date of Service: 01/09/25 STR/STR cardiac stress/lexiscan: z01.810 Lexiscan Cardiolite Stress Test ORDERED BY: Reinaldo Linton MD INDICATION: An 84-year-old patient with chest pain. Resting ECG revealed normal sinus rhythm with right bundle-branch block, resting heart rate 85 beats per minute, resting blood pressure 167/74 mmHg. Following intravenous administration of 400 mcg Lexiscan over 10 seconds, no ischemic EKG changes were noted, no chest pain, no cardiac arrhythmias. Cardiolite study followed. CONCLUSION: 1. No Lexiscan-induced ischemic EKG changes, chest pain or cardiac arrhythmias. 2. Cardiolite studies to be reported separately by Nuclear Cardiology. Transcribed By: JULIAN 01/10/251825 Dictated By: Opal Klein MD, [facility] 01/10/25 08 Signed By: 01/11/25 1814[facility] Physician GroupSerum or plasma anion gap determinationOrdered By: Deepak Marshall on 29-75-3827Lshmr gap [Moles/Vol]13.5 mmol/LNormal6.0-15.0[facility] HospitalComment on above:Performed By: #### ESVIN CUU #### [facility] [address] [place] [address] USASodium [Moles/volume] in Serum or PlasmaOrdered By: Deepak Marshall on 61-68-5615Frzhbt [Moles/Vol]139 mmol/VSoqkwi667-190JahpnauxmHarrison Community HospitalComment on above:Performed By: #### ESVIN, CUU #### [facility] [address] [place] [id number] [facility] CENTERSpecific gravity Test strip (U) [Rel density]Ordered By: Deepak Marshall on 27-76-9307Hlrsspda gravity (U) [Rel density]1.0211.001-1.030 [facility] HospitalUrea nitrogen [Mass/volume] in Serum or Plasma Ordered By: Deepak Marshall on 55-42-4516Vcxe nitrogen [Mass/Vol]25 mg/dLNormal 7-25[facility] HospitalComment on above:Performed By: #### PAULUAPLUS, CUU #### [facility] [address] [place] [id number] [facility] CANCER CENTERUrine Cultureon 19-32-7942Kxpiyuui identified Cx Nom (U) ORGANISM: Escherichia coli (O:ESCCOL) [place] Count >100,000 Aerobic BRYANNA Charge (NMIC56) SUSCEPTIBILITY ORGANISM: O:ESCCOL ANTIBIOTIC INTERPRETATION BRYANNA Amikacin S <16 Amoxacillin/K Clavulanate S <8 Ampicillin S <8 Ampicillin/Sulbactam S <4 Aztreonam S <4 Cefazolin S <2 Cefepime S <2 Ceftazidime S <1 Ceftazidime/Avibactam S <4 Ceftolozane/Tazobactam S <2 Ceftriaxone S <1 Cefuroxime S <4 Ciprofloxacin I 0.5 Ertapenem S <0.5 Gentamicin S <2 Levofloxacin S <0.5 Meropenem S <1 Meropenem/Vaborbactam S <2 Nitrofurantoin S <32 Piperacillin/Tazobactam S <8 Tetracycline R >8 Tigecycline S <2 Tobramycin S <2 Trimethoprim/Sulfamethoxazole S <0.5 S = SUSCEPTIBLE I = INTERMEDIATE R = RESISTANT BLANK = DATA NOT AVAILABLE, OR DRUG NOT ADVISABLE OR TESTED R* = RESISTANCE DUE TO EXTENDED SPECTRUM BETA-LACTAMASES ESBL = EXTENDED SPECTRUM BETA-LACTAMASE TFG = THYMIDINE-DEPENDENT STRAIN MASHA = BETA-LACTAMASE POSITIVE IB = INDUCIBLE BETA-LACTAMASE. APPEARS IN PLACE OF 'S' WITH SPECIES KNOWN TO POSSESS INDUCIBLE BETA-LACTAMASES. POTENTIALLY THEY MAY BECOME RESISTANT TO ALL B-LACTAM DRUGS. PERFORMED BY: [facility] [address] [place] [id number] PATHOLOGIST CUTTING TABLE OPERATOR MERY LEAVITT M.D.NormalThe [facility] Pineville Physician GroupComment on above: Performed By: #### ESVIN, CUU #### [facility] [address] [place] [address] USAUrine cultureOrdered By: Deepak Marshall on 01-10-2025 Bacteria identified Cx Nom (U)Escherichia coliAbnormCleveland Clinic FoundationUrobilinogen Test strip (U) [Mass/Vol]Ordered By: Deepak Marshall on 24-00-0117Qsukpqlxyiyj (U) [Mass/Vol]Normal mg/dLNoProMedica Defiance Regional HospitalpH of Urine by Test stripOrdered By: Deepak Marshall on 01-10-2025 pH (U)5.5 [pH]Normal5.0-9.0[facility] HospitalComment on above: Order Comment: Name Collection Type:: Clean-Voided MidstreamPerformed By: #### ESVIN, CUU #### [facility] [address] [place] [id number] USAHolter Monitoron 29-20-2132Dwdkpc MonitorHolter Monitor HOLTER MONITOR DATES OF STUDY: 12/26/2024 to 12/28/2024 INDICATION: Palpitations. TOTAL TEST DURATION: One day, 14 hours, 33 minutes, and 29 seconds. FINDINGS: 1. Predominant rhythm was sinus rhythm, sinus bradycardia, sinus tachycardia. 2. Minimum heart rate 58 beats per minute, average heart rate 81 beats per minute, maximum heart rate 133 beats per minute. 3. No patient events with symptoms and baseline. 4. No secondary arrhythmia detected. 5. Total supraventricular ectopics 5 beats. 6. Total ventricular ectopics 743 beats representing 0.41% including couplet, trigeminy, and quadrigeminy. 7. IL interval 0.16 s, QRS 0.10 s, QT 0.43 s at heart rate of 58 beats per minute. READ BY: geetha Collado Dictated: 01/01/2025 [id number] Transcribed: 01/01/2025HansaSelect Medical Specialty Hospital - TrumbullComment on above:Result Comment: Electronically Signed By: Shaila SOLOMON, Reinaldo\.nikolay\Date and Time Signed: 01/02/25 07:40 EDTHeart and Vascular Office/Clinic Noteon 27-06-4443Dfndv and Vascular Office/Clinic NoteHeart and Vascular Office/Clinic Note Chief Complaint new patient. History of Present Illness This is a pleasant 84-year-old female with past medical significant for dyslipidemia, chronic kidney disease, arthritis who is coming today for cardiac clearance. Patient is supposed to go for hip surgery next month. Over the last few months she has been reporting some shortness of breath with episode of sweating on and off. She denies any chest pain however her functional status is limited. Her symptoms started with knee pain and then later on she started having hip pain. She did have prior hip and knee surgeries in the past. She did have a TIA long time ago. She does check her blood pressure at home and she has both high and low readings. Overall functional status seems to be limited. Review of Systems PHQ Score Initial Depression Screen Score: 0 SCORE Chronic shortness of breath for the last few months with sweating No chest pain. Knee and hip pain. Leg swelling on and off. Physical Exam Vitals & Measurements HR: 88(Peripheral) RR: 20 BP: 155/80 SpO2: 98% HT: 153 cm HT: 60 in WT: 86 kg WT: 189.597 lb BMI: 36.74 Pleasant no acute distress. Heart regular rhythm S1-S2. Lungs decreased breath sounds. Abdomen nontender. Extremities no edema Assessment/Plan 1. Encounter for preoperative assessment for noncoronary cardiac surgery (Z01.810: Encounter for preprocedural cardiovascular examination) Patient has been reporting shortness of breath for the last few months with sweating. Her EKG was performed showing right bundle branch block. Blood pressure was noted to be elevated. I think it would be reasonable to proceed with the further cardiac testing to evaluate her symptoms. Will do Lexiscan and 2D echo. Will also provide her with the heart monitor due to history of TIA in the past and sweating. Ordered: amlodipine, 2.5 mg = 1 tab(s), Oral, Daily, # 30 tab(s), Refills(s) 1, [facility]: [id number], 153, cm, 12/26/24 14:17:00 EDT, Height/Length Dosing, 86, kg, 12/26/24 14:17:00 EDT, Weight Dosing Echo Transthoracic Complete Holter Monitor 48 hr NM Myocardial Spect Rest/Stress 1 Day 2. Hypertension (I10: Essential (primary) hypertension) Blood pressure was noted to be very labile. I think it would be reasonable to start low-dose Norvasc 2.5 mg and see how she reacts to it. If she becomes hypotensive she could stop it. Ordered: amlodipine, 2.5 mg = 1 tab(s), Oral, Daily, # 30 tab(s), Refills(s) 1, Pharmacy: [facility] #[id number], 153, cm, 12/26/24 14:17:00 EDT, Height/Length Dosing, 86, kg, 12/26/24 14:17:00 EDT, Weight Dosing Echo Transthoracic Complete Holter Monitor 48 hr Holter Monitor 48 hr NM Myocardial Spect Rest/Stress 1 Day 3. Dyslipidemia (E78.5: Hyperlipidemia, unspecified) Patient on pravastatin consider switching to Lipitor or Crestor. Check lipids if not done recently. Ordered: amlodipine, 2.5 mg = 1 tab(s), Oral, Daily, # 30 tab(s), Refills(s) 1, [id number] 153, cm, 12/26/24 14:17:00 EDT, Height/Length Dosing, 86, kg, 12/26/24 14:17:00 EDT, Weight Dosing Echo Transthoracic Complete Holter Monitor 48 hr NM Myocardial Spect Rest/Stress 1 Day Orders: ECG 12 Lead Adult Exercise program Weight loss program Follow-up No qualifying data available Problem List/Past Medical History Ongoing Abdominal aortic atherosclerosis Ambulates with cane Arthritis BMI 34.0-34.9,adult BMI 37.0-37.9, adult Bulging lumbar disc CKD stage 3a, GFR 45-59 ml/min Excessive sweating Frequency of urination Mixed hyperlipidemia Nonsmoker Obesity (BMI 30-39.9) Osteopenia Pre-op exam Right hip pain Seasonal allergies Short of breath on exertion Urge incontinence Weight gain Historical Elevated cholesterol with elevated triglycerides CASSIE (stress urinary incontinence, female) Urgency of urination Procedure/Surgical History Injection of knee joint (11/30/2024), Injection of knee (11/23/2024), Injection of hip using fluoroscopic guidance (09/25/2024), Epidural injection of lumbar spine using fluoroscopic guidance (08/14/2024), Cystoscopy (06/08/2019), Surgery (07/30/1992), Appendectomy, Appendectomy, Cancer of tip of nose, Cataract, Colonoscopy, Hip replacement. Medications aspirin 81 mg Oral EC Tab, 81 mg= 1 tab(s), Oral, Daily Calcium 600+D, See Instructions Centrum Silver, 1 tab(s), Oral, Daily disabilty parking placard, 0, As Directed elppa CoQ10 50 mg oral capsule, 50 mg= 1 cap(s), Oral, Daily etodolac 500 mg Tab, 500 mg= 1 tab(s), Oral, Daily gabapentin 100 mg Cap, 100 mg= 1 cap(s), Oral, Daily Norvasc 2.5 mg Tab, 2.5 mg= 1 tab(s), Oral, Daily, 1 refills pravastatin 20 mg Tab, See Instructions Probiotic Tylenol, 650 mg, Oral, TID, PRN Allergies sulfa drugs (Unknown) Social History Alcohol - Denies Alcohol Use, 09/23/2023 Never, 09/28/2024 Substance Abuse - Denies Substance Abuse, 09/23/2023 Never, 09/28/2024 Tobacco - Denies T (more content not included)...[facility] CenterComment on above:Result Comment: Electronically Signed By: Shaila SOLOMON, Reinaldo\.br\Date and Time Signed: 12/26/24 14:58 EDTFamily Medicine Phone Visit - Telehealthon [id number] Medicine Phone Visit - TelehealthFamily Medicine Phone Visit - Telehealth Assessment/Plan 1. Short of breath on exertion (R06.02: Shortness of breath) pt c/o worsening shortness of breath. is looking to have knee replacement. she and her daughter want her to be cleared by cardiology. they are very concerned that her heart is not strong enough for surgery. will send referral for cardiology 2. Excessive sweating (R61: Generalized hyperhidrosis) Follow-up No qualifying data available Problem List/Past Medical History Ongoing Abdominal aortic atherosclerosis Ambulates with cane Arthritis BMI 34.0-34.9,adult BMI 37.0-37.9, adult Bulging lumbar disc CKD stage 3a, GFR 45-59 ml/min Excessive sweating Frequency of urination Mixed hyperlipidemia Nonsmoker Obesity (BMI 30-39.9) Osteopenia Pre-op exam Right hip pain Seasonal allergies Short of breath on exertion Urge incontinence Weight gain Historical Elevated cholesterol with elevated triglycerides CASSIE (stress urinary incontinence, female) Urgency of urination Procedure/Surgical History Injection of knee joint (11/30/2024), Injection of knee (11/23/2024), Injection of hip using fluoroscopic guidance (09/25/2024), Epidural injection of lumbar spine using fluoroscopic guidance (08/14/2024), Cystoscopy (06/08/2019), Surgery (07/30/1992), Appendectomy, Appendectomy, Cancer of tip of nose, Cataract, Colonoscopy, Hip replacement. Medications aspirin 81 mg Oral EC Tab, 81 mg= 1 tab(s), Oral, Daily Calcium 600+D, See Instructions Centrum Silver, 1 tab(s), Oral, Daily disabilty parking placard, 0, As Directed elppa CoQ10 50 mg oral capsule, 50 mg= 1 cap(s), Oral, Daily etodolac 500 mg Tab, 500 mg= 1 tab(s), Oral, Daily gabapentin 100 mg Cap, 100 mg= 1 cap(s), Oral, Daily pravastatin 20 mg Tab, See Instructions Probiotic Tylenol, 650 mg, Oral, TID, PRN Allergies sulfa drugs (Unknown) Social History Alcohol - Denies Alcohol Use, 09/23/2023 Never, 09/28/2024 Substance Abuse - Denies Substance Abuse, 09/23/2023 Never, 09/28/2024 Tobacco - Denies Tobacco Use, 09/17/2022 Never (less than 100 in lifetime) Tobacco Use:. Never Smokeless Tobacco Use:., 12/08/2024 Family History Acute myocardial infarction: Father. Hypertension: Mother. Primary malignant neoplasm of lung: Sister, Brother, Brother and Brother. Immunizations Vaccine Date Status influenza virus vaccine, inactivated 02/03/2024 Recorded influenza virus vaccine, inactivated 02/01/2023 Recorded influenza virus vaccine, inactivated 02/03/2022 Recorded influenza virus vaccine, inactivated 02/18/2021 Recorded SARS-CoV-2 (COVID-19) mRNA-1273 vaccine 09/10/2020 Recorded SARS-CoV-2 (COVID-19) mRNA-1273 vaccine 08/08/2020 Recorded pneumococcal 23-valent vaccine 01/17/2020 Recorded influenza virus vaccine, inactivated 01/17/2020 Recorded influenza virus vaccine, inactivated 01/30/2019 Recorded influenza virus vaccine, live, trivalent 01/24/2019 Recorded pneumococcal 13-valent vaccine 06/03/2018 Recorded influenza virus vaccine, inactivated 02/08/2017 Recorded influenza virus vaccine, inactivated 03/03/2016 Recorded influenza virus vaccine, inactivated 02/09/2015 Recorded influenza, whole 02/09/2009 Recorded influenza, whole 02/25/2005 RecordedNormalWooster Community HospitalComment on above:Result Comment: Electronically Signed By: Micah Choi\.br\Date and Time Signed: 12/14/24 10:59 EDTAmbulatory Visit Summaryon [id number] Visit SummaryAmbulatory Visit Summary SHONNA ASHRAFNICHO Fox :1940 Visit Date:12/08/2024 Ambulatory Visit Instructions Your Diagnosis Pre-op exam BMI 37.0-37.9, adult Your Care Team Attending Physician - Micah Choi Primary Care Physician - Micah Choi This Is Your Medications List Misc Prescription (disabilty parking placard) Non-Formulary Medication (Probiotic) acetaminophen (Tylenol) aspirin (aspirin 81 mg Oral EC Tab) calcium-vitamin D (Calcium 600+D) etodolac (etodolac 500 mg Tab) gabapentin (gabapentin 100 mg Cap) multivitamin with minerals (Centrum Silver) pravastatin (pravastatin 20 mg Tab) ubiquinone (elppa CoQ10 50 mg oral capsule) Procedures Performed Injection of knee joint (11/30/2024), Injection of knee (11/23/2024), Injection of hip using fluoroscopic guidance (09/25/2024), Epidural injection of lumbar spine using fluoroscopic guidance (08/14/2024), Cystoscopy (06/08/2019), Surgery (07/30/1992), Appendectomy, Appendectomy, Cancer of tip of nose, Cataract, Colonoscopy, Hip replacement. Discharge Vitals Temperature (Temporal Artery) 36.4 ???C Heart Rate (Peripheral) 76 Respiratory Rate 20 Blood Pressure 150/88 Height 153.0 cm Height 60 in Weight 87.6 kg Weight 193.125 lb BMI 37.42 What to do next Scheduled Follow-Up Appointments 2024 2:20 PM EDT With: Micah Choi Where: [address] [address]- 2025 2:30 PM EDT With: Where: [address] [address]- You Need to Complete the Following XR Chest 2 Views, 12/08/24, Routine, Order for future visit, Transport Mode: Ambulatory, Reason: Other (please specify), No, Pre-op exam, pre op chest x ray, pp_set_radiology_subspecialty, Not Required, [facility] Medications What How Much When Instructions Unchanged acetaminophen (Tylenol) 650 Milligram By Mouth 3 times a day as needed for as needed for pain Unchanged aspirin (aspirin 81 mg Oral EC Tab) 1 Tablets By Mouth Every day Unchanged calcium-vitamin D (Calcium 600+D) See instructions Take one orally twice a day Unchanged etodolac (etodolac 500 mg Tab) 1 Tablets By Mouth Every day Unchanged gabapentin (gabapentin 100 mg Cap) 1 Capsules By Mouth Every day Unchanged Misc Prescription (disabilty parking placard) 0 As Directed Duration: 5 Years multiple medical problems Unchanged multivitamin with minerals (Centrum Silver) 1 Tablets By Mouth Every day Unchanged Non-Formulary Medication (Probiotic) Unchanged pravastatin (pravastatin 20 mg Tab) See instructions TAKE 1 TABLET BY MOUTH EVERYDAY AT BEDTIME Unchanged ubiquinone (elppa CoQ10 50 mg oral capsule) 1 Capsules By Mouth Every day Allergies sulfa drugs (Unknown) Problems Ongoing - Any problem that you are currently receiving treatment for. Abdominal aortic atherosclerosis Ambulates with cane Arthritis BMI 34.0-34.9,adult BMI 37.0-37.9, adult Bulging lumbar disc CKD stage 3a, GFR 45-59 ml/min Frequency of urination Mixed hyperlipidemia Nonsmoker Obesity (BMI 30-39.9) Osteopenia Pre-op exam Right hip pain Seasonal allergies Short of breath on exertion Urge incontinence Weight gain Historical - Any problem that you are no longer receiving treatment for. Elevated cholesterol with elevated triglycerides CASSIE (stress urinary incontinence, female) Urgency of urination Patient Survey You may receive a survey via text or e-mail asking about your office visit. Please share your experience with us by completing your survey. We appreciate your feedback and thank you for choosing us for your care. Patient Portal You may access all of your results and other medical record information on our secure patient portal. If you are not signed up for this yet, please contact [employer] at [phone] to get signed up today. Language Information Language assistance services are available as needed. [facility] Medicine Office/Clinic Noteon [id number] Medicine Office/Clinic NoteHaverhill [facility]/Clinic Note HPI Staff Arley is a 84 year old female presenting with surgical clearance for RT total hip with Dr. Marshall at [facility] will not schedule until visit with PCP Labs done at [facility] November 20 CT of hip done November 20 [facility] are faxing these results over History of Present Illness pt presents today for pre op exam Review of Systems PHQ Score Initial Depression Screen Score: 0 SCORE Physical Exam Vitals & Measurements T: 36.4 ???C(Temporal Artery) HR: 76(Peripheral) RR: 20 BP: 150/88 SpO2: 98% HT: 60 in HT: 153.0 cm WT: 193.125 lb WT: 87.6 kg BMI: 37.42 General: alert, no acute distress ENMT: oral mucosa moist, no pharyngeal erythema or exudate Cardiovascular: regular rate and rhythm, normal peripheral perfusion Respiratory: Lungs CTA, respirations non labored Extremities: no deformity, no trauma Neurological: oriented x 4, LOC appropriate for age, CN II-XII intact, motor strength equal & normal bilaterally, speech normal Assessment/Plan 1. Pre-op exam (Z01.818: Encounter for other preprocedural examination) pt will be having hip surgery by Dr. Marshall. EKG and chest x ray ordered. will receive her labs once we receive those results. once all results are reviewed, will send surgical clearance letter to Dr. Marshall. RTC in January Ordered: ECG 12 Lead Adult XR Chest 2 Views 2. BMI 37.0-37.9, adult (Z68.37: Body mass index [BMI] 37.0-37.9, adult) BMI education given Follow-up No qualifying data available Problem List/Past Medical History Ongoing Abdominal aortic atherosclerosis Ambulates with cane Arthritis BMI 34.0-34.9,adult BMI 37.0-37.9, adult Bulging lumbar disc CKD stage 3a, GFR 45-59 ml/min Frequency of urination Mixed hyperlipidemia Nonsmoker Obesity (BMI 30-39.9) Osteopenia Pre-op exam Right hip pain Seasonal allergies Short of breath on exertion Urge incontinence Weight gain Historical Elevated cholesterol with elevated triglycerides CASSIE (stress urinary incontinence, female) Urgency of urination Procedure/Surgical History Injection of knee joint (11/30/2024), Injection of knee (11/23/2024), Injection of hip using fluoroscopic guidance (09/25/2024), Epidural injection of lumbar spine using fluoroscopic guidance (08/14/2024), Cystoscopy (06/08/2019), Surgery (07/30/1992), Appendectomy, Appendectomy, Cancer of tip of nose, Cataract, Colonoscopy, Hip replacement. Medications aspirin 81 mg Oral EC Tab, 81 mg= 1 tab(s), Oral, Daily Calcium 600+D, See Instructions Centrum Silver, 1 tab(s), Oral, Daily disabilty parking placard, 0, As Directed elppa CoQ10 50 mg oral capsule, 50 mg= 1 cap(s), Oral, Daily etodolac 500 mg Tab, 500 mg= 1 tab(s), Oral, Daily gabapentin 100 mg Cap, 100 mg= 1 cap(s), Oral, Daily pravastatin 20 mg Tab, See Instructions Probiotic Tylenol, 650 mg, Oral, TID, PRN Allergies sulfa drugs (Unknown) Social History Alcohol - Denies Alcohol Use, 09/23/2023 Never, 09/28/2024 Substance Abuse - Denies Substance Abuse, 09/23/2023 Never, 09/28/2024 Tobacco - Denies Tobacco Use, 09/17/2022 Never (less than 100 in lifetime) Tobacco Use:. Never Smokeless Tobacco Use:., 12/08/2024 Family History Acute myocardial infarction: Father. Hypertension: Mother. Primary malignant neoplasm of lung: Sister, Brother, Brother and Brother. Immunizations Vaccine Date Status influenza virus vaccine, inactivated 02/03/2024 Recorded influenza virus vaccine, inactivated 02/01/2023 Recorded influenza virus vaccine, inactivated 02/03/2022 Recorded influenza virus vaccine, inactivated 02/18/2021 Recorded SARS-CoV-2 (COVID-19) mRNA-1273 vaccine 09/10/2020 Recorded SARS-CoV-2 (COVID-19) mRNA-1273 vaccine 08/08/2020 Recorded pneumococcal 23-valent vaccine 01/17/2020 Recorded influenza virus vaccine, inactivated 01/17/2020 Recorded influenza virus vaccine, inactivated 01/30/2019 Recorded influenza virus vaccine, live, trivalent 01/24/2019 Recorded pneumococcal 13-valent vaccine 06/03/2018 Recorded influenza virus vaccine, inactivated 02/08/2017 Recorded influenza virus vaccine, inactivated 03/03/2016 Recorded influenza virus vaccine, inactivated 02/09/2015 Recorded influenza, whole 02/09/2009 Recorded influenza, whole 02/25/2005 [facility]:Result Comment: Electronically Signed By: Micah Choi\.br\Date and Time Signed: 12/08/24 14:12 EDTXR Chest 2 Viewson [id number] Chest 2 ViewsExam Date/Time: 12/08/2024 15:01 EDT Reason for Exam: pre op exam;Other (please specify) Report IMPRESSION: NO RADIOGRAPHIC EVIDENCE OF ACTIVE DISEASE IN THE CHEST. CLINICAL INFORMATION: pre op exam COMPARISON: 09/22/2015 FINDINGS: 2 views. Osseous structures intact. Cardiopericardial silhouette normal. Pulmonary vasculature normal. Right diaphragm elevated, unchanged. Lungs clear. Ordering Provider: Micah Cooney FINAL REPORT Dictated: 12/08/2024 3:05 pm Dawit Morin MD Signed (Electronic Signature): 12/08/2024 3:05 pm Signed by: Dawit Morin MD Transcribed by: CHRIS Technologist: [facility] SystemA1C with Estimated Average Gluon 74-78-7656Mmkafxd [Mass/Vol]114 mg/dLNormalThBingham Memorial Hospital Physician GroupComment on above:Result Comment: PERFORMED BY: [place] [address] PATHOLOGIST CUTTING TABLE OPERATOR MERY LEAVITT M.D.Performed By: #### DARLENEPLUS, CUU #### [facility] [address] [place] [address] USAAlbumin Levelon 21-02-3826Gfonoan [Mass/Vol]4.5 g/dLNormal 3.5-5.7The [facility] Physician GroupComment on above:Performed By: #### ADDONUAPLUS, CUU #### [facility] [address] [place] [address] USAAlbumin [Mass/volume] in Serum or Plasma by Bromocresol green (BCG) dye binding methoOrdered By: Deepak Marshall on 91-76-4862Qtmqkmj BCG dye [Mass/Vol]4.5 g/dL3.5-5.7FBlanchard Valley Health System Blanchard Valley HospitalBlood estimated average glucose determination by estimation from glycated hemoglobin Ordered By: Deepak Marshall on 32-56-4697Lrdljlv glucose Estimated from glycated hemoglobin (Bld) [Mass/Vol]114 mg/dLHarrison Community HospitalCT hip RT wo conon 61-99-3197PE hip RT wo [facility] [address] [place] [address] CT Scan Report Signed Patient: Arley Ashraf MR#: [id number] [birth year] : 1940 Acct:[id number] Age/Sex: 84 / F ADM Date: 11/20/24 Loc: CT Room: Type: [facility] Attending Dr: Deepak Marshall II, MD Copies to: Deepak Marshall MD Ordering Provider: Deepak Marshall MD Date of Service: 11/20/24 CT/CT hip RT wo con: M25.551 - Pain in right hip CT right hip WITHOUT CONTRAST WITH 3D RECONSTRUCTIONS: CLINICAL HISTORY: Right hip pain osteoarthritis COMPARISON: None TECHNIQUE: Spiral axial unenhanced images were obtained through the right hip. Sagittal, coronal and 3D volume-rendered reconstructions were also reviewed. This CT exam was performed using one or more following dose reduction techniques: Automated exposure control, adjustment of the mA and/or kV according to patient size, or use of iterative reconstruction technique. FINDINGS: Severe degenerative changes involving the right hip with associated joint space narrowing. No fracture is seen. Right SI joint also demonstrates degenerative change. Right pubic rami appears intact. Healed fracture left inferior pubic ramus. Musculature appears atrophic. No soft tissue swelling or fluid collection to suggest abscess. Partially calcified fibroid uterus. CT/CT hip RT wo con IMPRESSION: SEVERE DEGENERATIVE CHANGES INVOLVING THE RIGHT HIP WITHOUT ACUTE BONY PROCESS. Impression dictated by: Alli Butler Jr., D.OAdán 11/20/2024 5:29 PM Dictation Location: [facility] Transcribed By: [facility] 11/20/241728 Dictated By: Alli Butler Jr, DO 11/20/241721 Signed By: 11/20/24 172[facility] Physician GroupCotinine [Mass/volume] in Serum or PlasmaOrdered By: Deepak Marshall on 11-13-3769Orrxfcat [Mass/Vol]<1.0 ng/mL. [facility] Community HospitalComment on above:This test was developed and its performance characteristicsdetermined by [facility]. It has not been cleared orapproved by the Food and Drug Administration.Cotinine levels greater than 20.0 are consistent with theuse of tobacco or tobacco cessation products.Performed at: [address] [id number] Director: Curtis Cuenca MD, Phone: [phone] A1c/Hemoglobin.total in BloodOrdered By: Deepak Marshall on 72-67-9272XjK6l (Bld) [Mass fraction]5.6 %Normal4.3-5.6FBlanchard Valley Health System Blanchard Valley HospitalComment on above:Increased risk for diabetes: 5.7 - 6.4diabetes: >6.4glycemic control for adults with diabetes: <7.0Result Comment: Increased risk for diabetes: 5.7 - 6.4 diabetes: >6.4 glycemic control for adults with diabetes: <7.0Performed By: #### ESVIN CUU #### [facility] [address] [place] [address] USAHemoglobin [Mass/volume] in BloodOrdered By: Deepak Marshall on 54-55-2607Iugnoyppni (Bld) [Mass/Vol]13.4 g/eAWdkdkn68.8-15.4 [facility] HospitalComment on above:Result Comment: PERFORMED BY: [place] [address] PATHOLOGIST CUTTING TABLE OPERATOR MERY LEAVITT M.D.Performed By: #### ESVIN, CUU #### [address] [address] USAMRSA - MSSA Nasal PCRon [id number] - MSSA Nasal PCR MRSA Result MRSA Negative MSSA Result MSSA Negative Real-time PCR Test performed by real-time PCR Reference Range Reference Range for all targets = Neg / Not Detected Reference Note 20 Reference Note 26 PERFORMED BY: [place] [address] PATHOLOGIST CUTTING TABLE OPERATOR MERY LEAVITT M.D.[facility] Physician GroupComment on above: Performed By: #### ESVIN, CUU #### [address] [address] USANicotine [Mass/volume] in Serum or PlasmaOrdered By: Deepak Marshall on 39-87-7013Nrldfdnd [Mass/Vol]<1.0 ng/mL.[facility] HospitalComment on above:This test was developed and its performance characteristicsdetermined by [facility]. It has not been cleared orapproved by the Food and Drug Administration.Nicotine levels greater than 2.0 are consistent with theuse of tobacco or tobacco cessation products.Nicotine/Cotinine Bloodon 33-68-3115Rswrfeme, Blood<1.0Normal.[facility] Physician GroupComment on above:Result Comment: This test was developed and its performance characteristics determined by [facility]. It has not been cleared or approved by the Food and Drug Administration. Cotinine levels greater than 20.0 are consistent with the use of tobacco or tobacco cessation products. Performed at: [facility] [address] [id number] Caseworker: Curtis Cuenca MD, Phone: [phone] PERFORMED BY: [place] [id number] PATHOLOGIST CUTTING TABLE OPERATOR MERY LEAVITT M.D.Performed By: #### ESVIN, CUU #### [place] [id number] USANicotine, Blood<1.0Normal.[facility] Physician Group Comment on above:Result Comment: This test was developed and its performance characteristics determined by [facility]. It has not been cleared or approved by the Food and Drug Administration. Nicotine levels greater than 2.0 are consistent with the use of tobacco or tobacco cessation products.Performed By: #### ESVIN, CUU #### [facility] [address] [place], [place] [id number] USANo Panel InformationOrdered By: Deepak Marshall on 04-70-7967Kjglc Screen MRSA/MSSBarberton Citizens HospitalVitamin D 25 Hydroxy Totalon 40-75-3516Wlrpmxj D 25 Hydroxy Total32.6 ng/wRXajhne34-665Rge [facility] Physician GroupComment on above:Result Comment: VITAMIN D STATUS 25(OH)VITAMIN D RANGE (ng/mL) Deficient <20 Insufficient 20 to <30 Sufficient 30 to 100 Reference: Gregor MF,Mahamed NC, Brenna LAWSON, et al. Evaluation,treatment, and prevention of vitamin D deficiency; an Endocrine Society clinical practice guideline. JCEM. 2010; 96(7):1911-30. PERFORMED BY: [address] [address] PATHOLOGIST CUTTING TABLE OPERATOR MERY LEAVITT M.D.Performed By: #### PAULUAARCHIE SANCHEZ #### [facility] [address] [place] [address] [facility] CANCER CENTERVitamin D+Metabolites [Mass/volume] in Serum or Plasma Ordered By: Deepak Marshall on 32-52-1837Ksaijvp D+Metabolites [Mass/Vol]32.6 ng/pC40-508BjzcewlhqHarrison Community HospitalComment on above:VITAMIN D STATUS 25(OH)VITAMIN D RANGE (ng/mL) Deficient <20 Insufficient 20 to <58Jcjklodivs61 to 100Reference: Gregor MF,Mahamed GARZA, Brenna LAWSON, et al. Evaluation,treatment, and prevention of vitamin D deficiency; an Endocrine Society clinical practice guideline. JCEM. 2010; 96(7):1911-30.X-ray report Ordered By: Fermín Lozoya on 01-07-7646Gxzus reportPIKE [facility]UN[facility] [address] [place] [address] XRay Report Signed Patient: Arley Ashraf MR#: [id number] : 1940 Acct:[id number] Age/Sex: 84 / F ADM Date: 5 Loc: [facility] Room: Type: [facility] Attending Dr: Deepak Marshall II, MD Copies to: Deepak Marshall MD~ Ordering Provider: Deepak Marshall MD Date of Service: 11/09/24 XR/XR hip RT min 2V(w/wo pelvis)*: M25.551 - Pain in right hip XR hip RT min 2V(w/wo pelvis)* 11/09/2024 12:44 PM SIGNS AND SYMPTOMS: Right hip pain PROTOCOL: Frontal radiograph the pelvis with crosstable lateral view of the right hip COMPARISON: None FINDINGS: Severe degenerative changes are noted in the right hip joint space with subcortical cystic change and sclerosis on both sides of the joint space. Thereis remodeling of the articular surfaces greatestin the axial dimension. There is total left hip arthroplasty hardware. Degenerative changes are noted in the lumbar spine. XR/XR hip RT min 2V(w/wo pelvis)* IMPRESSION: Severe degenerative changes are noted in the right hip as above. No fracture or dislocation. Impression dictated by: Fermín Lozoya M.D. 11/09/2024 7:00 PM Dictation Location: RADIO-PC-17 Transcribed By: OG 11/09/241899 Dictated By: Fermín Lozoya II, MD 11/09/24 6338 Signed By: 11/09/241899 [facility] Work Phone: XR hip RT min 2V(w/wo pelvis)*on [id number] hip RT min 2V(w/wo pelvis)*[facility] [address] [place] [address] XRay Report Signed Patient: Arley Ashraf MR#: [id number] 21 : 1940 Acct:[id number] Age/Sex: 84 / F ADM Date: 11/09/24 Loc: [facility] Room: Type: [facility] Attending Dr: Deepak Marshall II, MD Copies to: Deepak Marshall MD Ordering Provider: eDepak Marshall MD Date of Service: 11/09/24 XR/XR hip RT min 2V(w/wo pelvis)*: M25.551 - Pain in right hip XR hip RT min 2V(w/wo pelvis)* 11/09/2024 12:44 PM SIGNS AND SYMPTOMS: Right hip pain PROTOCOL: Frontal radiograph the pelvis with crosstable lateral view of the right hip COMPARISON: None FINDINGS: Severe degenerative changes are noted in the right hip joint space with subcortical cystic change and sclerosis on both sides of the joint space. There is remodeling of the articular surfaces greatest in the axial dimension. There is total left hip arthroplasty hardware. Degenerative changes are noted in the lumbar spine. XR/XR hip RT min 2V(w/wo pelvis)* IMPRESSION: Severe degenerative changes are noted in the right hip as above. No fracture or dislocation. Impression dictated by: Fermín Lozoya M.D. 11/09/2024 7:00 PM Dictation Location: RADIO-PC-17 Transcribed By: OG 11/09/241899 Dictated By: Fermín Lozoya II, MD 11/09/24 5639 Signed By: 11/09/[address] [place] [address] Physician GroupAmbulatory Visit Summaryon [id number] Visit SummaryAmbulatory Visit Summary ARLEY ASHRAF :1940 Visit Date:10/26/2024 Ambulatory Visit Instructions Your Diagnosis CKD stage 3a, GFR 45-59 ml/min Obesity (BMI 30-39.9) BMI 36.0-36.9,adult Nonsmoker Your Care Team Attending Physician - Micah Choi Primary Care Physician - Luiz Costello MD This Is Your Medications List Misc Prescription (disabilty parking placard) Non-Formulary Medication (Probiotic) acetaminophen (Tylenol) aspirin (Aspirin 81 mg Tab-EC) calcium-vitamin D (Calcium 600+D) etodolac (etodolac 500 mg Tab) gabapentin (gabapentin 100 mg Cap) multivitamin with minerals (Centrum Silver) pravastatin (pravastatin 20 mg Tab) ubiquinone (elppa CoQ10 50 mg oral capsule) Procedures Performed Epidural injection of lumbar spine using fluoroscopic guidance (08/14/2024), Cystoscopy (06/08/2019), Surgery (07/30/1992), Appendectomy, Appendectomy, Cancer of tip of nose, Cataract, Colonoscopy, Hip replacement. Discharge Vitals Temperature (Temporal Artery) 36.5 ???C Heart Rate (Peripheral) 79 Respiratory Rate 18 Blood Pressure 110/76 Height 154.0 cm Height 61 in Weight 86.8 kg Weight 191.361 lb BMI 36.6 What to do next Scheduled Follow-Up Appointments 2024 10:00 AM EDT With: Blake Grimes DO Where: [facility] 2024 2:20 PM EDT With: Micah Choi Where: [address] [address]- 2025 2:30 PM EDT With: Where: [address] [address]- Medications What How Much When Instructions Unchanged acetaminophen (Tylenol) 650 Milligram By Mouth 3 times a day as needed for as needed for pain Unchanged aspirin (Aspirin 81 mg Tab-EC) 1 Tablets By Mouth Every day Unchanged calcium-vitamin D (Calcium 600+D) See instructions Take one orally twice a day Unchanged etodolac (etodolac 500 mg Tab) 1 Tablets By Mouth Every day Unchanged gabapentin (gabapentin 100 mg Cap) 2 Capsules By Mouth 2 times a day Duration: 30 Days Unchanged Misc Prescription (disabilty parking placard) 0 As Directed Duration: 5 Years multiple medical problems Unchanged multivitamin with minerals (Centrum Silver) 1 Tablets By Mouth Every day Unchanged Non-Formulary Medication (Probiotic) Unchanged pravastatin (pravastatin 20 mg Tab) See instructions TAKE 1 TABLET BY MOUTH EVERYDAY AT BEDTIME Unchanged ubiquinone (elppa CoQ10 50 mg oral capsule) 1 Capsules By Mouth Every day Allergies sulfa drugs (Unknown) Problems Ongoing - Any problem that you are currently receiving treatment for. Abdominal aortic atherosclerosis Ambulates with cane Arthritis BMI 34.0-34.9,adult Bulging lumbar disc CKD stage 3a, GFR 45-59 ml/min Frequency of urination Mixed hyperlipidemia Nonsmoker Obesity (BMI 30-39.9) Osteopenia Seasonal allergies CASSIE (stress urinary incontinence, female) Urge incontinence Urgency of urination Weight gain Historical - Any problem that you are no longer receiving treatment for. Elevated cholesterol with elevated triglycerides Patient Survey You may receive a survey via text or e-mail asking about your office visit. Please share your experience with us by completing your survey. We appreciate your feedback and thank you for choosing us for your care. Patient Portal You may access all of your results and other medical record information on our secure patient portal. If you are not signed up for this yet, please contact [employer] at [phone] to get signed up today. Language Information Language assistance services are available as needed. [facility] Center[facility] Summary Ambulatory Visit Summary ARLEY ASHRAF :1940 Visit Date:10/26/2024 Ambulatory Visit Instructions Your Diagnosis CKD stage 3a, GFR 45-59 ml/min Obesity (BMI 30-39.9) BMI 36.0-36.9,adult Nonsmoker Your Care Team Attending Physician - Micah Choi Primary Care Physician - Luiz Costello MD This Is Your Medications List Misc Prescription (disabilty parking placard) Non-Formulary Medication (Probiotic) acetaminophen (Tylenol) aspirin (Aspirin 81 mg Tab-EC) calcium-vitamin D (Calcium 600+D) etodolac (etodolac 500 mg Tab) gabapentin (gabapentin 100 mg Cap) multivitamin with minerals (Centrum Silver) pravastatin (pravastatin 20 mg Tab) ubiquinone (elppa CoQ10 50 mg oral capsule) Procedures Performed Epidural injection of lumbar spine using fluoroscopic guidance (08/14/2024), Cystoscopy (06/08/2019), Surgery (07/30/1992), Appendectomy, Appendectomy, Cancer of tip of nose, Cataract, Colonoscopy, Hip replacement. Discharge Vitals Temperature (Temporal Artery) 36.5 ???C Heart Rate (Peripheral) 79 Respiratory Rate 18 Blood Pressure 110/76 Height 154.0 cm Height 61 in Weight 86.8 kg Weight 191.361 lb BMI 36.6 What to do next Scheduled Follow-Up Appointments 2024 10:00 AM EDT With: Blake Grimes DO [facility] 2025 2:30 PM EDT With: Where: [address] [address]- You Need to Complete the Following Comprehensive Metabolic Panel, Blood, Routine collect, 10/26/24, Order for future visit, Lab Collect, CKD stage 3a, GFR 45-59 ml/min Obesity (BMI 30- 39.9) BMI 36.0-36.9,adult Nonsmoker, Not Required, Print Label By Order Location Medications What How Much When Instructions Unchanged acetaminophen (Tylenol) 650 Milligram By Mouth 3 times a day as needed for as needed for pain Unchanged aspirin (Aspirin 81 mg Tab-EC) 1 Tablets By Mouth Every day Unchanged calcium-vitamin D (Calcium 600+D) See instructions Take one orally twice a day Unchanged etodolac (etodolac 500 mg Tab) 1 Tablets By Mouth Every day Unchanged gabapentin (gabapentin 100 mg Cap) 2 Capsules By Mouth 2 times a day Duration: 30 Days [facility]changed [facility] (disabilty parking placard) 0 As Directed Duration: 5 Years multiple medical problems Unchanged multivitamin with minerals (Centrum Silver) 1 Tablets By Mouth Every day Unchanged Non-Formulary Medication (Probiotic) Unchanged pravastatin (pravastatin 20 mg Tab) See instructions TAKE 1 TABLET BY MOUTH EVERYDAY AT BEDTIME Unchanged ubiquinone (elppa CoQ10 50 mg oral capsule) 1 Capsules By Mouth Every day Allergies sulfa drugs (Unknown) Problems Ongoing - Any problem that you are currently receiving treatment for. Abdominal aortic atherosclerosis Ambulates with cane Arthritis BMI 34.0-34.9,adult Bulging lumbar disc CKD stage 3a, GFR 45-59 ml/min Frequency of urination Mixed hyperlipidemia Nonsmoker Obesity (BMI 30-39.9) Osteopenia Seasonal allergies CASSIE (stress urinary incontinence, female) Urge incontinence Urgency of urination Weight gain Historical - Any problem that you are no longer receiving treatment for. Elevated cholesterol with elevated triglycerides Patient Survey You may receive a survey via text or e-mail asking about your office visit. Please share your experience with us by completing your survey. We appreciate your feedback and thank you for choosing us for your care. Patient Portal You may access all of your results and other medical record information on our secure patient portal. If you are not signed up for this yet, please contact [employer] at [phone] to get signed up today. Language Information Language assistance services are available as needed. [facility] CenterCHEMISTRYOrdered By: SYSTEM SYSTEM on [id number] [Mass/Vol]4.4 g/dLNormal3.3 - 5.0 gm/dLRemisol Chem Albumin/Globulin [Mass ratio]1.4 {ratio}Normal1.1 - 2.2Remisol ChemALP [Catalytic activity/Vol]75 [iU]/wJzhhap79 - 98 Int._Unit/LRemisol ChemALT No additional P-5'-P [Catalytic activity/Vol]12 [iU]/dNormal6 - 46 Int._Unit/L Remisol ChemAnion gap [Moles/Vol]12 mmol/LNormal6 - 16 mEq/LRemisol ChemAST [Catalytic activity/Vol]19 [iU]/dNormal5 - 43 Int._Unit/LRemisol ChemBilirubin [Mass/Vol]0.5 mg/dLNormal0.0 - 1.1 mg/dLRemisol ChemCalcium [Mass/Vol]9.8 mg/dL Normal8.9 - 11.1 mg/dLRemisol ChemChloride [Moles/Vol]104 mmol/EUzivpr462 - 111 mmol/LRemisol ChemCO2 [Moles/Vol]27 mmol/IQmniey54 - 31 mmol/LRemisol Chem Creatinine [Mass/Vol]0.9 mg/dLNormal0.5 - 1.3 mg/dLRemisol ChemGFR/1.73 sq M.predicted MDRD (S/P/Bld) [Vol rate/Area]63 mL/min/1.73 x5Pyqaav>=59mL/min/1.73 k6Dqgfxar ChemGlobulin (S) [Mass/Vol]3.2 g/dLNormal1.4 - 4.0 gm/dLRemisol Chem Glucose [Mass/Vol]99 mg/jVEpcvfc62 - 199 mg/dLRemisol ChemPotassium [Moles/Vol] 4.6 mmol/LNormal3.5 - 5.3 mmol/LRemisol ChemProtein [Mass/Vol]7.6 g/dLNormal6.0 - 7.8 gm/dLRemisol ChemSodium [Moles/Vol]138 mmol/SXxgzfu268 - 145 mmol/LRemisol ChemUrea nitrogen [Mass/Vol]27 mg/dLHigh5 - 21 mg/dLRemisol ChemUrea nitrogen/Creatinine [Mass ratio]30 mg/uxFpsl84 - 20Remisol ChemCMPon 10-26-2024 Albumin [Mass/Vol]4.4 g/dLNormal3.3-5.0[facility] HospitalComment on above:Performed By: #### [id number] #### [facility] [address], [place] [address]Dvrkgaw/Globulin [Mass ratio]1.4 {ratio}Normal1.1-2.2FOhioHealth Dublin Methodist HospitalComment on above:Performed By: #### [id number] #### [facility] [address], [place] [address]Yub Phos75 Int._Unit/KFgwamt78-77XaxqlcWooster Community Hospital Comment on above:Performed By: #### [id number] #### [facility] [address], [place] [address]OHP33 Int._Unit/LNormal6-46[facility] HospitalComment on above:Performed By: #### [id number] #### [facility] [address], [place] [address]Nojcw gap [Moles/Vol]12 mmol/LNormal6-16[facility] HospitalComment on above:Performed By: #### [id number] #### [facility] [address], [place] [address]XAY21 Int._Unit/LNormal5-43[facility] HospitalComment on above:Performed By: #### [id number] #### [facility] [address], [place] [address]Ktks Total0.5 mg/dLNormal0.0-1.1FOhioHealth Dublin Methodist Hospital Comment on above:Performed By: #### [id number] #### [facility] [address], [place] [address]UKD/Creat Ratio30 No UkklqPoui45-69QsspidWooster Community Hospital Comment on above:Performed By: #### [id number] #### [facility] [address], [place] [address]Mgyesbz [Mass/Vol]9.8 mg/dLNormal8.9-11.1FOhioHealth Dublin Methodist HospitalComment on above:Performed By: #### [id number] #### [facility] [address], [place] [address]Nkypazwo [Moles/Vol]104 mmol/OOaigol261-142OojudkWooster Community HospitalComment on above:Performed By: #### [id number] #### [facility] [address], [place] [address]BF4 [Moles/Vol]27 mmol/ZTtlabd42-40KwruzeWooster Community Hospital Comment on above:Performed By: #### [id number] #### [facility] [address], [place] [address]Oazhyjimas [Mass/Vol]0.9 mg/dLNormal0.5-1.3FOhioHealth Dublin Methodist HospitalComment on above:Performed By: #### [id number] #### [facility] [address], [place] [address]Kyvqoezh (S) [Mass/Vol]3.2 g/dLNormal1.4-4.0[facility] HospitalComment on above:Performed By: #### [id number] #### [facility] [address], [place] [address]Cidnfxs [Mass/Vol]99 mg/pPEmhqts82-724ObphebWooster Community HospitalComment on above:Performed By: #### [id number] #### [facility] [address], [place] [address]Hauulpywe [Moles/Vol]4.6 mmol/LNormal3.5-5.3FOhioHealth Dublin Methodist HospitalComment on above:Performed By: #### [id number] #### [facility] [address], [place] [address]Kcdckwd [Mass/Vol]7.6 g/dLNormal6.0-7.8[facility] HospitalComment on above:Performed By: #### [id number] #### [facility] [address], [place] [address]Jyxziw [Moles/Vol]138 mmol/YGzlxol214-260TpdmyqWooster Community HospitalComment on above:Performed By: #### [id number] #### [facility] [address], [place] [address]Iwae nitrogen [Mass/Vol]27 mg/dLHigh5-21[facility] HospitalComment on above:Performed By: #### [id number] #### [facility] [address], [place] [address] Medicine Office/Clinic Noteon [phone] Medicine Office/Clinic NoteFafederal medical center, [facility] Medicine Office/Clinic Note HPI Staff Patient is presenting for 3 month follow up, needs FMLA paperwork filled out (Previous Dr. Costello pt) HANANE pt presented for pain management for her back and concerns about renal function, chronic kidneydisease stage 3 Pt was referred to pain management for her back and hip, she was given two epidurals a month ago Pt wants results from labs done 10/17/24 for kidney and cholesterol (they did not do kidney last time?) History of Present Illness pt presents today for 3 month follow up on CKD Review of Systems PHQ Score Initial Depression Screen Score: 0 SCORE Physical Exam Vitals & Measurements T: 36.5 ???C(Temporal Artery) HR: 79(Peripheral) RR: 18 BP: 110/76 SpO2: 98% HT: 61 in HT: 154.0 cm WT: 191.361 lb WT: 86.8 kg BMI: 36.6 General: alert, no acute distress ENMT: oral mucosa moist, no pharyngeal erythema or exudate Cardiovascular: regular rate and rhythm, normal peripheral perfusion Respiratory: Lungs CTA, respirations non labored Extremities: no deformity, no trauma Neurological: oriented x 4, LOC appropriate for age, CN II-XII intact, motor strength equal & normal bilaterally, speech normal Assessment/Plan 1. CKD stage 3a, GFR 45-59 ml/min (N18.31: Chronic kidney disease, stage 3a) pt was taking 2 anti inflammatories a day. she knocked it down to once a day and is limiting her Tylenol intake as well. will check kidney function today. RTC 3 months Ordered: Comprehensive Metabolic Panel 2. Right hip pain (M25.551: Pain in right hip) pt c/o right hip pain. is currently seeing Dr. Grimes for pain management. and is not getting relief. She would like to be referred to Dr. Marshall in [place] for second opinion on hip replacement Ordered: [facility] [place] Referral 3. Obesity (BMI 30-39.9) (E66.9: Obesity, unspecified) see above Ordered: Comprehensive Metabolic Panel [facility] [place] Ref[place] 4. BMI 36.0-36.9,adult (Z68.36: Body mass index [BMI] 36.0-36.9, adult) BMI education given Ordered: Comprehensive Metabolic Panel [facility] [place] Ref[place] 5. Nonsmoker (Z78.9: Other specified health status) continue not smoking Ordered: Comprehensive Metabolic Panel [facility] [place]ulatory Referral Follow-up No qualifying data available Problem List/Past Medical History Ongoing Abdominal aortic atherosclerosis Ambulates with cane Arthritis BMI 34.0-34.9,adult Bulging lumbar disc CKD stage 3a, GFR 45-59 ml/min Frequency of urination Mixed hyperlipidemia Nonsmoker Obesity (BMI 30-39.9) Osteopenia Right hip pain Seasonal allergies Urge incontinence Weight gain Historical Elevated cholesterol with elevated triglycerides CASSIE (stress urinary incontinence, female) Urgency of urination Procedure/Surgical History Epidural injection of lumbar spine using fluoroscopic guidance (08/14/2024), Cystoscopy (06/08/2019), Surgery (07/30/1992), Appendectomy, Appendectomy, Cancer of tip of nose, Cataract, Colonoscopy, Hip replacement. Medications Aspirin 81 mg Tab-EC, 81 mg= 1 tab(s), Oral, Daily Calcium 600+D, See Instructions Centrum Silver, 1 tab(s), Oral, Daily disabilty parking placard, 0, As Directed elppa CoQ10 50 mg oral capsule, 50 mg= 1 cap(s), Oral, Daily etodolac 500 mg Tab, 500 mg= 1 tab(s), Oral, Daily gabapentin 100 mg Cap, 200 mg= 2 cap(s), Oral, BID, 2 refills pravastatin 20 mg Tab, See Instructions Probiotic Tylenol, 650 mg, Oral, TID, PRN Allergies sulfa drugs (Unknown) Social History Alcohol - Denies Alcohol Use, 09/23/2023 Never, 09/28/2024 Substance Abuse - Denies Substance Abuse, 09/23/2023 Never, 09/28/2024 Tobacco - Denies Tobacco Use, 09/17/2022 Never (less than 100 in lifetime) Tobacco Use:. Never Smokeless Tobacco Use:., 10/26/2024 Family History Acute myocardial infarction: Father. Hypertension: Mother. Primary malignant neoplasm of lung: Sister, Brother, Brother and Brother. Immunizations Vaccine Date Status influenza virus vaccine, inactivated 02/03/2024 Recorded influenza virus vaccine, inactivated 02/01/2023 Recorded influenza virus vaccine, inactivated 02/03/2022 Recorded influenza virus vaccine, inactivated 02/18/2021 Recorded SARS-CoV-2 (COVID-19) mRNA-1273 vaccine 09/10/2020 Recorded SARS-CoV-2 (COVID-19) mRNA-1273 vaccine 08/08/2020 Recorded pneumococcal 23-valent vaccine 01/17/2020 Recorded influenza virus vaccine, inactivated 01/17/2020 Recorded influenza virus vaccine, inactivated 01/30/2019 Recorded influenza virus vaccine, live, trivalent 01/24/2019 Recorded pneumococcal 13-valent vaccine 06/03/2018 Recorded influenza virus vaccine, inactivated 02/08/2017 Recorded influenza virus vaccine, inactivated 03/03/2016 Recorded influenza virus vaccine, inactivated 02/09/2015 Recorded influenza, whole 02/09/2009 Recorded influenza, whole 02/25/2005 RecordedNormalFisher [facility] CenterComment on above:Result Comment: Electronically Signed By: Micah Choi\.br\Date and Time Signed: 10/26/24 15:51 EDTeGFRon [id number] mL/min/1.73 z4Fshjiq>=59 [facility] HospitalComment on above:Performed By: #### [id number] #### [facility] [address], [place] [address]Kdv-Kqunc Planningon [id number]-Visit PlanningPre-Visit Planning From: Kaela Castano RN To: Micah Choi; Sent: 10/25/2024 08:28:03 EDT Subject: Pre-Visit Planning Due Date/Time: 10/25/2024 08:28:00 EDT Caller Name: DANUTA ARLEY Ruddy; Caller Number: , M Serg Darby, *Based on your response below, can you please update the chronic problem list and address during this visit if appropriate?* During a pre-visit planning chart review, I noted the following documentation in the medical recordindicates that this patient had a BMI of 36.32 on 09/28/2024. The [employer] [place] [employer] defines obesity as morbid if the patient demonstrates a BMI of over 40, or a BMI of 35 or more and at least one weight- related comorbid condition, such as diabetes or hypertension. Examples of weight-related comorbidities include diabetes, heart disease, stroke, hypertension, and arthritis. Current problem list: Arthritis, CKD Based on your medical judgment, can you further clarify the following diagnosis that correlates with the BMI listed above if the current BMI is still 35 or over? - Morbid obesity (please also include additional diagnosis to reflect current BMI) - Class 2 severe obesity with serious comorbidity in adult (please also include additional diagnosis to reflect current BMI) - Class 3 severe obesity with serious comorbidity in adult (please also include additional diagnosis to reflect current BMI) - Other (please specify): I can update the problem list with your specified response if you would like. In responding to this request, please exercise your independent professional judgment. The fact that a question is asked does not imply that any particular answer is desired or expected. If you have any questions, please feel free to contact me at extension [phone]. Thank you! Kaela Castano, BSN, RN, CCM, CCDS, CCDS-O CDI Inside Sales Director [address] [address] P: [phone] F: [phone] [email or web address] Ambulatory Visit Summaryon [id number] Visit SummaryAmbulatory Visit Summary ARLEY ASHRAF :1940 Visit Date:10/17/2024 Ambulatory Visit Instructions Your Diagnosis Mixed hyperlipidemia Your Care Team Attending Physician - Luiz Costello MD Primary Care Physician - Luiz Costello MD This Is Your Medications List Misc Prescription (disabilty parking placard) Non-Formulary Medication (Probiotic) acetaminophen (Tylenol) aspirin (Aspirin 81 mg Tab-EC) calcium-vitamin D (Calcium 600+D) etodolac (etodolac 500 mg Tab) gabapentin (gabapentin 100 mg Cap) multivitamin with minerals (Centrum Silver) pravastatin (pravastatin 20 mg Tab) ubiquinone (elppa CoQ10 50 mg oral capsule) Procedures Performed Epidural injection of lumbar spine using fluoroscopic guidance (08/14/2024), Cystoscopy (06/08/2019), Surgery (07/30/1992), Appendectomy, Appendectomy, Cancer of tip of nose, Cataract, Colonoscopy, Hip replacement. What to do next Scheduled Follow-Up Appointments 2024 1:40 PM EDT With: Micah Choi Where: [address] [address] 2024 10:00 AM EDT With: Blake Grimes DO [facility]: [facility] 2025 2:30 PM EDT With: Where: [address] [address]- Medications What How Much When Instructions Unchanged acetaminophen (Tylenol) 650 Milligram By Mouth 3 times a day as needed for as needed for pain Unchanged aspirin (Aspirin 81 mg Tab-EC) 1 Tablets By Mouth Every day Unchanged calcium-vitamin D (Calcium 600+D) See instructions Take one orally twice a day Unchanged etodolac (etodolac 500 mg Tab) 1 Tablets By Mouth 2 times a day Unchanged gabapentin (gabapentin 100 mg Cap) 2 Capsules By Mouth 2 times a day Duration: 30 Days Unchanged Misc Prescription (disabilty parking placard) 0 As Directed Duration: 5 Years multiple medical problems Unchanged multivitamin with minerals (Centrum Silver) 1 Tablets By Mouth Every day Unchanged Non-Formulary Medication (Probiotic) Unchanged pravastatin (pravastatin 20 mg Tab) See instructions TAKE 1 TABLET BY MOUTH EVERYDAY AT BEDTIME Unchanged ubiquinone (elppa CoQ10 50 mg oral capsule) 1 Capsules By Mouth Every day Allergies sulfa drugs (Unknown) Problems Ongoing - Any problem that you are currently receiving treatment for. Abdominal aortic atherosclerosis Ambulates with cane Arthritis BMI 34.0-34.9,adult Bulging lumbar disc CKD stage 3a, GFR 45-59 ml/min Frequency of urination Mixed hyperlipidemia Nonsmoker Obesity (BMI 30-39.9) Osteopenia Seasonal allergies CASSIE (stress urinary incontinence, female) Urge incontinence Urgency of urination Weight gain Historical - Any problem that you are no longer receiving treatment for. Elevated cholesterol with elevated triglycerides Patient Survey You may receive a survey via text or e-mail asking about your office visit. Please share your experience with us by completing your survey. We appreciate your feedback and thank you for choosing us for your care. Patient Portal You may access all of your results and other medical record information on our secure patient portal. If you are not signed up for this yet, please contact [employer] at [phone] to get signed up today. Language Information Language assistance services are available as needed. NormalWooster Community HospitalCHEMISTRYOrdered By: SYSTEM SYSTEM on [id number] [Mass/Vol]200 mg/wYMwryir172 - 200 mg/dLRemisol ChemCholesterol in HDL [Mass/Vol]48 mg/dLInvalid Interpretation CodeRemisol Chem Comment on above:Result Comment: '>= 60 LOW RISK' '<= 40 HIGH RISK'Cholesterol in LDL [Mass/Vol]123 mg/dLNormal<=129mg/dLRemisol ChemCholesterol in VLDL [Mass/Vol]62 mg/dLHigh7 - 40 mg/dLRemisol Chem Triglyceride [Mass/Vol]308 mg/dLHigh<=149mg/dLRemisol ChemLipid Panelon 06-18-4161Ytpqaiqfilu [Mass/Vol]200 mg/gXTuzzer335-883JmkpgeWooster Community HospitalComment on above:Performed By: #### [id number] #### [facility] [address] [facility], [place] [address]Yshyqdupbuv in HDL [Mass/Vol]48 mg/dLInvalid Interpretation [facility] HospitalComment on above:Result Comment: '>= 60 LOW RISK' '<= 40 HIGH RISK'Performed By: #### [id number] #### [facility] [address] [place], [place] [address]Uqslhoiapkx in LDL [Mass/Vol]123 mg/dLNormal<=129W[facility] Community HospitalComment on above:Performed By: #### [id number] #### [facility] [address] [place], [place] [address]Btmzgypksbv in VLDL [Mass/Vol]62 mg/dLHigh7-40W[facility] Community HospitalComment on above:Performed By: #### [id number] #### [facility] [address] [place], [place] [address]Gujljspiewmi [Mass/Vol]308 mg/dLHigh<=149W[facility]oster Community HospitalComment on above:Performed By: #### [id number] #### [facility] [address] [place], [place] [address]Taahwaqpkj Visit Summaryon [id number] Visit Summary Ambulatory Visit Summary ARLEY ASHRAF :1940 Visit Date:09/28/2024 Ambulatory Visit Instructions Your Diagnosis Encounter for subsequent annual wellness visit (AWV) in Medicare patient CKD stage 3a, GFR 45-59 ml/min Mixed hyperlipidemia Osteopenia Advanced directives, counseling/discussion Arthritis Obesity due to excess calories Your Care Team Attending Physician - Luiz Costello MD Primary Care Physician - Luiz Costello MD This Is Your Medications List Misc Prescription (disabilty parking placard) Non-Formulary Medication (Probiotic) acetaminophen (Tylenol) aspirin (Aspirin 81 mg Tab-EC) calcium-vitamin D (Calcium 600+D) etodolac (etodolac 500 mg Tab) gabapentin (gabapentin 100 mg Cap) multivitamin with minerals (Centrum Silver) pravastatin (pravastatin 20 mg Tab) ubiquinone (elppa CoQ10 50 mg oral capsule) Procedures Performed Epidural injection of lumbar spine using fluoroscopic guidance (08/14/2024), Cystoscopy (06/08/2019), Surgery (07/30/1992), Appendectomy, Appendectomy, Cancer of tip of nose, Cataract, Colonoscopy, Hip replacement. Discharge Vitals Heart Rate (Peripheral) 68 Respiratory Rate 14 Blood Pressure 138/70 Height 154 cm Height 61 in Weight 86.13 kg Weight 189.884 lb BMI 36.32 What to do next Scheduled Follow-Up Appointments Wednesday 1:20 PM EDT With: Where: [facility] [address] [address]- Wednesday 1:40 PM EDT With: Luiz Costello MD Where: [address] [address]- 2024 10:00 AM EDT With: Blake Grimes DO Where: [facility] 2025 2:30 PM EDT With: Where: [address] [address]- You Need to Complete the Following Lipid Panel, Blood, Routine collect, 09/28/24, Order for future visit, Lab Collect, Mixed hyperlipidemia, Required & Missing, Print Label By Order Location Medications What How Much When Instructions Unchanged acetaminophen (Tylenol) 650 Milligram By Mouth 3 times a day as needed for as needed for pain Unchanged aspirin (Aspirin 81 mg Tab-EC) 1 Tablets By Mouth Every day Unchanged calcium-vitamin D (Calcium 600+D) See instructions Take one orally twice a day Unchanged etodolac (etodolac 500 mg Tab) 1 Tablets By Mouth 2 times a day Unchanged gabapentin (gabapentin 100 mg Cap) 2 Capsules By Mouth 2 times a day Duration: 30 Days Unchanged Misc Prescription (disabilty parking placard) 0 As Directed Duration: 5 Years multiple medical problems Unchanged multivitamin with minerals (Centrum Silver) 1 Tablets By Mouth Every day Unchanged Non-Formulary Medication (Probiotic) Unchanged pravastatin (pravastatin 20 mg Tab) See instructions TAKE 1 TABLET BY MOUTH EVERYDAY AT BEDTIME Unchanged ubiquinone (elppa CoQ10 50 mg oral capsule) 1 Capsules By Mouth Every day Allergies sulfa drugs (Unknown) Problems Ongoing - Any problem that you are currently receiving treatment for. Abdominal aortic atherosclerosis Ambulates with cane Arthritis BMI 34.0-34.9,adult Bulging lumbar disc CKD stage 3a, GFR 45-59 ml/min Frequency of urination Mixed hyperlipidemia Nonsmoker Obesity (BMI 30-39.9) Osteopenia Seasonal allergies CASSIE (stress urinary incontinence, female) Urge incontinence Urgency of urination Weight gain Historical - Any problem that you are no longer receiving treatment for. Elevated cholesterol with elevated triglycerides Patient Survey You may receive a survey via text or e-mail asking about your office visit. Please share your experience with us by completing your survey. We appreciate your feedback and thank you for choosing us for your care. Education Materials BMI for Adults Body mass index (BMI) is a number found using a person's weight and height. BMI can help tell how much of a person's weight is made up of fat. BMI does not measure body fat directly. It is used instead of tests that directly measure body fat, which can be difficult and expensive. What are BMI measurements used for? BMI is useful to: ??? Find out if your weight puts you at higher risk for medical problems. ??? Help recommend changes, such as in diet and exercise. This can help you reach a healthy weight. BMIscreening can be done again to see if these changes are working. How is BMI calculated? Your height and weight are measured. The BMI is found from those numbers. This can be done with U.S. or metric measurements. Note that charts and online BMI calculators are available to help you findyour BMI quickly and easily without doing these calculations. To calculate your BMI in U.S. measurements: 1. Measure your weight in pounds (lb (more content not included)...[facility] Office/Clinic Noteon [id number] Medicine Office/Clinic NoteFafederal medical center, [place] [facility] Office/Clinic Note Chief Complaint Subsequent Medicare Wellness History of Present Illness Covid-19, MERS, Ebola Screen *Contact With Person With Highly Contagious Disease Like Ebola/MERS/COVID-19 AND Have One or More of the Symptoms Below : No *Travel to a Country With Wide-Spread Ebola/MERS/COVID-19 in the Past 21 Days AND Have One or More of the Symptoms Below : No Patient Reported Covid-19 Testing : No *Verify Droplet, Contact Precautions for Ebola (Reference for CDC) : N/A *Verify Airborne, Droplet Precautions for MERS/COVID-19 : N/A Shi Mart - 09/28/2024 14:28 EDT Medicare/Medicaid Summary Chief Complaint : Subsequent Medicare Wellness Patient Counseled : Nutrition, Physical activity, Elevated BMI Height/Length Measured : 154 cm(Converted to: 5 ft 1 in, 60.63 in) Weight Measured : 86.13 kg(Converted to: 189 lb 14 Ounces, 189.884 lb) Body Mass Index Measured : 36.32 kg/m2 Height in Inches : 61 in Weight in Pounds : 189.884 lb Systolic Blood Pressure : 138 mmHg Diastolic Blood Pressure : 70 mmHg Blood Pressure Location : Left arm Blood Pressure Position : Sitting O2 Sat Resting/Exertion Alpha : Resting Peripheral Pulse Rate : 68 bpm Respiratory Rate : 14 br/min SpO2 : 94 % Pain Present : Yes actual or suspected pain Numeric Rating Pain Scale : 5 = Moderate pain Primary Pain Location : Knee Numeric Rating Pain Score : 9 Shi Mart Jen - 09/28/2024 14:28 EDT Hearing and Vision Screening FT FT Whisper Test Comments : no hearing deficits Vision Screen Comments : wears corrective lens. Dr. Jeff Mart Shi Jen - 09/28/2024 14:28 EDT Advance Directive FT Advance Directive : No Patient Wishes to Receive Further Information on Advance Directives : Yes Organ Donation Consent : No Bibiana Martdrea Li 09/28/2024 14:28 EDT Procedures / Surgeries FT - Procedure History (As Of: 09/28/2024 14:49:37 EDT) Anesthesia Minutes: 0 ; Procedure Name: Appendectomy ; Procedure Minutes: 0 ; Last Reviewed Dt/Tm: 09/28/2024 14:35:19 EDT Anesthesia Minutes: 0 ; Procedure Name: Hip replacement ; Procedure Minutes: 0 ; Last Reviewed Dt/Tm: 09/28/2024 14:35:19 EDT Anesthesia Minutes: 0 ; Procedure Name: Colonoscopy ; Procedure Minutes: 0 ; Last Reviewed Dt/Tm: 09/28/2024 14:35:19 EDT Anesthesia Minutes: 0 ; Procedure Name: Appendectomy ; Procedure Minutes: 0 ; Last Reviewed Dt/Tm: 09/28/2024 14:35:19 EDT Anesthesia Minutes: 0 ; Procedure Name: Cataract ; Procedure Minutes: 0 ; Comments: 05/30/2019 9:25 EST - Page Jennifer GONZALES Right and left ; Last Reviewed Dt/Tm: 09/28/2024 14:35:19 EDT Procedure Dt/Tm: 06/08/2019 ; Provider: Nikhil Bruner Jr., MD; Anesthesia Minutes: 0 ; Procedure Name: Cystoscopy ; Procedure Minutes: 0 ; Last Reviewed Dt/Tm: 09/28/2024 14:35:19 EDT Procedure Dt/Tm: 07/30/1992 ; Anesthesia Minutes: 0 ; Procedure Name: Surgery ; Procedure Minutes: 0 ; Comments: 08/18/2022 15:00 EDT - Sadie Kim LPN plates and screws left femur ; Last Reviewed Dt/Tm: 09/28/2024 14:35:19 EDT Anesthesia Minutes: 0 ; Procedure Name: Cancer of tip of nose ; Procedure Minutes: 0 ; Comments: 08/16/2023 11:31 EDT - Sadie Kim LPN had plastic surgery for it, end Feb 2023 ; Last Reviewed Dt/Tm: 09/28/2024 14:35:19 EDT Procedure Dt/Tm: 08/14/2024 ; Provider: Blake Grimes DO; Anesthesia Minutes: 0 ; Procedure Name: Epidural injection of lumbar spine using fluoroscopic guidance ; Procedure Minutes: 0 ; Last Reviewed Dt/Tm: 09/28/2024 14:35:19 EDT Family History Family History (As Of: 09/28/2024 14:49:37 EDT) Brother: Relation: Brother ; Gender: Male ; Nomenclature: Primary malignant neoplasm of lung ; Value: Positive Sister: Relation: Sister ; Gender: Female ; Nomenclature: Primary malignant neoplasm of lung ; Value: Positive Brother: Relation: Brother ; Gender: Male ; Nomenclature: Primary malignant neoplasm of lung ; Value: Positive Brother: Relation: Brother ; Gender: Male ; Nomenclature: Primary malignant neoplasm of lung ; Value: Positive Father: Relation: Father ; Gender: Male ; Nomenclature: Acute myocardial infarction ; Value: Positive Mother: Relation: Mother ; Gender: Female ; Nomenclature: Hypertension ; Value: Positive Medicare/Medicaid Social History FT Social History (As Of: 09/28/2024 14:49:37 EDT) Alcohol: Denies Alcohol Use Never Comments: 09/28/2024 14:36 - Shi Mart: denies use (Last Updated: 09/28/2024 14:36:31 EDT by Shi Mart) Tobacco: Denies Tobacco Use Never (less than 100 in lifetime) Tobacco Use:. Never Smokeless Tobacco Use:. Comments: 09/28/2024 14:36 - Shi Mart: denies use. 09/17/2022 14:45 - Milo Walter: Patient denies tobacco use (LastUpdated: 09/28/2024 14:36:41 EDT by Shi Mart) Substance Abuse: Denies Substance Abuse Never Comments: 09/28/2024 14:36 - Shi Mart: denies use. (Last Updated: 09/28/2024 14:36:53 EDT Shi Florence) Health Ri (more content not included)...[facility] CenterComment on above:Result Comment: Electronically Signed By: Luiz Costello MD\.br\Date and Time Signed: 10/05/24 11:56 EDT\.br\Electronically Co-Signed By: Shi Mart\.br\Date and Time Co-Signed: 09/28/24 15:58 EDTBD Bone Density DEXAon [id number] Bone Density DEXAExam Date/Time: 09/26/2024 10:44 EDT Reason for Exam: M81.0 Report IMPRESSION: OSTEOPENIA. The 10 year probability (FRAX) of a major osteoporotic fracture based on the right femoral neck bone marrow density is: 10.6%, and hip fracture 1.2%. EXAM: BD Bone Density DEXA DATE: 09/26/2024 10:19 AM CLINICAL HISTORY: M81.0. COMPARISON: 09/23/2022. COMMENTS: The lumbar spine, right hip and distal left forearm were scanned. The mean bone mineral density from L1 to L4 is 1.188 g/cm2 and this value is 0.1 standard of deviation above the standard reference value for a young adult. Bone mineral density of the right femoral neck is 1.088 g/cm2 and this value is 0.4 standard of deviation above the standard reference value. Bone mineral density left radius 33% is 0.712 g/cm2 and this value is -2.0 standard of deviation below the standard reference value. These values meet WHO criteria for osteopenia. When compared to the most recent prior exam, there has been a nonsignificant -0.7% decrease in bone mineral density from L1 to L4, a significant 14.2% increase in bone mineral density of the right femoral neck, and a nonsignificant 0.1% increase in bone mineral density of the right radius 33%. RECOMMENDATIONS: 1. All patients should optimize her calcium and vitamin D intake. 2. Consider FDA-approved medical therapies in postmenopausal women and minimal age 50 years and older, based on the following: - hip or vertebral (clinical or morphometric) fracture. - T-score less than or equal to -2.5 at the femoral neck or spine after the appropriate evaluation to exclude secondary causes. - Low bone density (T score between -1.0 and -2.5 at the femoral neck or spine) and a 10 year probability of hip fracture greater than or equal to 3% or a 10-year probability of a major osteoporosis-related fracture greater than or equal to 20% based on FRAX calculation. Report - Clinician judgment and/or patient preferences may indicate treatment for palpable attenuation fracture probability is above or below these levels. - Further guidance on treatment can be found at the National Osteoporosis Foundation's website: bonesource.org 3. Patients with diagnosis of osteoporosis or high risk for fracture. There are irregular bone mineral density tests. For patients eligible for Medicare, routine testing is allowed once every 2 years. Testing frequency can be increased to 1 year for patient's history of rapidly progressing disease, those who are receiving or discontinuing medical therapy to restore bone mass or have additional risk factors. Ordering Provider: EVELYN BRENNAN FINAL REPORT Dictated: 09/27/2024 3:59 pm Medhat Samuels MD Signed (Electronic Signature): 09/27/2024 3:59 pm Signed by: Medhat Samuels MD Transcribed by: CHRIS Technologist: [facility]Main OR Intraoperative Recordon [id number] OR Intraoperative RecordMain OR Intraoperative Record IntraOp Document Type FTPM Summary Primary Physician: Blake Grimes DO Finalized Date/Time: 09/25/24 09:02:47 Pt. Name: ARLEY ASHRAF/Sex: 1940 Female Med Rec #: [id number] Physician: Blake Grimes DO Financial #: [id number] Pt. Type: P Room/Bed: / Admit/Disch: 09/25/24 07:49:41 - Institution: Case Times FTPM Entry 1 Patient Times In Room 09/25/24 08:56:00 Out Room 09/25/24 09:03:00 Procedure Times Start 09/25/24 08:59:00 Stop 09/25/24 09:02:00 Anesthesia Times Last Modified By: Marta Hernandez RN 09/25/24 09:02:42 Case Attendance FTPM Entry 1 Entry 2 Entry 3 Case Attendee Blake Grimes DO, RN, Marta Alvarez RN, Otto Oconnor Role Performed Surgeon - Primary Store Clerk - Primary Scrub - Primary Time In 09/25/24 08:56:00 09/25/24 08:56:00 09/25/24 08:56:00 Time Out 09/25/24 09:03:00 09/25/24 09:03:00 09/25/24 09:03:00 Procedure HIP INJECTION(Right) HIP INJECTION(Right) HIP INJECTION(Right) Comments Last Modified By: David ALVAREZ, Marta Hernandez RN, Marta Fox RN 09/25/24 09:02:43 09/25/24 09:02:43 09/25/24 09:02:43 Entry 4 Case Attendee Paula Cardona Role Performed Master Fisher Time In 09/25/24 08:56:00 Time Out 09/25/24 09:03:00 Procedure HIP INJECTION(Right) Comments Last Modified By: Marta Hernandez RN 09/25/24 09:02:43 Perioperative Protocols FTPM Pre-Care Text: Implements protective measures prior to operative or invasive procedure, confirms identity before the operative or invasive procedure, verifies operative procedure, surgical site, and laterality Entry 1 Procedure(s) HIP INJECTION(Right) Patient Identity Birthday, ID Band Verified (select at Check, Patient least 2): Participation Consents / H and P H&P, Surgery/Procedure Operative Site Present Verified Consent Marking Verified Surgical Site Yes Laterality Verified Yes Verified Procedure Verified Yes Correct Patient Yes Position Verified Availability Equipment, Medication, Prep Dry Yes Verified (If X-ray Applicable) PreOp Antibiotic No Time Out David ALVAREZ, Marta Li, Joseph Alvarez RN, Otto Oconnor, Blake Grimes DO, Kolb, Madelyn K Time Out Complete 09/25/24 08:56:00 Outcomes Met? Yes Last Modified By: Marta Hernandez RN 09/25/24 08:57:52 Post-Care Text: The patient is free from signs and symptoms of injury caused by extraneous objects Allergy Information FTPM Pre-Care Text: Verifies allergies Entry 1 Allergies Reviewed? Yes Allergies Reviewed Self/Patient With Outcomes Met? Yes Last Modified By: Marta Hernandez RN 09/25/24 08:53:04 Post-Care Text: The patient received appropriate medication(s) safely administered during the perioperative period Surgical Procedures FTPM Entry 1 Procedure Description Procedure HIP INJECTION Modifiers Right Surgeon Description HIP INJECTION Primary Procedure Yes Primary Surgeon Blake Grimes DO Start 09/25/24 08:59:00 Stop 09/25/24 09:02:00 Anesthesia Type None Surgical Service Pain Management Wound Class 1 - Clean Last Modified By: Marta Hernandez RN 09/25/24 09:02:44 General Case Data FTPM Pre-Care Text: Classifies surgical wound, implements aseptic technique, initiates traffic control Entry 1 Case Information OR Pain Proc Room Case Level Level 2 Wound Class 1 - Clean Specialty Pain Management Preop Diagnosis M25.551 Postop Same As Preop Yes Postop Diagnosis M25.551 Outcomes Met? Yes Last Modified By: Marta Hernandez RN 09/25/24 08:58:17 Post-Care Text: The patient is free from signs and symptoms of infection Skin Assessment (Pre Procedure) FTPM Pre-Care Text: Implements protective measures to prevent skin/ tissue injury due to thermal or mechanical sources Evaluates for signs and symptoms of physical injury to skin and tissue Entry 1 Skin Integrity Intact, [place], Warm, & Skin Abnormality No Dry Outcomes Met? Yes Last Modified By: Marta Hernandez RN 09/25/24 08:54:15 Post-Care Text: The patient is free from signs and symptoms of injury caused by extraneous objects Patient Positioning FTPM Pre-Care Text: Identifies physical alterations that require additional precautions for procedure-specific positioning, verifies presence of prosthetics or corrective devices, positions the patient, evaluates the patient for signs and symptoms of injury as a result of positioning Entry 1 Procedure HIP INJECTION(Right) Body Position Prone Feet Uncrossed? Yes Left Arm Position Resting at Side Right Arm Position Resting at Side Left Leg Position Extended Right Leg Position Extended Positioning Device Pillow Under Head Large, Safety Strap, Pillow Large Under Knees Press Points Checked Yes By Marta Hernandez RN Outcomes Met? Yes Last Modified By: Marta Hernandez RN 09/25/24 08:58:36 Post-Care Text: The patient is free from sign (more content not included)...[facility] CenterMain OR Preoperative Recordon [id number] OR Preoperative RecordMain OR Preoperative Record Holding Area Document Type FTPM Summary Primary Physician: Blake Grimes DO Finalized Date/Time: 09/25/24 08:11:28 Pt. Name: DANUTA ARLEY Snow/Sex: 1940 Female Med Rec #: [id number] Physician: Blake Grimes DO Financial #: [id number] Pt. Type: Room/Bed: / Admit/Disch: 09/25/24 07:49:41 - Institution: Case Times Holding FTPM Pre-Care Text: Verifies consent for planned procedure, identifies individual values and wishes concerning care, includes family members in perioperative teaching Secures patient's records' belongings, and valuables, maintains patient's dignity and privacy, and maintains patient confidentiality Entry 1 In Holding 09/25/24 08:07:00 Outcomes Met? Yes Last Modified By: Coby Canseco RN 09/25/24 08:07:29 Post-Care Text: The patient participates in decisions affecting his or her perioperative plan of care The patient'sright to privacy is maintained Surgery Checklist FTPM Entry 1 Patient Birthday, ID Band Procedure History and Physical, Identification: Check, Patient Verification: Surgical Consent, With Participation Patient NPO after Midnight: No Date/Time: 09/25/24 08:07:00 Results Reviewed 0615 coffee and toast. Personal Items: Cataract Lens Implant, Comments: Dentures, Jewelry Personal Items Pt. wearing necklace, Complaints of Pain: Yes Comment: upper/lower dentures, pair of earrings and a necklace. Pain Comment: 11/02 Operative Site Yes Marking: Marked By: Dr. Grimes Location: right hip Availability Equipment, X-Ray Verified: Does Patient Smoke No Patient states Yes Comment - Adult daughter-Eli postop adult Supervision supervision available Case Cancelled in No Holding Area see comments below for reason Last Modified By: Coby Canseco RN 09/25/24 08:09:14 Finalized By: Coby Canseco RN Document Signatures Signed By: Coby Canseco RN 09/25/24 08:11NormalWooster Community HospitalNo Panel InformationOrdered By: Corazon Canales on [id number] Francis Hospital & Health Services w/ Auto Diffon [id number]/100 WBC (Bld)1.1 %Normal0.0-2.0[facility] HospitalComment on above:Performed By: #### [id number] #### [facility] [address], [place] [address]Bskpegdmw/Leukocytes Auto (Bld) [Pure # fraction]0.1 E9/LNormal 0.0-0.2FOhioHealth Dublin Methodist HospitalComment on above:Performed By: #### [id number] #### [facility] [address], [place] [address]Eocowfuwtmx (Bld) [#/Vol]0.2 E9/LNormal0.0-0.5FOhioHealth Dublin Methodist HospitalComment on above:Performed By: #### [id number] #### [facility] [address], [place] [address]Vifycfvjudj/100 WBC (Bld)2.0 %Normal0.0-8.0[facility] Community HospitalComment on above:Performed By: #### [id number] #### [facility] [address], [place] [address]Rzsvzpctwiu distribution width (RBC) [Ratio]15.1 %High10.9-14.2 [facility] HospitalComment on above:Performed By: #### [id number] #### [facility] [address], [place] [address]Iionubbjbs (Bld) [Volume fraction]40.6 %Fqdhyw74.0-46.0[facility] Community HospitalComment on above:Performed By: #### [id number] #### [facility] [address], [place] [address]Ajqvmvgseo (Bld) [Mass/Vol]13.3 g/lMNknjen39.0-16.0[facility] HospitalComment on above:Performed By: #### [id number] #### [facility] [address] [place] [address]Apcriwzsbpz (Bld) [#/Vol]2.9 E9/LNormal1.0-4.0[facility] HospitalComment on above:Performed By: #### [id number] #### [facility] [address] [place] [address]Vdtuwqojfqa/100 WBC (Bld)25.2 %Lsjaru50.0-50.0[facility] HospitalComment on above:Performed By: #### [id number] #### [facility] [address] [place] [address]KRD (RBC) [Entitic mass]27.8 qyAvnajk64.0-34.0[facility] HospitalComment on above:Performed By: #### [id number] #### [facility] [address] [place] [address]FFYS (RBC) [Mass/Vol]32.6 g/vMJfuehf79.4-36.0[facility] HospitalComment on above:Performed By: #### [id number] #### [facility] [address] [place] [id number] (RBC) [Entitic vol]85.2 tIUdlqtl82.0-100.0[facility] Community HospitalComment on above:Performed By: #### [id number] #### [facility] [address] [place] [address] 50144Anjwvhjdx (Bld) [#/Vol]0.9 E9/LNormal0.2-1.0[facility] HospitalComment on above:Performed By: #### [id number] #### [facility] [address] [place] [address] 87313Rbdvtocqivz (Bld) [#/Vol]7.4 E9/LNormal2.0-7.5FOhioHealth Dublin Methodist HospitalComment on above:Performed By: #### [id number] #### [facility] [address], [place] [address]Zqucnonleao/100 WBC (Bld)64.0 %Cyfkmr91.0-75.0[facility] HospitalComment on above:Performed By: #### [id number] #### [facility] [address] [place] [address] 49193Arbpmsso562.0 E9/KYwmmqp934.0-500.0[facility] Comment on above:Performed By: #### [id number] #### [facility] [address] [place] [address] 81551Gnuzxhlo mean volume (Bld) [Entitic vol]6.8 fLNormal6.4-10.8 [facility] HospitalComment on above:Performed By: #### [id number] #### [facility] [address] [place] [address] 74948KLX (Bld) [#/Vol]4.8 E12/LNormal4.3-5.9[facility] HospitalComment on above:Performed By: #### [id number] #### [facility] [address] [place] [address] 58325DMG corrected for nucl RBC Auto (Bld) [#/Vol]11.5 E9/LHigh 4.0-11.0[facility] HospitalComment on above:Performed By: #### [id number] #### [facility] [address] [place] [address] 04267MCOfg [id number] [Mass/Vol]4.5 g/dLNormal3.3-5.0[facility] HospitalComment on above:Performed By: #### [id number] #### [facility] [address] [place] [address] 97[address]Pupleka/Globulin (S) [Mass conc ratio]1.3Nnxnjc5.1-2.2FOhioHealth Dublin Methodist HospitalComment on above:Performed By: #### [id number] #### [facility] [address], [place] [address]XZG [Catalytic activity/Vol]75 Int._Unit/FJovcyp63-89WmaitvWooster Community HospitalComment on above:Performed By: #### [id number] #### [facility] [address], [place] [address]LYN No additional P-5'-P [Catalytic activity/Vol]12 Int._Unit/L Normal6-46[facility] HospitalComment on above:Performed By: #### [id number] #### [facility] [address], [place] [address]Jcsxi gap [Moles/Vol]13 mmol/LNormal6-16[facility] HospitalComment on above:Performed By: #### [id number] #### [facility] [address], [place] [address]OEJ [Catalytic activity/Vol]15 Int._Unit/LNormal5-43[facility] HospitalComment on above:Performed By: #### [id number] #### [facility] [address], [place] [address]Fcymqpycu [Mass/Vol]0.5 mg/dLNormal0.0-1.1FOhioHealth Dublin Methodist HospitalComment on above:Performed By: #### [id number] #### [facility] [address], [place] [address]Wlctxrj [Mass/Vol]10.1 mg/dLNormal8.9-11.1FOhioHealth Dublin Methodist HospitalComment on above:Performed By: #### [id number] #### [facility] [address], [place] [address]Opuehoyt [Moles/Vol]105 mmol/AWbzvxg946-181UfakjjWooster Community HospitalComment on above:Performed By: #### [id number] #### [facility] [address], [place] [address]UX5 [Moles/Vol]28 mmol/FKcehis52-58ZjqscoW[facility]oster Community Hospital Comment on above:Performed By: #### [id number] #### [facility] [address], [place] [address]Drvfkohjuc [Mass/Vol]1.0 mg/dLNormal0.5-1.3FOhioHealth Dublin Methodist HospitalComment on above:Performed By: #### [id number] #### [facility] [address], [place] [address]Kpxkhxxb (S) [Mass/Vol]3.2 g/dLNormal1.4-4.0[facility] HospitalComment on above:Performed By: #### [id number] #### [facility] [address], [place] [address]Fbgtxlq [Mass/Vol]80 mg/qLLxhisu02-079UkbygdWooster Community HospitalComment on above:Performed By: #### [id number] #### [facility] [address], [place] [address]Nrgumqpoa [Moles/Vol]4.6 mmol/LNormal3.5-5.3FOhioHealth Dublin Methodist HospitalComment on above:Performed By: #### [id number] #### [facility] [address], [place] [address]Vfxgllv [Mass/Vol]7.7 g/dLNormal6.0-7.8[facility] HospitalComment on above:Performed By: #### [id number] #### [facility] [address], [place] [address]Eruzel [Moles/Vol]141 mmol/GAejjsu769-852QctsijWooster Community HospitalComment on above:Performed By: #### [id number] #### [facility] [address], [place] [address]Zfnw nitrogen [Mass/Vol]37 mg/dLHigh5-21[facility] HospitalComment on above:Performed By: #### [id number] #### [facility] [address], [place] [address]Ligf nitrogen/Creatinine [Mass ratio]37 No GfexiRcfj87-05JaszkpWooster Community HospitalComment on above:Performed By: #### [id number] #### [facility] [address] [place], [place] [address]xECFrq 00-37-8520fGRU21 mL/min/1.73 m2Low>=59[facility] CenterComment on above:Performed By: #### [id number] #### [facility] [address] [place], [place] [address]Tpqa OR Intraoperative Recordon [id number] OR Intraoperative RecordMain OR Intraoperative Record IntraOp Document Type FTPM Summary Primary Physician: Blake Grimes DO Finalized Date/Time: 08/14/24 13:41:40 Pt. Name: DANUTAARLEY/Sex: 1940 Female Med Rec #: [id number] Physician: Blake Grimes DO Financial #: [id number] Pt. Type: P Room/Bed: / Admit/Disch: 08/14/24 11:55:33 - Institution: Case Times FTPM Entry 1 Patient Times In Room 08/14/24 13:30:00 Out Room 08/14/24 13:40:00 Procedure Times Start 08/14/24 13:33:00 Stop 08/14/24 13:39:00 Anesthesia Times Last Modified By: Yue Carrillo RN 08/14/24 13:40:10 Case Attendance FTPM Entry 1 Entry 2 Entry 3 Case Attendee Blake Grimes DO, RN, Yue Hernandez RN, Marta Li Role Performed Surgeon - Primary Store Clerk - Primary Scrub - Primary Time In 08/14/24 13:30:00 08/14/24 13:30:00 08/14/24 13:30:00 Time Out 08/14/24 13:40:00 08/14/24 13:40:00 08/14/24 13:40:00 Procedure TRANSFORAMINAL EPIDURAL TRANSFORAMINAL EPIDURAL TRANSFORAMINAL EPIDURAL STEROID INJECTIO(Right) STEROID INJECTIO(Right) STEROID INJECTIO(Right) Comments Last Modified By: Gerardo ALVAREZ, Yue Carrillo RN, Yue Ward RN 08/14/24 13:40:11 08/14/24 13:40:11 08/14/24 13:40:11 Entry 4 Case Attendee Lorne ZAMORA(R)Vera Role Performed Master Fisher Time In 08/14/24 13:30:00 Time Out 08/14/24 13:40:00 Procedure TRANSFORAMINAL EPIDURAL STEROID INJECTIO(Right) Comments Last Modified By: Yue Carrillo RN 08/14/24 13:40:11 Perioperative Protocols FTPM Pre-Care Text: Implements protective measures prior to operative or invasive procedure, confirms identity before the operative or invasive procedure, verifies operative procedure, surgical site, and laterality Entry 1 Procedure(s) TRANSFORAMINAL EPIDURAL Patient Identity Birthday, ID Band STEROID INJECTIO(Right) Verified (select at Check, Patient least 2): Participation Consents / H and P H&P, Surgery/Procedure Operative Site Present Verified Consent Marking Verified Surgical Site Yes Laterality Verified Yes Verified Procedure Verified Yes Correct Patient Yes Position Verified Availability Equipment, Medication, Prep Dry Yes Verified (If X-ray Applicable) PreOp Antibiotic No Time Out Yue Carrillo RN, David ALVAREZ, Cornelio Salgado DO, Bradford A., Christman RT(R)Vera Time Out Complete 08/14/24 13:31:00 Outcomes Met? Yes Last Modified By: Yue Carrillo RN 08/14/24 13:31:10 Post-Care Text: The patient is free from signs and symptoms of injury caused by extraneous objects Allergy Information FTPM Pre-Care Text: Verifies allergies Entry 1 Allergies Reviewed? Yes Allergies Reviewed Self/Patient With Outcomes Met? Yes Last Modified By: Yue Carrillo RN 08/14/24 13:29:36 Post-Care Text: The patient received appropriate medication(s) safely administered during the perioperative period Surgical Procedures FTPM Entry 1 Procedure Description Procedure TRANSFORAMINAL EPIDURAL Modifiers Right STEROID INJECTION Surgeon Description L4/5 AND L5/S1 LTR W/FLUORO Primary Procedure Yes Primary Surgeon Blake Grimes DO Start 08/14/24 13:33:00 Stop 08/14/24 13:39:00 Anesthesia Type None Surgical Service Pain Management Wound Class 1 - Clean Last Modified By: Yue Carrillo RN 08/14/24 13:40:14 General Case Data FTPM Pre-Care Text: Classifies surgical wound, implements aseptic technique, initiates traffic control Entry 1 Case Information OR Pain Proc Room Case Level Level 2 Wound Class 1 - Clean Specialty Pain Management Preop Diagnosis M54.16 Postop Same As Preop Yes Postop Diagnosis M54.16 Outcomes Met? Yes Last Modified By: Yue Carrillo RN 08/14/24 13:31:19 Post-Care Text: The patient is free from signs and symptoms of infection Skin Assessment (Pre Procedure) FTPM Pre-Care Text: Implements protective measures to prevent skin/ tissue injury due to thermal or mechanical sources Evaluates for signs and symptoms of physical injury to skin and tissue Entry 1 Skin Integrity Intact, [place], Warm, & Skin Abnormality No Dry Outcomes Met? Yes Last Modified By: Yue Carrillo RN 08/14/24 13:29:44 Post-Care Text: The patient is free from signs and symptoms of injury caused by extraneous objects Patient Positioning FTPM Pre-Care Text: Identifies physical alterations that require additional precautions for procedure-specific positioning, verifies presence of prosthetics or corrective devices, positions the patient, evaluates the patient for signs and symptoms of injury as a result of positioning Entry 1 Procedure TRANSFORAMINAL EPIDURAL Body Position Prone STEROID INJECTIO(Right) Feet Uncrossed? Yes Left Arm Position Resting at Side Right Arm Position Resting at Side Left Leg Position Extended Right Leg Position Extended Positionin (more content not included)...Normal [facility] Hospital[facility] OR Preoperative Recordon [id number] OR Preoperative RecordMain OR Preoperative Record Holding Area Document Type FTPM Summary Primary Physician: Blake Grimes DO Finalized Date/Time: 08/14/24 12:21:29 Pt. Name: ARLEY ASHRAF/Sex: 1940 Female Med Rec #: [id number] Physician: Blake Grimes DO Financial #: [id number] Pt. Type: P Room/Bed: / Admit/Disch: 08/14/24 11:55:33 - Institution: Case Times Holding FTPM Pre-Care Text: Verifies consent for planned procedure, identifies individual values and wishes concerning care, includes family members in perioperative teaching Secures patient's records' belongings, and valuables, maintains patient's dignity and privacy, and maintains patient confidentiality Entry 1 In Holding 08/14/24 12:12:00 Outcomes Met? Yes Last Modified By: Coby Canseco RN 08/14/24 12:12:23 Post-Care Text: The patient participates in decisions affecting his or her perioperative plan of care The patient'sright to privacy is maintained Surgery Checklist FTPM Entry 1 Patient Birthday, ID Band Procedure History and Physical, Identification: Check, Patient Verification: Surgical Consent, With Participation Patient NPO after Midnight: No Date/Time: 08/14/24 12:12:00 Results Reviewed 0600 cup of coffee, Personal Items: Cataract Lens Implant, Comments: toast and fruit. Dentures, Jewelry Personal Items Pt. wearing a necklace, Complaints of Pain: Yes Comment: pair of earrings and a watch. Pain Comment: 02/02 right lower back Operative Site Yes pain Marking: Marked By: Dr. Grimes Location: right L4-S1 Availability Equipment, X-Ray Verified: Does Patient Smoke No Patient states Yes Comment - Adult daughter-Eli postop adult Supervision supervision available Case Cancelled in No Holding Area see comments below for reason Last Modified By: Coby Canseco RN 08/14/24 12:16:56 Finalized By: Coby Canseco RN Document Signatures Signed By: Coby Canseco RN 08/14/24 12:21[facility] CenterAmbulatory Visit Summaryon [id number] Visit SummaryAmbulatory Visit Summary ARLEY ASHRAF Ruddy :1940 Visit Date:07/25/2024 Ambulatory Visit Instructions Your Diagnosis BMI 34.0-34.9,adult Obesity (BMI 30-39.9) Nonsmoker CKD stage 3a, GFR 45-59 ml/min Bulging lumbar disc Your Care Team Attending Physician - Luiz Costello MD Primary Care Physician - Luiz Costello MD This Is Your Medications List Contact prescribing physician if questions or concerns Misc Prescription (disabilty parking placard) Non-Formulary Medication (Probiotic) aspirin (Aspirin 81 mg Tab-EC) calcium-vitamin D (Calcium 600+D) doxycycline (doxycycline hyclate 100 mg Cap) etodolac (etodolac 500 mg Tab) fluconazole (Diflucan 150 mg Tab) multivitamin with minerals (Centrum Silver) pravastatin (pravastatin 20 mg Tab) tramadol (traMADOL 50 mg Tab) ubiquinone (elppa CoQ10 50 mg oral capsule) Procedures Performed Cystoscopy (06/08/2019), Surgery (07/30/1992), Appendectomy, Appendectomy, Cancer of tip of nose, Cataract, Colonoscopy, Hip replacement. Discharge Vitals Temperature (Tympanic) 36.7 ???C Heart Rate (Peripheral) 80 Respiratory Rate 18 Blood Pressure 122/80 Height 159 cm Height 63 in Weight 87.3 kg Weight 192.463 lb BMI 34.53 What to do next Scheduled Follow-Up Appointments Wednesday 10:30 AM EDT With: Where: [facility] 2024 2:30 PM EDT With: Where: [address] [id number]- Wednesday 1:20 PM EDT With: Where: [address] [id number]- Wednesday 1:40 PM EDT With: Pravin SOLOMON, Luiz Wiley Where: [address] [id number]- Medications What How Much When Why Instructions Unchanged aspirin (Aspirin 81 mg Tab-EC) 1 Tablets By Mouth Every day Contact prescribing physicianif questions or concerns Unchanged calcium-vitamin D (Calcium 600+D) See instructions Take one orally twice a day Contact prescribing physician if questions or concerns Unchanged doxycycline (doxycycline hyclate 100 mg Cap) 1 Capsules By Mouth 2 times a day Low back pain, unspecified Urinary tract infection, site not specified Pain in unspecified knee BMI 34.0-34.9,adult Exogenous obesity Nonsmoker Contact prescribing physician if questions or concerns Unchanged etodolac (etodolac 500 mg Tab) 1 Tablets By Mouth 2 times a day Contact prescribing physician if questions or concerns Unchanged fluconazole (Diflucan 150 mg Tab) 1 Tablets By Mouth Once Low back pain, unspecified Urinary tract infection, site not specified Pain in unspecified knee BMI 34.0-34.9,adult Exogenous obesity Nonsmoker Contact prescribing physician if questions or concerns Unchanged Misc Prescription (disabilty parking placard) 0 As Directed Duration: 5 Years multiple medical problems Contact prescribing physician if questions or concerns Unchanged multivitamin with minerals (Centrum Silver) 1 Tablets By Mouth Every day Contact prescribing physician if questions or concerns Unchanged Non-Formulary Medication (Probiotic) Contact prescribing physician if questions or concerns Unchanged pravastatin (pravastatin 20 mg Tab) See instructions TAKE 1 TABLET BY MOUTH EVERYDAY AT BEDTIME Contact prescribing physician if questions or concerns Unchanged tramadol (traMADOL 50 mg Tab) 1 Tablets By Mouth Every day take as needed Contact prescribing physician if questions or concerns Unchanged ubiquinone (elppa CoQ10 50 mg oral capsule) 1 Capsules By Mouth Every day Contact prescribing physician if questions or concerns Allergies sulfa drugs (Unknown) Problems Ongoing - Any problem that you are currently receiving treatment for. Abdominal aortic atherosclerosis Ambulates with cane Arthritis BMI 34.0-34.9,adult Bulging lumbar disc CKD stage 3a, GFR 45-59 ml/min Frequency of urination Mixed hyperlipidemia Nonsmoker Obesity (BMI 30-39.9) Osteopenia Seasonal allergies CASSIE (stress urinary incontinence, female) Urge incontinence Urgency of urination Weight gain Historical - Any problem that you are no longer receiving treatment for. Elevated cholesterol with elevated triglycerides Patient Survey You may receive a survey via text or e-mail asking about your office visit. Please share your experience with us by completing your survey. We appreciate your feedback and thank you for choosing us for your care. [facility] Medicine Office/Clinic Noteon [id number] Medicine Office/Clinic NoteHaverhill [facility] Office/Clinic Note Chief Complaint Review Lab Work Patient presents with chronic back pain and concern regarding kidney function. HPI Staff Pt presents today to review lab results with Dr Costello. MRI Spine 07/10/24. Ordered by Dr Ramirez. Ortho consult completed 07/19/24. Ortho is recommending pain management. Pt is concerned with lab results, specifically kidney fx. (MRI did show cyst on kidney) History of Present Illness The patient is an 83-year-old female presenting with chronic back pain and renal function concerns.She has a medical history of a bulging lumbar disc, which leads to chronic pain episodes and sciatica, described as radiating to her ankles and compromising her mobility. She is unable to use a cane due to pain and stiffness, and there is evidence of L4-L5 neuroforaminal stenosis, more severe on the right. Concurrently, her chronic kidney disease stage 3a raises concerns regarding the prolonged use of non-steroidal anti-inflammatory medication, which could aggravate her renal function, currently in a critical management state. - Lifestyle modifications for obesity management, including weight monitoring and encouraging physical activity. - Regular monitoring of kidney function through blood work given CKD stage 3a. - Pain management interventions focusing on alternatives to long-term NSAID use to preserve kidney health. Review of Systems PHQ Score Initial Depression Screen Score: 0 SCORE Physical Exam Vitals & Measurements T: 36.7 ???C(Tympanic) HR: 80(Peripheral) RR: 18 BP: 122/80 SpO2: 98% HT: 159 cm HT: 63 in WT: 87.3 kg WT: 192.463 lb BMI: 34.53 General: alert, no acute distress ENMT: oral mucosa moist Cardiovascular: Regular rate and rhythm, normal peripheral perfusion Respiratory: Lungs clear to auscultation, respirations non labored Extremities: no deformity, no trauma, Ambulates with a walker. Neurological: oriented x 4, level of consciousness appropriate for age, CN II- XII intact, motor strength equal & normal bilaterally, speech normal Abdomen: Soft, Non-tender, Non-distended, + Bowel sounds Assessment/Plan 1. BMI 34.0-34.9,adult (Z68.34: Body mass index [BMI] 34.0-34.9, adult) Obesity management with emphasis on diet and exercise to aid weight loss. 2. Obesity (BMI 30-39.9) (E66.9: Obesity, unspecified) Long-term weight management and lifestyle intervention plan discussions. 3. Nonsmoker (Z78.9: Other specified health status) Please continue to not smoke. 4. CKD stage 3a, GFR 45-59 ml/min (N18.31: Chronic kidney disease, stage 3a) Regular kidney function monitoring and adjustment of pain management. 5. Bulging lumbar disc (M51.369: Other intervertebral disc degeneration, lumbar region without mention of lumbar back pain or lower extremity pain) Pain management strategies such as injections at pain management clinic to minimize NSAID use. Continued exploration of non-pharmacological approaches and pain management interventions. 83-year-old female with a history of chronic kidney disease stage 3a presenting with chronic back pain due to a bulging lumbar disc, causing sciatica with significant discomfort and impaired mobility. Management focuses on addressing kidney function impacted by NSAID use and improving pain management to restore patient functionality and quality of life. During the consult, I discussed with the patient the critical need for evaluating her chronic pain due to a bulging lumbar disc and how it relates to her sciatic symptoms. Considering potential side effects on renal functionality from Atotalac, we agreed to pursue alternative pain management strategies, such as pain management clinic evaluations for potential nerve injection therapies. This plan aims to manage her symptoms while minimizing renal risk associated with chronic NSAID use. Additionally, her obesity was addressed with recommended lifestyle changes, emphasizing gradual weight management strategies to alleviate health complications. Monitoring renal function through routine labs was highlighted, and I ensured the patient comprehends the importance of hydration to preserve kidney health. Lastly, we discussed possible concerns regarding seeing Dr. Grimes and reassured her regarding the pain management approach and its essential alignment with her comprehensive care. A follow-up p jerman was agreed upon to revisit her status and adjust interventions as needed, recognizing the dynamic needs associated with her clinical presentation. Follow-up No qualifying data available Problem List/Past Medical History Ongoing Abdominal aortic atherosclerosis Ambulates with cane Arthritis BMI 34.0-34.9,adult Bulging lumbar disc CKD stage 3a, GFR 45-59 ml/min Frequency of urination Mixed hyperlipidemia Nonsmoker Obesity (BMI 30-39.9) Osteopenia Seasonal allergies CASSIE (stress urinary incontinence, female) Urge incontinence Urgency of urination Weight gain Historical Elevated cholestero (more content not included)...[facility] CenterComment on above:Result Comment: Electronically Signed By: Pravin SOLOMON, Luiz [email or web address]\Date and Time Signed: 07/25/24 11:22 EDTNo Panel Informationon [id number] HealthcareType of biopsy: tangential Informed consent: discussed and consent obtained Informed consent comment: The risks and benefits of the biopsy were discussed. Risks include but are not limited to bleeding, infection, scarring, pain, and nerve damage. An opportunity to ask questions prior to the procedure was permitted and all questions were answered. Patient was prepped and draped in usual sterile fashion: area cleansed with alcohol. Anesthesia: the lesion was anesthetized in a standard fashion Anesthetic: 1% lidocaine w/ epinephrine 1-100,000 buffered w/ 8.4% NaHCO3 Instrument used: DermaBlade Hemostasis achieved with: electrodesiccation Outcome: patient tolerated procedure well Outcome comment: The specimen was placed in a prelabeled formalin container to be sent for pathology Post-procedure details: sterile dressing applied and wound care instructions given Post-procedure details comment: Emphasized need to contact clinic for any signs of infection, uncontrollable bleeding, or complications. Dressing type: bandage Additional details: Photo taken Amount of lidocaine used: 0.3 [facility] w/ Auto Diffon [id number]/100 WBC (Bld)1.2 %Normal0.0-2.0[facility] Comment on above:Performed By: #### [id number] #### [facility] [address] [place] [address]Nctgvudnv/Leukocytes Auto (Bld) [Pure # fraction]0.1 E9/LNormal 0.0-0.2FOhioHealth Dublin Methodist HospitalComment on above:Performed By: #### [id number] #### [facility] [address], [place] [address]Limcnsjfmpu (Bld) [#/Vol]0.4 E9/LNormal0.0-0.5FOhioHealth Dublin Methodist HospitalComment on above:Performed By: #### [id number] #### [facility] [address], [place] [address]Ucbmegklago/100 WBC (Bld)3.2 %Normal0.0-8.0[facility] HospitalComment on above:Performed By: #### [id number] #### [facility] [address], [place] [address]Enepapacuoq distribution width (RBC) [Ratio]14.4 %High10.9-14.2 [facility] HospitalComment on above:Performed By: #### [id number] #### [facility] [address], [place] [address]Kqrgxkaiuy (Bld) [Volume fraction]41.2 %Khrcst59.0-46.0[facility] HospitalComment on above:Performed By: #### [id number] #### [facility] [address] [place] [address]Egnaxrzpfn (Bld) [Mass/Vol]13.6 g/fLDnvhrd34.0-16.0[facility] HospitalComment on above:Performed By: #### [id number] #### [facility] [address] [place] [address]Wvuhedixwie (Bld) [#/Vol]3.2 E9/LNormal1.0-4.0[facility] HospitalComment on above:Performed By: #### [id number] #### [facility] Laboratory [address] [place] [address] 77124Bzgdjcnyjvn/100 WBC (Bld)29.2 %Zwjcee84.0-50.0[facility] HospitalComment on above:Performed By: #### [id number] #### [facility] [address] [place] [address] 54836LLP (RBC) [Entitic mass]28.1 eeZyypvy95.0-34.0[facility] HospitalComment on above:Performed By: #### [id number] #### [facility] [address] [place] [address] 81026ZFCU (RBC) [Mass/Vol]32.9 g/tAWjmwjr80.4-36.0[facility] HospitalComment on above:Performed By: #### [id number] #### [facility] [address] [place] [address] 07397JIO (RBC) [Entitic vol]85.4 xQMxalkh91.0-100.0[facility] HospitalComment on above:Performed By: #### [id number] #### [facility] [address] [place] [address] 81463Ycdhgickg (Bld) [#/Vol]0.7 E9/LNormal0.2-1.0[facility] HospitalComment on above:Performed By: #### [id number] #### [facility] [address] [place] [address] 49162Wyuajmwdynp (Bld) [#/Vol]6.7 E9/LNormal2.0-7.5FOhioHealth Dublin Methodist HospitalComment on above:Performed By: #### [id number] #### [facility] [address] [place] [address] 58453Jpqdogdevxu/100 WBC (Bld)60.1 %Oiaeqi84.0-75.0[facility] HospitalComment on above:Performed By: #### [id number] #### [facility] [address] [place] [address] 00193Ovnrawqv636.0 E9/JSadrzb373.0-500.0[facility] Comment on above:Performed By: #### [id number] #### [facility] [address] [place] [address] 70275Hghigotd mean volume (Bld) [Entitic vol]7.0 fLNormal6.4-10.8 [facility] HospitalComment on above:Performed By: #### [id number] #### [facility] [address] [place] [address] 29491VUP (Bld) [#/Vol]4.8 E12/LNormal4.3-5.9[facility] HospitalComment on above:Performed By: #### [id number] #### [facility] [address] [place] [address] 10452KUK corrected for nucl RBC Auto (Bld) [#/Vol]11.1 E9/LHigh 4.0-11.0[facility] HospitalComment on above:Performed By: #### [id number] #### [facility] [address] [place] [address] 27823OZSlf 03-06-2587Wqpknnz [Mass/Vol]4.4 g/dLNormal3.3-5.0[facility] HospitalComment on above:Performed By: #### [id number] #### [facility] Laboratory [address], [place] [address]Stgwzfq/Globulin (S) [Mass conc ratio]1.7Iktxqq1.1-2.2FOhioHealth Dublin Methodist HospitalComment on above:Performed By: #### [id number] #### [facility] Laboratory [address], [place] [address]DMH [Catalytic activity/Vol]83 Int._Unit/HZisxta06-34FgafogWooster Community HospitalComment on above:Performed By: #### [id number] #### [facility] [address], [place] [address]XXZ No additional P-5'-P [Catalytic activity/Vol]11 Int._Unit/L Normal6-46[facility] HospitalComment on above:Performed By: #### [id number] #### [facility] [address], [place] [address]Vgrmq gap [Moles/Vol]12 mmol/LNormal6-16[facility] HospitalComment on above:Performed By: #### [id number] #### [facility] [address], [place] [address]XLN [Catalytic activity/Vol]17 Int._Unit/LNormal5-43[facility] HospitalComment on above:Performed By: #### [id number] #### [facility] [address], [place] [address]Eyzteoawh [Mass/Vol]0.7 mg/dLNormal0.0-1.1FOhioHealth Dublin Methodist HospitalComment on above:Performed By: #### [id number] #### [facility] [address], [place] [address]Waletmw [Mass/Vol]10.0 mg/dLNormal8.9-11.1FOhioHealth Dublin Methodist HospitalComment on above:Performed By: #### [id number] #### [facility] [address], [place] [address]Btvwevtg [Moles/Vol]103 mmol/MFdejnv111-982BcklpnWooster Community HospitalComment on above:Performed By: #### [id number] #### [facility] [address], [place] [address]KX6 [Moles/Vol]29 mmol/DTkxppb24-96MexxurWooster Community Hospital Comment on above:Performed By: #### [id number] #### [facility] [address], [place] [address]Mjgsijjsvs [Mass/Vol]1.2 mg/dLNormal0.5-1.3FOhioHealth Dublin Methodist HospitalComment on above:Performed By: #### [id number] #### [facility] [address], [place] [address]Tlikjjof (S) [Mass/Vol]3.1 g/dLNormal1.4-4.0[facility] HospitalComment on above:Performed By: #### [id number] #### [facility] [address], [place] [address]Uzacvyx [Mass/Vol]98 mg/wJNwwjqt04-176KjfdyqWooster Community HospitalComment on above:Performed By: #### [id number] #### [facility] [address], [place] [address]Enzczeesm [Moles/Vol]4.0 mmol/LNormal3.5-5.3FOhioHealth Dublin Methodist HospitalComment on above:Performed By: #### [id number] #### [facility] [address], [place] [address]Kleudmn [Mass/Vol]7.5 g/dLNormal6.0-7.8[facility] HospitalComment on above:Performed By: #### [id number] #### [facility] [address], [place] [address]Fbbwhx [Moles/Vol]140 mmol/TRmfyhp281-710CgpzhmWooster Community HospitalComment on above:Performed By: #### [id number] #### [facility] [address], [place] [address]Zhpn nitrogen [Mass/Vol]32 mg/dLHigh5-21[facility] HospitalComment on above:Performed By: #### [id number] #### [facility] [address], [place] [address]Qszz nitrogen/Creatinine [Mass ratio]27 No EfxkaBtge62-54DumlqiWooster Community HospitalComment on above:Performed By: #### [id number] #### [facility] Laboratory [address], [place] [address]aGGOaz 65-51-3791hVIF94 mL/min/1.73 m2Low>=59W[facility] Community HospitalComment on above:Performed By: #### [id number] ####[facility] [address] [place], [place] [address]REI Spine Lumbar w/o Contraston [id number] Spine Lumbar w/o ContrastExam Date/Time: 07/10/2024 19:13 EDT Reason for Exam: M47.27 Report IMPRESSION: DEGENERATIVE CHANGES OF THE LUMBAR SPINE DETAILED. EXAM: MRI of the lumbar spine without contrast History: Low back pain. Right hip pain. Difficulty walking. Technique: Multiplanar multisequence MRI of the lumbar spine was obtained without intravenous contrast. Comparison: CT abdomen pelvis 06/07/2019 Findings: The conus medullaris ends normally. The alignment of the lumbar spine is anatomic. The vertebral body heights are well maintained. There is no aggressive bone marrow signal abnormality. Intraosseous hemangiomas noted within the vertebral body of T12. Disc desiccation throughout the lumbar spine. Intervertebral disc heights are maintained. L1-L2: Small disc bulge. Mild facet arthropathy. Moderate bilateral neuroforaminal stenosis. No spinal canal stenosis. L2-L3: Small disc bulge. Moderate facet arthropathy. Moderate bilateral neuroforaminal stenosis. No spinal canal stenosis. L3-L4: Small disc bulge. Mild facet arthropathy. Moderate bilateral neuroforaminal stenosis. No spinal canal stenosis. L4-L5: Small disc bulge. Moderate to advanced facet arthropathy. Ligamentum flavum thickening. Moderate left and severe right neuroforaminal stenosis. No spinal canal stenosis. L5-S1: Small disc bulge. Advanced facet arthropathy. Moderate bilateral neuroforaminal stenosis. No spinal canal stenosis. Visualized paravertebral soft tissues appear within normal limits as visualized. A 1.2 cm hyperintense T2 structure of left kidney is most likely a cyst. Technical Comments: Contrast: None Report Ordering Provider: Brandon Gordon FINAL REPORT Dictated: 07/11/2024 2:07 pm Deepak Canales DO Signed (Electronic Signature): 07/11/2024 2:07 pm Signed by: Deepak Canales DO Transcribed by: CHRIS Technologist: MAYCOLWhite HospitalCoding Queryon [id number] QueryCoding Query From: Emma Chau To: Pavel Savage DO, Cheryl L; Sent: 05/29/2024 15:45:04 EST Subject: Coding Query Dr. Savage, Documentation is still conflicting with the x-ray. Documentation states the FX of the third metatarsal of RIGHT foot. X-ray shows the fx is of the LEFT third metatarsal. Please clarify which is correct. Thank you, Emma/Brendan From: Lui Savage DO To: Emma Chau; Sent: 05/29/2024 18:34:13 EST Subject: RE: Coding Query Caller Name: ASHRAFNACHOCLAY Fox; Caller Number: H Correct, and I did an addendum to explain that.[facility] Coding Queryon [id number] QueryCoding Query From: Emma Chau To: Pavel Savage DO, Cheryl L; Sent: 05/25/2024 07:42:59 EST ! Subject: Coding Query Dr Savage, Please verify your diagnosis site. You documented right foot and x-ray documented left foot. Thank you, Emma/Coding From: Lui Savage DO To: Emma Chau; Sent: 05/26/2024 09:27:09 EST Subject: RE: Coding Query Caller Name: ARLEY ASHRAF Caller Number: [facility] CenterED Note-Physicianon [id number] Note-PhysicianED Note-Physician Basic Information Time Seen: Migue PARISI, Barry Lindsey 05/21/2024 10:37 Chief Complaint pt c/o bilateral foot pain/swelling for 4 days. pt states recently treated for arthritis of the knees with prednisone. 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 History of Present Illness Patient is a 83 year old female who presents to the ED today with complaints of new onset bilateralfoot pain over the past 3-4 days. 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 She states that she stubbed her right toe a couple days ago and has since she had foot pain on both sides. She denies nay radiation of her pain up into her ankle or leg. She states that it is hard to bear weight and she can hardly walk. She denies any other injury to the area, falling, or numbness/tingling to the area. She states that the prednisone was unsuccessful in treating her symptoms. No other alleviating factors are identified. Patient states her pain is a 9/10 at time of triage. Review of Systems No other aggravating or relieving factors no other associated symptoms no other prior treatments orcomplaints. Family: Reviewed and noncontributory Social: lives at home Review of systems negative unless otherwise specified in the HPI. Physical Exam Vitals & Measurements T: 36.9 ???C(Oral) HR: 89(Peripheral) RR: 18 BP: 146/67 SpO2: 97% HT: 159 cm WT: 84.5 kg BMI: 33.42 General: alert, no acute distress Skin: warm, dry Head: no trauma, normocephalic Neck: Trachea midline, Eye: normal conjunctiva, sclera clear ENMT: oral mucosa moist, yes Cardiovascular: regular rate and rhythm, normal . Pedal pulses +2 bilaterally. Cap refills brisk. Respiratory: respirations non labored Chest wall: no deformity. Gastrointestinal: non distended Back: No tenderness Extremities: Very mild erythema to bilateral feet. No warmth on palpation. Mild tenderness generalized on the volar aspect of bilateral feet.. Contusion is appreciated on the right 3rd digit. Neurological: awake, alert, oriented, speech normal Psychiatric: cooperative, affect appropriate for age Medical Decision Making MEDICAL DECISION MAKING Number and Complexity of Problems Differential Diagnosis: [] [facility] Data External documents reviewed: [] My EKG interpretation: [] My CT interpretation: [] My X-ray interpretation: reviewed My Ultrasound interpretation: [] Decision rules/scores evaluated: [] Discussed with: [] Treatment and Disposition ED Course: 83-year-old female reports emergency department with complaints of bilateral foot pain. Reports been going on for last 4 days. Reports that does have arthritis. Reports was treated with prednisone was not helping. Exam the patient here is rather benign. There is mild erythema only when her feet and down. She has got great pulses distally of bilateral lower feet. No warmth on palpation.No signs of infection. Due to her concerns, we did do x-rays. X-rays Negative. I discussed with thepatient, I am not seeing any red flag symptoms at this time. Discussed sounds more like neuropathy,but she wanted to be further evaluated. Discussed likely will have follow-up with podiatry. Once again has a good vasculature distally. No signs of infection. She is understanding. Given Percocet forbreakthrough pain. Discussed return precautions. Follow-up with your primary care provider in 3 to 5 days. If symptoms worsen, do not improve, or new symptoms arise please report back to emergency department for further evaluation. The patient was understanding and agreeable to plan moving forward. IBarry PA-C had a vnyw-so-jifo interaction with the patient. I personally performed a physical exam and medical decision making. I have verified the documentation by the student as accurately representing the information obtained. Shared decision making: [] Code status: [] Assessment/Plan Bilateral foot pain (M79.671: Pain in right foot) Pain in left foot (M79.672: Pain in left foot) Orders: acetaminophen-oxycodone, 1 tab(s), Oral, q6hr for pain for 3 day(s), 12 tab(s), Refill(s) 0, [id number], 159, cm, 05/21/24 10:41:00 EST, Height/Length Dosing, 84.5, kg, 05/21/24 10:41:00 EST,Weight Dosing acetaminophen-oxycodone, 1 tab(s), Tab, Oral, Once, Stop date 05/21/24 12:24:00 EST, STAT, Start date 05/21/24 12:24:00 EST XR Foot 3+ Views Left XR Foot 3+ Views Right Medications Administered Given acetaminophen-oxycodone 325 mg-5 mg Tab, 1 tab(s), Oral Disposition Plan Patient Discharge Condition stable Discharge Disposition to home Discharge Prescription List Prescriptions acetaminophen-oxycodone 325 mg-5 mg Tab, 1 tab(s), Oral, q6hr, PRN Follow-up With When Contact Information Erik Diya In 3 days 05/24/2024 EST [facility] [address] [place], [place] [address] (more content not included)...[facility] CenterComment on above:Result Comment: Electronically Signed By: Lui Savage DO\.br\Date and Time Signed: 05/22/24 08:42EST\.br\Electronically Co-Signed By: Barry Camarena PA-C\.br\Date and Time Co-Signed: 05/21/24 14:07 EST\.br\Electronically Co- Signed By: Tank Kasper DO\.br\Date and Time Co-Signed: 05/21/24 15:25 ESTXR Foot - right 3 Viewson [id number] Result: Notable degenerative changes to the midfoot right with associated osteoporotic changes and osteopenia to the foot and ankle and lateral right 5th metatarsal as suspected possible small avulsion type fracture with minimal displacement and accessory cuboid bone noted. No gross fractures visualized on plain filmsNOI-70 [facility] HealthcareRadiology Study observation (narrative)[facility]OM[facility] HealthcareED Clinical Summaryon [id number] Clinical SummaryED Clinical Summary [address] [address] ED Clinical Summary Person Information Name: ARLEY ASHRAF [place] Age: 83 Years : 1940 Sex: Female Language: French PCP: Luiz Costello MD Marital Status: Visit Id: Visit Reason: Foot pain-swelling; FEET/LEG PAIN Speciality: Acuity: 4 Enc Type: Emergency Med Service: Emergency Arrival: 05/21/2024 10:26:54 Discharge: 05/21/2024 13:09:46 LOS: 000 02:43 Checkin: 05/21/2024 10:26:54 Checkout: 05/21/2024 13:09:46 Dispo Type: Home (Routine DC) EVENTS: Event Name Event Status Request Date/Time Start Date/Time Complete Date/Time Arrive Complete 05/21/2024 10:26:54 05/21/2024 10:26:54 05/21/2024 10:26:54 Document Home Meds Request 05/21/2024 10:26:54 Triage Complete 05/21/2024 10:26:54 05/21/2024 10:41:39 05/21/2024 10:41:39 Registration Complete 05/21/2024 10:30:52 05/21/2024 10:30:52 05/21/2024 10:30:52 Reg Complete Request 05/21/2024 10:30:52 Reg Bed Request Complete 05/21/2024 10:30:52 05/21/2024 10:30:52 05/21/2024 10:30:52 Bed Assign Complete 05/21/2024 10:32:54 05/21/2024 10:32:54 05/21/2024 10:32:54 Dr Exam Complete 05/21/2024 10:32:54 05/21/2024 10:36:37 05/21/2024 10:36:37 RN Exam Complete 05/21/2024 10:32:54 05/21/2024 10:43:11 05/21/2024 10:43:11 Registration Request 05/21/2024 10:36:37 Dr Exam Complete 05/21/2024 10:37:14 05/21/2024 10:37:14 05/21/2024 10:37:14 Dr Exam Complete 05/21/2024 10:38:54 05/21/2024 10:38:54 05/21/2024 10:38:54 X-Ray Complete 05/21/2024 10:57:31 05/21/2024 10:58:52 05/21/2024 11:31:12 Wet Read Request 05/21/2024 11:31:12 Meds Admin Complete 05/21/2024 12:24:26 05/21/2024 12:50:58 Discharge Complete 05/21/2024 12:56:54 05/21/2024 13:10:39 05/21/2024 13:10:39 Transfer Complete 05/21/2024 13:10:39 05/21/2024 13:10:39 05/21/2024 13:10:39 ADDRESS: [address] [place] [id number] PHYS DOC NOTES: MEDICAL INFORMATION: Prescriptions Given: New Medications [id number], [address], [place] [id number], [phone] acetaminophen-oxycodone (acetaminophen-oxycodone 325 mg-5 mg Tab) 1 Tablets By Mouth every 6 hours as needed for pain for 3 Days. Refills: 0. Medications to Continue with No Changes Other Medications aspirin (Aspirin 81 mg Tab-EC) 1 Tablets By Mouth every day. calcium-vitamin D (Calcium 600+D) Take one orally twice a day. doxycycline (doxycycline hyclate 100 mg Cap) 1 Capsules By Mouth 2 times a day. Refills: 0. etodolac (etodolac 500 mg Tab) 1 Tablets By Mouth 2 times a day. fluconazole (Diflucan 150 mg Tab) 1 Tablets By Mouth Once. Refills: 0. Misc Prescription (disabilty parking placard) 0 As Directed for 5 Years. multiple medical problems.Refills: 0. multivitamin with minerals (Centrum Silver) 1 Tablets By Mouth every day. Non-Formulary Medication (Probiotic) pravastatin (pravastatin 20 mg Tab) TAKE 1 TABLET BY MOUTH EVERYDAY AT BEDTIME. Refills: 1. tramadol (traMADOL 50 mg Tab) 1 Tablets By Mouth every day. take as needed. ubiquinone (elppa CoQ10 50 mg oral capsule) 1 Capsules By Mouth every day. PATIENT EDUCATION INFORMATION: Instructions: Foot Pain Follow up: With: Address: When: Erik Keane [facility], [facility], [address], [place] [address] [facility]: [place]o [facility] [place], [address] [place] [address], [place] [address] In 3days 05/24/2024 Comments: Call for diagnosis based follow up With: Address: When: Luiz Costello In 3 days DIAGNOSIS: Bilateral foot pain; Pain in [facility] footOhio [facility] Patient Summaryon [id number] Patient SummaryED Patient Summary [address] [address] Patient Discharge Instructions Person Information Name: ARLEY ASHRAF Age: 83 Years Arrival Date: 05/21/2024 10:26:54 Discharge Diagnosis: Bilateral foot pain; Pain in left foot Primary Care Physician: Luiz Costello MD Provider Information Primary Provider: Tank Kasper DO Advanced Regional Property Manager:Barry Camarena PA-C The exam and treatment you received in the Emergency Department were for an urgent problem and are not intended as complete care. It is important that you follow up with a doctor, nurse practitioner,or physician???s assistant director of residence life for ongoing care. If your symptoms become worse or you do not improve asexpected and you are unable to reach your usual health care provider, you should return to the Emergency Department. We are available 24 hours a day. ARLEY ASHRAF has been given the following list of patient education materials, prescriptions and follow-up instructions: Follow-up Instructions: With: Address: When: Erik Keane [facility], [facility], [address], [place] [address] [facility]: c/o [facility] [place], [address] [place] [address], [place] [address] In 3days 05/24/2024 Comments: Call for diagnosis based follow up With: Address: When: Luiz Costello In 3 days In the event that this physician does not participate in your insurance network, please consult with your insurance company to find a nearby participating provider. Patient Education Materials: Foot Pain A MESSAGE TO ALL PATIENTS REGARDING OPIOIDS PRESCRIPTION OPIOIDS: WHAT YOU NEED TO KNOW Prescription opioids can be used to help relieve vflitlst-bu-hbdcyr pain and are often prescribed following a surgery or injury, or for certain health conditions. These medications can be an important part of the treatment but also come with serious risks. It is important to work with your healthcare provider to make sure you are getting the safest, most effective care. WHAT ARE THE RISKS AND SIDE EFFECTS OF OPIOID USE? Prescription opioids carry serious risks of addiction and overdose, especially with prolonged use. An opioid overdose, often marked by slowed breathing, can cause sudden . The use of prescription opioids can have a number of side effects as well, even when taken as directed: ??? Tolerance???meaning you might need to take more of the medication for the same pain relief ??? Physical dependence???meaning you have symptoms of withdrawal when a medication is stopped ??? Increased sensitivity to pain ??? Constipation ??? Nausea, vomiting, and dry mouth ??? Sleepiness and dizziness ??? Confusion ??? Depression ??? Low levels of testosterone that can result in lower sex drive, energy, and strength ??? Itching and sweating RISKS ARE GREATER WITH: ??? History of drug misuse, substance use disorder, or overdose ??? Mental health conditions (such as depression or anxiety) ??? Sleep apnea ??? Older age (65 years and older) ??? Avoid alcohol while taking prescription opioids. Also, unless specifically advised by your health care provider, medications to avoid include: ??? Benzodiazepines (such as Xanax or Valium) ??? Muscle relaxants (such as Soma or Flexeril) ??? Hypnotics (such as Ambien or Lunesta) ??? Other prescription opioids KNOW YOUR OPTIONS Talk to your health care provider about ways to manage your pain that don???t involve prescription opioids. Some of these options may actually work better and have fewer risks and side effects. Options may include: ??? Pain relievers such as acetaminophen, ibuprofen, and naproxen ??? Some medication that are also used for depression or seizures ??? Physical therapy and exercise ??? Cognitive behavioral therapy, a psychological, goal-directed approach, in which patients learn how to modify physical, behavioral, and emotional triggers of pain and stress. IF YOU ARE PRESCRIBED OPIOIDS FOR PAIN: ??? Never take opioids in greater amounts or more often than prescribed. ??? Follow up with your primary health care provider. o Work together to create a plan on how to manage your pain. o Talk about ways to help manage your pain that don???t involve prescription opioids. o Talk about any and all concerns and side effects. ??? Help prevent misuse and abuse o Never sell or share prescription opioids. o Never use another person???s prescription opioids. ??? Store prescription opioids in a secure place and out of reach of others (this may include visitors, children, friends, and family). ??? Safely dispose of unused prescription opioids: Find your community drug take-back program or your pharmacy mail-back program, or flush them down the toilet, following guidance from (more content not included)...[facility] CenterXR Foot 3+ Views Lefton [id number] Foot 3+ Views LeftExam Date/Time: 05/21/2024 11:30 EST Reason for Exam: Pain, Non Traumatic Report IMPRESSION: ACUTE TO SUBACUTE APPEARING MILDLY DISPLACED OBLIQUELY ORIENTED FRACTURE OF THE THIRD METATARSAL. EXAM: XR Foot 3+ Views Left COMPARISON: None available HISTORY: Foot pain TECHNIQUE: AP, lateral and oblique views of the foot obtained. FINDINGS: Decreased bone mineralization. Acute to subacute appearing mildly displaced obliquely oriented fracture of the third metatarsal. The remaining visualized bones appear intact. No dislocation. Soft tissues are within normal limits. Ordering Provider: Barry Camarena FINAL REPORT Dictated: 05/21/2024 3:04 pm Deepak Canales DO Signed (Electronic Signature): 05/21/2024 3:04 pm Signed by: Deepak Canales DO Transcribed by: CHRIS Technologist: VALENTÍN Technical Comments Radiation Dose: geetha Vasquez in mGy = . DAP = . Wet Read 05/21/2024 03:04 pm EST, Deepak Canales DO, DISAGREE Acute to subacute appearing mildly displaced obliquely oriented fracture of the third metatarsal.[facility] CenterXR Foot 3+ Views Righton 05-21-2024 XR Foot 3+ Views RightExam Date/Time: 05/21/2024 11:31 EST Reason for Exam: Pain, Non Traumatic Report IMPRESSION: NO ACUTE OSSEOUS ABNORMALITY. EXAM: XR Foot 3+ Views Right COMPARISON: None available HISTORY: Foot pain TECHNIQUE: AP, lateral and oblique views of the foot obtained. FINDINGS: No acute fracture or dislocation. Degenerative changes of the midfoot. Chronic deformity of the head and neck of the first metatarsal. Small plantar calcaneal enthesophyte. Soft tissues are within normal limits. Ordering Provider: Barry Camarena FINAL REPORT Dictated: 05/21/2024 3:08 pm Deepak Canales DO Signed (Electronic Signature): 05/21/2024 3:08 pm Signed by: Deepak Canales DO Transcribed by: CHRIS Technologist: VALENTÍN Technical Comments Radiation Dose: Ka,r in mGy = . DAP = .[facility] CenterNo Panel Informationon 05-10-2024 Radiology Study observation (narrative)[facility] Institute[facility] (narrative)[facility] Hip - right 3 Viewson [id number] Result: AP pelvis and frog view of the right hip taken in the office today demonstrating severe nhry-bb-vusg osteoarthritis of the hip joint. No evidence of acute fracture seen. 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 Patient has mostly valgus deformity of the right knee associated with tricompartmental zgqu-eb-svww osteoarthritis. Left knee is more varus with tricompartmental osteoarthritis and bilateral distal femur hardware from ORIF of supracondylar fracture done years ago. 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 Patient's bone appears osteoporotic with relatively thin cortex. No acute fracture bony tumor seen. She does have tibial reaction to the proximal 3rd which may be evidence of stress response but appears well-healed.[facility] K[facility] - right 3 Viewson [id number] HealthcareImaging Result: Bilateral standing PA, bilateral sunrise, and lateral of the affected knee were imaged today in the office. Patient has mostly valgus deformity of the right knee associated with tricompartmental ikgp-kv-knwl osteoarthritis. Left knee is more varus with tricompartmental osteoarthritis and bilateral distal femur hardware from ORIF of supracondylar fracture done years ago. 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 Patient's bone appears osteoporotic with relatively thin cortex. No acute fracture bony tumor seen. She does have tibial reaction to the proximal 3rd which may be evidence of stress response but appears well-healed.[facility] Lumbar spine 2 or 3 Viewson [id number] Result: AP and lateral of the lumbar spine demonstrates mostly facet hypertrophy and moderate degenerative disc disease at multiple levels with no evidence of spondylolisthesis or acute fracture no evidence of bony tumor seen.[facility] Urineon [id number] identified Cx Nom (U) Microbiology PROCEDURE: Urine Culture [R1] SOURCE: U Random BODY SITE: COLLECTED DATE/TIME: 03/27/2024 15:52 EST RECEIVED DATE/TIME: 03/28/2024 18:55 EST START DATE/TIME: 03/28/2024 18:55 EST FREE TEXT SOURCE: Pravin SOLOMON, Luiz Pedersen MD FINAL REPORTS Final Report [] Verified Date/Time: 03/30/2024 08:58 EST 2,000 cfu/ml Mixed skin contaminants Performing Locations R1: This test was performed at: [facility], [address] [place] [address], [id number] , , KttcyzQavyqmUniversity Hospitals Conneaut Medical CenterComment on above:Performed By: #### [id number] #### [facility] [address] [place] [address] [id number] Visit Summaryon [id number] Visit Summary Ambulatory Visit Summary ARLEY ASHRAF :1940 Visit Date:03/27/2024 Ambulatory Visit Instructions Your Diagnosis BMI 34.0-34.9,adult Exogenous obesity Nonsmoker Your Care Team Attending Physician - Luiz Costello MD Primary Care Physician - Luiz Costello MD This Is Your Medications List Misc Prescription (disabilty parking placard) Non-Formulary Medication (Probiotic) aspirin (Aspirin 81 mg Tab-EC) calcium-vitamin D (Calcium 600+D) etodolac (etodolac 500 mg Tab) multivitamin with minerals (Centrum Silver) pravastatin (pravastatin 20 mg Tab) tramadol (traMADOL 50 mg Tab) ubiquinone (elppa CoQ10 50 mg oral capsule) Procedures Performed Cystoscopy (06/08/2019), Surgery (07/30/1992), Appendectomy, Appendectomy, Cancer of tip of nose, Cataract, Colonoscopy, Hip replacement. Discharge Vitals Temperature (Oral) 36.3 ???C Heart Rate (Peripheral) 86 Respiratory Rate 16 Blood Pressure 144/84 Height 159 cm Height 63 in Weight 88.0 kg Weight 194.007 lb BMI 34.81 What to do next Scheduled Follow-Up Appointments Wednesday 10:00 AM EDT With: Pravin SOLOMON, Luiz Wiley Where: [address] [address] 2024 2:30 PM EDT With: Where: [address] [address]- Medications What How Much When Instructions Unchanged aspirin (Aspirin 81 mg Tab-EC) 1 Tablets By Mouth Every day Unchanged calcium-vitamin D (Calcium 600+D) See instructions Take one orally twice a day Unchanged etodolac (etodolac 500 mg Tab) 1 Tablets By Mouth 2 times a day Unchanged [facility] Prescription (disabilty parking placard) 0 As Directed Duration: 5 Years multiple medical problems Unchanged multivitamin with minerals (Centrum Silver) 1 Tablets By Mouth Every day Unchanged Non-Formulary Medication (Probiotic) Unchanged pravastatin (pravastatin 20 mg Tab) 1 Tablets By Mouth Once a day (at bedtime) Unchanged tramadol (traMADOL 50 mg Tab) 1 Tablets By Mouth Every day take as needed Unchanged ubiquinone (elppa CoQ10 50 mg oral capsule) 1 Capsules By Mouth Every day Allergies sulfa drugs (Unknown) Problems Ongoing - Any problem that you are currently receiving treatment for. Abdominal aortic atherosclerosis Ambulates with cane Arthritis Frequency of urination Mixed hyperlipidemia Osteopenia Seasonal allergies CASSIE (stress urinary incontinence, female) Urge incontinence Urgency of urination Weight gain Historical - Any problem that you are no longer receiving treatment for. Elevated cholesterol with elevated triglycerides Patient Survey You may receive a survey via text or e-mail asking about your office visit. Please share your experience with us by completing your survey. We appreciate your feedback and thank you for choosing us for your care. [facility] Medicine Office/Clinic Noteon [id number] Medicine Office/Clinic NoteHaverhill [facility] Office/Clinic Note Chief Complaint The patient presents with chronic back pain and recurrent urinary tract irritation. HPI Staff Arley is an 83 year old female presenting for acute visit Acute: ongoing urinary urgency and flank pain Unable to give us a urine sample went right before she came to the office Dysuria: Onset: comes and goes for about a month Symptoms: urgency and flank pain OTC used: Last UTI: 03/17? dropped of u/a and culture came back negative Hx of kidney stones: none UA in office documented in chart History of Present Illness The patient is an 83-year-old female presenting with chronic back pain and urinary tract irritation. The back pain is described as persistent and worsens with certain positions or prolonged sitting. The patient reports a history of knee problems contributing to altered gait, which may exacerbate the back pain. The irritation in the urinary tract has been recurrent over the years, with no distinctbacterial infection identified in past evaluations. 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 The patient also reports a long-standing history of arthritis and is currently a candidate for knee replacement surgery, which she has deferred. Her BMI places her in the category of Class I obesity, for which she is attempting weight reduction by dietary modifications. Dietary habits include two meals per day with limited caloric intake. The patient has a history of frequent urinary infections without classic symptoms and a fluid intake of 32-48 ounces daily. She is attempting to lose weight to alleviate joint pain but notes weight gain since the last visit. Review of Systems PHQ Score Initial Depression Screen Score: 1 SCORE Physical Exam Vitals & Measurements T: 36.3 ???C(Oral) HR: 86(Peripheral) RR: 16 BP: 144/84 SpO2: 97% HT: 63 in HT: 159 cm WT: 88.0 kg WT: 194.007 lb BMI: 34.81 General: alert, no acute distress ENMT: oral mucosa moist Cardiovascular: Regular rate and rhythm, normal peripheral perfusion Respiratory: Lungs clear to auscultation, respirations non labored Extremities: no deformity, no trauma Neurological: oriented x 4, level of consciousness appropriate for age, CN II- XII intact, motor strength equal & normal bilaterally, speech normal Abdomen: Soft, Non-tender, Non-distended, + Bowel sounds Assessment/Plan 1. Low back pain, unspecified (M54.50) Suspected musculoskeletal pain addressed through analgesics as needed, including the use of tramadol where appropriate, along with recommendations for gentle stretching and physical therapy. Concerned that the patient does not want to take the medication. Try to figure out if the pain was bad enough that she will take the medication or just annoying. Encouraged the patient to take her medication and call us if it does not improve. Ordered: doxycycline, 100 mg = 1 cap(s), Oral, BID, # 20 cap(s), Refills(s) 0, Pharmacy: [facility]/pharmacy #[id number], cm, 03/27/24 13:39:00 EST, Height/Length Dosing, 88, kg, 03/27/24 13:39:00 EST, Weight Dosing fluconazole, 150 mg = 1 tab(s), Oral, Once, # 1 tab(s), Refills(s) 0, Pharmacy: [facility]/pharmacy #[id number], cm, 03/27/24 13:39:00 EST, Height/Length Dosing, 88, kg, 03/27/24 13:39:00 EST, Weight Dosing Urine Culture Urnls Dip Stick Auto w/o Microscopy POC 16885 2. Urinary tract infection, site not specified (N39.0) Advised on adequate hydration and reviewed hygiene practices; prescribed antifungal medication as aprecautionary measure. UA was obtained after the visit and showed small leuks. Will treat with Diflucan and with antibiotics. Ordered: doxycycline, 100 mg = 1 cap(s), Oral, BID, # 20 cap(s), Refills(s) 0, Pharmacy: [facility]/pharmacy #[id number], cm, 03/27/24 13:39:00 EST, Height/Length Dosing, 88, kg, 03/27/24 13:39:00 EST, Weight Dosing fluconazole, 150 mg = 1 tab(s), Oral, Once, # 1 tab(s), Refills(s) 0, [id number], cm, 03/27/24 13:39:00 EST, Height/Length Dosing, 88, kg, 03/27/24 13:39:00 EST, Weight Dosing Urine Culture Urnls Dip Stick Auto w/o Microscopy POC 03206 3. Pain in unspecified knee (M25.569) Discussed the potential benefits of knee replacement surgery to improve mobility and quality of life, especially considering patient's longevity expectations. Ordered: doxycycline, 100 mg = 1 cap(s), Oral, BID, # 20 cap(s), Refills(s) 0, Pharmacy: [facility]/pharmacy #[id number], cm, 03/27/24 13:39:00 EST, Height/Length Dosing, 88, kg, 03/27/24 13:39:00 EST, Weight Dosing fluconazole, 150 mg = 1 tab(s), Oral, Once, # 1 tab(s), Refills(s) 0, [id number], cm, 03/27/24 13:39:00 EST, Height/Length Dosing, 88, kg, 03/27/24 13:39:00 EST, Weight Dosing 4. BMI 34.0-34.9,adult (Z68.34: Body mass index [BMI] 34.0-34.9, adult) Managed through dietary counseling; advised eating three meals per day with balanced nutrients to sustain energy and improve weight loss efficacy. Ordered: (more content not included)...[facility] CenterComment on above:Result Comment: Electronically Signed By: Pravin SOLOMON, Luiz Escobedo.br\Date and Time Signed: 03/27/24 16:13 ESTC Urineon [id number] identified Cx Nom (U)Microbiology PROCEDURE: Urine Culture [R1] SOURCE: U CleanCatch BODY SITE: COLLECTED DATE/TIME: 03/17/2024 12:29 EST RECEIVED DATE/TIME: 03/17/2024 17:19 EST START DATE/TIME: 03/17/2024 17:19 EST FREE TEXT SOURCE: Pravin SOLOMON, Luiz Costello MD, Luiz Wiley FINAL REPORTS Final Report [] Verified Date/Time: 03/19/2024 07:23 EST 5,000 cfu/ml Mixed skin contaminants Performing Locations R1: This test was performed at: [facility], [address] [place] [address], [address] , [place], EipqsmEzygwhSelect Medical Specialty Hospital - TrumbullComment on above:Performed By: #### [id number] #### [facility] [address] [place] [address]Irfbqx Medicine Office/Clinic Noteon [id number] Medicine Office/Clinic NoteFafederal medical center, [place] Medicine Office/Clinic Note Chief Complaint The patient presents for routine follow-up without specific complaints. [facility] Staff Arley is an 83 year old female [facility] was having didthe freestyle for a week and sugars were fine, Flu sot done 02/02 at [facility] questions/concerns: Dr Zhou put her on etodolac 500 bid and it's working great for her pain History of Present Illness The patient is an 83-year-old female presenting for a routine follow-up. She reports feeling generally well with no significant complaints. The patient denies experiencing dizziness or presyncopal episodes, and states that her blood glucose levels, although not regularly monitored, were within normal limits when previously tested. She maintains that she is able to perform her usual household activities without undue fatigue, although her sleep patterns vary. Her past medical history is significant for obesity, and she denies smoking. The patient describes sporadic late bedtimes but denies persistent fatigue, attributing tiredness to varying sleep schedules. She notes having arthritis but does not describe any specific limitations or discomfort related to this. Review of Systems PHQ Score Initial Depression Screen Score: 0 SCORE Physical Exam Vitals & Measurements T: 36.3 ?C(Temporal Artery) HR: 66(Peripheral) RR: 16 BP: 126/74 SpO2: 98% HT: 63 in HT: 159 cm WT: 86.9 kg WT: 191.18 lb BMI: 34.37 General: alert, no acute distress ENMT: oral mucosa moist Cardiovascular: Regular rate and rhythm, normal peripheral perfusion Respiratory: Lungs clear to auscultation, respirations non labored Extremities: no deformity, no trauma Neurological: oriented x 4, level of consciousness appropriate for age, CN II- XII intact, motor strength equal & normal bilaterally, speech normal Abdomen: Soft, Non-tender, Non-distended, + Bowel sounds Assessment/Plan 1. Dizziness (R42: Dizziness and giddiness) At this time the patient's dizziness has resolved. There is no link between the patient's dizzinessand her blood sugars. 2. Fatigue (R53.83: Other fatigue) Resolved at this time.This is related to sleep. 3. BMI 34.0-34.9,adult (Z68.34: Body mass index [BMI] 34.0-34.9, adult) The patient's body mass index is currently between 34.0 and 34.9. We discussed the importance of maintaining a balanced diet and engaging in regular physical activity to manage her BMI effectively. Potential interventions to facilitate weight management and prevent associated complications were outlined. Ordered: Body Mass Index (BMI) documented 3008F Current tobacco non-user 1036F Depression Screening Negative 3352F Influenza immunization administered or previously received 4274F Most recent diastolic blood pressure <80 mm Hg 3078F Patient screen for fall risk: no falls in last year or 1 fall with no injury in last year 1101F Systolic BP <130 mm Hg (Most Recent) 3074F 4. Exogenous obesity (E66.09: Other obesity due to excess calories) The diagnosis of obesity due to excess caloric intake was reviewed. We emphasized lifestyle modifications including dietary adjustments and exercise. Strategies to support behavior change were discussed to address exogenous obesity, and the patient expressed understanding and agreement with the plan. Ordered: Body Mass Index (BMI) documented 3008F Current tobacco non-user 1036F Depression Screening Negative 3352F Influenza immunization administered or previously received 4274F Most recent diastolic blood pressure <80 mm Hg 3078F Patient screen for fall risk: no falls in last year or 1 fall with no injury in last year 1101F Systolic BP <130 mm Hg (Most Recent) 3074F 5. Nonsmoker (Z78.9: Other specified health status) The patient continues to adhere to her status as a nonsmoker. Reinforcement of the health benefits associated with nonsmoking status was provided, and she was encouraged to maintain this behavior. Ordered: Body Mass Index (BMI) documented 3008F Current tobacco non-user 1036F Depression Screening Negative 3352F Influenza immunization administered or previously received 4274F Most recent diastolic blood pressure <80 mm Hg 3078F Patient screen for fall risk: no falls in last year or 1 fall with no injury in last year 1101F Systolic BP <130 mm Hg (Most Recent) 3074F Follow-up No qualifying data available Patient Education BMI for Adults Problem List/Past Medical History Ongoing Abdominal aortic atherosclerosis Ambulates with cane Arthritis Frequency of urination Mixed hyperlipidemia Osteopenia Seasonal allergies CASSIE (stress urinary incontinence, female) Urge incontinence Urgency of urination Weight gain Historical Elevated cholesterol with elevated triglycerides Procedure/Surgical History Cystoscopy (06/08/2019), Surgery (07/30/1992), Appendectomy, Appendectomy, Cancer of tip of nose, Cataract, Colonoscopy, Hip replacement. (more content not included)...[facility] CenterComment on above:Result Comment: Electronically Signed By: Pravin SOLOMON, Luiz Escobedo.br\Date and Time Signed: 02/15/24 10:12 EDTCBC w/ Auto Diffon [id number]/100 WBC (Bld)0.9 %Normal0.0-2.0 [facility] HospitalComment on above:Performed By: #### [id number] #### [facility] [address], [place] [address]Zqelkpsfl/Leukocytes Auto (Bld) [Pure # fraction]0.1 E9/LNormal 0.0-0.2[facility] CenterComment on above:Performed By: #### [id number] #### [facility] [address], [place] [address]Tuhditgxlyn (Bld) [#/Vol]0.2 E9/LNormal0.0-0.5[facility] CenterComment on above:Performed By: #### [id number] #### [facility] [address], [place] [address]Dwkzndzbbma/100 WBC (Bld)1.9 %Normal0.0-8.0[facility] HospitalComment on above:Performed By: #### [id number] #### [facility] [address], [place] [address]Cgwawmzzlon distribution width (RBC) [Ratio]13.1 %Normal 10.9-14.2FOhioHealth Dublin Methodist HospitalComment on above:Performed By: #### [id number] #### [facility] [address] [place] [address]Ljcriwmvys (Bld) [Volume fraction]38.8 %Miopwh96.0-46.0[facility] HospitalComment on above:Performed By: #### [id number] #### [facility] [address] [place] [address]Cmjknlbwyt (Bld) [Mass/Vol]13.3 g/tBCdkekr47.0-16.0[facility] HospitalComment on above:Performed By: #### [id number] #### [facility] [address] [place] [address]Udmvrostqvw (Bld) [#/Vol]3.3 E9/LNormal1.0-4.0[facility] HospitalComment on above:Performed By: #### [id number] #### [facility] [address] [place] [address]Dvgftozjcoy/100 WBC (Bld)29.2 %Pbcxjw31.0-50.0[facility] HospitalComment on above:Performed By: #### [id number] #### [facility] [address] [place] [address]BPR (RBC) [Entitic mass]30.6 nvIbzsbo72.0-34.0[facility] HospitalComment on above:Performed By: #### [id number] #### [facility] [address] [place] [address]JBBQ (RBC) [Mass/Vol]34.2 g/xRRanzog33.4-36.0[facility] HospitalComment on above:Performed By: #### [id number] #### [facility] [address], [place] [address]RVW (RBC) [Entitic vol]89.4 wWRoeofs16.0-100.0[facility] HospitalComment on above:Performed By: #### [id number] #### [facility] [address] [place] [address]Piaqfzrwl (Bld) [#/Vol]0.6 E9/LNormal0.2-1.0[facility] HospitalComment on above:Performed By: #### [id number] #### [facility] [address] [place] [address]Jjtkjpizios (Bld) [#/Vol]7.1 E9/LNormal2.0-7.5FOhioHealth Dublin Methodist HospitalComment on above:Performed By: #### [id number] #### [facility] [address] [place] [address]Jdgtldsudaw/100 WBC (Bld)62.5 %Nssmko73.0-75.0[facility] HospitalComment on above:Performed By: #### [id number] #### [facility] [address] [place] [address]Sgjigtan132.0 E9/JNwifrm096.0-500.0[facility] Comment on above:Performed By: #### [id number] #### [facility] [address] [place] [address]Ztoyqyzv mean volume (Bld) [Entitic vol]7.5 fLNormal6.4-10.8 [facility] HospitalComment on above:Performed By: #### [id number] #### [facility] [address] [place] [address]OYV (Bld) [#/Vol]4.3 E12/LNormal4.3-5.9[facility] HospitalComment on above:Performed By: #### [id number] #### [facility] [address] [place] [address]XXM corrected for nucl RBC Auto (Bld) [#/Vol]11.4 E9/LHigh 4.0-11.0[facility] CenterComment on above:Performed By: #### [id number] #### [facility] [address] [place], [place] [address]EDZRNSVABBctaypl By: SYSTEM SYSTEM on 53-37-1841Iqarcwv [Mass/Vol]4.3 g/dLNormal3.3 - 5.0 gm/dLRemisol ChemAlbumin/Globulin [Mass ratio] 1.2 {ratio}Normal1.1 - 2.2Remisol ChemALP [Catalytic activity/Vol]88 [iU]/d Ndjuki97 - 98 Int._Unit/LRemisol ChemALT No additional P-5'-P [Catalytic activity/Vol]12 [iU]/dNormal6 - 46 Int._Unit/LRemisol ChemAnion gap [Moles/Vol] 15 mmol/LNormal6 - 16 mEq/LRemisol ChemAST [Catalytic activity/Vol]19 [iU]/d Normal5 - 43 Int._Unit/LRemisol ChemBilirubin [Mass/Vol]0.4 mg/dLNormal0.0 - 1.1 mg/dLRemisol ChemCalcium [Mass/Vol]9.8 mg/dLNormal8.9 - 11.1 mg/dLRemisol Chem Chloride [Moles/Vol]105 mmol/DIlbrwo121 - 111 mmol/LRemisol ChemCO2 [Moles/Vol] 23 mmol/TPddwwo47 - 31 mmol/LRemisol ChemCreatinine [Mass/Vol]0.9 mg/dLNormal0.5 - 1.3 mg/dLRemisol BeukoILR45 mL/min/1.73 j2Siogun>=59mL/min/1.73 g3Defkmuk ChemGlobulin (S) [Mass/Vol]3.6 g/dLNormal1.4 - 4.0 gm/dLRemisol ChemGlucose [Mass/Vol]118 mg/kYVdykve97 - 199 mg/dLRemisol ChemPotassium [Moles/Vol]4.2 mmol/LNormal3.5 - 5.3 mmol/LRemisol ChemProtein [Mass/Vol]7.9 g/dLHigh6.0 - 7.8 gm/dLRemisol ChemSodium [Moles/Vol]139 mmol/LIceuuk135 - 145 mmol/LRemisol Chem Urea nitrogen [Mass/Vol]26 mg/dLHigh5 - 21 mg/dLRemisol ChemUrea nitrogen/Creatinine [Mass ratio]29 mg/zwSqpm28 - 20Remisol ChemHEMATOLOGYOrdered By: SYSTEM SYSTEM on 22-63-9991Uribgpwzq/100 WBC (Bld)0.9 %Normal0.0 - 2.0 % Remisol HemeBasophils/Leukocytes Auto (Bld) [Pure # fraction]0.1 E9/LNormal0.0 - 0.2 E9/LRemisol HemeEosinophils (Bld) [#/Vol]0.2 E9/LNormal0.0 - 0.5 E9/LRemisol HemeEosinophils/100 WBC (Bld)1.9 %Normal0.0 - 8.0 %Remisol HemeErythrocyte distribution width (RBC) [Ratio]13.1 %Dumyfe27.9 - 14.2 %Remisol HemeHematocrit (Bld) [Volume fraction]38.8 %Cirbut26.0 - 46.0 %Remisol HemeHemoglobin (Bld) [Mass/Vol]13.3 g/hRTpsunh75.0 - 16.0 gm/dLRemisol HemeLymphocytes (Bld) [#/Vol] 3.3 E9/LNormal1.0 - 4.0 E9/LRemisol HemeLymphocytes/100 WBC (Bld)29.2 %Normal 14.0 - 50.0 %Remisol HemeMCH (RBC) [Entitic mass]30.6 xhOltfdb07.0 - 34.0 pg Remisol HemeMCHC (RBC) [Mass/Vol]34.2 g/tWKkexsq65.4 - 36.0 gm/dLRemisol HemeMCV (RBC) [Entitic vol]89.4 yFAqukoe17.0 - 100.0 fLRemisol HemeMonocytes (Bld) [#/Vol]0.6 E9/LNormal0.2 - 1.0 E9/LRemisol HemeMonocytes/100 WBC (Bld)5.5 % Normal4.0 - 14.0 %Remisol HemeNeutrophils (Bld) [#/Vol]7.1 E9/LNormal2.0 - 7.5 E9/LRemisol HemeNeutrophils/100 WBC (Bld)62.5 %Kfuuef91.0 - 75.0 %Remisol Heme Exffpgrl931.0 E9/WVoinmj364.0 - 500.0 E9/LRemisol HemePlatelet mean volume (Bld) [Entitic vol]7.5 fLNormal6.4 - 10.8 fLRemisol HemeRBC (Bld) [#/Vol]4.3 E12/L Normal4.3 - 5.9 E12/LRemisol HemeWBC corrected for nucl RBC Auto (Bld) [#/Vol] 11.4 E9/LHigh4.0 - 11.0 E9/LRemisol HemeAmbulatory Visit Summaryon 11-25-2023 Ambulatory Visit SummaryAmbulatory Visit Summary ARLEY ASHRAF :1940 Visit Date:11/25/2023 Ambulatory Visit Instructions Your Diagnosis Abdominal aortic atherosclerosis Dizziness Arthritis BMI 34.0-34.9,adult Class 1 obesity due to excess calories in adult Nonsmoker Your Care Team Attending Physician - Luiz Costello MD. Primary Care Physician - Luiz Costello MD. This Is Your Medications List Contact prescribing physician if questions or concerns Misc Prescription (disabilty parking placard) Non-Formulary Medication (Probiotic) aspirin (Aspirin 81 mg Tab-EC) calcium-vitamin D (Calcium 600+D) multivitamin with minerals (Centrum Silver) nabumetone (nabumetone 500 mg Tab) pravastatin (pravastatin 20 mg Tab) tramadol (traMADOL 50 mg Tab) ubiquinone (elppa CoQ10 50 mg oral capsule) Procedures Performed Cystoscopy (06/08/2019), Surgery (07/30/1992), Appendectomy, Appendectomy, Cancer of tip of nose, Cataract, Colonoscopy, Hip replacement. Discharge Vitals Temperature (Temporal Artery) 36.6 ?C Heart Rate (Peripheral) 90 Respiratory Rate 18 Blood Pressure 136/80 Height 63 in Height 159 cm Weight 192.06 lb Weight 87.3 kg BMI 34.53 What to do next Scheduled Follow-Up Appointments Wednesday 9:30 AM EDT With: Pravin SOLOMON, Luiz Wiley Where: [address] [address]24 2:30 PM EDT With: Where: [address] [address]- You Need to Complete the Following UA with Cult Rflx, Urine, Random Urine, Routine collect, 11/25/23, Order for future visit, Nurse collect, Abdominal aortic atherosclerosis Dizziness Arthritis BMI 34.0-34.9,adult Class 1 obesity due to excess calories in adult Nonsmoker, Not Required, Print La... Medications What How Much When Instructions Unchanged aspirin (Aspirin 81 mg Tab-EC) 1 Tablets By Mouth Every day Contact prescribing physicianif questions or concerns Unchanged calcium-vitamin D (Calcium 600+D) See instructions Take one orally twice a day Contact prescribing physician if questions or concerns Unchanged Misc Prescription (disabilty parking placard) 0 As Directed Duration: 5 Years multiple medical problems Contact prescribing physician if questions or concerns Unchanged multivitamin with minerals (Centrum Silver) 1 Tablets By Mouth Every day Contact prescribing physician if questions or concerns Unchanged nabumetone (nabumetone 500 mg Tab) 1 Tablets By Mouth 3 times a day TAKE 1 TABLET BY MOUTH THREE TIMES A DAY Contact prescribing physician if questions or concerns Unchanged Non-Formulary Medication (Probiotic) Contact prescribing physician if questions or concerns Unchanged pravastatin (pravastatin 20 mg Tab) 1 Tablets By Mouth Once a day (at bedtime) Contact prescribing physician if questions or concerns Unchanged tramadol (traMADOL 50 mg Tab) 1 Tablets By Mouth Every day take as needed Contact prescribing physician if questions or concerns Unchanged ubiquinone (elppa CoQ10 50 mg oral capsule) 1 Capsules By Mouth Every day Contact prescribing physician if questions or concerns Allergies sulfa drugs (Unknown) Problems Ongoing - Any problem that you are currently receiving treatment for. Abdominal aortic atherosclerosis Ambulates with cane Arthritis Dizziness Fatigue Frequency of urination Mixed hyperlipidemia Osteopenia Seasonal allergies CASSIE (stress urinary incontinence, female) Urge incontinence Urgency of urination Weight gain Historical - Any problem that you are no longer receiving treatment for. Elevated cholesterol with elevated triglycerides Patient Survey You may receive a survey via text or e-mail asking about your office visit. Please share your experience with us by completing your survey. We appreciate your feedback and thank you for choosing us for your care. Education Materials BMI for Adults What is BMI? Body mass index (BMI) is a number that is calculated from a person's weight and height. BMI can help estimate how much of a person's weight is composed of fat. BMI does not measure body fat directly.Rather, it is an alternative to procedures that directly measure body fat, which can be difficult and expensive. BMI can help identify people who may be at higher risk for certain medical problems. What are BMI measurements used for? BMI is used as a screening tool to identify possible weight problems. It helps determine whether a person is obese, overweight, a healthy weight, or underweight. BMI is useful for: ? Identifying a weight problem that may be related to a medical condition or may increase the risk for medical problems. ? Promoting changes, such as changes in diet and exercise, to help reach a healthy weight. BMI screening can be repeated to see if (more content not included)... [facility] Medicine Office/Clinic Noteon 11-25-2023 [facility] HPI Staff Arley is an 83 year old female presenting for one week follow up dizziness Patient states back in 2016 was [place] [facility] [place] and had testing done ( info in the documentation) Hasn't had any spells since last , but she's still fatigued. Will get very exhausted after one of the spells. History of Present Illness Patient is following up on her dizziness and fatigue. Reviewed labs. White count was slightly elevated. Patient gets this randomly. No other issues with the elevated white count. Physical Exam Vitals & Measurements T: 36.6 ?C(Temporal Artery) HR: 90(Peripheral) RR: 18 BP: 136/80 SpO2: 96% HT: 63 in HT: 159 cm WT: 87.3 kg WT: 192.06 lb BMI: 34.53 General: alert, no acute distress ENMT: oral mucosa moist, Cardiovascular: regular rate and rhythm, normal peripheral perfusion Respiratory: Lungs CTA, respirations non labored Extremities: no deformity, no trauma Neurological: oriented x 4, LOC appropriate for age, CN II-XII intact, motor strength equal & normal bilaterally, speech normal Abdomen: Soft, Nontender, Non-distended, + BS Assessment/Plan 1. Abdominal aortic atherosclerosis (I70.0: Atherosclerosis of aorta) On optimal treatment of aspirin and statin. Ordered: UA with Cult Rflx 2. Dizziness (R42: Dizziness and giddiness) Possibly secondary to dehydration versus viral infection. Resolved at this time. Will check a urineand have the patient have heart rate monitor if this continues to happen. Daughter is with the patient today and is agreeable. Ordered: UA with Cult Rflx 3. Arthritis (M19.90: Unspecified osteoarthritis, unspecified site) Was having a flare of arthritis last time I saw the patient now is improved. Ordered: UA with Cult Rflx 4. BMI 34.0-34.9,adult (Z68.34: Body mass index [BMI] 34.0-34.9, adult) - BMI education added Ordered: UA with Cult Rflx 5. Class 1 obesity due to excess calories in adult (E66.09: Other obesity due to excess calories) - Diet and exercise advised Ordered: UA with Cult Rflx 6. Nonsmoker (Z78.9: Other specified health status) - Please continue to not smoke. Ordered: UA with Cult Rflx Total time spent preparing for the encounter, evaluating and assessing the patient, documenting thevisit, and ordering appropriate follow-up work was 40 minutes. Follow-up No qualifying data available Patient Education BMI for Adults Problem List/Past Medical History Ongoing Abdominal aortic atherosclerosis Ambulates with cane Arthritis Dizziness Fatigue Frequency of urination Mixed hyperlipidemia Osteopenia Seasonal allergies CASSIE (stress urinary incontinence, female) Urge incontinence Urgency of urination Weight gain Historical Elevated cholesterol with elevated triglycerides Procedure/Surgical History Cystoscopy (06/08/2019), Surgery (07/30/1992), Appendectomy, Appendectomy, Cancer of tip of nose, Cataract, Colonoscopy, Hip replacement. Medications Aspirin 81 mg Tab-EC, 81 mg= 1 tab(s), Oral, Daily Calcium 600+D, See Instructions Centrum Silver, 1 tab(s), Oral, Daily disabilty parking placard, 0, As Directed elppa CoQ10 50 mg oral capsule, 50 mg= 1 cap(s), Oral, Daily nabumetone 500 mg Tab, 500 mg= 1 tab(s), Oral, TID pravastatin 20 mg Tab, 20 mg= 1 tab(s), Oral, Once a day (at bedtime), 1 refills Probiotic traMADOL 50 mg Tab, 50 mg= 1 tab(s), Oral, Daily Allergies sulfa drugs (Unknown) Social History Alcohol - Denies Alcohol Use, 09/23/2023 Substance Abuse - Denies Substance Abuse, 09/23/2023 Tobacco - Denies Tobacco Use, 09/17/2022 Never (less than 100 in lifetime) Tobacco Use:. Never Smokeless Tobacco Use:. Household tobacco concerns: No., 11/25/2023 Family History Acute myocardial infarction: Father. Hypertension: Mother. Primary malignant neoplasm of lung: Sister, Brother, Brother and Brother. Immunizations Vaccine Date Status influenza virus vaccine, inactivated 02/01/2023 Recorded influenza virus vaccine, inactivated 02/03/2022 Recorded influenza virus vaccine, inactivated 02/18/2021 Recorded SARS-CoV-2 (COVID-19) mRNA-1273 vaccine 09/10/2020 Recorded SARS-CoV-2 (COVID-19) mRNA-1273 vaccine 08/08/2020 Recorded pneumococcal 23-valent vaccine 01/17/2020 Recorded influenza virus vaccine, inactivated 01/17/2020 Recorded influenza virus vaccine, inactivated 01/30/2019 Recorded influenza virus vaccine, live, trivalent 01/24/2019 Recorded pneumococcal 13-valent vaccine 06/03/2018 Recorded influenza virus vaccine, inactivated 02/08/2017 Recorded influenza virus vaccine, inactivated 03/03/2016 Recorded influenza virus vaccine, inactivated 02/09/2015 Recorded influenza, whole 02/09/2009 Recorded influenza, whole 02/25/2005 RecordedNoSelect Medical Specialty Hospital - TrumbullComment on above:Result Comment: Electronically Signed By: Pravin SOLOMON, Luiz Escobedo.[email or web address]\Date and Time Signed: 11/25/23 10:26 EDTPre-Visit Planningon [id number]-Visit Planning Pre-Visit Planning From: Jazz Mcmullen To: Deepak Ta DO; Sent: 11/24/2023 07:25:23 EDT Subject: Pre-Visit Planning Due Date/Time: 11/24/2023 07:25:00 EDT Caller Name: ARLEY ASHRAF; Caller Number: H Good morning Dr. Ta. During a pre-visit planning chart review, I noted the following documentation in the medical record: Current Problem List: Mixed hyperlipidemia. Current Medication List: pravastatin. 06/07/2019 CT Abdomen/Pelvis w/ Contrast: Abdominal aorta is nonaneurysmal and demonstrates atherosclerotic calcification. Based on your medical judgment, can you please clarify which, if any, of the following conditions are present? I can update the Chronic Problem List with your response if you would like. -Abdominal aortic atherosclerosis -Other (please specify): In responding to this request, please exercise your independent professional judgement. The fact that a question is asked does not imply that any particular answer is desired or expected. If you have any questions, please feel free to contact me at extension [phone]. Thank you! Jazz Mcmullen LPN Clinical [employer] [place] [address] Extension: [phone] [email or web address] From: Deepak Ta DO To: Jazz Mcmullen; Sent: 11/24/2023 08:30:00 EDT Subject: RE: Pre-Visit Planning Caller Name: ARLEY ASHRAF; Caller Number: H abdominal aortic atherosclerosisNoSelect Medical Specialty Hospital - TrumbullAmbulatory Visit Summaryon [id number] Visit SummaryAmbulatory Visit Summary ARLEY ASHRAF :1940 Visit Date:11/18/2023 Ambulatory Visit Instructions Your Diagnosis Fatigue Dizziness BMI 35.0-35.9,adult Class 1 obesity due to excess calories in adult Nonsmoker Your Care Team Attending Physician - Luiz Costello MD Primary Care Physician - Luiz Costello MD This Is Your Medications List Contact prescribing physician if questions or concerns Misc Prescription (disabilty parking placard) Non-Formulary Medication (Probiotic) aspirin (Aspirin 81 mg Tab-EC) calcium-vitamin D (Calcium 600+D) multivitamin with minerals (Centrum Silver) nabumetone (nabumetone 500 mg Tab) pravastatin (pravastatin 20 mg Tab) tramadol (traMADOL 50 mg Tab) ubiquinone (elppa CoQ10 50 mg oral capsule) Procedures Performed Cystoscopy (06/08/2019), Surgery (07/30/1992), Appendectomy, Appendectomy, Cancer of tip of nose, Cataract, Colonoscopy, Hip replacement. Discharge Vitals Temperature (Temporal Artery) 37.3 ?C Heart Rate (Peripheral) 106 Respiratory Rate 18 Blood Pressure 132/80 Height 159 cm Height 63 in Weight 89.3 kg Weight 196.46 lb BMI 35.32 What to do next Scheduled Follow-Up Appointments 2023 10:00 AM EDT With: Luiz Costello MD Where: [address] [address]- Wednesday 9:30 AM EDT With: Luiz Costello MD Where: [address] [id number]- 2024 2:30 PM EDT With: Where: [address] [address]- Medications What How Much When Instructions Unchanged aspirin (Aspirin 81 mg Tab-EC) 1 Tablets By Mouth Every day Contact prescribing physicianif questions or concerns Unchanged calcium-vitamin D (Calcium 600+D) See instructions Take one orally twice a day Contact prescribing physician if questions or concerns Unchanged Misc Prescription (disabilty parking placard) 0 As Directed Duration: 5 Years multiple medical problems Contact prescribing physician if questions or concerns Unchanged multivitamin with minerals (Centrum Silver) 1 Tablets By Mouth Every day Contact prescribing physician if questions or concerns Unchanged nabumetone (nabumetone 500 mg Tab) 1 Tablets By Mouth 3 times a day TAKE 1 TABLET BY MOUTH THREE TIMES A DAY Contact prescribing physician if questions or concerns Unchanged Non-Formulary Medication (Probiotic) Contact prescribing physician if questions or concerns Unchanged pravastatin (pravastatin 20 mg Tab) 1 Tablets By Mouth Once a day (at bedtime) Contact prescribing physician if questions or concerns Unchanged tramadol (traMADOL 50 mg Tab) 1 Tablets By Mouth Every day take as needed Contact prescribing physician if questions or concerns Unchanged ubiquinone (elppa CoQ10 50 mg oral capsule) 1 Capsules By Mouth Every day Contact prescribing physician if questions or concerns Allergies sulfa drugs (Unknown) Problems Ongoing - Any problem that you are currently receiving treatment for. Ambulates with cane Arthritis Coronavirus infection Dizziness Fatigue Frequency of urination Mixed hyperlipidemia Osteopenia Other microscopic hematuria Seasonal allergies CASSIE (stress urinary incontinence, female) TIA (transient ischemic attack) Urge incontinence Urgency of urination Weight gain Historical - Any problem that you are no longer receiving treatment for. Elevated cholesterol with elevated triglycerides Patient Survey You may receive a survey via text or e-mail asking about your office visit. Please share your experience with us by completing your survey. We appreciate your feedback and thank you for choosing us for your care. [facility] Medical CenterCHEMISTRYOrdered By: SYSTEM SYSTEM on [id number] [Mass/Vol]4.5 g/dLNormal3.3 - 5.0 gm/dLRemisol Chem Albumin/Globulin [Mass ratio]1.3 {ratio}Normal1.1 - 2.2Remisol ChemALP [Catalytic activity/Vol]69 [iU]/gBmsjtr42 - 98 Int._Unit/LRemisol ChemALT No additional P-5'-P [Catalytic activity/Vol]14 [iU]/dNormal6 - 46 Int._Unit/L Remisol ChemAnion gap [Moles/Vol]14 mmol/LNormal6 - 16 mEq/LRemisol ChemAST [Catalytic activity/Vol]20 [iU]/dNormal5 - 43 Int._Unit/LRemisol ChemBilirubin [Mass/Vol]0.3 mg/dLNormal0.0 - 1.1 mg/dLRemisol ChemCalcium [Mass/Vol]10.3 mg/dL Normal8.9 - 11.1 mg/dLRemisol ChemChloride [Moles/Vol]104 mmol/CZhcdma476 - 111 mmol/LRemisol ChemCO2 [Moles/Vol]26 mmol/HXniidw25 - 31 mmol/LRemisol Chem Creatinine [Mass/Vol]0.9 mg/dLNormal0.5 - 1.3 mg/dLRemisol SbjqySSX83 mL/min/1.73 n7Pwnkfe>=59mL/min/1.73 j9Wdvqhjl ChemGlobulin (S) [Mass/Vol]3.6 g/dLNormal1.4 - 4.0 gm/dLRemisol ChemGlucose [Mass/Vol]116 mg/xNUeytlz57 - 199 mg/dLRemisol ChemMagnesium [Mass/Vol]1.7 mg/dLNormal1.3 - 2.4 mg/dLRemisol Chem Potassium [Moles/Vol]4.5 mmol/LNormal3.5 - 5.3 mmol/LRemisol ChemProtein [Mass/Vol]8.1 g/dLHigh6.0 - 7.8 gm/dLRemisol ChemSodium [Moles/Vol]139 mmol/L Duqbdh169 - 145 mmol/LRemisol ChemTSH Qn2.23 m[IU]/LNormal0.34 - 5.60 mcIU/mL Remisol ChemUrea nitrogen [Mass/Vol]19 mg/dLNormal5 - 21 mg/dLRemisol ChemUrea nitrogen/Creatinine [Mass ratio]21 mg/asYrbt53 - 20Remisol ChemFamily Medicine Office/Clinic Noteon [id number] Medicine Office/Clinic NoteFami Medicine Office/Clinic Note HPI Staff Arley is an 83 year old female presenting for acute visit Acute: dizzy spells, no energy. Says all the energy leaves her body, she'll feel good and gets a funny feeling and energy just drains. Happened in past once and she thinks it might be the nabumetone it was increased from 2 to 3 and it's a weird feeling hard to describe. History of Present Illness Please see staff HPI. When discussing more with the patient she states she gets this wave of fatigue and feels it really awful. It only last for a few seconds but comes multiple times a day. Patient states she can have the symptoms up to 5 times a day. Patient states this has happened just recently. She said her first bout of this was several months or years ago. It then went away on its own and n ow is coming back. Patient is asking for answers on what is causing this. Patient denies any palpitations sweating or other symptoms. Review of Systems PHQ Score Initial Depression Screen Score: 0 SCORE Physical Exam Vitals & Measurements T: 37.3 ?C(Temporal Artery) HR: 106(Peripheral) RR: 18 BP: 132/80 SpO2: 97% HT: 63 in HT: 159 cm WT: 89.3 kg WT: 196.46 lb BMI: 35.32 General: alert, no acute distress ENMT: oral mucosa moist, Cardiovascular: regular rate and rhythm, normal peripheral perfusion Respiratory: Lungs CTA, respirations non labored Extremities: no deformity, no trauma, ambulates with a cane Neurological: oriented x 4, LOC appropriate for age, CN II-XII intact, motor strength equal & normal bilaterally, speech normal Abdomen: Soft, Nontender, Non-distended, + BS Assessment/Plan 1. Fatigue (R53.83: Other fatigue) Unsure how to really classify this under diagnosis. Will use the closest thing I believe to the patient's symptoms which is fatigue. Will do a CBC CMP mag and TSH to make sure there is not an endocrine or electrolyte abnormality. Also gave the patient a continuous glucose monitor as a sample. This way the patient can check to make sure her blood sugar is not dropping or she is not going from a high blood sugar to a low blood sugar. Patient has no history of blood sugar concerns. Some of the symptoms sound to be an adrenal response to something. So there is concerns for bradycardia with an adrenal response to bring the heart rate back. Or hypoglycemia bringing the patient back to you glycemia. That being said discussed the possibility of this being heart and patient stated at this time shedoes not feel that is the case. Will workup the electrolyte and blood sugar route at this time. Patient will follow back in a week. If patient shows me that blood sugars of can continue to stay Ordered: CBC w/ Auto Diff Comprehensive Metabolic Panel Magnesium Level TSH With T4fr Reflex 2. Dizziness (R42: Dizziness and giddiness) Patient complains of dizziness however discussing the symptoms in detail patient is not really dizzy. It is more as described above. Ordered: CBC w/ Auto Diff Comprehensive Metabolic Panel Magnesium Level TSH With T4fr Reflex 3. BMI 35.0-35.9,adult (Z68.35: Body mass index [BMI] 35.0-35.9, adult) BMI education added to the chart Ordered: Body Mass Index (BMI) documented 3008F CBC w/ Auto Diff Comprehensive Metabolic Panel Current tobacco non-user 1036F Depression Screening Negative 3352F Influenza immunization administered or previously received 4274F Magnesium Level Most recent diastolic blood pressure 80-89 mm Hg 3079F Patient screen for fall risk: no falls in last year or 1 fall with no injury in last year 1101F Systolic BP 130-139 mm Hg (Most Recent) 3075F TSH With T4fr Reflex 4. Class 1 obesity due to excess calories in adult (E66.09: Other obesity due to excess calories) Diet and exercise advised Ordered: Body Mass Index (BMI) documented 3008F CBC w/ Auto Diff Comprehensive Metabolic Panel Current tobacco non-user 1036F Depression Screening Negative 3352F Influenza immunization administered or previously received 4274F Magnesium Level Most recent diastolic blood pressure 80-89 mm Hg 3079F Patient screen for fall risk: no falls in last year or 1 fall with no injury in last year 1101F Systolic BP 130-139 mm Hg (Most Recent) 3075F TSH With T4fr Reflex 5. Nonsmoker (Z78.9: Other specified health status) Please continue not to smoke. Ordered: Body Mass Index (BMI) documented 3008F CBC w/ Auto Diff Comprehensive Metabolic Panel Current tobacco non-user 1036F Depression Screening Negative 3352F Influenza immunization administered or previously received 4274F Magnesium Level Most recent diastolic blood pressure 80-89 mm Hg 3079F Patient screen for fall risk: no falls in last year or 1 fall with no injury in last year 1101F Systolic BP 130-139 mm Hg (Most Recent) 3075F TSH With T4fr Reflex Orders: cetirizine, 10 mg = 1 tab(s), Oral, Daily, # 90 tab(s), Refills(s) 0, Pharmacy: [facility] [id number], 149, cm, 08/16/23 11:33:00 Anmol ROBERTS (more content not included)...[facility] CenterComment on above:Result Comment: Electronically Signed By: Pravin SOLOMON, Luiz Mckeonbr\Date and Time Signed: 11/18/23 09:29 EDTHEMATOLOGYOrdered By: SYSTEM SYSTEM on 45-10-4617Hkbponrrq/100 WBC (Bld)1.0 %Normal0.0 - 2.0 %Remisol HemeBasophils/Leukocytes Auto (Bld) [Pure # fraction]0.1 E9/LNormal0.0 - 0.2 E9/LRemisol HemeEosinophils (Bld) [#/Vol]0.1 E9/LNormal0.0 - 0.5 E9/LRemisol HemeEosinophils/100 WBC (Bld)0.8 %Normal0.0 - 8.0 %Remisol HemeErythrocyte distribution width (RBC) [Ratio]14.0 %Kswzvx75.9 - 14.2 %Remisol HemeHematocrit (Bld) [Volume fraction]41.4 %Mmgjcd07.0 - 46.0 % Remisol HemeHemoglobin (Bld) [Mass/Vol]13.5 g/mRKkparl23.0 - 16.0 gm/dLRemisol HemeLymphocytes (Bld) [#/Vol]2.7 E9/LNormal1.0 - 4.0 E9/LRemisol Heme Lymphocytes/100 WBC (Bld)19.2 %Uxrpcb06.0 - 50.0 %Remisol HemeMCH (RBC) [Entitic mass]29.9 ajRlmitf15.0 - 34.0 pgRemisol HemeMCHC (RBC) [Mass/Vol]32.6 g/dL Vurtob66.4 - 36.0 gm/dLRemisol HemeMCV (RBC) [Entitic vol]91.6 mWFeplau43.0 - 100.0 fLRemisol HemeMonocytes (Bld) [#/Vol]0.7 E9/LNormal0.2 - 1.0 E9/LRemisol HemeMonocytes/100 WBC (Bld)5.2 %Normal4.0 - 14.0 %Remisol HemeNeutrophils (Bld) [#/Vol]10.2 E9/LHigh2.0 - 7.5 E9/LRemisol HemeNeutrophils/100 WBC (Bld)73.8 % Clfcyz43.0 - 75.0 %Remisol HemePlatelet mean volume (Bld) [Entitic vol]7.7 fL Normal6.4 - 10.8 fLRemisol HemePlatelets (Bld) [#/Vol]403.0 E9/UUkrgar836.0 - 500.0 E9/LRemisol HemeRBC (Bld) [#/Vol]4.5 E12/LNormal4.3 - 5.9 E12/LRemisol HemeWBC corrected for nucl RBC Auto (Bld) [#/Vol]13.8 E9/LHigh4.0 - 11.0 E9/L Remisol HemeeGFRon 35-91-6714nFLT04 mL/min/1.73 f2Otdqku>=59Fisher [facility] CenterComment on above:Order Comment: Order added by Discern Expert.Performed By: #### [id number] #### [facility] [address] [place], [place] [address]Owuxjehfco Visit Summaryon [id number] Visit Summary ARLEY ASHRAF Ruddy :1940 Visit Date:10/19/2023 Ambulatory Visit Instructions Your Diagnosis Mixed hyperlipidemia Fatigue, unspecified type BMI 35.0-35.9,adult Class 1 obesity due to excess calories in adult Nonsmoker Ambulates with cane Your Care Team Attending Physician - Luiz Costello MD. Primary Care Physician - Luiz Costello MD. This Is Your Medications List pravastatin (pravastatin 20 mg Tab) Contact prescribing physician if questions or concerns Misc Prescription (disabilty parking placard) Non-Formulary Medication (Probiotic) aspirin (Aspirin 81 mg Tab-EC) calcium-vitamin D (Calcium 600+D) cetirizine (cetirizine 10 mg Tab) multivitamin with minerals (Centrum Silver) nabumetone (nabumetone 500 mg Tab) ubiquinone (elppa CoQ10 50 mg oral capsule) [Image Removed: STOP]Stop taking these medications tramadol (traMADOL 50 mg Tab) Procedures Performed Cystoscopy (06/08/2019), Surgery (07/30/1992), Appendectomy, Appendectomy, Cancer of tip of nose, Cataract, Colonoscopy, Hip replacement. Discharge Vitals Temperature (Oral) 36.5 ?C Heart Rate (Peripheral) 70 Respiratory Rate 20 Blood Pressure 126/80 Height 159 cm Height 63 in Weight 89.2 kg Weight 196.24 lb BMI 35.28 What to do next Scheduled Follow-Up Appointments Wednesday 9:30 AM EDT With: Pravin SOLOMON, Luiz Wiley Where: [facility] [id number] [place] [address]- \.br\ Medications\.br\ What How Much When Instructions\.br\ New pravastatin (pravastatin 20 mg Tab) 1 Tablets By Mouth Once a day (at bedtime) Refills: 1 Pickup at [facility]/pharmacy #[id number]\.br\ Unchanged aspirin (Aspirin 81 mg Tab-EC) 1 Tablets By Mouth Every day Contact prescribing physician if questions or concerns \.br\ Unchanged calcium-vitamin D (Calcium 600+D) See instructions Contact prescribing physician if questions or concerns \.br\ Unchanged cetirizine (cetirizine 10 mg Tab) 1 Tablets By Mouth Every day Contact prescribing physicianif questions or concerns \.br\ Unchanged Misc Prescription (disabilty parking placard) 0 As Directed Duration: 5 Years multiple medical problems Contact prescribing physician if questions or concerns \.br\ Unchanged multivitamin with minerals (Centrum Silver) 1 Tablets By Mouth Every day Contact prescribing physician if questions or concerns \.br\ Unchanged nabumetone (nabumetone 500 mg Tab) 1 Tablets By Mouth 3 times a day TAKE 1 TABLET BY MOUTH THREE TIMES A DAY Contact prescribing physician if questions or concerns \.br\ Unchanged Non-Formulary Medication (Probiotic) Contact prescribing physician if questions or concerns \.br\ Unchanged ubiquinone (elppa CoQ10 50 mg oral capsule) 1 Capsules By Mouth Every day Contact prescribing physician if questions or concerns \.br\ Pharmacy Information\.br\ [facility]/pharmacy #[id number]: [address], [place] [id number] [phone]\.br\ \.br\ What W hen Comments\.br\ Stop Taking tramadol (traMADOL 50 mg Tab) TAKE 1-2 TABLETS BY MOUTH TWICE A DAY NEEDED FOR KNEE PAIN \.br\ Allergies\.br\ sulfa drugs (Unknown)\.br\ Problems\.br\ Ongoing - Any problem that you are currently receiving treatment for.\.br\ Ambulates with cane\.br\ Arthritis\.br\ C oronavirus infection\.br\ Fatigue\.br\ Frequency of urination\.br\ Mixed hyperlipidemia\.br\ Osteopenia\.br\ Other microscopic hematuria\.br\ Seasonal allergies\.br\ CASSIE (stress urinary incontinence,female)\.br\ TIA (transient ischemic attack)\.br\ Urge incontinence\.br\ Urgency of urination\.br\ Weight gain\.br\ Historical - Any problem that you are no longer receiving treatment for.\.br\ Elevated cholesterol with elevated triglycerides\.br\ Patient Survey\.br\ You may receive a survey via text or e-mail asking about your office visit. Please share your experience with us by completing yoursurvey. We appreciate your feedback and thank you for choosing us for your care.\.br\ Education Materials\.br\ BMI for Adults\.br\ What is BMI?\.br\ Body mass index (BMI) is a number that is calculated from a person's weight and height. BMI can help estimate how much of a person's weight is composed of fat. BMI does not measure body fat directly. Rather, it is an alternative to procedures that dir ectly measure body fat, which can be difficult and expensive.\.br\ BMI can help identify people whomay be at higher risk for certain medical problems.\.br\ What are BMI measurements used for?\.br\ BMI is used as a screening tool to identify possible weight problems. It helps determine whether a person is obese, overweight, a healthy weight, or underweight.\.br\ BMI is useful for:\.br\ ? \.br\ Identifying a weight problem that may be related to a medical condition or may increase the risk for medical problems.\.br\ ? \.br\ Promoting changes, such as changes in diet and exercise, to help reacha healthy weight. BMI screening can be repeated to see if these changes are working.\.br\ How is BMI calculated?\.br\ BMI involves measuring your weight in relation to your height. Both height and weight are measured, and the BMI is calculated from those numbers. This can be done either in French (U.S[place] or metric measurements. Note that charts and online BMI calculators are available to help youfind your BMI quickly and easily without having to do these calculations yourself.\.br\ To calculate your BMI in French (U.S[place] measurements:\.br\ \.br\ 1. \.br\ Measure your weight inpounds (lb).\.br\ 2. \.br\ Multiply the number of pounds by 703.\.br\ ? \.br\ For example, for a person who weighs 180 lb, multiply that number by 703, which equals 126,540.\.br\ 3. \.br\ Measure your height in inches. Then multiply that number by itself to get a measurement called inches squared. \.br\ ? \.br\ For example, for a person who is 70 inches tall, the inches squared measurement is 70 inches x 70 inches, which equals 4,900 inches squared.\.br\ 4. \.br\ Divide the total from step 2(number of lb x 703) by the total from step 3 (inches squared): 126,540 ? 4,900 = 25.8. This is your BMI.\.br\ To calculate your BMI in metric measurements:\.br\ 1. \.br\ Measure your weight in kilograms (kg).\.br\ 2. \.br\ Measure your height in meters (m). Then multiply that number by itself to get a measurement called meters squared. \.br\ ? \.br\ For example, for a person who is 1.75 m tall,the meters squared measurement is 1.75 m x 1.75 m, which is equal to 3.1 meters squared.\.br\ 3. \.br\ Divide the number of kilograms (your weight) by the meters squared number. In this example: 70? 3.1 = 22.6. This is your BMI.\.br\ What do the results mean?\.br\ BMI charts are used to identifywhether you are underweight, normal weight, overweight, or obese. The following guidelines will be used:\.br\ ? \.br\ Underweight: BMI less than 18.5.\.br\ ? \.br\ Normal weight: BMI between 18.5 and24.9.\.br\ ? \.br\ Overweight: BMI between 25 and 29.9.\.br\ ? \.br\ Obese: BMI of 30 or above.\.br\ Keep these notes in mind:\.br\ ? \.br\ Weight includes both fat and muscle, so someone with a muscu lar build, such as an athlete, may have a BMI that is higher than 24.9. In cases like these, BMI isnot an accurate measure of body fat.\.br\ ? \.br\ To determine if excess body fat is the cause of aBMI of 25 or higher, further assessments may need to be done by a health care provider.\.br\ ? \.br\ BMI is usually interpreted in the same way for men and women.\.br\ Where to find more information\.br\ For more information about BMI, including tools to quickly calculate your BMI, go to these websites:\.br\ ? \.br\ Centers for Disease Control and Prevention: www.cdc.gov\.br\ ? \.br\ [place] Heart [employer]: www.heart.org\.br\ ? \.br\ National Heart, Lung, and Blood [place]: www.nhlbi.nih.gov\.br\ Summary\.br\ ? \.br\ Body mass index (BMI) is a number that is calculated from a person's weight and height.\.br\ ? \.br\ BMI may help estimate how much of a person's weight is composed of fat. BMI can help identify those who may be at higher risk for certain medical problems.\.br\ ? \.br\ BMI can be measured using French measurements or metric measurements.\.br\ ? \.br\ BMI charts are used to identify whether you are underweight, normal weight, overweight, or obese.\.br\ This information is not intended to replace advice given to you by your health care provider. Make sure you discuss any questions you have with your health care provider.\.br\ Document Revised: 01/03/2020 DocumentReviewed: 11/10/2019 InterviewBest Patient Education ? 2022 [employer] Inc.\.br\ \.br\[facility] CenterCoding Summary.on [id number] Summary. [id number]M4tgW NjZXJu [file] LWNvbGxhcHNlO (more content not included)...[facility] Office/Clinic Noteon [id number] [facility] Office/Clinic NoteHPI Staff Arley is an 83 year old female here to discuss cholesterol and triglycerides recent labs september 2023 Shonna says lives alone and been eating alot of fast foods doesn't cook for herself so she knows what she needs to do History of Present Illness - Pt here for follow up. - Wants to discuss labs. - Reviewed labs. Review of Systems PHQ Score Initial Depression Screen Score: 0 SCORE Physical Exam Vitals & Measurements T: 36.5 ?C(Oral) HR: 70(Peripheral) RR: 20 BP: 126/80 SpO2: 96% HT: 63 in HT: 159 cm WT: 89.2 kg WT: 196.24 lb BMI: 35.28 General: alert, no acute distress ENMT: oral mucosa moist, Cardiovascular: normal peripheral perfusion Respiratory: respirations non labored Extremities: no deformity, no trauma Neurological: oriented x 4, LOC appropriate for age, CN II-XII intact, motor strength equal & normal bilaterally, speech normal Assessment/Plan 1. Mixed hyperlipidemia (E78.2: Mixed hyperlipidemia) - Discussed pros and cons of the medications. - No issues at this time. - Pt is going to work on diet and exercise - Follow up PRN 2. Fatigue, unspecified type (R53.83: Other fatigue) - Resolved - NO issues at this time 3. BMI 35.0-35.9,adult (Z68.35: Body mass index [BMI] 35.0-35.9, adult) - BMI education added Ordered: Body Mass Index (BMI) documented 3008F Current tobacco non-user 1036F Depression Screening Negative 3352F Influenza immunization administered or previously received 4274F Most recent diastolic blood pressure 80-89 mm Hg 3079F Patient screen for fall risk: no falls in last year or 1 fall with no injury in last year 1101F Systolic BP <130 mm Hg (Most Recent) 3074F 4. Class 1 obesity due to excess calories in adult (E66.09: Other obesity due to excess calories) - Diet and exercise advised Ordered: Body Mass Index (BMI) documented 3008F Current tobacco non-user 1036F Depression Screening Negative 3352F Influenza immunization administered or previously received 4274F Most recent diastolic blood pressure 80-89 mm Hg 3079F Patient screen for fall risk: no falls in last year or 1 fall with no injury in last year 1101F Systolic BP <130 mm Hg (Most Recent) 3074F 5. Nonsmoker (Z78.9: Other specified health status) - Please continue to not smoke. Ordered: Body Mass Index (BMI) documented 3008F Current tobacco non-user 1036F Depression Screening Negative 3352F Influenza immunization administered or previously received 4274F Most recent diastolic blood pressure 80-89 mm Hg 3079F Patient screen for fall risk: no falls in last year or 1 fall with no injury in last year 1101F Systolic BP <130 mm Hg (Most Recent) 3074F 6. Ambulates with cane (Z99.89: Dependence on other enabling machines and devices) - 2/2 the OA Orders: pravastatin, 20 mg = 1 tab(s), Oral, Once a day (at bedtime), # 90 tab(s), Refills(s) 1, Pharmacy: [facility]/pharmacy #[id number], 159, cm, 10/19/23 9:59:00 EDT, Height/Length Dosing, 89.2, kg, 10/19/23 9:59:00 EDT, Weight Dosing Follow-up No qualifying data available Patient Education BMI for Adults Problem List/Past Medical History Ongoing Ambulates with cane Arthritis Coronavirus infection Fatigue Frequency of urination Mixed hyperlipidemia Osteopenia Other microscopic hematuria Seasonal allergies CASSIE (stress urinary incontinence, female) TIA (transient ischemic attack) Urge incontinence Urgency of urination Weight gain Historical Elevated cholesterol with elevated triglycerides Procedure/Surgical History Cystoscopy (06/08/2019), Surgery (07/30/1992), Appendectomy, Appendectomy, Cancer of tip of nose, Cataract, Colonoscopy, Hip replacement. Medications Aspirin 81 mg Tab-EC, 81 mg= 1 tab(s), Oral, Daily Calcium 600+D, See Instructions Centrum Silver, 1 tab(s), Oral, Daily cetirizine 10 mg Tab, 10 mg= 1 tab(s), Oral, Daily disabilty parking placard, 0, As Directed elppa CoQ10 50 mg oral capsule, 50 mg= 1 cap(s), Oral, Daily nabumetone 500 mg Tab, 500 mg= 1 tab(s), Oral, TID pravastatin 20 mg Tab, 20 mg= 1 tab(s), Oral, Once a day (at bedtime), 1 refills Probiotic Allergies sulfa drugs (Unknown) Social History Alcohol - Denies Alcohol Use, 09/23/2023 Substance Abuse - Denies Substance Abuse, 09/23/2023 Tobacco - Denies Tobacco Use, 09/17/2022 Never (less than 100 in lifetime) Tobacco Use:. Never Smokeless Tobacco Use:. Household tobacco concerns: No., 10/19/2023 Family History Acute myocardial infarction: Father. Hypertension: Mother. Primary malignant neoplasm of lung: Sister, Brother, Brother and Brother. Immunizations Vaccine Date Status influenza virus vaccine, inactivated 02/01/2023 Recorded influenza virus vaccine, inactivated 02/03/2022 Recorded influenza virus vaccine, inactivated 02/18/2021 Recorded SARS-CoV-2 (COVID-19) mRNA-1273 vaccine 09/10/2020 Recorded SARS-CoV-2 (COVID-19) mRNA-1273 vaccine 08/08/2020 Recorded pneumococcal 23-valent vaccine (more content not included)...[facility] CenterComment on above:Result Comment: Electronically Signed By: Pravin SOLOMON, Luiz Escobedo.br\Date and Time Signed: 10/19/23 10:21 EDTPatient Educationon [id number] EducationNutrition BMI for Adults What is BMI? Body mass index (BMI) is a number that is calculated from a person's weight and height. BMI can help estimate how much of a person's weight is composed of fat. BMI does not measure body fat directly.Rather, it is an alternative to procedures that directly measure body fat, which can be difficult and expensive. BMI can help identify people who may be at higher risk for certain medical problems. What are BMI measurements used for? BMI is used as a screening tool to identify possible weight problems. It helps determine whether a person is obese, overweight, a healthy weight, or underweight. BMI is useful for: ? Identifying a weight problem that may be related to a medical condition or may increase the risk for medical problems. ? Promoting changes, such as changes in diet and exercise, to help reach a healthy weight. BMI screening can be repeated to see if these changes are working. How is BMI calculated? BMI involves measuring your weight in relation to your height. Both height and weight are measured,and the BMI is calculated from those numbers. This can be done either in French (U.S[place] or metric measurements. Note that charts and online BMI calculators are available to help you find your BMI quickly and easily without having to do these calculations yourself. To calculate your BMI in French ([place] measurements: 1. Measure your weight in pounds (lb). 2. Multiply the number of pounds by 703. ? For example, for a person who weighs 180 lb, multiply that number by 703, which equals 126,540. 3. Measure your height in inches. Then multiply that number by itself to get a measurement called inches squared. ? For example, for a person who is 70 inches tall, the inches squared measurement is 70 inches x 70 inches, which equals 4,900 inches squared. 4. Divide the total from step 2 (number of lb x 703) by the total from step 3 (inches squared): 126,540 ? 4,900 = 25.8. This is your BMI. To calculate your BMI in metric measurements: 1. Measure your weight in kilograms (kg). 2. Measure your height in meters (m). Then multiply that number by itself to get a measurement called meters squared. ? For example, for a person who is 1.75 m tall, the meters squared measurement is 1.75 m x 1.75 m, which is equal to 3.1 meters squared. 3. Divide the number of kilograms (your weight) by the meters squared number. In this example: 70 ?3.1 = 22.6. This is your BMI. What do the results mean? BMI charts are used to identify whether you are underweight, normal weight, overweight, or obese. The following guidelines will be used: ? Underweight: BMI less than 18.5. ? Normal weight: BMI between 18.5 and 24.9. ? Overweight: BMI between 25 and 29.9. ? Obese: BMI of 30 or above. Keep these notes in mind: ? Weight includes both fat and muscle, so someone with a muscular build, such as an athlete, may have a BMI that is higher than 24.9. In cases like these, BMI is not an accurate measure of body fat. ? To determine if excess body fat is the cause of a BMI of 25 or higher, further assessments may need to be done by a health care provider. ? BMI is usually interpreted in the same way for men and women. Where to find more information For more information about BMI, including tools to quickly calculate your BMI, go to these websites: ? Centers for Disease Control and Prevention: www.cdc.gov ? [place] [employer] Association: www.heart.org ? National Heart, Lung, and Blood [place]: www.nhlbi.nih.gov Summary ? Body mass index (BMI) is a number that is calculated from a person's weight and height. ? BMI may help estimate how much of a person's weight is composed of fat. BMI can help identify those who may be at higher risk for certain medical problems. ? BMI can be measured using French measurements or metric measurements. ? BMI charts are used to identify whether you are underweight, normal weight, overweight, or obese. This information is not intended to replace advice given to you by your health care provider. Make sure you discuss any questions you have with your health care provider. Document Revised: 01/03/2020 Document Reviewed: 11/10/2019 InterviewBest Patient Education ? 2022 [employer].[facility] CHEMISTRYOrdered By: SYSTEM SYSTEM on [id number] [Mass/Vol]236 mg/dL Jhfz162 - 200 mg/dLRemisol ChemCholesterol in HDL [Mass/Vol]45 mg/dLInvalid Interpretation CodeRemisol ChemComment on above:Result Comment: '>= 60 LOW RISK' '<= 40 HIGH RISK'Cholesterol in LDL [Mass/Vol]126 mg/dLNormal<=129mg/dLRemisol ChemCholesterol in VLDL [Mass/Vol]71 mg/dLHigh7 - 40 mg/dLRemisol Chem Triglyceride [Mass/Vol]354 mg/dLHigh<=149mg/dLRemisol ChemLipid Panelon [id number] [Mass/Vol]236 mg/wWJdcq777-911MkhdcvWooster Community Hospital Comment on above:Performed By: #### [id number] #### [facility] [address], [place] [address]Rjzjojamfen in HDL [Mass/Vol]45 mg/dLInvalid Interpretation CodeWooster Community HospitalComment on above:Result Comment: '>= 60 LOW RISK' '<= 40 HIGH RISK'Performed By: #### [id number] #### [facility] [address], [place] [address]Cxbdwzedezm in LDL [Mass/Vol]126 mg/dLNormal<=129[facility] HospitalComment on above:Performed By: #### [id number] #### [facility] [address], [place] [address]Vosjgcmvjeb in VLDL [Mass/Vol]71 mg/dLHigh7-40[facility] HospitalComment on above:Performed By: #### [id number] #### [facility] [address], [place] [address]Bbwyfixidgkp [Mass/Vol]354 mg/dLHigh<=149[facility] HospitalComment on above:Performed By: #### [id number] #### [facility] [address], [place] [address]Fbpva Consultation Noteon [id number] Consultation Note Reason for Visit patient presents for lab work Medications Aspirin 81 mg Tab-EC, 81 mg= 1 tab(s), Oral, Daily Calcium 600+D, See Instructions Centrum Silver, 1 tab(s), Oral, Daily cetirizine 10 mg Tab, 10 mg= 1 tab(s), Oral, Daily disabilty parking placard, 0, As Directed elppa CoQ10 50 mg oral capsule, 50 mg= 1 cap(s), Oral, Daily nabumetone 500 mg Tab, 500 mg= 1 tab(s), Oral, TID Probiotic traMADOL 50 mg Tab Allergies sulfa drugs (Unknown) Immunizations Vaccine Date Status influenza virus vaccine, inactivated 02/01/2023 Recorded influenza virus vaccine, inactivated 02/03/2022 Recorded influenza virus vaccine, inactivated 02/18/2021 Recorded SARS-CoV-2 (COVID-19) mRNA-1273 vaccine 09/10/2020 Recorded SARS-CoV-2 (COVID-19) mRNA-1273 vaccine 08/08/2020 Recorded pneumococcal 23-valent vaccine 01/17/2020 Recorded influenza virus vaccine, inactivated 01/17/2020 Recorded influenza virus vaccine, inactivated 01/30/2019 Recorded influenza virus vaccine, live, trivalent 01/24/2019 Recorded pneumococcal 13-valent vaccine 06/03/2018 Recorded influenza virus vaccine, inactivated 02/08/2017 Recorded influenza virus vaccine, inactivated 03/03/2016 Recorded influenza virus vaccine, inactivated 02/09/2015 Recorded influenza, whole 02/09/2009 Recorded influenza, whole 02/25/2005 RecordedNormalWooster Community HospitalCBC w/ Auto Diffon [id number]/100 WBC (Bld)1.3 %Normal0.0-2.0[facility] HospitalComment on above:Performed By: #### [id number] #### [facility] [address] [place] [address] 23[address]Avgehxchy/Leukocytes Auto (Bld) [Pure # fraction]0.1 E9/LNormal 0.0-0.2FOhioHealth Dublin Methodist HospitalComment on above:Performed By: #### [id number] #### [facility] [address] [place] [address] 49996Nbbdduiorkx (Bld) [#/Vol]0.3 E9/LNormal0.0-0.5FOhioHealth Dublin Methodist HospitalComment on above:Performed By: #### [id number] #### [facility] [address] [place] [address] 71964Pexlycxzfdr/100 WBC (Bld)2.8 %Normal0.0-8.0[facility] HospitalComment on above:Performed By: #### [id number] #### [facility] [address] [place] [address] 64[address]Oepkwfbcntr distribution width (RBC) [Ratio]13.4 %Normal 10.9-14.2FOhioHealth Dublin Methodist HospitalComment on above:Performed By: #### [id number] #### [facility] [address], [place] [address]Bdaluijzat (Bld) [Volume fraction]40.5 %Giohpk25.0-46.0[facility] HospitalComment on above:Performed By: #### [id number] #### [facility] [address] [place] [address] 27[address]Tbkonmxwxp (Bld) [Mass/Vol]13.7 g/nLJiljeg93.0-16.0[facility] HospitalComment on above:Performed By: #### [id number] #### [facility] [address] [place] [address] 86679Tlekalwaorp (Bld) [#/Vol]3.5 E9/LNormal1.0-4.0[facility] HospitalComment on above:Performed By: #### [id number] #### [facility] [address] [place] [address] 44636Launfjadhwe/100 WBC (Bld)33.7 %Naovnm23.0-50.0[facility] HospitalComment on above:Performed By: #### [id number] #### [facility] [address] [place] [address] 24044FCB (RBC) [Entitic mass]30.2 pvMieglb98.0-34.0[facility] HospitalComment on above:Performed By: #### [id number] #### [facility] [address] [place] [address] 19413RTSK (RBC) [Mass/Vol]33.7 g/eNKwecjx70.4-36.0[facility] HospitalComment on above:Performed By: #### [id number] #### [facility] [address] [place] [address] 36522CIC (RBC) [Entitic vol]89.6 zKUqqzez10.0-100.0[facility] HospitalComment on above:Performed By: #### [id number] #### [facility] [address] [place] [address] 600[address]Dnqjpeacs (Bld) [#/Vol]0.6 E9/LNormal0.2-1.0[facility] HospitalComment on above:Performed By: #### [id number] #### [facility] [address] [place] [address] 76823Phjdobozjgg (Bld) [#/Vol]5.9 E9/LNormal2.0-7.5FOhioHealth Dublin Methodist HospitalComment on above:Performed By: #### [id number] #### [facility] [address] [place] [address] 24369Naehifoitbm/100 WBC (Bld)56.2 %Vnnxlj81.0-75.0[facility] HospitalComment on above:Performed By: #### [id number] #### [facility] [address] [place] [address] 09920Ugyemtlb mean volume (Bld) [Entitic vol]7.2 fLNormal6.4-10.8 [facility] HospitalComment on above:Performed By: #### [id number] #### [facility] [address] [place] [address] 82138Xciypvjlo (Bld) [#/Vol]366.0 E9/OPkkfyf496.0-500.0[facility] HospitalComment on above:Performed By: #### [id number] #### [facility] [address] [place] [address] 29002SMN (Bld) [#/Vol]4.5 E12/LNormal4.3-5.9[facility] HospitalComment on above:Performed By: #### [id number] #### [facility] [address] [place] [address] 31190ISI corrected for nucl RBC Auto (Bld) [#/Vol]10.5 E9/LNormal 4.0-11.0[facility] HospitalComment on above:Performed By: #### [id number] #### [facility] [address] [place] [address] 32960HSITLVHDJKgvvpvp By: SYSTEM SYSTEM on 28-99-8998Adwlkci [Mass/Vol]4.3 g/dLNormal3.3 - 5.0 gm/dLRemisol ChemAlbumin/Globulin [Mass ratio] 1.4 {ratio}Normal1.1 - 2.2Remisol ChemALP [Catalytic activity/Vol]70 [iU]/d Bimsbu84 - 98 Int._Unit/LRemisol ChemALT No additional P-5'-P [Catalytic activity/Vol]12 [iU]/dNormal6 - 46 Int._Unit/LRemisol ChemAnion gap [Moles/Vol] 13 mmol/LNormal6 - 16 mEq/LRemisol ChemAST [Catalytic activity/Vol]17 [iU]/d Normal5 - 43 Int._Unit/LRemisol ChemBilirubin [Mass/Vol]0.4 mg/dLNormal0.0 - 1.1 mg/dLRemisol ChemCalcium [Mass/Vol]9.6 mg/dLNormal8.9 - 11.1 mg/dLRemisol Chem Chloride [Moles/Vol]106 mmol/WPkvrdd118 - 111 mmol/LRemisol ChemCO2 [Moles/Vol] 25 mmol/XUawwbr08 - 31 mmol/LRemisol ChemCreatinine [Mass/Vol]0.8 mg/dLNormal0.5 - 1.3 mg/dLRemisol LifnsABF13 mL/min/1.73 c5Cpbgtp>=59mL/min/1.73 h7Qgyllvi ChemGlobulin (S) [Mass/Vol]3.0 g/dLNormal1.4 - 4.0 gm/dLRemisol ChemGlucose [Mass/Vol]102 mg/jRHrjowx14 - 199 mg/dLRemisol ChemPotassium [Moles/Vol]4.3 mmol/LNormal3.5 - 5.3 mmol/LRemisol ChemProtein [Mass/Vol]7.3 g/dLNormal6.0 - 7.8 gm/dLRemisol ChemSodium [Moles/Vol]140 mmol/SNevjth896 - 145 mmol/LRemisol ChemUrea nitrogen [Mass/Vol]22 mg/dLHigh5 - 21 mg/dLRemisol ChemUrea nitrogen/Creatinine [Mass ratio]28 mg/xgEvsi15 - 20Remisol ChemCMPon 05-16-2024 Albumin [Mass/Vol]4.3 g/dLNormal3.3-5.0W[facility] HospitalComment on above:Performed By: #### [id number] #### [facility] [address], [place] [address]Uizoncv/Globulin (S) [Mass conc ratio]1.3Ddeqxh2.1-2.2FOhioHealth Dublin Methodist HospitalComment on above:Performed By: #### [id number] #### [facility] [address], [place] [address]EVU [Catalytic activity/Vol]70 Int._Unit/IEsisog85-79JkvehwWooster Community HospitalComment on above:Performed By: #### [id number] #### [facility] [address] [place] [address] 22032NWN No additional P-5'-P [Catalytic activity/Vol]12 Int._Unit/L Normal6-46W[facility] Community HospitalComment on above:Performed By: #### [id number] #### [facility] [address] [place] [address] 77395Gexki gap [Moles/Vol]13 mmol/LNormal6-16W[facility] Community HospitalComment on above:Performed By: #### [id number] #### [facility] [address] [place] [address] 90326ENS [Catalytic activity/Vol]17 Int._Unit/LNormal5-43W[facility] Community HospitalComment on above:Performed By: #### [id number] #### [facility] [address], [place] [address]Rarlvuccl [Mass/Vol]0.4 mg/dLNormal0.0-1.1FOhioHealth Dublin Methodist HospitalComment on above:Performed By: #### [id number] #### [facility] [address] [place] [address] 09948Tthbecp [Mass/Vol]9.6 mg/dLNormal8.9-11.1FOhioHealth Dublin Methodist HospitalComment on above:Performed By: #### [id number] #### [facility] [address], [place] [address]Hzssafoq [Moles/Vol]106 mmol/ODubcsk013-419PisfhkWooster Community HospitalComment on above:Performed By: #### [id number] #### [facility] [address], [place] [address]MI2 [Moles/Vol]25 mmol/MAkztum09-00VsvgcfWooster Community Hospital Comment on above:Performed By: #### [id number] #### [facility] [address], [place] [address]Eakrfwjeko [Mass/Vol]0.8 mg/dLNormal0.5-1.3FOhioHealth Dublin Methodist HospitalComment on above:Performed By: #### [id number] #### [facility] [address], [place] [address]Ylrgvcec (S) [Mass/Vol]3.0 g/dLNormal1.4-4.0W[facility] Community HospitalComment on above:Performed By: #### [id number] #### [facility] [address], [place] [address]Ndtldnd [Mass/Vol]102 mg/hPBpkiwb55-453BnzfvuWooster Community HospitalComment on above:Performed By: #### [id number] #### [facility] [address], [place] [address]Evpukspus [Moles/Vol]4.3 mmol/LNormal3.5-5.3FOhioHealth Dublin Methodist HospitalComment on above:Performed By: #### [id number] #### [facility] [address], [place] [address]Mkeibfb [Mass/Vol]7.3 g/dLNormal6.0-7.8W[facility] Community HospitalComment on above:Performed By: #### [id number] #### [facility] [address], [place] [address]Lhqifd [Moles/Vol]140 mmol/COwjhnj634-369XrahbaWooster Community HospitalComment on above:Performed By: #### [id number] #### [facility] [address], [place] [address]Qsit nitrogen [Mass/Vol]22 mg/dLHigh5-21W[facility]oster Community HospitalComment on above:Performed By: #### [id number] #### [place] [facility] [address], [place] [address]Osno nitrogen/Creatinine [Mass ratio]28 No DwgkeQbex96-04TlxfekWooster Community HospitalComment on above:Performed By: #### [id number] #### [facility] [address], [place] [address]UCPHENWLWZNrrwoho By: SYSTEM SYSTEM on 67-48-8865Kqvvyonma/100 WBC (Bld)1.3 %Normal0.0 - 2.0 %Remisol HemeBasophils/Leukocytes Auto (Bld) [Pure # fraction]0.1 E9/LNormal0.0 - 0.2 E9/LRemisol HemeEosinophils (Bld) [#/Vol]0.3 E9/LNormal0.0 - 0.5 E9/LRemisol HemeEosinophils/100 WBC (Bld)2.8 %Normal0.0 - 8.0 %Remisol HemeErythrocyte distribution width (RBC) [Ratio]13.4 %Uaznkd15.9 - 14.2 %Remisol HemeHematocrit (Bld) [Volume fraction]40.5 %Mhjaly52.0 - 46.0 % Remisol HemeHemoglobin (Bld) [Mass/Vol]13.7 g/aNRstelc57.0 - 16.0 gm/dLRemisol HemeLymphocytes (Bld) [#/Vol]3.5 E9/LNormal1.0 - 4.0 E9/LRemisol Heme Lymphocytes/100 WBC (Bld)33.7 %Iznbak96.0 - 50.0 %Remisol HemeMCH (RBC) [Entitic mass]30.2 rpJgxqxl97.0 - 34.0 pgRemisol HemeMCHC (RBC) [Mass/Vol]33.7 g/dL Oerpdg68.4 - 36.0 gm/dLRemisol HemeMCV (RBC) [Entitic vol]89.6 sKArmfhc85.0 - 100.0 fLRemisol HemeMonocytes (Bld) [#/Vol]0.6 E9/LNormal0.2 - 1.0 E9/LRemisol HemeMonocytes/100 WBC (Bld)6.0 %Normal4.0 - 14.0 %Remisol HemeNeutrophils (Bld) [#/Vol]5.9 E9/LNormal2.0 - 7.5 E9/LRemisol HemeNeutrophils/100 WBC (Bld)56.2 % Kjcdpa92.0 - 75.0 %Remisol HemePlatelet mean volume (Bld) [Entitic vol]7.2 fL Normal6.4 - 10.8 fLRemisol HemePlatelets (Bld) [#/Vol]366.0 E9/QGdctrr523.0 - 500.0 E9/LRemisol HemeRBC (Bld) [#/Vol]4.5 E12/LNormal4.3 - 5.9 E12/LRemisol HemeWBC corrected for nucl RBC Auto (Bld) [#/Vol]10.5 E9/LNormal4.0 - 11.0 E9/L Remisol HemeLaboratory - Chemistry and Chemistry - challengeOrdered By: SYSTEM SYSTEM on 16-72-6898Cnhmdrl [Mass/Vol]4.9 g/dLNormal3.3 - 5.0 gm/dLRemisol Chem Albumin/Globulin [Mass ratio]1.4 {ratio}Normal1.1 - 2.2Remisol ChemAnion gap [Moles/Vol]14 mmol/LNormal6 - 16 mEq/LRemisol ChemCalcium [Mass/Vol]10.3 mg/dL Normal8.9 - 11.1 mg/dLRemisol ChemChloride [Moles/Vol]102 mmol/EZzrllj409 - 111 mmol/LRemisol ChemCO2 [Moles/Vol]28 mmol/FRzsmvu87 - 31 mmol/LRemisol Chem Creatinine [Mass/Vol]1.0 mg/dLNormal0.5 - 1.3 mg/dLRemisol ChemGlobulin (S) [Mass/Vol]3.5 g/dLNormal1.4 - 4.0 gm/dLRemisol ChemGlucose [Mass/Vol]104 mg/dL Mqwhyn45 - 199 mg/dLRemisol ChemPotassium [Moles/Vol]4.1 mmol/LNormal3.5 - 5.3 mmol/LRemisol ChemProtein [Mass/Vol]8.4 g/dLHigh6.0 - 7.8 gm/dLRemisol Chem Sodium [Moles/Vol]140 mmol/VGtlnhu745 - 145 mmol/LRemisol ChemUrea nitrogen [Mass/Vol]23 mg/dLHigh5 - 21 mg/dLRemisol ChemUrea nitrogen/Creatinine [Mass ratio]23 mg/aaYlbz41 - 20Remisol ChemLaboratory - Hematology and Cell counts Ordered By: SYSTEM SYSTEM on 01-87-1424Hbxlhtzmp/100 WBC (Bld)1.0 %Normal0.0 - 2.0 %Remisol HemeEosinophils/100 WBC (Bld)2.1 %Normal0.0 - 8.0 %Remisol Heme Erythrocyte distribution width (RBC) [Ratio]14.2 %Dndanx26.9 - 14.2 %Remisol HemeHematocrit (Bld) [Volume fraction]46.0 %Krdatb41.0 - 46.0 %Remisol Heme Hemoglobin (Bld) [Mass/Vol]14.8 g/yVHbsozo08.0 - 16.0 gm/dLRemisol Heme Lymphocytes/100 WBC (Bld)28.2 %Ciekhm69.0 - 50.0 %Remisol HemeMCH (RBC) [Entitic mass]28.3 gjPcjbww74.0 - 34.0 pgRemisol HemeMCHC (RBC) [Mass/Vol]32.1 g/dL Qrlppb21.4 - 36.0 gm/dLRemisol HemeMCV (RBC) [Entitic vol]88.2 fWJtuqcn66.0 - 100.0 fLRemisol HemeMonocytes/100 WBC (Bld)4.7 %Normal4.0 - 14.0 %Remisol Heme Platelet mean volume (Bld) [Entitic vol]6.8 fLNormal6.4 - 10.8 fLRemisol HemeNo Panel InformationOrdered By: SYSTEM SYSTEM on 27-77-8927Dhr Phos78 [iU]/dNormal - 98 Int._Unit/LRemisol HkcaWES70 [iU]/dNormal6 46 Int._Unit/LRemisol Chem AST17 [iU]/dNormal 43 Int._Unit/LRemisol ChemBasophil Absolute0.1 E9/LNormal 0.0 - 0.2 E9/LRemisol HemeBili Total0.5 mg/dLNormal0.0 - 1.1 mg/dLRemisol Chem eGFR56 mL/min/1.73 m2Low>=59mL/min/1.73 w8Iohwagk ChemEos Absolute0.3 E9/LNormal 0.0 - 0.5 E9/LRemisol HemeLymph Absolute3.5 E9/LNormal1.0 - 4.0 E9/LRemisol Heme [place] Absolute0.6 E9/LNormal0.2 - 1.0 E9/LRemisol HemeNeutro Absolute8.0 E9/LHigh 2.0 - 7.5 E9/LRemisol HemeNeutro Auto64.0 %Szmwkf86.0 - 75.0 %Remisol Heme Chnammvd058.0 E9/RLeyfke155.0 - 500.0 E9/LRemisol HemeRBC5.2 E12/LNormal4.3 - 5.9 E12/LRemisol ZmfuLXS90.5 E9/LHigh4.0 - 11.0 E9/LRemisol HemeLaboratory - Chemistry and Chemistry - challengeOrdered By: SYSTEM SYSTEM on 03-08-2023 Albumin [Mass/Vol]4.3 g/dLNormal3.3 - 5.0 gm/dLFTMC RemisolAlbumin/Globulin [Mass ratio]1.0 {ratio}Low1.1 - 2.2[facility] RemisolALP [Catalytic activity/Vol]67 [iU]/gChfigz15 98 Int._Unit/LFTMC RemisolALT No additional P-5'-P [Catalytic activity/Vol]15 [iU]/dNormal6 - 46 Int._Unit/LFTMC RemisolAnion gap [Moles/Vol] 14 mmol/LNormal6 - 16 mEq/LFTMC RemisolAST [Catalytic activity/Vol]21 [iU]/d Normal5 - 43 Int._Unit/LFTMC RemisolBilirubin [Mass/Vol]0.8 mg/dLNormal0.0 - 1.1 mg/dLFTMC RemisolCalcium [Mass/Vol]10.3 mg/dLNormal8.9 - 11.1 mg/dLFTMC Remisol Chloride [Moles/Vol]104 mmol/GLkoxsh775 - 111 mmol/LFTMC RemisolCO2 [Moles/Vol] 27 mmol/EZyhfmv53 - 31 mmol/LFTMC RemisolCreatinine [Mass/Vol]1.0 mg/dLNormal0.5 - 1.3 mg/dLFTMC RemisolGFR/1.73 sq M.predicted among non-blacks MDRD (S/P/Bld) [Vol rate/Area]56 mL/min/1.73 m2Low>=59mL/min/1.73 m2FT Chem SComment on above:Interpretive Data: Chronic kidney disease could be indicated at eGFR's of less than 60 mL/min/1.73m2. Kidney failure is indicated at less than 15 mL/min/1.73m2.Globulin (S) [Mass/Vol]4.2 g/dLHigh1.4 - 4.0 gm/dLFTMC Remisol Glucose [Mass/Vol]100 mg/eCLulmar74 - 199 mg/dLFT RemisolComment on above: Interpretive Data: If this glucose result represents a fasting glucose, interpretation should referto the following reference range: 55-99 mg/dL Potassium [Moles/Vol]3.8 mmol/LNormal3.5 - 5.3 mmol/LFTMC RemisolProtein [Mass/Vol]8.5 g/dLHigh6.0 - 7.8 gm/dLFTMC RemisolSodium [Moles/Vol]141 mmol/L Wzxhmf252 - 145 mmol/LFTMC RemisolUrea nitrogen [Mass/Vol]22 mg/dLHigh5 - 21 mg/dLFTMC RemisolUrea nitrogen/Creatinine [Mass ratio]22 mg/spInfj40 - 20[facility] RemisolLaboratory - Hematology and Cell countsOrdered By: SYSTEM SYSTEM on 37-44-5392Kownasvqv/100 WBC (Bld)1.4 %Normal0.0 - 2.0 %[facility] HemeAutoSS Basophils/Leukocytes Auto (Bld) [Pure # fraction]0.1 E9/LNormal0.0 - 0.2 E9/L [facility] HemeAutoSSEosinophils/100 WBC (Bld)2.2 %Normal0.0 - 8.0 %[facility] HemeAutoSS Eosinophils/Leukocytes Auto (Bld) [Pure # fraction]0.2 E9/LNormal0.0 - 0.5 E9/L [facility] HemeAutoSSLymphocytes/100 WBC (Bld)33.3 %Rzgwuh48.0 - 50.0 %[facility] HemeAutoSS Lymphocytes/Leukocytes Auto (Bld) [Pure # fraction]3.6 E9/LNormal1.0 - 4.0 E9/L [facility] HemeAutoSSMonocytes/100 WBC (Bld)4.8 %Normal4.0 - 14.0 %[facility] HemeAutoSS Monocytes/Leukocytes Auto (Bld) [Pure # fraction]0.5 E9/LNormal0.2 - 1.0 E9/L [facility] HemeAutoSSNeutrophils/100 WBC (Bld)58.3 %Jbgklw84.0 - 75.0 %[facility] HemeAutoSS Neutrophils/Leukocytes Auto (Bld) [Pure # fraction]6.2 E9/LNormal2.0 - 7.5 E9/L [facility] HemeAutoSSLaboratory - Hematology and Cell countsOrdered By: Karli Portillo on 01-05-5586Lvtihfsuooi distribution width (RBC) [Ratio]13.0 %Qafjtk09.9 - 14.2 %[facility] HemeAutoSSHematocrit (Bld) [Volume fraction]43.1 %Obzezh49.0 - 46.0 %[facility] HemeAutoSSHemoglobin (Bld) [Mass/Vol]14.5 g/bIXopltf94.0 - 16.0 gm/dLFTMC HemeAutoSSMCH (RBC) [Entitic mass]28.8 xxOlsyyi43.0 - 34.0 pgFTMC HemeAutoSSMCHC (RBC) [Mass/Vol]33.7 g/hGFycdex43.4 - 36.0 gm/dLFTMC HemeAutoSSMCV (RBC) [Entitic vol]85.7 mXZvazxj89.0 - 100.0 On license of [facility] HemeAutoSSPlatelet mean volume (Bld) [Entitic vol]7.2 fLNormal6.4 - 10.8 On license of [facility] HemeAutoSSPlatelets (Bld) [#/Vol]378.0 E9/MSiwrwh933.0 - 500.0 E9/[facility] HemeAutoSSRBC (Bld) [#/Vol]5.0 E12/LNormal4.3 - 5.9 E12/LFC HemeAutoSSWBC corrected for nucl RBC Auto (Bld) [#/Vol]10.7 E9/LNormal4.0 - 11.0 E9/[facility] HemeAutoSSBasophils Auto (Bld) [#/Vol] Ordered By: Dawit Mccormick on 58-61-0960Ygktdlbtp (Bld) [#/Vol]0.2 10*3/uL 0.0-0.2FBlanchard Valley Health System Blanchard Valley HospitalBasophils/100 WBC Auto (Bld)Ordered By: Dawit Mccormick on 41-84-3363Vvzsubyov/100 WBC (Bld)1.5 %.[facility] Community HospitalCalcium [Mass/volume] in Serum or PlasmaOrdered By: Dawit Mccormick on 99-54-4391Wqepexk [Mass/Vol]10.0 mg/dL8.6-10.3FBlanchard Valley Health System Blanchard Valley HospitalCarbon dioxide, total [Moles/volume] in Serum or PlasmaOrdered By: Dawit Mccormick on 41-32-3391FP7 [Moles/Vol]25.5 mmol/L21.0-31.0[facility] Community HospitalChloride [Moles/volume] in Serum or PlasmaOrdered By: Dawit Mccormick on 22-52-6477Ciqqvdwh [Moles/Vol]107 mmol/J66-571GuyyicygyHarrison Community HospitalCreatinine [Mass/volume] in Serum or PlasmaOrdered By: Dawit Mccormick on 00-95-9774Ubrtyifkbz [Mass/Vol]0.92 mg/dL0.60-1.20[facility] HospitalEosinophils Auto (Bld) [#/Vol]Ordered By: Dawit Mccormick on 02-12-1668Mxrnzopbzmy (Bld) [#/Vol]0.2 10*3/uL0.0-0.45[facility] HospitalEosinophils/100 WBC Auto (Bld)Ordered By: Dawit Mccormick on 48-34-8466Ipylszyfxbq/100 WBC (Bld)2.2 %.[facility] Erythrocyte distribution width Auto (RBC) [Ratio]Ordered By: Dawit Mccormick on 95-84-3558Rdrorjznfmg distribution width (RBC) [Ratio]13.7 %11.9-15.3FBlanchard Valley Health System Blanchard Valley HospitalGlucose [Mass/volume] in Serum or PlasmaOrdered By: Dawit Mccormick on 25-79-1562Oyducwp [Mass/Vol]89 mg/lT43-467MzkgiozmtHarrison Community HospitalComment on above:ADA recommended reference rangeRandom Glucose Reference Range is dependent on time and content of last meal. Glucose of more than 200 mg/dL in a nonstressed, ambulatory subject supports the diagnosisof Diabetes Mellitus.Hematocrit Auto (Bld) [Volume fraction]Ordered By: Dawit Mccormick on 79-83-5772Qyoocsurqj (Bld) [Volume fraction]40.9 %34.0-46.4FBlanchard Valley Health System Blanchard Valley HospitalHemoglobin [Mass/volume] in BloodOrdered By: Dawit Mccormick on 51-15-8618Nrriseawjt (Bld) [Mass/Vol]13.7 g/dL11.8-15.4FBlanchard Valley Health System Blanchard Valley HospitalLeukocytes [#/volume] corrected for nucleated erythrocytes in Blood by Automated counOrdered By: Dawit Mccormick on 01-07-2023 WBC corrected for nucl RBC Auto (Bld) [#/Vol]10.4 10*3/uL3.8-11.6FBlanchard Valley Health System Blanchard Valley HospitalLymphocytes Auto (Bld) [#/Vol]Ordered By: Dawit Mccormick on 34-52-2554Bjlukamkaef (Bld) [#/Vol]3.4 10*3/uL1.00-4.8[facility] HospitalLymphocytes/100 WBC Auto (Bld)Ordered By: Dawit Mccormick on 86-72-6158Huvzpqelkwz/100 WBC (Bld)32.4 %.[facility] HospitalH Auto (RBC) [Entitic mass]Ordered By: Dawit Mccormick on 24-03-3227KYZ (RBC) [Entitic mass]28.7 pg24.7-34.3FBlanchard Valley Health System Blanchard Valley HospitalMCHC Auto (RBC) [Mass/Vol]Ordered By: Dawit Mccormick on 57-52-2201KVJX (RBC) [Mass/Vol]33.5 g/dL32.0-35.0[facility] HospitalMCV Auto (RBC) [Entitic vol] Ordered By: Dawit Mccormick on 17-73-6193UGN (RBC) [Entitic vol]85.8 bR40-906 [facility] HospitalMonocytes Auto (Bld) [#/Vol]Ordered By: Dawit Mccormick on 71-40-0435Mrrlujxkj (Bld) [#/Vol]0.6 10*3/uL0.0-0.8[facility] HospitalMonocytes/100 WBC Auto (Bld)Ordered By: Dawit Mccormick on 12-71-7630Fgruhunqh/100 WBC (Bld)5.7 %.[facility] Neutrophils Auto (Bld) [#/Vol]Ordered By: Dawit Mccormick on 01-07-2023 Neutrophils (Bld) [#/Vol]6.1 10*3/uL1.8-7.7FBlanchard Valley Health System [facility] Neutrophils/100 WBC Auto (Bld)Ordered By: Dawit Mccormick on 01-07-2023 Neutrophils/100 WBC (Bld)58.2 %.[facility] HospitalNo Panel InformationOrdered By: Dawit Mccormick on 01-93-2447Phutrqndz GFR (CKD-EPI)> 60.0 mL/MinHarrison Community HospitalPharmacy Creatinine Clearance (Chem N/AFBlanchard Valley Health System Blanchard Valley HospitalNucleated erythrocytes [Presence] in Blood by Automated countOrdered By: Dawit Mccormick on 92-30-4944Dxlymdbrt RBC Auto Ql (Bld)0.1 /100{WBC}0-0.5FBlanchard Valley Health System Blanchard Valley HospitalPlatelet mean volume Auto (Bld) [Entitic vol]Ordered By: Dawit Mccormick on 07-29-1665Iaszhuzv mean volume (Bld) [Entitic vol]7.3 fL6.3-10.7FBlanchard Valley Health System [facility] Platelets Auto (Bld) [#/Vol]Ordered By: Dawit Mccormick on 66-53-7891Rrsosrvdk (Bld) [#/Vol]337 10*3/eW932-754CcnmwzbeiHarrison Community HospitalPotassium [Moles/volume] in Serum or PlasmaOrdered By: Dawit Mccormick on 01-07-2023 Potassium [Moles/Vol]4.2 mmol/L3.5-5.1FBlanchard Valley Health System Blanchard Valley HospitalRBC Auto (Bld) [#/Vol]Ordered By: Dawit Mccormick on 80-69-9688XLQ (Bld) [#/Vol]4.76 10*6/uL3.60-5.00Ohio Valley Hospitalerum or plasma anion gap determinationOrdered By: Dawit Mccormick on 90-86-5958Affdp gap [Moles/Vol]13.7 mmol/L6.0-15.0Ohio Valley Hospitalodium [Moles/volume] in Serum or PlasmaOrdered By: Dawit Mccormick on 91-18-0346Gueddj [Moles/Vol]142 mmol/L 136-145[facility] HospitalUrea nitrogen [Mass/volume] in Serum or PlasmaOrdered By: Dawit Mccormick on 63-80-4001Pyiy nitrogen [Mass/Vol]22 mg/dL 7-25H[facility] HospitalWBC Auto (Bld) [#/Vol]Ordered By: Dawit Mccormick on 71-18-6909MUB (Bld) [#/Vol]10.4 10*3/uL3.8-11.6FBlanchard Valley Health System Blanchard Valley HospitalLaboratory - Chemistry and Chemistry - challengeOrdered By: SYSTEM SYSTEM on 83-25-8707Syypktn [Mass/Vol]4.1 g/dLNormal3.3 - 5.0 gm/dLFT Remisol Albumin/Globulin [Mass ratio]1.1 {ratio}Normal1.1 - 2.2[facility] RemisolALP [Catalytic activity/Vol]61 [iU]/cRjlfvl02 - 98 Int._Unit/LFTMC RemisolALT No additional P-5'-P [Catalytic activity/Vol]16 [iU]/dNormal6 - 46 Int._Unit/LFTMC RemisolAnion gap [Moles/Vol]15 mmol/LNormal6 - 16 mEq/LFTMC RemisolAST [Catalytic activity/Vol]19 [iU]/dNormal5 - 43 Int._Unit/LFTMC RemisolBilirubin [Mass/Vol]0.7 mg/dLNormal0.0 - 1.1 mg/dLFT RemisolCalcium [Mass/Vol]9.9 mg/dL Normal8.9 - 11.1 mg/dLFT RemisolChloride [Moles/Vol]106 mmol/EOoqigw449 - 111 mmol/LFTMC RemisolCO2 [Moles/Vol]24 mmol/FRocmwh35 - 31 mmol/LFTMC Remisol Creatinine [Mass/Vol]0.9 mg/dLNormal0.5 - 1.3 mg/dLFT RemisolGFR/1.73 sq M.predicted among non-blacks MDRD (S/P/Bld) [Vol rate/Area]64 mL/min/1.73 m2 Normal>=59mL/min/1.73 m2[facility] [place] Chem SComment on above:Interpretive Data: Chronic kidney disease could be indicated at eGFR's of less than 60 mL/min/1.73m2. Kidney failure is indicated at less than 15 mL/min/1.73m2.Globulin (S) [Mass/Vol]3.8 g/dLNormal1.4 - 4.0 gm/dLFT RemisolGlucose [Mass/Vol]103 mg/dL Zhefwb30 - 199 mg/dLFT RemisolComment on above:Interpretive Data: If this glucose result represents a fasting glucose, interpretation should referto the following reference range: 55-99 mg/dLPotassium [Moles/Vol]4.1 mmol/LNormal3.5 - 5.3 mmol/LFTMC RemisolProtein [Mass/Vol]7.9 g/dLHigh6.0 - 7.8 gm/dLFT Remisol Sodium [Moles/Vol]141 mmol/JWpsoir800 - 145 mmol/LFTMC RemisolUrea nitrogen [Mass/Vol]23 mg/dLHigh5 - 21 mg/dLFTMC RemisolUrea nitrogen/Creatinine [Mass ratio]26 mg/deVbar55 - 20[facility] RemisolLaboratory - Hematology and Cell counts Ordered By: [email or web address] SYSTEM on 70-02-4909Xdhrnmeqj/100 WBC (Bld)1.2 %Normal0.0 - 2.0 %[facility] HemeAutoSSBasophils/Leukocytes Auto (Bld) [Pure # fraction]0.1 E9/L Normal0.0 - 0.2 E9/LFTMC HemeAutoSSEosinophils/100 WBC (Bld)2.5 %Normal0.0 - 8.0 %[facility] HemeAutoSSEosinophils/Leukocytes Auto (Bld) [Pure # fraction]0.3 E9/L Normal0.0 - 0.5 E9/LFTMC HemeAutoSSLymphocytes/100 WBC (Bld)32.6 %Kkepdj45.0 - 50.0 %[facility] HemeAutoSSLymphocytes/Leukocytes Auto (Bld) [Pure # fraction]4.0 E9/L Normal1.0 - 4.0 E9/LFTMC HemeAutoSSMonocytes/100 WBC (Bld)5.5 %Normal4.0 - 14.0 %[facility] HemeAutoSSMonocytes/Leukocytes Auto (Bld) [Pure # fraction]0.7 E9/LNormal 0.2 - 1.0 E9/LFTMC HemeAutoSSNeutrophils/100 WBC (Bld)58.2 %Qjqfvr67.0 - 75.0 % [facility] HemeAutoSSNeutrophils/Leukocytes Auto (Bld) [Pure # fraction]7.2 E9/LNormal 2.0 - 7.5 E9/LFTMC HemeAutoSSLaboratory - Hematology and Cell countsOrdered By: Antionette Felix on 70-58-9668Ttvcvvijzjy distribution width (RBC) [Ratio]13.4 % Zhoxnp04.9 - 14.2 %[facility] HemeAutoSSHematocrit (Bld) [Volume fraction]42.4 %Normal 34.0 - 46.0 %[facility] HemeAutoSSHemoglobin (Bld) [Mass/Vol]14.3 g/yKTxsnij30.0 - 16.0 gm/dLFTMC HemeAutoSSMCH (RBC) [Entitic mass]28.6 mpMgzdyc26.0 - 34.0 pgFTMC HemeAutoSSMCHC (RBC) [Mass/Vol]33.7 g/qQJjgzac99.4 - 36.0 gm/dLFTMC HemeAutoSS MCV (RBC) [Entitic vol]84.9 cHEjasxi04.0 - 100.0 fLFTMC HemeAutoSSPlatelet mean volume (Bld) [Entitic vol]7.0 fLNormal6.4 - 10.8 fLFT[facility] HemeAutoSSPlatelets (Bld) [#/Vol]346.0 E9/XVzppcb828.0 - 500.0 E9/L[facility] HemeAutoSSRBC (Bld) [#/Vol] 5.0 E12/LNormal4.3 - 5.9 E12/L[facility] HemeAutoSSWBC corrected for nucl RBC Auto (Bld) [#/Vol]12.3 E9/LHigh4.0 - 11.0 E9/L[facility] HemeAutoSSCHEMISTRYOrdered By: SYSTEM SYSTEM on 56-66-1564Zaleu [Mass/Vol]6.9 mg/dLNormal2.2 - 7.4 mg/dLFTMC RemisolHEMATOLOGYOrdered By: SYSTEM SYSTEM on 31-30-6097Nvhhvfjtg/100 WBC (Bld) 1.4 %Normal0.0 - 2.0 %[facility] HemeAutoSSBasophils/Leukocytes Auto (Bld) [Pure # fraction]0.2 E9/LNormal0.0 - 0.2 E9/L[facility] HemeAutoSSEosinophils/100 WBC (Bld)2.1 %Normal0.0 - 8.0 %[facility] HemeAutoSSEosinophils/Leukocytes Auto (Bld) [Pure # fraction]0.3 E9/LNormal0.0 - 0.5 E9/L[facility] HemeAutoSSLymphocytes/100 WBC (Bld) 36.6 %Pmtfmw28.0 - 50.0 %[facility] HemeAutoSSLymphocytes/Leukocytes Auto (Bld) [Pure # fraction]4.8 E9/LHigh1.0 - 4.0 E9/L[facility] HemeAutoSSMonocytes/100 WBC (Bld)5.6 % Normal4.0 - 14.0 %[facility] HemeAutoSSMonocytes/Leukocytes Auto (Bld) [Pure # fraction]0.7 E9/LNormal0.2 - 1.0 E9/L[facility] HemeAutoSSNeutrophils/100 WBC (Bld) 54.3 %Ypxqox95.0 - 75.0 %[facility] HemeAutoSSNeutrophils/Leukocytes Auto (Bld) [Pure # fraction]7.1 E9/LNormal2.0 - 7.5 E9/L[facility] HemeAutoSSHEMATOLOGYOrdered By: Wen Chavez on 13-66-3284Mcgbuttudcq distribution width (RBC) [Ratio]13.5 % Mlinvu69.9 - 14.2 %[facility] HemeAutoSSHematocrit (Bld) [Volume fraction]43.6 %Normal 34.0 - 46.0 %[facility] HemeAutoSSHemoglobin (Bld) [Mass/Vol]14.3 g/eJMtjfod25.0 - 16.0 gm/dLFTMC HemeAutoSSMCH (RBC) [Entitic mass]28.0 ppXmkekp87.0 - 34.0 pgFTMC HemeAutoSSMCHC (RBC) [Mass/Vol]32.8 g/lVAqzrby27.4 - 36.0 gm/dLFTMC HemeAutoSS MCV (RBC) [Entitic vol]85.4 fTZxxuxo63.0 - 100.0 fLFT[facility] HemeAutoSSPlatelet mean volume (Bld) [Entitic vol]7.4 fLNormal6.4 - 10.8 fLFT[facility] HemeAutoSSPlatelets (Bld) [#/Vol]429.0 E9/ERcolcr975.0 - 500.0 E9/L[facility] HemeAutoSSRBC (Bld) [#/Vol] 5.1 E12/LNormal4.3 - 5.9 E12/L[facility] HemeAutoSSWBC corrected for nucl RBC Auto (Bld) [#/Vol]13.1 E9/LHigh4.0 - 11.0 E9/L[facility] HemeAutoSSMG MAMM SCREEN 3D JAMEE CADon [id number] MAMM SCREEN 3D JAMEE CADPatient: ARLEY ASHRAF Exam Date: 04/07/2022 : 1940 Gender:F Ordering : DR DELMY HOBBS . Admission #: [id number] Family : Order #: [id number] CLICK HERE TO VIEW EXAM RADIOLOGY REPORT PROCEDURE: MAMMOGRAM SCREENING 3D BILATERAL CAD COMPARISON: [facility] MAMM SCREEN 3D JAMEE CAD, 04/04/2021. [facility] MAMM SCREEN JAMEE W CAD, 04/01/2020. INDICATIONS: Screening mammography Calculator Name NCI Breast Cancer Risk Assessment Tool 5 Year Breast Cancer Risk 1.20% Lifetime Breast Cancer Risk 1.70% Personal Breast Cancer No Personal Ovarian Cancer No Treatments None Family Cancers Aunt-maternal with breast cancer at age 60. LOCATION: [facility] BREAST COMPOSITION: Heterogeneously dense,which may obscure small masses. FINDINGS: DIAGNOSTIC CATEGORY 2--BENIGN FINDING: RIGHT BREAST: No significant suspicious finding. Scattered benign-appearing calcifications are present. No significant change has occurred. LEFT BREAST: No significant suspicious finding. No significant change has occurred. RECOMMENDATIONS: ROUTINE MAMMOGRAM AND CLINICAL EVALUATION IN 12 MONTHS. PLEASE NOTE: A NORMAL MAMMOGRAM DOES NOT EXCLUDE THE POSSIBILITY OF BREAST CANCER. A CLINICALLY SUSPICIOUS PALPABLE LUMP SHOULD BE BIOPSIED. Dictated by: Geovanna Ceballos M.D. on 04/08/2022 at 13:30 Approved by: Geovanna Ceballos M.D. on 04/08/2022 at 14:06Norm[facility] AUTO DIFFon [id number] #0.1 103/ulNormal0.0-0.1[facility] CampusComment on above:Performed By: #### CBC #### [facility] [address] [place] [address] Dr. Andrade Murillosophils/100 WBC (Bld)1.1 %Normal0.2-2.0[facility] Comment on above:Performed By: #### CBC #### [facility] [address] [place] [address] Dr. Andrade Conroy #0.3 103/ulNormal0.0-0.7The [facility] CampusComment on above: Performed By: #### CBC #### [facility] [address] [place] [address] Dr. Andrade Garciaosinophils/100 WBC (Bld)2.4 %Normal0.9-7.0[facility] Comment on above:Performed By: #### CBC #### [facility] [address] [place] [address] Dr. Andrade Garciarythrocyte distribution width (RBC) [Ratio]13.2 %Djrhqd51.0-15.0 [facility] CampusComment on above:Performed By: #### CBC #### [facility] [address] [place] [address] Dr. Andrade LooneyHematocrit (Bld) [Volume fraction]43.2 %Mrygzy54.0-48.0The [facility] CampusComment on above:Performed By: #### CBC #### [facility] [address] [place] [address] Dr. Andrade LooneyHemoglobin (Bld) [Mass/Vol]13.7 g/jSYlxloi93.0-16.0[facility] CampusComment on above:Performed By: #### CBC #### [facility] [address] [place] [address] Dr. Andrade Kulkarni #0.04 10e3/ulCritically high0.00-0.03[facility] Comment on above:Performed By: #### CBC #### [facility] [address] [place] [address] Dr. Andrade Kulkarni %0.4 %Normal0.0-0.5ThChillicothe HospitalComment on above: Performed By: #### CBC #### [facility] [address] [place] [address] Dr. Andrade FiredmanH #4.6 103/ulCritically high1.2-3.8The [facility] Comment on above:Performed By: #### CBC #### [facility] [address] [place] [address] Dr. Andrade Bhatiamphocytes/100 WBC (Bld)40.3 %Eoeztb24.5-60.0[facility] CampusComment on above:Performed By: #### CBC #### [facility] [address] [place] [address] Dr. Andrade Valdivia DIFF REQNONormalThe [facility] CampusComment on above: Performed By: #### CBC #### [facility] [address] [place] [address] Dr. Andrade Ewing (RBC) [Entitic mass]28.4 kjSlsxzw25.7-34.0The [facility] CampusComment on above:Performed By: #### CBC #### [facility] [address] [place] [address] Dr. Andrade Ewing (RBC) [Mass/Vol]31.7 g/aYOpvbuv75.9-35.2The [facility] CampusComment on above:Performed By: #### CBC #### [facility] [address] [place] [address] Dr. Andrade Ewing (RBC) [Entitic vol]89.4 oVBuxfjd11.0-99.0The [facility] CampusComment on above:Performed By: #### CBC #### [facility] [address] [place] [address] Dr. Andrade Wise #0.6 103/ulNormal0.3-0.8The [facility] CampusComment on above:Performed By: #### CBC #### [facility] [address] [place] [address] Dr. Andrade Craigocytes/100 WBC (Bld)5.6 %Normal1.7-12.0The [facility] Comment on above:Performed By: #### CBC #### [facility] [address] [place] [address] Dr. Andrade Field #5.7 103/ulNormal1.4-6.5The [facility] CampusComment on above:Performed By: #### CBC #### [facility] [address] [place] [address] Dr. Andrade Rogelutrophils/100 WBC (Bld)50.2 %Bdpnwo14.0-75.0The [facility] CampusComment on above:Performed By: #### CBC #### [facility] [address] [address] [address] Andrade Lovelet mean volume (Bld) [Entitic vol]8.8 fLCritically low 9.5-13.5ThChillicothe HospitalComment on above:Performed By: #### CBC #### [facility] [address] [address] [address] Andrade LooneyPLT342 103/cfLxqvnc038-349Iao [facility] CampusComment on above: Performed By: #### CBC #### [facility] [address] [place] [address] Dr. Andrade LooneyRBC4.83 106/ulNormal4.20-5.40The [facility] CampusComment on above:Performed By: #### CBC #### [facility] [address] [place] [address] Dr. Andrade LooneyWBC11.3 103/ulCritically high4.0-11.0The [facility] CampusComment on above:Performed By: #### CBC #### [facility] [address] [place] [address] Dr. Andrade AsencioID PROFILEon [id number]-HDL RATIO NORMSKindred HealthcareComment on above:Result Comment: 3.3 - 4.4 LOW RISK 4.4 - 7.1 AVERAGE RISK 7.1 - 11.0 MODERATE RISK >11.0 HIGH RISKPerformed By: #### CMP, LIPID #### [facility] [address] [place] [address] Dr. Andrade LooneyCholesterol [Mass/Vol]200 mg/dLNormal<=200The [facility] Comment on above:Performed By: #### CMP, LIPID #### [facility] [address] [place] [address] Dr. Andrade Dudleyesterol in HDL [Mass/Vol]46 mg/rXRbwfua64-11Slz [facility] CampusComment on above:Performed By: #### CMP, LIPID #### [facility] [address] [place] [address] Dr. Andrade Dudleyesterol in LDL [Mass/Vol]123.8 mg/dLGerman HospitalComment on above:Performed By: #### CMP, LIPID #### [facility] [address] [place] [address] Dr. Andrade LooneyCholesterol.total/Cholesterol in HDL [Mass ratio]4.3 {ratio} NormalThe [facility] CampusComment on above:Performed By: #### CMP, LIPID #### [facility] [address] [place] [address] Dr. Andrade Pacheco NORMAL> or = 60 mg/dl - LOW CARDIOVASCULAR RISK <40 mg/dl - HIGH CARDIOVASCULAR RISKGerman HospitalComment on above:Performed By: #### CMP, LIPID #### [facility] [address] [place] [address] Dr. Andrade Ramirez CALC NORMALSEE BELOWGerman HospitalComselect specialty hospital-pontiac on above:Result Comment: <100 mg/dl OPTIMAL 100 - 129 mg/dl NEAR OR ABOVE OPTIMAL 130 - 159 mg/dl BORDERLINE HIGH 160 - 189 mg/dl HIGH >190 mg/dl VERY HIGH Performed By: #### CMP, LIPID #### [facility] [address] [place] [address] Dr. Andrade LooneyTriglyceride [Mass/Vol]151 mg/dLCritically high<=150The [facility] on above:Performed By: #### CMP, LIPID #### [facility] [address] [place] [address] Dr. Andrade WisemanLDL CALC30.2 mg/dLNoPaulding County HospitalComselect specialty hospital-pontiac on above: Performed By: #### CMP, LIPID #### [facility] [address] [place] [address] Dr. Andrade LooneyPROF 14(COMP METB)on [id number] [Mass/Vol]3.8 g/dLNormal 3.4-5.0[facility] on above:Performed By: #### CMP, LIPID #### [facility] [address] [place] [address] Dr. Andrade LooneyAlbumin/Globulin [Mass ratio]0.9 {ratio}NormalThe Alpharetta HospitalComment on above:Performed By: #### CMP, LIPID #### [facility] [address] [address] [address] Andrade Hamm [Catalytic activity/Vol]70 U/CUloehi51-400Qkb [facility] CampusComment on above:Performed By: #### CMP, LIPID #### [facility] [address] [address] [address] Andrade Burns [Catalytic activity/Vol]20 U/WVugyai92-29Uet [facility] CampusComment on above:Performed By: #### CMP, LIPID #### [facility] [address] [address] [address] Andraed Padilla gap [Moles/Vol]14.3 mmol/LNormalThe [facility] Comment on above:Performed By: #### CMP, LIPID #### [facility] [address] [address] [address] Andrade Hudson [Catalytic activity/Vol]16 U/FJdpirk33-39Hjq [facility] Hospitalment on above:Performed By: #### CMP, LIPID #### [facility] [address] [address] [address] Andrade LooneyBilirubin [Mass/Vol]0.4 mg/dLNormal0.2-1.3TLakeHealth Beachwood [facility] Comment on above:Performed By: #### CMP, LIPID #### [facility] [address] [address] [address] Andrade LooneyCalcium [Mass/Vol]9.3 mg/dLNormal8.5-10.1[facility] Comment on above:Performed By: #### CMP, LIPID #### [facility] [address] [address] [address] Andrade LooneyChloride [Moles/Vol]103 mmol/CItswwm83-824Ada [facility] Comment on above:Performed By: #### CMP, LIPID #### [facility] [address] [address] [address] Andrade LooneyCO2 [Moles/Vol]27.2 mmol/GVnqvxr41.0-30.0[facility] Comment on above:Performed By: #### CMP, LIPID #### [facility] [address] [address] [address] Andrade LooneyCreatinine [Mass/Vol]0.93 mg/dLNormal0.52-1.04[facility] CampusComment on above:Performed By: #### CMP, LIPID #### [facility] [address] [place] [address] Dr. Andrade Murrell-AF PERUVIAN>60Normal>=60The [facility] CampusComment on above:Performed By: #### CMP, LIPID #### [facility] [address] [place] [address] Dr. Andrade Murrell-NON AF MILPYXXC67 mL/min/1.71h2Gfvwmfvaxt low>=60The [facility] CampusComment on above:Performed By: #### CMP, LIPID #### [facility] [address] [place] [address] Dr. Andrade LooneyGlobulin (S) [Mass/Vol]4.0 g/dLNormalThe [facility] CampusComment on above:Performed By: #### CMP, LIPID #### [facility] [address] [place] [address] Dr. Andrade LooneyGlucose [Mass/Vol]102 mg/rTOenxfs04-563NlfSumma Health [facility] Campus Comment on above:Performed By: #### CMP, LIPID #### [facility] [address] [place] [address] Dr. Andrade LooneyPotassium [Moles/Vol]4.5 mmol/LNormal3.4-5.0The [facility] Comment on above:Performed By: #### CMP, LIPID #### [facility] [address] [place] [address] Dr. Andrade LooneyProtein [Mass/Vol]7.8 g/dLNormal6.1-8.2[facility] Comment on above:Performed By: #### CMP, LIPID #### [facility] [address] [place] [address] Dr. Andrade LooneySodium [Moles/Vol]140 mmol/MIfklye707-489Gmn [facility] Comment on above:Performed By: #### CMP, LIPID #### [facility] [address] [address] [address] Andrade Bell nitrogen [Mass/Vol]18.0 mg/dLNormal7.0-18.0[facility] CampusComment on above:Performed By: #### CMP, LIPID #### [facility] [address] [place], [place] [address] Dr. Andrade Bell nitrogen/Creatinine [Mass ratio]19.4 mg/mgNormalThe [facility] CampusComment on above:Performed By: #### CMP, LIPID #### [facility] [address] [place], [place] [address] Dr. Andrade Looney Vital Signs Date TimeVital SignValuePerforming [id number] 15:32-0400Body nilgtwpwrcs04 [degF]Elbert Clifford MD Work Phone: [phone])[address]10-31-2025 15:32-0400 Diastolic blood mm[Hg]Elbert Clifford MD Work Phone: 0(103)[address]10-31-2025 15:32-0400 Heart rate99 /minGeorge Raman Clifford MD Work Phone: 5(469)[address]10-31-2025 15:32-0400 Respiratory rate18 /minGeorge Raman Clifford MD Work Phone: 4(534)[address]10-31-2025 15:32-0400 SaO2% (BldA) [Mass fraction]98 %Elbert Clifford MD Work Phone: [phone])[address]10-31-2025 15:32-0400 Systolic blood tfitsstt907 mm[Hg]Elbert Clifford MD Work Phone: [phone])[address]10-31-2025 06:00-0400 Body dbmipl30.6 kgGeorge Raman Clifford MD Work Phone: 1(466)866-[address] [place], [place] 6714710-31-2025 04:05-0400 Inhaled oxygen flow rate1 L/minGeorhiginio Clifford MD Work Phone: 1(342)[address] [place], [place] 7813010-30-2025 13:12-0400 Body otodtc536.94 cmHiginioorge Raman Clifford MD Work Phone: 1(470)[address] [place], [place] 7813010-29-2025 20:29-0400 Body .1 [degF]Elbert Clifford MD Work Phone: 1(715)[address] [place], [place] 7813010-29-2025 20:29-0400 Diastolic blood bwuuajls36 mm[Hg]Elbert Clifford MD Work Phone: [phone])[address] [place], [place] 0404810-29-2025 20:29-0400 Heart rate77 /minGeorge Raman Clifford MD Work Phone: 1(951)[address] [place], [place] 7813010-29-2025 20:29-0400 Respiratory rate18 /minGeorge Raman Clifford MD Work Phone: 1(173)[address] [place], [place] 7813010-29-2025 20:29-0400 SaO2% (BldA) [Mass fraction]96 %Elbert Clifford MD Work Phone: 1(072)[address] [place], [place] 7813010-29-2025 20:29-0400 Systolic blood egftstni904 mm[Hg]Elbert Clifford MD Work Phone: 1(198)[address] [place], [place] 0404810-29-2025 11:30-0400 Body vdywsb715.94 cmGeorge Raman Clifford MD Work Phone: 1(135)[address] [place], [place] 7813010-29-2025 11:30-0400 Body cltfam25.7 kgGeorhiginio Clifford MD Work Phone: 1(560)[address] [place], [place] 0404810-19-2025 18:35-0400 Body .1 [degF]PHYSICIAN NO [facility] 02-11-2025 18:35-0400Diastolic blood vhckpoax82 mm[Hg]PHYSICIAN NO [facility]10-19-2025 18:35-0400Heart rate73 /minPHYSICIAN [facility]10-19-2025 18:35-0400Respiratory rate 18 /minPHYSICIAN [facility]10-19-2025 18:35-0400 SaO2% (BldA) [Mass fraction]100 %PHYSICIAN NO [facility]10-19-2025 18:35-0400Systolic blood njrwibfu027 mm[Hg]PHYSICIAN NO [facility]10-19-2025 16:17-0400Body ymnton331.4 cm PHYSICIAN [facility]10-19-2025 16:17-0400Body ydqozv72 kgPHYSICIAN [facility]10-12-2025 13:58-0400Body uxxvheyubgz82.7 [degF]Deepak Marshall MD Work Phone: 1(530)338-[address] [place], [place] 7770610-12-2025 13:58-0400 Diastolic blood sxryrtke59 mm[Hg]Deepak Marshall MD Work Phone: 1(939)984-[address] [place], [place] 7770610-12-2025 13:58-0400 Heart rate79 /minDeepak Marshall MD Work Phone: 1(556)463-[facility]10-12-2025 13:58-0400 Respiratory rate18 /minDeepak Marshall MD Work Phone: 1(188)383-[address] [place], [place] 5952010-12-2025 13:58-0400 SaO2% (BldA) [Mass fraction]95 %Deepak Marshall MD Work Phone: [facility]10-12-2025 13:58-0400 Systolic blood vtfhyxyn010 mm[Hg]Deepak Marshall MD Work Phone: [facility]10-12-2025 06:00-0400 Body jmlpuj57 kgDeepak Marshall MD Work Phone: 1(419)[address] [place], [place] 7401210-08-2025 12:20-0400 Body hydwwq376.4 Rm Marshall MD Work Phone: 1(654)[address] [place], [place] 7401210-07-2025 12:32-0400 Diastolic blood xsymdtae31 mm[Hg]Deepak Marshall MD Work Phone: 1(277)[address] [place], [place] 7401210-07-2025 12:32-0400 Heart rate89 /minDeepak Marshall MD Work Phone: 1(997)[address] [place], [place] 7401210-07-2025 12:32-0400 Inhaled oxygen flow rate2 L/minDeepak Marshall MD Work Phone: 1(249)[address] [place], [place] 7401210-07-2025 12:32-0400 Respiratory rate16 /minDeepak Marshall MD Work Phone: 1(567)[address] [place], [place] 7401210-07-2025 12:32-0400 SaO2% (BldA) [Mass fraction]90 %Deepak Marshall MD Work Phone: 1(425)[address] [place], [place] 7401210-07-2025 12:32-0400 Systolic blood eydtuvwd845 mm[Hg]Deepak Marshall MD Work Phone: 1(776)[address] [place], [place] 7401210-07-2025 06:00-0400 Body efncdk05.7 kgDeepak Marshall MD Work Phone: 1(911)[address] [place], [place] 7401210-07-2025 04:00-0400 Body lnyngkphsqj25.3 [degF]Deepak Marshall MD Work Phone: 1(487)[address] [place], [place] 7401210-06-2025 18:39-0400 Body ztyukm803.4 Rm Marhsall MD Work Phone: 1(029)[address] [place], [place] 7401209-25-2025 12:42-0400 Diastolic blood mm[Hg]Luiz Costello MD Work Phone: [facility]09-25-2025 12:42-0400 Systolic blood vsgjfqyk205 mm[Hg]Luiz Costello MD Work Phone: 1(567)[address]09-25-2025 12:07-0400 Body .4 Michael Costello MD Work Phone: 1(765)[address] [place], [place] 7790109-25-2025 12:07-0400 Body mass index (BMI) [Ratio]36.5 kg/a9GxnrkkLuiz Costello MD Work Phone: 1(991)[address] [place], [place] 7790109-25-2025 12:07-0400 Body ugmhcu54.82 kgLuiz Costello MD Work Phone: 1(023)[address] [place], [place] 7790109-16-2025 11:24-0400 Diastolic blood xmymsufl38 mm[Hg]Luiz Costello MD Work Phone: 1(985)[address] [place], [place] 7790109-16-2025 11:24-0400 Heart rate85 /minShector Costello MD Work Phone: 1(193)[address] [place], [place] 7790109-16-2025 11:24-0400 Systolic blood sbafralj916 mm[Hg]Luiz Costello MD Work Phone: 1(801)[address] [place], [place] 7790107-17-2025 12:57-0400 Body bignpp494.4 Michael Costello MD Work Phone: [phone])[address]07-17-2025 12:57-0400 Body mass index (BMI) [Ratio]36.7 kg/b3BilfskLuiz Costello MD Work Phone: [phone])[phone]07-17-2025 12:57-0400 Body .27 kgLuiz Costello MD Work Phone: [phone])998-97[facility]07-17-2025 12:57-0400 Diastolic blood awrlzkfn93 mm[Hg]Luiz Costello MD Work Phone: 1(240)189-[address] [place], [place] 0801007-17-2025 12:57-0400 Systolic blood nlxhadib955 mm[Hg]Luiz Costello MD Work Phone: 1([phone])922[facility]03[facility]04-21-2025 13:42-0400 Heart rate78 /minBlake Grimes [facility]04-21-2025 13:42-1884LcV8% (BldA) [Mass fraction]96 %Blake Grimes [facility]04-21-2025 13:42-0400 Diastolic blood oyybohvd87 mm[Hg]Blake Grimes [facility]04-21-2025 13:42-0400Mean blood bypmtrll53 mm[Hg]Blake Grimes [facility]04-21-2025 13:42-0400 Systolic blood mm[Hg]Blake Grimes [facility]04-21-2025 13:32-0400 Diastolic blood hrawsurc73 mm[Hg]Blake Grimes [facility]04-21-2025 13:32-0400Heart rate80 /minBraalessia Cornelio [facility]04-21-2025 13:32-0400 Respiratory rate14 /minBraalessia Cornelio [facility]04-21-2025 13:32-8735ThR7% (BldA) [Mass fraction]97 %Blake Grimes [facility]04-21-2025 13:32-0400 Systolic blood dtokkwse681 mm[Hg]Blake Grimes [facility]04-21-2025 12:34-0400Heart rate80 /minBraalessia Cornelio [facility]04-21-2025 12:34-2118QwR6% (BldA) [Mass fraction]98 %Lozano Cornelio [facility]04-21-2025 12:31-0400 Diastolic blood yhobusdi46 mm[Hg]Blake Grimes [facility]04-21-2025 12:31-0400Mean blood aplnwfav91 mm[Hg]Blake Grimes [facility]04-21-2025 12:31-0400 Systolic blood mm[Hg]Blake Grimes [facility]04-21-2025 12:24-0400Body zyeovfmlidb98.24 [degF]Blake Grimes [facility]04-21-2025 12:22-0400 Respiratory rate16 /minBradfnataly Cornelio [facility]04-08-2025 11:58-0400 Diastolic blood mm[Hg]Blake Grimes [facility]04-08-2025 11:58-0400Heart rate87 /minBradford Cornelio [facility]04-08-2025 11:58-0400Mean blood djlngaxi46 mm[Hg]Blake Grimes [facility]04-08-2025 11:58-0400 Respiratory rate14 /minBradford Cornelio [facility]04-08-2025 11:58-0400 Systolic blood ansxatql353 mm[Hg]Blake Grimes [facility]03-26-2025 13:18-0400Body tzeida196.5 cmTkody [facility] Work Phone: noCox Walnut LawnIwamdtilic44-99-9919 13:18-0400Body mass index (BMI) [Ratio]34.02 kg/m2Brandon [facility] Work Phone: noCox Walnut LawnSufhqtlyfb60-15-5625 13:18-0400Body yqxenh29.37 kgToxander [facility] Work Phone: noCox Walnut LawnMhnycaxeij02-32-2026 08:35-0500Body cuihct293.5 David Ramirez DPM Work Phone: [facility] InstituteUwmfrvjcod69-77-5114 08:35-0500Body mass index (BMI) [Ratio]34.02 kg/a9MnatwxakBoone Ramirez DPM Work Phone: [facility] InstituteWcgwwacjta18-57-6231 08:35-0500Body nytmrp70.37 kgNicseema Ramirez DPM Work Phone: [facility] InstitutePyzkucqcmm14-39-2349 08:35-0500Respiratory rate16 /minNicseema Ramirez DPM Work Phone: [facility] InstituteFtxqupcqnn65-76-0553 10:00-0500Body recacd072.5 cmNicseema Ramirez DPM Work Phone: [facility] InstituteAnyeawyejk92-97-8814 10:00-0500Body mass index (BMI) [Ratio]34.02 kg/e1JfawnvctBoone Ramirez DPM Work Phone: [facility] InstituteJzxcoqmpkb53-23-8189 10:00-0500Body xxkope57.37 kgBoone Ramirez DPM Work Phone: [facility] InstituteZsgyhagdoy82-84-0236 10:00-0500Respiratory rate18 /minBoone Ramirez DPM Work Phone: [facility] InstituteTiipqfzwwy44-25-0957 10:33-0500Body temperature 98.42 [degF]Tank Kasper [address] [place], [place] 5504601-26-2025 10:33-0500 Diastolic blood tecltyzr05 mm[Hg]Tank Kasper [facility]01-26-2025 10:33-0500Heart rate89 /Sunil Kasper [facility]01-26-2025 10:33-0500 Respiratory rate18 /minTank Kasper [facility]01-26-2025 10:33-3644GdL4% (BldA) [Mass fraction]97 %Tank Kasper [address] [place], [place] 5504601-26-2025 10:33-0500 Systolic blood yhhsuctn722 mm[Hg]Tank Kasper [facility]01-15-2025 09:42-0500Body fdqaft528.4 cmTkody DUBOIS Work Phone: NOCox Walnut LawnIbrjzssilm10-57-6577 09:42-0500Body mass index (BMI) [Ratio]35.94 kg/m2Brandon Conway PA Work Phone: NOC[facility] LawnMtnslxhiqo87-92-0625 09:42-0500Body .46 kgToxander Conway PA Work Phone: [facility] Encounters Encounter DateEncounter TypeCare ProviderFacilityStart: 88-40-9985djdamipmkxQF Luiz CostelloFacility:[facility] BellevueStart: 72-90-7688uirdtyjefzRcfp L Schwab Facility:[facility] CenterevueStart: 02-23-2025 End: 41-74-5407Qgharmhwko and management of inpatientJoseph Des [facility]tart: 88-85-9871Qobmrroik to same day surgery centerDeepak Oconnor MD-[facility] Work Phone: Start: 02-21-2025 End: 39-48-2481Jmffsmkrro and management of inpatientDeepak Oconnor MD[address] Surgical Work Phone: Start: 02-21-2025 End: 62-03-6213exvenicjciFrgkys Augustine Koromia MD Work Phone: [phone]-Mrksizgff Health OrthopedicsStart: 02-21-2025 End: 95-95-4173Lrwnpqf encounter procedureDeepak Oconnor MD-[facility] Work Phone: Start: 02-14-2025 End: 25-74-4622dlhyabakhfCYGNXIDRV [facility] OrthopedicsStart: 02-14-2025 End: 99-70-4052Ltbuimc encounter procedureDeepak Oconnor MD-[facility] Work Phone: Start: 02-11-2025 End: 17-29-4849Bgtuolaxw department patient visitPHYSICIAN NO FAMILY-Emergency Room Work Phone: Start: 72-79-2492Ock-patient / Non-visitAlli Nunes MD-[facility] Work Phone: Start: 02-85-9358Atk-patient / Non-visitBarbieruddy Tariq FORTUNE-[facility] Work Phone: Start: 01-30-2025 End: 44-22-6953Yiatowvjli and management of inpatientJojohn Nunes MD-[address] [place], [place] [address] Work Phone: Start: 01-29-2025 End: 01-55-1643otxgholwvnOgixkwdun HofferFacility:[facility] Hospitaltart: 37-58-5099Pjy-patient / Non-visitDeepak Oconnor MD-[facility] Work Phone: Start: 01-25-2025 End: 98-62-8530zfrurvidotORQ Jodi L SchwabFacility:[facility] BellevueStart: 01-19-2025 End: 88-10-6098wyzvuswvahFuiihc E Ross MD Work Phone: [facility] Work Phone: Start: 01-19-2025 End: 88-55-5961Ovhjgtv encounter procedureRobfam Oconnor [facility] Work Phone: Start: 01-18-2025 End: 70-56-9753Fkhbgmc encounter procedureDeepak Oconnor [facility] Work Phone: Start: 50-27-9656Gcztyahkhs RecurringDeepak Oconnor MD-Physical Therapy [place] CreekStart: 01-18-2025 End: 03-69-7096hergedydrlKqcyqb E Ross MD Work Phone: [facility] Work Phone: Start: 65-26-2673Wrnrwgjwp for other preprocedural examinationRobert Anastasia [facility] GroupStart: 01-15-2025 End: 95-85-8067iwglkjscgjUbctvei OthmanFacility:FTMCStart: 01-10-2025 End: 58-60-5236Pwgjwrz encounter procedureRobafm Oconnor MD-Pre-Surgical Testing Work Phone: Start: 01-10-2025 End: 64-51-0317miqpjzltrlPhpekw E Ross MD Work Phone: [facility] Work Phone: Start: 52-07-3284Nspvqdqit for preprocedural laboratory examinationRobert Anastasia MccurdyBay City [facility] Physician GroupStart: 01-09-2025 End: 44-49-0407Khdskfd encounter procedureReinaldo Linton MD-Electrodiagnostics Work Phone: Start: 01-09-2025 End: 06-48-6214dakfomjslrQdrbnd E Ross MD Work Phone: [facility] Work Phone: Start: 11-32-6508Jlysugzmg for preprocedural cardiovascular examinationMahmdorie MobleyFormerly Albemarle Hospitalalicia [facility] Physician GroupStart: 12-26-2024 End: 88-12-6545gszapscgnlPtkmerc OthmanFacility:FTMCStart: 12-26-2024 End: 20-79-0444oivukoxsmqRmnf L SchwabFacility:FTMCStart: 12-08-2024 End: 16-90-0137qzgcewoedeBele L SchwabFacility:FTMCStart: 12-08-2024 End: 65-11-2629skxzpsewwbXzil L SchwabFacility:FT FM BellevueStart: 12-07-2024 End: 26-70-5589ntdvymavzgTxlrnqvl A. JonesFacility:FTMCStart: 11-30-2024 End: 19-41-9911jxjqlkdgdzTxssqkom A. JonesFacility:FTMCStart: 11-23-2024 End: 14-60-1612nqckrkpazcSvvzvdao A. JonesFacility:FTMCStart: 11-20-2024 End: 97-59-0227Qrofade encounter procedureRobfam Oconnor MD-CT Scan [facility] [place] Work Phone: Start: 11-20-2024 End: 51-47-2571cskfcwiggmRbzcpw E Ross MD Work Phone: [facility] Work Phone: Start: 11-09-2024 End: 87-03-8595nbswqrtqbcUpotza E Ross MD Work Phone: [facility] Work Phone: Start: 11-09-2024 End: 36-96-1709Ctxbeih encounter procedureRobfam Oconnor [facility] Work Phone: Start: 11-09-2024 End: 48-60-5350lafktfbmyvQzcpuzsf A. JonesFacility:FTMCStart: 11-09-2024 End: 78-22-2876Ekvunve encounter procedureRobfam Oconnor MD-lyudmila LindaHoracio OrthoStart: 11-09-2024 End: 94-03-1943cywvelbmdcCqhlez E Ross MD Work Phone: [facility] Work Phone: Start: 10-26-2024 End: 18-77-3434Vmm Drop offJodi L Ivet [facility] Start: 10-26-2024 End: 58-13-2198egwplqaukaLTM Micah L SchwabFacility:FT FM BellevueStart: 10-17-2024 End: 55-69-0527Hoe Drop offJodi L Ivet [facility] Start: 10-17-2024 End: 73-69-7354bjovstkweyVuqvct E. RossFacility:FT FM BellevueStart: 09-28-2024 End: 41-12-1769yqcvcbtqycTxdexp E. RossFacility:FT FM BellevueStart: 09-26-2024 End: 75-06-5694uiozvpegcqNMUFILO MORROWFacility:FTMCStart: 09-26-2024 End: 71-58-4474Ofnaszj encounter procedureMATTARNULFO BRENNAN [facility] Start: 09-25-2024 End: 88-31-9362xlrdzbgsgmCjhhefqu A. JonesFacility:FTMCStart: 09-25-2024 End: 37-43-1558Cbeg Rodney Grimes [facility] Start: 09-14-2024 End: 22-95-3239duoxhiayrlRyemtrnc A. JonesFacility:FTMCStart: 08-29-2024 End: 78-13-4029Dfzsrs flowsContreras Spencer MD Work Phone: noms SWS DERMStart: 08-29-2024 End: 49-92-2319Mddpsw flowsheetNehal Spencer MD Work Phone: [facility] SWS DERMStart: 08-29-2024 End: 61-64-7932Cbxhywj encounter procedureEmcharles Spencer MD Work Phone: noms SWS DERMComment on above:Actinic keratosis (Primary Dx)Start: 08-29-2024 End: 80-92-3880obsflvevsgSYPOH A PETITTINot AvailableStart: 08-24-2024 End: 88-05-7066wexmxqsnzzEGA JODI LEIGH OBERMEYERFacility:FTMCStart: 08-24-2024 End: 29-90-1574Tobcdvw encounter procedureMICAH HERZOG [facility] Start: 08-14-2024 End: 73-35-6753lzigfjnvaiDtduziaq A. JonesFacility:FTMCStart: 08-14-2024 End: 98-79-9385Yigw ManagementBlake Grimes [facility] Start: 08-01-2024 End: 34-95-4809tiobcbrvibNmhnjfyu A. JonesFacility:FTMCStart: 08-01-2024 End: 79-00-9114Dtuypgp encounter procedureBlake Grimes [facility] Start: 07-25-2024 End: 56-63-7098iignjaankaXntowg E. RossFacility:FT BellevueStart: 07-24-2024 End: 37-40-9156Xybyfm flowsheetEmcharles Spencer MD Work Phone: noms SWS DERMStart: 07-24-2024 End: 17-05-6563Zkcrmg flowsheetEmcharles Spencer MD Work Phone: noms SWS DERMStart: 07-24-2024 End: 46-90-1158Aeelpd outpatient visit 15 minutesEmcharles Spencer MD Work Phone: noms SWS DERMComment on above:Melanocytic nevus of left upper extremity (Primary Dx); Actinic keratosis; Lentigines; History of basal cell carcinoma; Neoplasm of unspecified behavior of bone, soft tissue, and skinStart: 07-24-2024 End: 23-90-7392foubmianyySOLJG A PETITTINot AvailableStart: 07-19-2024 End: 65-05-1978Yprjrp flowsheetToxander DUBOIS Work Phone: NOMS ORTHOStart: 07-19-2024 End: 25-87-7611Bcrbqa flowsheetToxander Mariano Heidi PA Work Phone: NOMS ORTHOStart: 07-19-2024 End: 54-81-3816Dnqavwz encounter procedureToxander Gordon PA Work Phone: [facility] NB ORTHOComment on above:Lumbosacral radiculopathy due to degenerative joint disease of spine (Primary Dx)Start: 07-19-2024 End: 90-59-6062adfwderaxjHXIS D HILLSNot AvailableStart: 07-17-2024 End: 82-58-9432sncityszvbXOLZYGJ MORROWFacility:FTMCStart: 07-10-2024 End: 51-53-3663lcjkkhjhmoZpxl D HillsFacility:FTMCStart: 07-10-2024 End: 70-58-2050Dnqvuwq encounter procedureRuelxander Gordon [facility] Start: 06-13-2024 End: 48-15-7844Wcthzl flowsheetNicholcaitlin Fox Brown DPM Work Phone: [facility] SC PODStart: 06-13-2024 End: 18-52-3864Dsxfjd flowsheetNicholas A Brown DPM Work Phone: [facility] SC PODStart: 06-13-2024 End: 74-79-1249Lhnucn outpatient visit 25 minutesNicseema Fox Brown DPM Work Phone: [facility] SC PODComment on above:Closed nondisplaced fracture of middle phalanx of lesser toe of right foot, initial encounter (Prima ry Dx); Cellulitis of right footStart: 06-13-2024 End: 31-59-0348ahqwrimhzuSUQBNSWS A BROWNNot AvailableStart: 05-24-2024 End: 32-53-0940Czzmguzsy encounterNicseema Ramirez DPM Work Phone: N[facility] SC PODComment on above:RxStart: 05-23-2024 End: 26-46-8181Gadtwp bayronBoone Ruddy Ramirez DPM Work Phone: noMS RI PODStart: 05-23-2024 End: 56-00-2542Pfufuo Iriseduardocaitlin Ramirez DPM Work Phone: noMS RI PODStart: 05-23-2024 End: 92-23-0211Jhypvz outpatient new 45 minutesBoone Ramirez DPM Work Phone: noMS RI PODComment on above:Foot pain, right (Primary Dx); Cellulitis of right foot; Closed nondisplaced fracture of middle phalanx of lesser toe of right foot, initial encounterStart: 05-23-2024 End: 14-80-1409zsxowrsnseLZLYPTSH A BROWNNot AvailableStart: 05-21-2024 End: 23-01-3757Xwijxnqga department patient visitTank Kasper [facility] Start: 05-10-2024 End: 65-53-9146Fapwsut encounter procedureToxander DUBOIS Work Phone: noms NB ORTHOComment on above:Tricompartment osteoarthritis of knees, bilateral (Primary Dx); Primary osteoarthritis of right hip; Lumbosacral radiculopathy due to degenerative joint disease of spineStart: 05-10-2024 End: 59-50-0820tytsatprsdKDIT D HILLSNot AvailableStart: 05-10-2024 End: 43-43-9247mgxycveopdSDNI D HILLSNot AvailableStart: 03-27-2024 End: 79-69-2611duqsjgptdjGekmgc E. RossFacility:FTMCStart: 03-27-2024 End: 94-98-4687Vvf Drop Bianca Costello [facility] Start: 03-27-2024 End: 95-17-0954npbsezoibeBlzwya E. RossFacility:FT BellevueStart: 03-17-2024 End: 45-35-5313dwefvhjehiPinyvk E. RossFacility:FT FM BellevueStart: 03-17-2024 End: 55-95-2394Yjp Drop offShector Costello [facility] Start: 02-15-2024 End: 10-48-4470zfndlvnbsoLfhixb E. RossFacility:FT FM BellevueStart: 12-23-2023 End: 39-70-5418lnpjrvrlfvAEM MICAHCORDELIA POLK OBERMEYERFacility:FTMCStart: 12-23-2023 End: 17-35-9903Zcbafnm encounter procedureMICAH FELICITAS [facility]EN[facility] Start: 11-25-2023 End: 04-55-2645gxjqdddkfmAS Samuel E. RossFacility:[facility] FM BellevueStart: 11-18-2023 End: 09-03-9961Ukl Drop offShector Costello [facility] start: 11-18-2023 End: 95-34-8828yzeswupdgxSO Samuel E. RossFacility:FTMCStart: 10-19-2023 End: 45-16-6723roqxiewrfaFD Samuel E. RossFacility:FT FM BellevueStart: 10-11-2023 End: 79-89-3665Ldb Drop offMicah Eugene Ivet [facility] start: 10-11-2023 End: 19-35-7384yobmizflnpSYU Micah L SchwabFacility:FTMCStart: 08-16-2023 End: 09-32-8289Xic Drop offShector Costello [facility] Start: 01-07-2023 End: 59-96-5622zfpvtrgarwPU Luiz Costello Work Phone: [facility] Work Phone: Start: 01-07-2023 End: 80-62-2354Sueosyd encounter procedureMD Luiz Costello Work Phone: [facility] [place] Work Phone: Start: 11-23-2022 End: 71-35-7004Rqmozwc encounter procedureMADEVORA BRENNAN [facility] Start: 11-23-2022 End: 45-38-1873PofnkvdxyXYOITHQ MORROW [facility] Start: 09-23-2022 End: 57-97-3158Qpbtxld encounter procedureShector Costello [facility] Start: 08-18-2022 End: 35-53-9493Itfumvw encounter Murray HOBBS [facility] Start: 04-07-2022 End: 79-34-6381trbcjmcvihRP KIM E KNIGHTFacility:S5Rqiem: 07-19-2021 End: 74-09-3929mgtkauogoeMM KIM E KNIGHTFacility:H1 Procedures DateProcedureProcedure DetailPerforming ClinicianStart: 57-02-7562Paoykxlt screenJoseph RileyComment on above:Order Comment: Comment On hold for OR Transfuse now? N Transfuse now? Y Number of units to transfuse now? 1Result Comment: PERFORMED BY: [facility] [place] [address] PATHOLOGIST CUTTING TABLE OPERATOR MERY LEAVITT M.D.Start: 25-33-9943Hdberxkd screenJoseph RileyComment on above:Order Comment: Comment On hold for OR Transfuse now? NResult Comment: PERFORMED BY: [facility] SANTOS[place]án [place] [address] PATHOLOGIST CUTTING TABLE OPERATOR MERY LEAVITT M.D.Start: 28-39-3776Ckwox X-ray of right hipGeorge Raman Clifford MD Work Phone: Start: 78-30-2078Suyci X-ray of right hipPHYSICIAN NO FAMILYStart: 54-73-4716Piinj X-ray of right hipPHYSICIAN NO FAMILYStart: 83-19-2524Bedon Hedy Costello MD Work Phone: Start: 85-01-2421Xlqgpjbsiyab myocardial perfusion stress studyLuiz Costello MD Work Phone: Start: 03-50-2406KP of right hipShector Costello MD Work Phone: Start: 93-08-2179Viyaq Screen MRSA/MSSPerla Costello MD Work Phone: Start: 74-24-8706Ohckh X-ray of right hipShector Costello MD Work Phone: Start: 21-22-3886YUYYTXTETCV SKIN LESIONEmily Ruddy Spencer MD Work Phone: Start: 57-01-1079Zxuhuupk injection of lumbar spine using fluoroscopic guidanceBlake Grimes start: 64-36-1718YIMVRVWWXXY SKIN LESIONEmily Ruddy Spencer MD Work Phone: Start: 45-40-4769CKXG / NAIL BIOPSYEmily Ruddy Spencer MD Work Phone: Start: 05-78-9612Smtwi foot complete minimum 3 views Boone Ramirez DPM Work Phone: Start: 61-63-8864Wloqa spine lumbosacral 2/3 viewsBrandon Gordon PA Work Phone: Start: 34-83-6129Ytejuaiwjk examination knee 3 views Brandon DUBOIS Work Phone: Start: 41-62-2197ZgneoqwlrtGRO KNIGHT Start: 99-30-4366Wqvlvux (qualifier value)DELMY HOBBS Comment on above:plates and screws left femur AppendectomyDELMY HOBBS AppendectomyDELMY HOBBS Carcinoma of tip of nose (disorder)Luiz Costello Comment on above:had plastic surgery for it, end Febataract (disorder)DELMY HOBBS Comment on above:Right and leftColonoscopyDELMY HOBBS Prosthetic arthroplasty of the hipDELMY HOBBS Plan of Treatment DateCare ActivityDetailAuthorStart: 07-24-2025 End: 77-15-7213Wtficpg encounter jpifuysau06/31/2026 1:20 PM EDT Office Visit [facility] [address] [place] [address] Nehal Spencer MD [address] [place] [address] [facility] LIYAH DERMStart: 77-09-5045BxslfjpzdOhio Valley Hospitaltart: 48-31-5378Whrawblffgkhqs of prophylactic treatmentOhio Valley Hospitaltart: 66-14-3395Ikrvuhid to rehabilitation physician [facility] Hospitaltart: 28-53-0464Agglyfmd admissionOhio Valley Hospitaltart: 58-06-5481Iqteukjj of right total hip arthroplasty OR Total Hip Revision, Anterior Approach (Right)[facility] Hospitaltart: 43-00-7203Aaleu cultureOhio Valley Hospitaltart: 16-66-9124EdxutxbvjOhio Valley Hospitaltart: 94-92-5287AO of right femur without contrastCT femur RT wo [facility] CenterStart: 11-85-3164IO Thigh - right WO contrastOhio State Harding Hospital CenterStart: 38-36-1526DpojmvdigOhio Valley Hospitaltart: 51-03-7391Elidtaev admission [facility]tart: 32-91-7171Dkyfueqp to clinical cotton opener [facility]tart: 53-72-4001Jlmwe X-ray of right hipXR hip RT min 2V(w/wo pelvis)*[facility] Hospitaltart: 82-11-6891VY Hip - right 2 ViewsOhio Valley Hospitaltart: 20-11-8345Onipj X-ray of right hipXR hip RT min 2V(w/wo pelvis)*[facility] Hospitaltart: 59-55-6442XA Hip - right 2 [facility]ertart: 22-81-6203UgbvysmzdOhio Valley Hospitaltart: 01-31-2025 End: 83-37-3702LwyiolcodOhio Valley Hospitaltart: 00-47-7638Krvesifkmffji metabolic 2000 panel - Serum or PlasmaOhio Valley Hospitaltart: 14-31-0444Fnxfhtdz admissionOhio Valley Hospitaltart: 01-30-2025 Patient referral to dietitianOhio Valley Hospitaltart: 01-30-2025 Physical therapy procedureOhio Valley Hospitaltart: 01-30-2025 Referral to clinical allergistOhio Valley Hospitaltart: 01-30-2025 Referral to occupational therapistOhio Valley Hospitaltart: 52-26-3853Nntjsyvwd procedureOhio Valley Hospitaltart: 01-30-2025 [facility]: 07-54-2329SnicuhjbmOhio Valley Hospitaltart: 39-55-1404Yxzgbfzh admissionOhio Valley Hospitaltart: 05-37-4311Zscwcdjn to clinical allergistOhio Valley Hospitaltart: 50-27-1155Tezmyeyz to rehabilitation physicianHarrison Community Hospital Start: 75-47-5636Qczdrgom identified in Urine by CultureUrine CultureOhio Valley Hospitaltart: 52-02-5411Sbexi [facility] Andersontart: 64-21-4844WocpmgevaOhio Valley Hospitaltart: 01-09-2025 Radionuclide myocardial perfusion stress studyNM natalee perf SPECT rest & str [facility]tart: 19-62-3678OJBML Heart perfusion at rest and W stress and W radionuclide IVFCleveland Clinic Marymount Hospitaltart: 77-43-2885YgfseluflOhio Valley Hospitaltart: 61-61-4262Xhqil X-ray of right hipXR hip RT min 2V(w/wo pelvis)*[facility] Hospitaltart: 34-60-6307QX Hip - right 2 ViewsOhio Valley Hospitaltart: 08-29-2024 End: 61-84-3113Gbralqc encounter eswphnzvq87/06/2025 1:45 PM EDT Office Visit [facility] [address] [place] [address] Nehal Spencer MD [address] [place] [address] ArrivedNOMS SWS DERMComment on above:ArrivedStart: 25-39-3276jpmdzjodpbPzmwnthwbnYikwgtzu:FT FM BellevueStart: 07-24-2024 End: 22-98-4922Absyjth encounter procedureNOMS SWS DERMComment on above:Arrived Start: 07-19-2024 End: 65-55-0925Smyrwsv encounter tpglqxava35/26/2025 1:15 PM EDT Office Visit [facility] [address] [place] [id number] Brandon Gordon PA [address] [place] [address] ArrivedNOMS NB ORTHOComment on above:ArrivedStart: 07-13-2024 End: 92-23-9749Hbyozqk encounter fxoxvbxyo07/20/2025 2:15 PM EDT Office Visit [facility] [address] [place] [address] Nehal Spencer MD [address] [place] [address] N[facility]S SWS DERMStart: 06-13-2024 End: 36-03-2171Ziollqp encounter procedureNOMS RI PODComment on above:Closed nondisplaced fracture of middle phalanx of lesser toe of right foot, initial encounter (Primary Dx); Cellulitis of right footStart: 05-23-2024 End: 14-22-2671Vztmlpc encounter zghvnmgah73/28/2025 10:10 AM EST Office Visit [facility] [address] [place] [address] Boone Ramirez DPM [address] [facility] [address] [place] [address] ArrivedNOMS RI PODComment on above:ArrivedCotinine [Mass/volume] in Serum or PlasmaHarrison Community HospitalCT Hip - right WO contrastHarrison Community HospitalDermatopathology exam Dermatopathology exam Pathology and Cytology Timed Neoplasm of unspecified behavior of bone, soft tissue, and skin Release Upon Ordering for 1 Occurrences starting 07/24/2024[facility] Work Phone: comment on above:Release Upon Ordering for 1 Occurrences starting 07/24/2024Glucose measurement estimated from glycated hemoglobinHarrison Community HospitalHemoglobin [Mass/volume] in Blood Harrison Community HospitalHemoglobin A1c/Hemoglobin.total in Blood Harrison Community HospitalNicotine [Mass/volume] in Serum or Plasma Harrison Community HospitalPatient EducationOhio State Harding Hospital Ctr Work Phone: Patient referralOhio State Harding Hospital [facility]tr Work Phone: [facility] Immunizations Immunization DateImmunizationNotesCare PmzcwyqjDtkovzkp80-54-0630ggzhqdysa virus vaccine, unspecified formulationShector Costello [phone]-HiuiqHenry [facility] Hospital [facility] [place] 85-35-2762navthecmr virus vaccine, unspecified formulationShector Costello [facility]10-11-2022influenza virus vaccine, unspecified formulationKIM HOBBS [phone]-SpeagSelect Medical [facility]10-26-2021 influenza virus vaccine, unspecified formulationKIM HOBBS [phone]-JqtaaSelect Medical [facility]05-18-2021 SARS-CoV-2 (COVID-19) mRNA-1273 vaccineKIM HOBBS [phone]-AkqaySelect Medical [facility]04-15-2021 SARS-CoV-2 (COVID-19) mRNA-1273 vaccineKIM HOBBS [phone]-PswymSelect Medical [facility]09-23-2020 influenza virus vaccine, unspecified formulationKIM HOBBS [phone]-QvyfoSelect Medical [facility]09-23-2020 pneumococcal polysaccharide vaccine, 23 valentKIM HOBBS [phone]-JavdoSelect Medical [facility]10-07-2019 influenza virus vaccine, unspecified formulationKIM HOBBS [phone]-IvflkSelect Medical [facility]10-01-2019 influenza virus vaccine, live, attenuated, for intranasal useKIM HOBBS [facility]02-08-2019pneumococcal conjugate vaccine, 13 valentKIM HOBBS [phone]-AdndiSelect Medical [facility]10-16-2017 influenza virus vaccine, unspecified formulationKIM HOBBS [phone]-CodhgSelect Medical [facility]11-08-2016 influenza virus vaccine, unspecified formulationKIM HOBBS [phone]-IdxcaSelect Medical [facility]10-17-2015 influenza virus vaccine, unspecified formulationKIM HOBBS [phone]-CknlhSelect Medical [facility]10-17-2015 influenza, high dose seasonal, preservative-freeSierra Vista Regional Medical Center Work Phone: [facility] Hianvaabgx16-74-5086owyqxgmcc virus vaccine, whole virusBrandon [facility] Work Phone: [facility] Kbyefyahzh46-58-4924ifjjhterm, Suraj HOBBS [phone]-WwendSelect Medical [facility]11-02-2005 influenza virus vaccine, whole virusxander [facility] Work Phone: N[facility] Xfvsarzuvc20-84-0044cdtbdrybh, wholeDELMY HOBBS [phone]-OtjsvSelect Medical [facility] Payers DatePayer CategoryPayerPolicy [id number]-[id number] Health [id number] 1998Medicare [id number] [id number] Health [id number] 2.840.1.506680.3.57[id number] 2.840.1.835863.3.57[id number] 2.16840.1.212710.3.579.[id number] 2.16840.1.763015.3.57[id number] 2.16840.1.491352.3.57[id number] 2.16840.1.483667.3.57[id number] 2.16.840.1.194937.3.579.[id number] 2.16.840.1.571994.3.57[id number] 2.16.840.1.803919.3.57[id number] 2.16.840.1.700017.3.57[id number] 2.16840.1.823574.3.57[id number] 2.16840.1.867048.3.579.[id number] 2.16840.1.941901.3.579.2.95734-46-0244Evxxjgh31513102 2.16840.1.550028.3.579.2.28459-34-9757Fdgkiag1397947 2.16840.1.316967.3.579.[id number] 2.16840.1.761675.3.579.[id number] 2.16840.1.190224.3.579.2.491081-82-2423Wcrgbcw0603481 2.16840.1.052755.3.579.[id number] 2.16.840.1.384750.3.57[id number] 2.16840.1.078048.3.579.2.[id number] 2.16.840.1.508389.3.579.[id number] 2.16.840.1.887538.3.57[id number] 2.16.840.1.542009.3.579.2.777339-04-0332Gkrwnmg3164027 2.16.840.1.755149.3.579.2.059687-40-6305Bpjskme2345007 2.16.840.1.000774.3.579.2.2[id number] 2.16.840.1.595352.3.579.2.[id number] 2.16840.1.594745.3.57[id number] 2.16.840.1.724213.3.579.[id number] 2.16.840.1.611840.3.57[id number] 2.16.840.1.840126.3.579.2.03858-71-5180Jmixvvd88318454 2.16.840.1.004925.3.579.2.14197-08-5760Sadoxqb85346898 2.16.840.1.564180.3.579.2.85550-52-9265Acpkdua82778132 2.16.840.1.199194.3.579.2.09880-69-3999Nwvjsyy46849022 2.16.840.1.607619.3.579.2.30585-00-7331Cofzqvb74265033 2.16.840.1.309116.3.579.2.85504-58-1397Uhjxodu06609148 2.16.840.1.584162.3.579.2.44822-99-0128Szrtorp45567130 2.16.840.1.841265.3.579.2.95579-79-4444Pvzpfsg33207109 2.16.840.1.079462.3.579.2.30758-24-7745Jelxomw94218188 2.16.840.1.480553.3.579.2.54590-47-5456Dudclsy55532356 2.16840.1.961072.3.579.2.27980-50-8892Zqvjimp80014852 2.840.1.007344.3.579.2.55524-03-0619Gooujhv95676045 2.16840.1.261353.3.579.2.96730-72-1067Vodblwg06502715 2.840.1.509880.3.579.2.11937-04-1725Ksjhlsk09187966 2.840.1.854043.3.579.2.59334-16-4356Vxjskvl11388739 2.16840.1.211000.3.579.2.25929-58-1615Qvqriav48754120 2.16.840.1.815405.3.579.2.97149-00-9112Swxeeit79535074 2.16.840.1.065722.3.579.2.32945-85-5871Etgxlyk77387460 2.16840.1.626509.3.579.2.58275-06-0649Pbzxcrt46019063 2.0.1.959546.3.579.2.45860-16-7064Bifywzb06182000 2.0.1.873209.3.579.2.31500-68-1959Fiztotx31620280 2.0.1.105127.3.579.2.56992-57-4173Nuxwsjq64188194 2.0.1.619421.3.579.2.44679-66-7679Fnxeoyn71077026 2..1.774799.3.579.2.38355-16-6910Mhmvggr47875211 2..1.660904.3.579.2.727[facility]-Vxxp6351250 g2d2897m-0930-9876-ek58-ltb3l4ih793bPxfhzlj64234968 2.840.1.663781.3.579.2.234Omtaber51585331 2.0.1.929422.3.579.2.531 [id number] 2.840.1.0[id number] 2..1.8[id number] 2.840.1.737580.3.579.2.531 [id number] 2.840.1.0[id number] 2.840.1.2[id number] 2.840.1.758828.3.579.2.531 [id number] 2.840.1.8[id number] 2.840.1.8[id number] 2..840.1.580074.3.579.2.531 [id number] 2..840.1.460943.3.579.2.531 Social History DateTypeDetailFacilityStart: 08-18-2022 End: 74-97-3440Loekmts smoking statusNever smoked tobacco (finding)[facility]alevueComment on above:Patient denies tobacco usedenies use. Tobacco smoking statusNeverPromedica Flower HospitalueComment on above:Patient denies tobacco usedenies use.Start: 05-10-2024 End: 51-27-9281Cqc [facility]art: 33-10-6965Zcg [facility] At [facility]art: 33-10-6086Vqgnifv use and exposureSmokeless tobacco non-userNOMS Healthcare Start: 05-10-2024 End: 40-66-7287Fsxerwcwe beverage intakeLifetime non-drinker (finding)[facility] HealthcareStart: 05-10-2024 End: 17-92-3687Hnzfoav of Social functionNOMS HealthcareStart: 81-29-6015Gpcqoyi CommentCaffeine: 2-3 cups/day coffee, tea, sodaNOMS HealthcareStart: 1940 Sex assigned at birthNot on fileNOMS HealthcareSexual OrientationK[facility]tering [facility] Start: 43-25-1392YywRivteg (finding)[facility] CenterTobacco smoking status NHISUnknown if ever smokedC[facility] Clinic [facility] Work Phone: Start: 02-02-2025 End: 77-99-8665ZUWV Follow upSDOH Follow upMiami [facility] Hospital Work Phone: Medical Equipment Procedure CodeEquipment CodeEquipment Original TextEquipment IdentifierDates Arthroplasty, hip, total, anterior approachCANCELLOUS 30CC CRUSHEDFDAStart: 10-72-6910Mpdezuboexsw, hip, total, anterior approachCANCELLOUS 30CC CRUSHEDFDA Start: 93-22-6555Ntjlmidtfqmf, hip, total, anterior approachAcetabular shell ()[id number] FDAStart: 02-98-3804Guopxtzqnbhk, hip, total, anterior approachOrthopaedic bone screw, non-bioabsorbable, sterile ()[id number] FDAStart: 34-86-1730Qrzmrgojcrck, hip, total, anterior approachOrthopaedic bone screw, non-bioabsorbable, sterile ()[id number] FDAStart: 80-52-9257Czsvfavewbbo, hip, total, anterior approachCeramic femoral head prosthesis ()[id number] FDAStart: 22-57-5590Bmplmvmydvfw, hip, total, anterior approachCoated hip femur prosthesis, modular ()[id number] FDAStart: 94-55-8764Yrljstrkkwof, hip, total, anterior approachNon-constrained polyethylene acetabular liner ()[id number] FDAStart: 86-74-8491Xiswjnwmacot, hip, total, anterior approachCANCELLOUS 30CC CRUSHEDFDAStart: 93-24-7104Rrovqrgntxpn, hip, total, anterior approachCANCELLOUS 30CC CRUSHEDFDAStart: 01-29-2025 Arthroplasty, hip, total, anterior approachCANCELLOUS 30CC CRUSHEDFDAStart: 01-01-2147Qtzzndlaoezx, hip, total, anterior approachCANCELLOUS 30CC CRUSHEDFDA Start: 25-89-3754Dapvpwswgmdq, hip, total, anterior approachCANCELLOUS 30CC CRUSHEDFDAStart: 82-95-1880Uzfpbbrhoizr, hip, total, anterior approachCANCELLOUS 30CC CRUSHEDFDAStart: 32-32-4257Lppdjjgwdhre, hip, total, anterior approach CANCELLOUS 30CC CRUSHEDFDAStart: 07-68-0621Ugmwdgsrvnxj, hip, total, anterior approachCANCELLOUS 30CC CRUSHEDFDAStart: 82-11-9299Lrnlzkmctkyj, hip, total, anterior approachCANCELLOUS 30CC CRUSHEDFDAStart: 78-12-9759Zmxmknbhrydn, hip, total, anterior approachCANCELLOUS 30CC CRUSHEDFDAStart: 08-97-5011Trygrqdkpoyk, hip, total, anterior approachCANCELLOUS 30CC CRUSHEDFDAStart: 01-29-2025 Arthroplasty, hip, total, anterior approachCANCELLOUS 30CC CRUSHEDFDAStart: 01-29-2025 Goals DatePatient GoalDesired Activity/State Functional Status FwhqGjaehvazxvWqeompGcsscxpa47-19-9481Lfislgnfau statusPatient Not at Baseline [facility] Work Phone: 1(175) [phone]mjygscjg StatusN/[facility]04-08-2025Functional StatusN/[facility]01-26-2025 Functional StatusN/[facility] Mental Status VovqStttziogicOuwchtZveqamei69-80-2628Ttcxwybtc functionCognitive Status Patient at BaselineMi[facility] Work Phone: Clinical Notes 11-25-2023 to 02-01-2025 Note Date & FnihAtsxPpygkjks07-67-7356 Hospital Discharge instructionsAmbulatory Orders* Initiate Home Health Time Frame: 02/01/25, Location: Determined By Patient Additional Instructions -Code status: Full code. -Activity: Weight bearing as tolerated. -Diet: Regular diet. -Wound care to right hip incision: Prevena wound vac to remain in place. Home health nurse may remove wound vac on 02/12/25. Leave zipline dressing that is underneath wound vac in place until follow up with Orthopedic Surgeon. -You may receive the flu vaccine 2 weeks after surgery (02/12/25). Your Home Health agency is [facility] ( ). They will contact you after discharge to schedule a day/time to meet with you at your home to establish care. You have been given prescriptions for new and/or needed medications. These prescriptions are for a one-time fill only, with no re-fills. For further re-fills going forward, you will need to address with your PCP at your follow up appointment, or by calling your PCP s office prior to the prescriptions running out. NOTE: please call within 24 hours if you need to cancel or change any follow up appointments. Arrive early to all follow up appointments, bring current medication list, photo ID and any insurance card(s) to all future follow ups (listed below). Please remember to wear a mask to all appointments. If you develop any symptoms (cough, fever/chills, shortness of breath, sore throat, nausea/vomiting, etc.) please contact your provider's office to inform them prior to your appointment.[facility] Work Phone: 1(580) 801-130309-25-2025 Evaluation note* Diagnosis Onset Date Resolution Status Admit Date Primary osteoarthritis of right hip acuteSeptember 2024 11:55am [facility] Work Phone: 1(756) 948-121109-25-2025 Evaluation note* Diagnosis Onset Date Resolution Status Admit Date Primary osteoarthritis of right hip acuteSeptember 2024 11:55amOther oil heaterman (current) drug therapyacute January 29, 2025 10:48amStatus post total replacement of right hipacuteOctober 2024 10:48am [facility] Work Phone: 1(288) 909-550209-25-2025 Evaluation note* Diagnosis Onset Date Resolution Status Admit Date Primary osteoarthritis of right hip acuteSeptember 2024 11:55amOther oil heaterman (current) drug therapyacute January 29, 2025 10:48amPrimary osteoarthritis of right hipacuteOctober 2024 10:48amStatus post total replacement of right hipacuteOctober 2024 10:48amAge-related osteoporosis without current pathological fractureacute January 30, 2025 4:21pmClass 2 obesity with body mass index (BMI) of 37.0 to 37.9 in adultacuteOctober 2024 4:21pmHyperlipidemiaacuteOctober 2024 4:21pmHypertensionacuteOctober 2024 4:21pmImpaired mobility and activities of daily livingacuteOctober 2024 4:21pmPostoperative anemiaacuteOctober 2024 4:21pmPrimary osteoarthritis of right hipacuteOctober 2024 4:21pm Status post total replacement of right hipacuteOctober 2024 4:21pm [facility] Work Phone: 1([phone]) 655-696909-25-2025 Evaluation note* Diagnosis Onset Date Resolution Status Admit Date Primary osteoarthritis of right hip acuteSeptember 2024 11:55amOther oil heaterman (current) drug therapyacute January 29, 2025 10:48amPrimary osteoarthritis of right hipacuteOctober 2024 10:48amStatus post total replacement of right hipacuteOctober 2024 10:48amAge-related osteoporosis without current pathological fractureacute January 30, 2025 4:21pmClass 2 obesity with body mass index (BMI) of 37.0 to 37.9 in adultacuteOctober 2024 4:21pmHyperlipidemiaacuteOctober 2024 4:21pmHypertensionacuteOctober 2024 4:21pmImpaired mobility and activities of daily livingacuteOctober 2024 4:21pmPostoperative anemiaacuteOctober 2024 4:21pmPrimary osteoarthritis of right hipacuteOctober 2024 4:21pm Status post total replacement of right hipacuteOctober 2024 4:21pmAftercare following right hip joint replacement surgeryacuteOctober 2024 1:43pm [facility] Work Phone: 1(832) 663-703809-25-2025 Evaluation note* Diagnosis Onset Date Resolution Status Admit Date Primary osteoarthritis of right hip acuteSeptember 2024 11:55amOther oil heaterman (current) drug therapyacute January 29, 2025 10:48amPrimary osteoarthritis of right hipacuteOctober 2024 10:48amStatus post total replacement of right hipacuteOctober 2024 10:48amAge-related osteoporosis without current pathological fractureacute January 30, 2025 4:21pmClass 2 obesity with body mass index (BMI) of 37.0 to 37.9 in adultacuteOctober 2024 4:21pmHyperlipidemiaacuteOctober 2024 4:21pmHypertensionacuteOctober 2024 4:21pmImpaired mobility and activities of daily livingacuteOctober 2024 4:21pmPostoperative anemiaacuteOctober 2024 4:21pmPrimary osteoarthritis of right hipacuteOctober 2024 4:21pm Status post total replacement of right hipacuteOctober 2024 4:21pmAftercare following right hip joint replacement surgeryacuteOctober 2024 1:43pm Aftercare following right hip joint replacement surgeryacuteOctober 2024 8:56amStatus post total replacement of right hipacuteOctober 2024 8:56am [facility] Work Phone: 1(172) 786-590409-25-2025 Evaluation note* Diagnosis Onset Date Resolution Status Admit Date Primary osteoarthritis of right hip acuteSeptember 2024 11:55amOther oil heaterman (current) drug therapyacute January 29, 2025 10:48amPrimary osteoarthritis of right hipacuteOctober 2024 10:48amStatus post total replacement of right hipacuteOctober 2024 10:48amAge-related osteoporosis without current pathological fractureacute January 30, 2025 4:21pmClass 2 obesity with body mass index (BMI) of 37.0 to 37.9 in adultacuteOctober 2024 4:21pmHyperlipidemiaacuteOctober 2024 4:21pmHypertensionacuteOctober 2024 4:21pmImpaired mobility and activities of daily livingacuteOctober 2024 4:21pmPostoperative anemiaacuteOctober 2024 4:21pmPrimary osteoarthritis of right hipacuteOctober 2024 4:21pm Status post total replacement of right hipacuteOctober 2024 4:21pmAftercare following right hip joint replacement surgeryacuteOctober 2024 1:43pm Aftercare following right hip joint replacement surgeryacuteOctober 2024 8:56amStatus post total replacement of right hipacuteOctober 2024 8:56am Aftercare following right hip joint replacement surgeryacuteOctober 2024 10:54amImpaired mobility and activities of daily livingacuteOctober 2024 10:54am [facility] Work Phone: 1([phone]) 352-860309-25-2025 Evaluation note* Diagnosis Onset Date Resolution Status Admit Date Primary osteoarthritis of right hip acuteSeptember 2024 11:55amOther skilled nursing (current) drug therapyacute January 29, 2025 10:48amPrimary osteoarthritis of right hipacuteOctober 2024 10:48amStatus post total replacement of right hipacuteOctober 2024 10:48amAge-related osteoporosis without current pathological fractureacute January 30, 2025 4:21pmClass 2 obesity with body mass index (BMI) of 37.0 to 37.9 in adultacuteOctober 2024 4:21pmHyperlipidemiaacuteOctober 2024 4:21pmHypertensionacuteOctober 2024 4:21pmImpaired mobility and activities of daily livingacuteOctober 2024 4:21pmPostoperative anemiaacuteOctober 2024 4:21pmPrimary osteoarthritis of right hipacuteOctober 2024 4:21pm Status post total replacement of right hipacuteOctober 2024 4:21pmAftercare following right hip joint replacement surgeryacuteJanober 2024 1:43pm Aftercare following right hip joint replacement surgeryacuteOctober 2024 8:56amPeriprosthetic fracture around internal prosthetic right hip jointacute February 21, 2025 8:56amStatus post total replacement of right hipacuteOctober 2024 8:56amAftercare following right hip joint replacement surgeryacute February 21, 2025 10:54amAge-related osteoporosis without current pathological fractureacuteOctober 2024 10:54amClass 2 obesity with body mass index (BMI) of 37.0 to 37.9 in adultacuteOctober 2024 10:54amImpaired mobility and activities of daily livingacuteOctober 2024 10:54amPeriprosthetic fracture around internal prosthetic right hip jointacuteOctober 2024 10:54amPostoperative anemiaacuteOctober 2024 10:54amPrimary osteoarthritis of right hipacuteOctober 2024 10:54amStatus post total replacement of right hipacuteOctober 2024 10:54am [facility] Work Phone: 1(168) 643-701608-14-2025 NoteOperative Report An in office procedure was performed today for bilateral knee pain, M25.561 M25.562, Using Supartz. Risks and benefits were discussed at length, verbal consent was obtained from the patient. The areawas prepped under strict aseptic technique using chloraprep solution, sterile gloves were utilized.We ultrasound with sterile probe cover and sterile gel was utilized. Location: Right knee inferomedial to the patella. Ultrasound utilized to identify the joint interspace. Left knee inferolateral to the patella. Ultrasound utilized to identify the joint interspace. Anatomic Landmarks: As stated above using ultrasound guidance. Medications: Procedure: The right knee was performed first and cleaned using ChloraPrep solution, ultrasound utilized to identify the joint interspace. Then, a 22-gauge needle was inserted into the joint. After negative aspiration for blood and positive aspiration for slight amount of clear joint fluid, 2.5 mL for total of 25 mg Supartz injected into the right knee. The needle was removed. Next, the left knee was cleaned using a ChloraPrep solution, ultrasound utilized to identify the joint interspace. Then, a 22-gauge needle was inserted into the joint. After negative aspirate for blood and positive amount for slight amount of clear joint fluid, 2.5 mL for total 25 mg Supartz was injected into the left knee. The needle was removed. the patient tolerated the procedure well without complication and will follow up regarding changes after procedure. Patient observed post-procedure without further issue or new complaints. CPT code 93680, modifier 50.[facility] HospitalComment on above:Result Comment: Electronically Signed By: Blake Grimes DO.nikolay\Date and Time Signed: 12/07/24 15:06 [id number] NoteOperative Report An in office procedure was performed today for bilateral knee pain, M25.561 M25.562, Using Supartz. Risks and benefits were discussed at length, verbal consent was obtained from the patient. The areawas prepped under strict aseptic technique using chloraprep solution, sterile gloves were utilized.We ultrasound with sterile probe cover and sterile gel was utilized. Location: Right knee inferomedial to the patella. Ultrasound utilized to identify the joint interspace. Left knee inferolateral to the patella. Ultrasound utilized to identify the joint interspace. Anatomic Landmarks: As stated above using ultrasound guidance. Medications: Procedure: The right knee was performed first and cleaned using ChloraPrep solution, ultrasound utilized to identify the joint interspace. Then, a 22-gauge needle was inserted into the joint. After negative aspiration for blood and positive aspiration for slight amount of clear joint fluid, 2.5 mL for total of 25 mg Supartz injected into the right knee. The needle was removed. Next, the left knee was cleaned using a ChloraPrep solution, ultrasound utilized to identify the joint interspace. Then, a 22-gauge needle was inserted into the joint. After negative aspirate for blood and positive amount for slight clear amount of joint fluid, 2.5 mL for total 25 mg Supartz was injected into the left knee. The needle was removed. the patient tolerated the procedure well without complication and will follow up regarding changes after procedure. Patient observed post-procedure without further issue or new complaints.[facility] HospitalComment on above: Result Comment: Electronically Signed By: Blake Grimes DO.br\Date and Time Signed: 11/30/24 14:27 [id number] NoteOperative Report An in office procedure was performed today for bilateral knee pain, M25.561 M25.562, Using Supartz. Risks and benefits were discussed at length, verbal consent was obtained from the patient. The areawas prepped under strict aseptic technique using chloraprep solution, sterile gloves were utilized.We ultrasound with sterile probe cover and sterile gel was utilized. Location: Right knee inferomedial to the patella. Ultrasound utilized to identify the joint interspace. Left knee inferior lateral to the patella. Ultrasound utilized to identify the joint interspace. Anatomic Landmarks: As stated above using ultrasound guidance. Medications: Procedure: The right knee was performed first and cleaned using ChloraPrep solution, ultrasound utilized to identify the joint interspace. Then, a 22-gauge needle was inserted into the joint. After negative aspiration for blood and positive aspiration for slight amount of clear joint fluid, 2.5 mL for total of 25 mg Supartz injected into the right knee. The needle was removed. Next, the left knee was cleaned using a ChloraPrep solution, ultrasound utilized to identify the joint interspace. Then, a 22-gauge needle was inserted into the joint. After negative aspirate for blood and positive amount for slight clear amount of joint fluid, 2.5 mL for total 25 mg Supartz was injected into the left knee. The needle was removed. the patient tolerated the procedure well without complication and will follow up regarding changes after procedure. Patient observed post-procedure without further issue or new complaints.[facility] HospitalComment on above: Result Comment: Electronically Signed By: Blake Grimes DO\Date and Time Signed: 11/23/24 14:59 [id number] Radiology Diagnostic study note [facility] [place] [address] [place] [address] CT Scan Report Signed Patient: Arley Ashraf MR#: [id number] : 1940 Acct:[id number] Age/Sex: 84 / F ADM Date: 5 Loc: CT Room: Type: [facility] Attending Dr: Deepak Marshall II, MD Copies to: Deepak Marshall MD~ Ordering Provider: Deepak Marshall MD Date of Service: 11/20/24 CT/CT hip RT wo con: M25.551 - Pain in right hip CT right hip WITHOUT CONTRAST WITH 3D RECONSTRUCTIONS: CLINICAL HISTORY: Right hip pain osteoarthritis COMPARISON: None TECHNIQUE: Spiral axial unenhanced images were obtained through the right hip. Sagittal, coronal and 3D volume-rendered reconstructions were also reviewed. This CT exam was performed using one or more following dose reduction techniques: Automated exposure control, adjustment of the mA and/or kV acc ordingto patient size, or use of iterative reconstruction technique. FINDINGS: Severe degenerative changes involving the right hip with associated joint space narrowing. No fracture is seen. Right SI joint also demonstrates degenerative change. Right pubic rami appears intact. Healed fracture left inferior pubic ramus. Musculature appears atrophic. No soft tissue swelling orfluid collection to suggest abscess. Partially calcified fibroid uterus. CT/CT hip RT wo con IMPRESSION: SEVERE DEGENERATIVE CHANGES INVOLVING THE RIGHT HIP WITHOUT ACUTE BONY PROCESS. Impression dictated by: Alli Butler Jr. DAbiel 11/20/2024 5:29 PM Dictation Location: [place] [address] Transcribed By: OG 11/20/24 4419 Dictated By: Alli Butler Jr, 11/20/24 1722 Signed By: 11/20/24 172 [facility]07-17-2025 NoteConsultation Note Patient is presenting with history of lumbar radiculopathy, myofascial pain, right hip pain and bilateral knee pain she underwent right-sided L4/5 and L5/S1 transforaminal epidural steroid injection on 08/14/2024 with 100% improvement of her radicular symptoms. She underwent a right hip injection on09/25/2024. This did not provide any relief. She has severe osteoarthritis on the side. She is going to seek a second opinion as she would like to see if surgery would be an option. Her bilateral knee pain is rated as an 8/10 severity as well and she would like to see what can be done about this, corticosteroid injections do not provide relief. She is having good efficacy at 200 mg gabapentin at bedtime for neuropathic pain features but was not able to tolerate this twice daily we will maintain this at 200 mg nighttime only. SOFIE Score: 44% PHQ-2: 0 Patient denies any symptoms of progressively worsening upper/lower extremity weakness, progressively worsening gait abnormality, new onset bowel/bladder incontinence/ urinary retention, or saddle anesthesia. No new or worsening symptoms of fever, chills, night sweats. 14 Point Review of systems negative unless otherwise noted. General: No acute distress. Patient appears well-nourished. HEENT: Head is normocephalic and external ears are normal in appearance. Cardiovascular: No signs of poor perfusion and no peripheral edema Pulmonary: Nonlabored breathing, symmetric chest movement. GI: Abdomen nondistended Integumentary: No lesions Neurologic: Alert, oriented x3. 5/5 strength grossly in the bilateral upper extremities. Sensation intact to light touch in the bilateral upper extremities. 5/5 strength grossly in the bilateral lower extremities. Sensation intact to light touch in the bilateral lower extremities. MSK/Special Testing: Negative Ely sign bilaterally, seated straight leg raise does not reproduce radicular symptoms bilaterally. Painful RIANA reproduces right groin and buttock pain. Bilateral knee tenderness to palpation. History, physical examination, and personal review of pertinent imaging results indicate a diagnosis of: - Lumbar radiculopathy, significantly proved - Myofascial pain - Right hip pain, continued to be exacerbated - Bilateral knee pain Plan: - Continue gabapentin 200 mg at bedtime - Discussed treatment as needed right side L4/5 and L5/S1 transforaminal epidural steroid injectionunder fluoroscopic guidance as long as it provides at least 3 months of effective lasting relief -We will schedule bilateral knee Supartz injections #1/3 under ultrasound in the office Patient was counseled on the above diagnosis and treatment, all questions were answered and patientagrees to adhere to the plan above. Risk and benefits of appropriate procedures and medications were reviewed as well with patient, who voiced understanding and agreeance. Patient was counseled on appropriate use of opioids if prescribed or renewed today and naloxone was offered to patient if opioids were prescribed or maintained at this visit. PHQ-2 scoring reviewed with patient and discussed seeking treatment for depression or mood disorder as appropriate. Patient was counseled on smoking cessation and/or continuing to abstain from nicotine/tobacco products as appropriate based on history for greater than 3 minutes if appropriate; as smoking/nicotine can contribute to increased pain overall and decreased wound healing, counseling performed for smoking cessation when appropriate for F17.200 nicotine dependence. SOFIE reviewed and discussed during encounter. Patient counseled on maintaining a healthy BMI as part of the total treatment of their pain and to reduce stress/strain on joints.Patient invited to return or call with any questions or concerns that arise. IMPRESSION: DEGENERATIVE CHANGES OF THE LUMBAR SPINE DETAILED. EXAM: MRI of the lumbar spine without contrast History: Low back pain. Right hip pain. Difficulty walking. Technique: Multiplanar multisequence MRI of the lumbar spine was obtained without intravenous contrast. Comparison: CT abdomen pelvis 06/07/2019 Findings: The conus medullaris ends normally. The alignment of the lumbar spine is anatomic. The vertebral body heights are well maintained. There is no aggressive bone marrow signal abnormality. Intraosseous hemangiomas noted within the vertebral body of T12. Disc desiccation throughout the lumbar spine. Intervertebral disc heights are maintained. L1-L2: Small disc bulge. Mild facet arthropathy. Moderate bilateral neuroforaminal stenosis. No spinal canal stenosis. L2-L3: Small disc bulge. Moderate facet arthropathy. Moderate bilateral neuroforaminal stenosis. No spinal canal stenosis. L3-L4: Small disc bulge. Mild facet arthropathy. Moderate bilateral neuroforaminal stenosis. No spinal canal stenosis. L4-L5: Small disc bulge. Moderate to advanced facet arthropathy. Ligamentum flavum thickening. Moderate left a (more content not included)...[facility]:Result Comment: Electronically Signed By: Blake Grimes DO\.nikolay\Date and Time Signed: 11/09/24 10:56 [id number] NotePatient Education Emergency Medicine Heart Attack A heart attack occurs when blood and oxygen supply to the heart is cut off. A heart attack can cause damage to the heart that cannot be fixed. A heart attack is also called a myocardial infarction, or KS. If you think you are having a heart attack, do not wait to see if the symptoms will go away. Get medical help right away. What are the causes? This condition may be caused by: ??? A fatty substance (plaque) in the blood vessels (arteries). This can block the flow of blood tothe heart. ??? A blood clot in the blood vessels that go to the heart. The blood clot blocks blood flow. ??? An abnormal heartbeat. ??? Some diseases, such as problems in red blood cells (anemia)orproblems in breathing (respiratoryfailure). ??? Tightening (spasm) of a blood vessel that cuts off blood to the heart. ??? A tear in a blood vessel of the heart. Other causes may include: ??? Using drugs such as cocaine or methamphetamine. ??? Low blood pressure. What increases the risk? Aging. The risk gets higher as you get older. ??? Having a personal or family history of chest pain, heart attack, stroke, or narrowing of the arteries in the legs, arms, head, or stomach (peripheral vascular disease). ??? Having taken chemotherapy or immune-suppressing medicines. ??? Being male. ??? Being overweight or obese. ??? Having any of these conditions: ? High blood pressure. ? High cholesterol. ? Diabetes. ??? Making lifestyle choices such as: ? Drinking too much alcohol. ? Not getting regular exercise. ? Smoking. What are the signs or symptoms? Chest pain. It may feel like: ? Crushing or squeezing. ? Tightness, pressure, fullness, or heaviness. ??? Pain in the arm, neck, jaw, back, or upper body. ??? Heartburn. ??? Upset stomach (indigestion). ??? Shortness of breath. ??? Feeling like you may vomit (nauseous). ??? Cold sweats. ??? Sudden light-headedness, dizziness, or passing out. ??? Feeling tired. How is this treated? A heart attack must be treated as soon as possible. Treatment may include: ??? Medicines to: ? Break up or dissolve blood clots. ? Thin your blood and help prevent blood clots. ? Treat blood pressure. ? Improve blood flow to the heart. ? Reduce pain. ? Reduce cholesterol. ??? Procedures to widen a blocked artery and keep it open. ??? Open heart surgery. ??? Making your heart strong again (cardiac rehabilitation) through exercise, education, and counseling. Follow these instructions at home: Medicines ??? Take mlcd-sal-qkrkuxy and prescription medicines only as told by your doctor. ??? Do not take these medicines unless your doctor says it is okay: ? NSAIDs, such as ibuprofen, naproxen, or celecoxib. ? Any vitamins or supplements. ? Hormone replacement therapy that has estrogen with or without progestin. ??? If you are taking blood thinners: ? Talk with your doctor before taking any medicines that have aspirin or NSAIDs, such as ibuprofen. ? Take medicines exactly as told. Take them at the same time each day. ? Avoid doing things that could hurt or bruise you. Take action to prevent falls. ? Wear an alert bracelet or carry a card that shows you are taking blood thinners. Lifestyle ??? Do not smoke or use any products that contain nicotine or tobacco. If you need help quitting, ask your doctor. ??? Avoid secondhand smoke. ??? Exercise regularly. Ask your doctor about a cardiac rehab program. ??? Eat heart-healthy foods. Your doctor will tell you what foods to eat. ??? Stay at a healthy weight. ??? Learn ways to lower your stress level. ??? Do not use illegal drugs. Alcohol use ??? Do not drink alcohol if: ? Your doctor tells you not to drink. ? You are , may be , or are planning to become . ??? If you drink alcohol: ? Limit how much you have to: ? 0?1 drink a day for women. ? 0?2 drinks a day for men. ? Know how much alcohol is in your drink. In the [place] one drink equals one 12 oz bottle of beer (355 mL), one 5 oz glass of wine (148 mL), or one 1? oz glass of hard liquor (44 mL). General instructions ??? Work with your doctor to treat other problems you may have, such as diabetes or high blood pressure. ??? Get screened for depression. Get treatment if needed. ??? Keep your vaccines up to date. Get the flu shot (influenza vaccine) every year. ??? Keep all follow-up visits. Contact a doctor if: ??? You feel very sad. ??? You have trouble doing your daily activities. ??? You get light-headed or dizzy. Get help right away if: ??? You have sudden, unexplained discomfort in your chest, arms, back, neck, jaw, or upper body. ??? You have shortness of breath. ??? You have sudden sweating or clammy skin. ??? You feel like you may vomit or you vomit. ??? You fe (more content not included)...[facility] Evaluation + Plan noteExtracted from:Title:Right hip intra-articular corticosteroid injectionAuthor:Blake Grimes DODate:09/25/24 Diagnosis: M25.551, right hi p pain Procedure: Right hip intra-articular corticosteroid injection under fluoroscopic guidance Anesthesia: Local Complications: none After informed consent was obtained, the patient was brought back to the procedure room and placed in the lateral decubitus (procedure side up) position. Procedure site prepped and draped in the usual sterile fashion. Using fluoroscopic guidance, the skin and subcutaneous tissues overlying the needle trajectory over the hip joint were anesthetized with 2% lidocaine. The 22-gauge Quincke needles were then introduced into the hip joint. After negative aspiration, injection of contrast at final needle tip position under fluoroscopy revealed appropriate intra-articular spread. Thereafter, after negative aspiration, 5 mL of 0.25% bupivacaine with 60 mg of methylprednisolone was injected into thehip joint. The needle was then removed. The patient tolerated procedure well. Patient was then transferred to the recovery room in stable condition. Follow-up: The patient will update us on the response to this procedure, and agrees to continue currently prescribed/recommended therapies. Future Appointments Appointment Date:09/26/2024 10:30:00 AM Scheduled Provider: Location:. Appointment Type:BD Bone Density (FT) Appointment Date:09/28/2024 02:30:00 PM Scheduled Provider: Location:[facility] Appointment Type:FM Medicare Wellness Subsequent Appointment Date:10/17/2024 01:20:00 PM Scheduled Provider: Location:[facility] Appointment Type: Lab Draw Appointment Date:10/24/2024 01:40:00 PM Scheduled Provider:Luiz Costello MD Location:[facility] Appointment Type: Open Appointment Date:11/09/2024 10:00:00 AM Scheduled Provider:Blake Grimes DO Location:[facility] [place] Appointment Type:Pain Management - Follow Up (FT) Future Scheduled Tests Laboratory* UA with Cult Rflx 11/25/23 * Basic Metabolic Panel 07/25/24 * CBC w/ Auto Diff 07/25/24 Radiology* BD Bone Density DEXA 09/26/24 [facility] 06-02-2025 NoteOperative Report Diagnosis: M25.551, right hip pain Procedure: Right hip intra-articular corticosteroid injection under fluoroscopic guidance Anesthesia: Local Complications: none After informed consent was obtained, the patient was brought back to the procedure room and placed in the lateral decubitus (procedure side up) position. Procedure site prepped and draped in the usual sterile fashion. Using fluoroscopic guidance, the skin and subcutaneous tissues overlying the needle trajectory over the hip joint were anesthetized with 2% lidocaine. The 22-gauge Quincke needles were then introduced into the hip joint. After negative aspiration, injection of contrast at final needle tip position under fluoroscopy revealed appropriate intra-articular spread. Thereafter, after negative aspiration, 5 mL of 0.25% bupivacaine with 60 mg of methylprednisolone was injected into thehip joint. The needle was then removed. The patient tolerated procedure well. Patient was then transferred to the recovery room in stable condition. Follow-up: The patient will update us on the response to this procedure, and agrees to continue currently prescribed/recommended therapies.[facility] Comment on above:Result Comment: Electronically Signed By: Blake Grimes DO.nikolay\Date and Time Signed: 09/25/24 09:03 [id number] NoteConsultation Note Patient is presenting with history of lumbar radiculopathy, myofascial pain. She underwent right-sided L4/5 and L5/S1 transforaminal epidural steroid injection on 08/14/2024 with 100% improvement of her radicular symptoms. She has isolated pain in her bilateral knees as well as right hip at this point in time and she rates the pain as an 8/10 in severity when initiating standing and walking but after a few minutes of walking it slightly improves where it becomes a 6/10. 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 She was told that she is not a surgical candidate for hip arthroplasty at this time. She would like know what else can be done about this symptom as it is most significant to her. She is having good efficacy at 200 mg gabapentin at bedtime for neuropathic pain features but was not able to tolerate this twice daily we will maintain this at 200 mg nighttime only. SOFIE Score: 56% PHQ-2: 0 Patient denies any symptoms of progressively worsening upper/lower extremity weakness, progressively worsening gait abnormality, new onset bowel/bladder incontinence/ urinary retention, or saddle anesthesia. No new or worsening symptoms of fever, chills, night sweats. 14 Point Review of systems negative unless otherwise noted. General: No acute distress. Patient appears well-nourished. HEENT: Head is normocephalic and external ears are normal in appearance. Cardiovascular: No signs of poor perfusion and no peripheral edema Pulmonary: Nonlabored breathing, symmetric chest movement. GI: Abdomen nondistended Integumentary: No lesions Neurologic: Alert, oriented x3. 5/5 strength grossly in the bilateral upper extremities. Sensation intact to light touch in the bilateral upper extremities. 5/5 strength grossly in the bilateral lower extremities. Sensation intact to light touch in the bilateral lower extremities. MSK/Special Testing: Negative Ely sign bilaterally, seated straight leg raise does not reproduce radicular symptoms bilaterally. Painful RIANA reproduces groin and buttock pain on the right only. History, physical examination, and personal review of pertinent imaging results indicate a diagnosis of: - Lumbar radiculopathy, significantly proved - Myofascial pain - Right hip pain, continued to be exacerbated Plan: - Continue gabapentin 200 mg at bedtime - Discussed treatment for medicine as needed right side L4/5 and L5/S1 transforaminal epidural steroid injection under fluoroscopic guidance as long as it provides at least 3 months of effective lasting relief - Schedule right hip intra-articular corticosteroid injection under fluoroscopic guidance - Follow-up 1 month postinjection or sooner if issues arise Patient was counseled on the above diagnosis and treatment, all questions were answered and patientagrees to adhere to the plan above. Risk and benefits of appropriate procedures and medications were reviewed as well with patient, who voiced understanding and agreeance. Patient was counseled on appropriate use of opioids if prescribed or renewed today and naloxone was offered to patient if opioids were prescribed or maintained at this visit. PHQ-2 scoring reviewed with patient and discussed seeking treatment for depression or mood disorder as appropriate. Patient was counseled on smoking cessation and/or continuing to abstain from nicotine/tobacco products as appropriate based on history for greater than 3 minutes if appropriate; as smoking/nicotine can contribute to increased pain overall and decreased wound healing, counseling performed for smoking cessation when appropriate for F17.200 nicotine dependence. SOFIE reviewed and discussed during encounter. Patient counseled on maintaining a healthy BMI as part of the total treatment of their pain and to reduce stress/strain on joints.Patient invited to return or call with any questions or concerns that arise. IMPRESSION: DEGENERATIVE CHANGES OF THE LUMBAR SPINE DETAILED. EXAM: MRI of the lumbar spine without contrast History: Low back pain. Right hip pain. Difficulty walking. Technique: Multiplanar multisequence MRI of the lumbar spine was obtained without intravenous contrast. Comparison: CT abdomen pelvis 06/07/2019 Findings: The conus medullaris ends normally. The alignment of the lumbar spine is anatomic. The vertebral body heights are well maintained. There is no aggressive bone marrow signal abnormality. Intraosseous hemangiomas noted within the vertebral body of T12. Disc desiccation throughout the lumbar spine. Intervertebral disc heights are maintained. L1-L2: Small disc bulge. Mild facet arthropathy. Moderate bilateral neuroforaminal stenosis. No spinal canal stenosis. L2-L3: Small disc bulge. Moderate facet arthropathy. Moderate bilateral neuroforaminal stenosis. No spinal canal stenosis. L3-L4: Small disc bulge. Mild facet arthropathy. Moderate bilateral neuroforaminal (more content not included)...[facility]:Result Comment: Electronically Signed By: Blake Grimes DO\Date and Time Signed: 09/14/24 10:11 [id number] History of Present illness Narrative* Nehal Spencer MD - 08/29/2024 1:45 PM EDT Follow up Diagnosis: Actinic Keratosis Location: Mid tip of nose Last visit: 2 months ago Symptoms: redness from bx Status: smoothest it's felt since bx done Procedure performed: Shave biopsy Date of procedure: 07/25/2023 Here for re-evaluation All pertinent medical history, medications, and allergies were reviewed. General Exam: alert, oriented to person, place, and time, normal affect, well appearing Unaccompanied A focused exam completed based on patient reported problems, see below: Skin Exam 1. ACTINIC KERATOSIS Left Tip of Nose Erythematous scaly papule, greatly improved after biopsy Patient was counseled regarding these sun-induced growths that can develop into squamous cell carcinoma if left untreated. Discussed treatment with cryotherapy. It was emphasized that any treated lesions that fail to resolve should be re- evaluated. Cryotherapy performed today; see procedure note Diagnosis: Actinic keratosis Indication: Precancerous Location: see skin exam Consent: Verbal consent was obtained and risks were discussed, including, but not limited to risks of scarring, darker or deputy assessor pigmentary changes, recurrence, incomplete removal and infection. Method: Liquid nitrogen was used to treat the lesion(s) with two 5-10 second freeze-thaw cycles. Number of lesions treated: 1 Post-procedure instructions: Instructions were given orally and in writing. The office will be contacted if the lesion fails to resolve despite treatment, or if a side effect develops such as abnormal crusting, scabbing, redness or tenderness Cryotherapy, skin lesion - Left Tip of Nose Next Visit: as scheduled documented in this encounterFreeman Cancer [id number] NoteOperative Report Diagnosis: m54.16, lumbar radiculopathy Procedure: Right L4/5 and L5/S1 lumbar transforaminal epidural steroid injections under fluoroscopic guidance Anesthesia: Local Complications: none After informed consent was obtained, the patient was brought to the procedure suite placed in the prone position. Pulse oximetry and blood pressure were monitored throughout. The low back area is prepped and draped in usual sterile fashion. Using fluoroscopic guidance, skin and subcutaneous tissue overlying the trajectory of the neuroforamina were anesthetized with 2% lidocaine. A 22-gauge Sprotte needles were then advanced under fluoroscopic guidance to the appropriate foramina. Needle tip positions were confirmed under at least 2 fluoroscopic views. Injection of contrast revealed appropriate spread of the dye without vascular uptake. Next, at each site, 1.5 mL of 1.0% lidocaine with 5 mg of dexamethasone was injected through each needle tip. The needles were then removed and the patientwas then transferred to the recovery room in stable condition. The pain tolerated the procedure well. There were no apparent complications. Follow-up: The patient will update us on the response to this procedure, and agrees to comply to currently prescribed/recommended therapies.[facility] Comment on above:Result Comment: Electronically Signed By: Blake Grimes DO.\.br\Date and Time Signed: 08/14/24 13:40 [id number] Evaluation + Plan note Extracted from:Title:chronic painAuthor:Blake Grimes DODate:08/01/24 Patient is presenting with a history of lumbar radiculopathy that has been ongoing for several years intermittently however over the past few months it has been acutely worsening where she rates her pain as a 9/10 when exacerbated and 6/10 presently going down the lateral aspect of her leg predominantly to the level of the foot. This occurs when she stands and walks and is alleviated by sitting. This is a sharp/stabbing sensation that has not been particularly alleviated by other treatments inclusive of therapy, NSAIDs such as etodolac, acetaminophen, or gabapentin at 200 mg at bedtime. She is limited based on her kidney function for her maximum doses of gabapentin as well as NSAID use and her NSAIDs have been tapered down secondary to CKD. Based on her GFR the maximum dose would be 700 mg twice daily for gabapentin we can consider increasing this further. We also discussed the plan to perform transforaminal epidural steroid injections as she has multilevel foraminal stenosis as well as degenerative changes with no areas of severe central canal stenosis noted on her MRI and attach below SOFIE Score: 49% PHQ-2: 0 Patient denies any symptoms of progressively worsening upper/lower extremity weakness, progressively worsening gait abnormality, new onset bowel/bladder incontinence/ urinary retention, or saddle anesthesia. No new or worsening symptoms of fever, chills, night sweats. 14 Point Review of systems negative unless otherwise noted. General: No acute distress. Patient appears well-nourished. HEENT: Head is normocephalic and external ears are normal in appearance. Cardiovascular: No signs of poor perfusion and no peripheral edema Pulmonary: Nonlabored breathing, symmetric chest movement. GI: Abdomen nondistended Integumentary: No lesions Neurologic: Alert, oriented x3. 5/5 strength grossly in the bilateral upper extremities. Sensation intact to light touch in the bilateral upper extremities. 5/5 strength grossly in the bilateral lower extremities. Sensation intact to light touch in the bilateral lower extremities. MSK/Special Testing: Negative Ely sign bilaterally, seated straight leg raise test did reproduce radicular symptoms on the right only. Tenderness palpation in lumbar paraspinal musculature of the lumbar facet loading reproducing axial pain bilaterally. History, physical examination, and personal review of pertinent imaging results indicate a diagnosis of: - Lumbar radiculopathy, right-sided - Myofascial pain - Lumbar spondyloarthropathy Plan: - We will schedule her for right side L4/5 and L5/S1 transforaminal epidural steroid injection under fluoroscopic guidance and follow-up 1 month postinjection or sooner if needed - Will increase her gabapentin to 100 mg twice daily, we did review her most recent lab functions and her GFR was 45, we can consider increasing this further and the recommended daily maximum doses 700 mg twice daily - Consider lumbar medial branch blocks to target the L4/5 and L5/S1 facet joints and they are fluoroscopic guidance anticipation of an RFA if axial back pain still persist but we will focus on her radicular symptoms at present as these are more significant to her - Follow-up as above Patient was counseled on the above diagnosis and treatment, all questions were answered and patientagrees to adhere to the plan above. Risk and benefits of appropriate procedures and medications were reviewed as well with patient, who voiced understanding and agreeance. Patient was counseled on appropriate use of opioids if prescribed or renewed today and naloxone was offered to patient if opioids were prescribed or maintained at this visit. PHQ-2 scoring reviewed with patient and discussed seeking treatment for depression or mood disorder as appropriate. Patient was counseled on smoking cessation and/or continuing to abstain from nicotine/tobacco products as appropriate based on history; as smoking/nicotine can contribute to increased pain overall and decreased wound healing. Patient counseled on maintaining a healthy BMI as part of the total treatment of their pain and to reduce stress/strain on joints. Patient invited to return or call with any questions or concerns that arise. IMPRESSION: DEGENERATIVE CHANGES OF THE LUMBAR SPINE DETAILED. EXAM: MRI of the lumbar spine without contrast History: Low back pain. Right hip pain. Difficulty walking. Technique: Multiplanar multisequence MRI of the lumbar spine was obtained without intravenous contrast. Comparison: CT abdomen pelvis 06/07/2019 Findings: The conus medullaris ends normally. The alignment of the lumbar spine is anatomic. The vertebral body heights are well maintained. There is no aggressive bone marrow signal abnormality. Intraosseous hemangiomas noted within the vertebral body of T12. Disc desiccation throughout the lumbar spine. Intervertebral disc heights are maintained. L1-L2: Small disc bulge. Mild facet arthropathy. Moderate bilateral neuroforaminal stenosis. No spinal canal stenosis. L2-L3: Small disc bulge. Moderate facet arthropathy. Moderate bilateral neuroforaminal stenosis. No spinal canal stenosis. L3-L4: Small disc bulge. Mild facet arthropathy. Moderate bilateral neuroforaminal stenosis. No spinal canal stenosis. L4-L5: Small disc bulge. Moderate to advanced facet arthropathy. Ligamentum flavum thickening. Moderate left and severe right neuroforaminal stenosis. No spinal canal stenosis. L5-S1: Small disc bulge. Advanced facet arthropathy. Moderate bilateral neuroforaminal stenosis. No spinal canal stenosis. Visualized paravertebral soft tissues appear within normal limits as visualized. A 1.2 cm hyperintense T2 structure of left kidney is most likely a cyst. Technical Comments: Contrast: None Future Appointments Appointment Date:08/14/2024 01:00:00 PM Scheduled Provider: Location:[facility] Appointment Type:Surgery FT Appointment Date:09/14/2024 09:45:00 AM Scheduled Provider:Blake Grimes DO Location[facility] [place] Appointment Type:Pain Management - Follow Up (FT) Appointment Date:09/26/2024 10:30:00 AM Scheduled Provider: Location:.[place] Appointment Type:BD Bone Density (FT) Appointment Date:09/28/2024 02:30:00 PM Scheduled Provider: Location:[facility] Appointment Type: Medicare Wellness Subsequent Appointment Date:10/17/2024 01:20:00 PM Scheduled Provider: Location:[facility] Appointment Type:FM Lab Draw Appointment Date:10/24/2024 01:40:00 PM Scheduled Provider:Luiz Costello MD Location:[facility] Appointment Type: Open Future Scheduled Tests Laboratory* UA with Cult Rflx 11/25/23 * Basic Metabolic Panel 07/25/24 * CBC w/ Auto Diff 07/25/24 Radiology* [facility] Bone Density DEXA 09/[facility]/24 [facility] – [facility] 04-08-2025 NoteConsultation Note Patient is presenting with a history of lumbar radiculopathy that has been ongoing for several years intermittently however over the past few months it has been acutely worsening where she rates her pain as a 9/10 when exacerbated and 6/10 presently going down the lateral aspect of her leg predominantly to the level of the foot. This occurs when she stands and walks and is alleviated by sitting. This is a sharp/stabbing sensation that has not been particularly alleviated by other treatments inclusive of therapy, NSAIDs such as etodolac, acetaminophen, or gabapentin at 200 mg at bedtime. She is limited based on her kidney function for her maximum doses of gabapentin as well as NSAID use and her NSAIDs have been tapered down secondary to CKD. Based on her GFR the maximum dose would be 700 mg twice daily for gabapentin we can consider increasing this further. We also discussed the plan to perform transforaminal epidural steroid injections as she has multilevel foraminal stenosis as well as degenerative changes with no areas of severe central canal stenosis noted on her MRI and attach below SOFIE Score: 49% PHQ-2: 0 Patient denies any symptoms of progressively worsening upper/lower extremity weakness, progressively worsening gait abnormality, new onset bowel/bladder incontinence/ urinary retention, or saddle anesthesia. No new or worsening symptoms of fever, chills, night sweats. 14 Point Review of systems negative unless otherwise noted. General: No acute distress. Patient appears well-nourished. HEENT: Head is normocephalic and external ears are normal in appearance. Cardiovascular: No signs of poor perfusion and no peripheral edema Pulmonary: Nonlabored breathing, symmetric chest movement. GI: Abdomen nondistended Integumentary: No lesions Neurologic: Alert, oriented x3. 5/5 strength grossly in the bilateral upper extremities. Sensation intact to light touch in the bilateral upper extremities. 5/5 strength grossly in the bilateral lower extremities. Sensation intact to light touch in the bilateral lower extremities. MSK/Special Testing: Negative Ely sign bilaterally, seated straight leg raise test did reproduce radicular symptoms on the right only. Tenderness palpation in lumbar paraspinal musculature of the lumbar facet loading reproducing axial pain bilaterally. History, physical examination, and personal review of pertinent imaging results indicate a diagnosis of: - Lumbar radiculopathy, right-sided - Myofascial pain - Lumbar spondyloarthropathy Plan: - We will schedule her for right side L4/5 and L5/S1 transforaminal epidural steroid injection under fluoroscopic guidance and follow-up 1 month postinjection or sooner if needed - Will increase her gabapentin to 100 mg twice daily, we did review her most recent lab functions and her GFR was 45, we can consider increasing this further and the recommended daily maximum doses 700 mg twice daily - Consider lumbar medial branch blocks to target the L4/5 and L5/S1 facet joints and they are fluoroscopic guidance anticipation of an RFA if axial back pain still persist but we will focus on her radicular symptoms at present as these are more significant to her - Follow-up as above Patient was counseled on the above diagnosis and treatment, all questions were answered and patientagrees to adhere to the plan above. Risk and benefits of appropriate procedures and medications were reviewed as well with patient, who voiced understanding and agreeance. Patient was counseled on appropriate use of opioids if prescribed or renewed today and naloxone was offered to patient if opioids were prescribed or maintained at this visit. PHQ-2 scoring reviewed with patient and discussed seeking treatment for depression or mood disorder as appropriate. Patient was counseled on smoking cessation and/or continuing to abstain from nicotine/tobacco products as appropriate based on history; as smoking/nicotine can contribute to increased pain overall and decreased wound healing. Patient counseled on maintaining a healthy BMI as part of the total treatment of their pain and to reduce stress/strain on joints. Patient invited to return or call with any questions or concerns that arise. IMPRESSION: DEGENERATIVE CHANGES OF THE LUMBAR SPINE DETAILED. EXAM: MRI of the lumbar spine without contrast History: Low back pain. Right hip pain. Difficulty walking. Technique: Multiplanar multisequence MRI of the lumbar spine was obtained without intravenous contrast. Comparison: CT abdomen pelvis 06/07/2019 Findings: The conus medullaris ends normally. The alignment of the lumbar spine is anatomic. The vertebral body heights are well maintained. There is no aggressive bone marrow signal abnormality. Intraosseous hemangiomas noted within the vertebral body of T12. Disc desiccation throughout the lumbar spine. Intervertebral disc heights are maintained. L1-L2: Small disc bulge. Mild facet arthropathy. Mode (more content not included)...[facility] HospitalComment on above:Result Comment: Electronically Signed By: Blake Grimes DO\.br\Date and Time Signed: 08/01/24 13:07 [id number] Evaluation + Plan noteExtracted from:Title:Right L4/5 and L5/S1 transforaminal epidural steroid injectionsAuthor:Blake Grimes DODate:08/14/24 Diagnosis: m54.16, lumbar ra diculopathy Procedure: Right L4/5 and L5/S1 lumbar transforaminal epidural steroid injections under fluoroscopic guidance Anesthesia: Local Complications: none After informed consent was obtained, the patient was brought to the procedure suite placed in the prone position. Pulse oximetry and blood pressure were monitored throughout. The low back area is prepped and draped in usual sterile fashion. Using fluoroscopic guidance, skin and subcutaneous tissue overlying the trajectory of the neuroforamina were anesthetized with 2% lidocaine. A 22-gauge Sprotte needles were then advanced under fluoroscopic guidance to the appropriate foramina. Needle tip positions were confirmed under at least 2 fluoroscopic views. Injection of contrast revealed appropriate spread of the dye without vascular uptake. Next, at each site, 1.5 mL of 1.0% lidocaine with 5 mg of dexamethasone was injected through each needle tip. The needles were then removed and the patientwas then transferred to the recovery room in stable condition. The pain tolerated the procedure well. There were no apparent complications. Follow-up: The patient will update us on the response to this procedure, and agrees to comply to currently prescribed/recommended therapies. Future Appointments Appointment Date:09/14/2024 09:45:00 AM Scheduled Provider:Blake Grimes DO Location:.[facility] [place] Appointment Type:Pain Management - Follow Up (FT) Appointment Date:09/26/2024 10:30:00 AM Scheduled Provider: Location:.[place] Appointment Type:[place] Bone Density (FT) Appointment Date:09/28/2024 02:30:00 PM Scheduled Provider: Location:[facility] Appointment Type: Medicare Wellness Subsequent Appointment Date:10/17/2024 01:20:00 PM Scheduled Provider: Location:[facility] Appointment Type: Lab Draw Appointment Date:10/24/2024 01:40:00 PM Scheduled Provider:Luiz Costello MD Location:[facility] Appointment Type: Open [facility] Scheduled Tests Laboratory* UA with Cult Rflx 11/25/23 * Basic Metabolic Panel 07/25/24 * CBC w/ Auto Diff 07/25/24 Radiology* BD Bone Density DEXA 09/26/24 [facility] 03-31-2025 History of Present illness Narrative* Nehal Spencer MD - 07/24/2024 2:00 PM EDT Images from the original note were not included. Skin Check Location: Patient requests a skin examination from the waist up Dermatologic history: history of Actinic Keratosis, history of Basal Cell Carcinoma Last visit: 1 year ago Established patient All pertinent medical history, medications, and allergies were reviewed. General Exam: alert, oriented to person, place, and time, normal affect, well appearing uses a walker Unaccompanied A complete skin exam was offered, pt declined. Areas not examined despite medical recommendation: From the waist down Scalp, Examined , exam limited by hair Head, Face Examined Neck Examined Chest Examined Back Examined Abdomen Examined Right arm Examined Left arm Examined Hands Examined Digits,nails: Examined Lymphatics: Not examined 1. Lentigines (3) Arms, Head - Anterior (Face), Trunk Scattered baumann macules in sun-exposed areas. The patient was informed that lentigines are benign pigmented lesions that occur on sun-exposed andsun-damaged skin. No treatment is necessary. Recommended regular use of broad spectrum sunscreen SPF 30 or higher 2. Actinic keratosis (3) Left Malar Cheek, Right Malar Cheek, Right Nasal Sidewall Erythematous scaly papules Patient was counseled regarding these sun-induced growths that can develop into squamous cell carcinoma if left untreated. Discussed treatment with cryotherapy. It was emphasized that any treated lesions that fail to resolve should be re- evaluated. Cryotherapy performed today; see procedure note Diagnosis: Actinic keratosis Indication: Precancerous Location: see skin exam Consent: Verbal consent was obtained and risks were discussed, including, but not limited to risks of scarring, darker or deputy assessor pigmentary changes, recurrence, incomplete removal and infection. Method: Liquid nitrogen was used to treat the lesion(s) with two 5-10 second freeze-thaw cycles. Eyes were shielded using cotton pad during procedure Number of lesions treated: 3 Post-procedure instructions: Instructions were given orally and in writing. The office will be contacted if the lesion fails to resolve despite treatment, or if a side effect develops such as abnormal crusting, scabbing, redness or tenderness Cryotherapy, skin lesion - Left Malar Cheek, Right Malar Cheek, Right Nasal Sidewall 3. Melanocytic nevus of left upper extremity Left Antecubital Fossa Scattered benign appearing, regular brown to light brown melanocytic papules and macules with similar morphology Counseled regarding these benign growths. Rarely, a nevus can develop into malignant melanoma, so any changing nevi should be promptly re-evaluated. 4. History of basal cell carcinoma Nasal Tip No evidence of recurrence at BCC scar. The patient was counseled that scars from excisional sites of nonmelanoma skin cancers should be monitored closely for recurrence. The patient was instructed to contact the office for any new, changing, or symptomatic moles. The patient was also instructed to contact the office for any new lesions that develop within or around the previous surgery scar. 5. Neoplasm of unspecified behavior of bone, soft tissue, and skin Mid Tip of Nose Hyperkeratotic papule Lesion biopsy Type of biopsy: tangential Informed consent: discussed and consent obtained Informed consent comment: The risks and benefits of the biopsy were discussed. Risks include but are not limited to bleeding, infection, scarring, pain, and nerve damage. An opportunity to ask questions prior to the procedure was permitted and all questions were answered. Patient was prepped and draped in usual sterile fashion: area cleansed with alcohol. Anesthesia: the lesion was anesthetized in a standard fashion Anesthetic: 1% lidocaine w/ epinephrine 1-100,000 buffered w/ 8.4% NaHCO3 Instrument used: DermaBlade Hemostasis achieved with: electrodesiccation Outcome: patient tolerated procedure well Outcome comment: The specimen was placed in a prelabeled formalin container to be sent for pathology Post-procedure details: sterile dressing applied and wound care instructions given Post-procedure details comment: Emphasized need to contact clinic for any signs of infection, uncontrollable bleeding, or complications. Dressing type: bandage Additional details: Photo taken Amount of lidocaine used: 0.3 cc Specimen A - Dermatopathology exam Differential Diagnosis: AK vs SCC Check Margins: No Size of lesion: 0.7 x 0.7 cm Next Visit: 1 year, skin check documented in this encounterFreeman Cancer [id number] History of Present illness Narrative* SHERLY Mercado - 07/19/2024 1:15 PM EDT Subjective Patient ID: Arley Ashraf is a 83 y.o. female. Chief Complaint: Follow-up of the Lower Back (MRI [facility] [place]10/24) Last Surgery: No surgery found Last Surgery Date: No surgery found HPI Arley comes in today with her daughter to review her MRI results. She does have findings which are more likely a cause of her right sciatic nerve pain that extends down to her ankle at times. L4-5and L5-S1 significant facet hypertrophy causing neural foraminal stenosis. Objective Ortho Exam Patient does not have reproducible pain with assessment of straight leg raise today she states thatit usually is shooting with certain twisting or for no reason sometimes down into her ankle. Does have limitations with knee motion and is actually ambulating with a walker today. Image Results: MRI SPINE LUMBAR W/O CONTRAST Exam Date/Time: 07/10/2024 19:13 EDT Reason for Exam: M47.27 Report IMPRESSION: DEGENERATIVE CHANGES OF THE LUMBAR SPINE DETAILED. EXAM: MRI of the lumbar spine without contrast History: Low back pain. Right hip pain. Difficulty walking. Technique: Multiplanar multisequence MRI of the lumbar spine was obtained without intravenous contrast. Comparison: CT abdomen pelvis 06/07/2019 Findings: The conus medullaris ends normally. The alignment of the lumbar spine is anatomic. The vertebral body heights are well maintained. There is no aggressive bone marrow signal abnormality. Intraosseous hemangiomas noted within the vertebral body of T12. Disc desiccation throughout the lumbar spine. Intervertebral disc heights are maintained. L1-L2: Small disc bulge. Mild facet arthropathy. Moderate bilateral neuroforaminal stenosis. No spinal canal stenosis. L2-L3: Small disc bulge. Moderate facet arthropathy. Moderate bilateral neuroforaminal stenosis. No spinal canal stenosis. L3-L4: Small disc bulge. Mild facet arthropathy. Moderate bilateral neuroforaminal stenosis. No spinal canal stenosis. L4-L5: Small disc bulge. Moderate to advanced facet arthropathy. Ligamentum flavum thickening. Moderate left and severe right neuroforaminal stenosis. No spinal canal stenosis. L5-S1: Small disc bulge. Advanced facet arthropathy. Moderate bilateral neuroforaminal stenosis. No spinal canal stenosis. Visualized paravertebral soft tissues appear within normal limits as visualized. A 1.2 cm hyperintense T2 structure of left kidney is most likely a cyst. Technical Comments: Contrast: None Report Ordering Provider: Brandon Gordon FINAL REPORT Dictated: 07/11/2024 2:07 pm Deepak Canales DO Signed (Electronic Signature): 07/11/2024 2:07 pm Signed by: Deepak Canales DO Transcribed by: CHRIS Technologist: ELSY We did discuss the findings of T12 hemangioma as well as the cyst findings in the left kidney and given her history of seeing urology in the past for similar concerns she may follow-up with primary care for re-evaluation however the radiologist did not recommend or edema any specific testing or concerns. Assessment/Plan Encounter Diagnoses: Lumbosacral radiculopathy due to degenerative joint disease of spine No orders of the defined types were placed in this encounter. Follow up if symptoms worsen or fail to improve. We will setUp for referral with Dr. Grimes for consideration of local injection into your L4-5 and L5-S1 right-sided facet joints and or epidural space for relief of the pressure and neural foraminal stenosis. He may have other offerings to help alleviate the pain in would take his guidance in the future for any further back needs including surgical referral. We will be happy to see him back for other areas of concerns such as knees hips shoulders etc. Caution on using anti-inflammatory medicineas this can cause irritation to the GI track and affect her kidney function and should be directed through your primary care in the future. Tylenol as another option up to 3000 mg a day divided in 3-4 doses. Ice to the low back and gluteal region for 20 minutes several times a day may be helpful. documented in this [facility]03-26-2025 Instructions* Patient Instructions* SHERLY Mercado - 07/19/2024 1:15 PM EDT We will setUp for referral with Dr. Grimes for consideration of local injection into your L4-5 and L5-S1 right-sided facet joints and or epidural space for relief of the pressure and neural foraminal stenosis. He may have other offerings to help alleviate the pain in would take his guidance in the future for any further back needs including surgical referral. We will be happy to see him back for other areas of concerns such as knees hips shoulders etc. Caution on using anti-inflammatory medicineas this can cause irritation to the GI track and affect her kidney function and should be directed through your primary care in the future. Tylenol as another option up to 3000 mg a day divided in 3-4 doses. Ice to the low back and gluteal region for 20 minutes several times a day may be helpful. documented in this [facility]01-29-2025 Telephone encounter Note* Telephone Encounter - Annita Wild - 05/24/2024 9:51 AM EST Daughter called, states pt took med last night and felt ill then got sick, asking if she can get something else sent into [facility] please No sulfa Daughter also wants to stop into the office to check out a walking boot for pt [facility] [id number] Miscellaneous Notes* Telephone Encounter - Annita Wild - 05/24/2024 9:51 AM EST Daughter called, states pt took med last night and felt ill then got sick, asking if she can get something else sent into [facility] please No sulfa Daughter also wants to stop into the office to check out a walking boot for pt documented in this encounterNOCox Walnut [id number] History of Present illness Narrative* Boone Ramirez, KELLI - 05/23/2024 10:10 AM EST Patient: Arley Ashraf : 1940 PCP: Luiz Costello MD SUBJECTIVE This is a 83 y.o. female that presents today for a chief complaint of right 2nd toe pain after hitting her toe on object proximally 3 days ago. She states some redness to the areas seen at local hospital ER diagnosed with fracture of the toe placed in walking boot. States pain of a 5/10 on 10 pain scale. Allergies: Allergies Allergen Reactions Phenytoin Unknown Sulfa Antibiotics Unknown Past Medical History: Past Medical History: Diagnosis Date Actinic keratosis Arthritis Arthritis of joint of toe 01/07/2023 Basal cell carcinoma Coronavirus infection 01/07/2023 Fatigue 01/07/2023 Frequency of urination 01/07/2023 Hyperlipidemia ([facility]/HCC) 01/07/2023 Osteopenia 01/07/2023 Other microscopic hematuria 01/07/2023 Raynaud's disease without gangrene 01/07/2023 Small vessel disease ([facility]/HCC) 01/07/2023 CASSIE (stress urinary incontinence, female) 01/07/2023 TIA (transient ischemic attack) 01/07/2023 Urge incontinence 01/07/2023 Urgency of urination 01/07/2023 Weight gain 01/07/2023 Medications: Current Outpatient Medications: ASPIRIN 81 PO, Take by mouth, Disp: , Rfl: calcium carbonate 1500 (600 Ca) MG tablet, every 12 (twelve) hours., Disp: , Rfl: etodolac (Lodine) 500 MG tablet, Take 500 mg by mouth in the morning and 500 mg before bedtime., Disp: , Rfl: Multiple Vitamins-Minerals (CENTRUM SILVER PO), Take by mouth, Disp: , Rfl: pravastatin (Pravachol) 20 MG tablet, Take 20 mg by mouth at bedtime., Disp: , Rfl: Probiotic Product (PROBIOTIC PO), Take by mouth, Disp: , Rfl: traMADol (Ultram) 50 MG tablet, TAKE 1 TO 2 TABLETS BY MOUTH TWICE DAILY NEEDED FOR KNEE PAIN, Disp: , Rfl: Ubiquinol (Qunol CoQ10/Ubiquinol/Brandon) 100 MG capsule, as directed Orally, Disp: , Rfl: Social History: Social History Socioeconomic History Marital status: Unmarried Spouse name: Not on file Number of children: Not on file Years of education: Not on file Highest education level: Not on file Occupational History Not on file Tobacco Use Smoking status: Never Smokeless tobacco: Never Vaping Use Vaping status: Never Used Substance and Sexual Activity Alcohol use: Never Comment: Caffeine: 2-3 cups/day coffee, tea, soda Drug use: Never Sexual activity: Not on file Other Topics Concern Not on file Social History Narrative Denies family history of melanoma Social Drivers of Health Financial Resource Strain: Not on file Food Insecurity: Not on file Transportation Needs: Not on file Physical Activity: Not on file Stress: Not on file Social Connections: Not on file Intimate Partner Violence: Not on file Housing Stability: Not on file ROS: Gastrointestinal: denies abdominal pain, ulcers, or changes in appetite or bowel habits Musculoskeletal: Positive generalized arthritis to joints and denies loss of strength. Positive history of left hip replacement Cardiovascular: denies CP, palpitations, irregular rhythms OBJECTIVE LE EXAM: DERM: Diminished hair growth to b/l feet with good skin turgor noted. Negative openings in skin. Slight erythema and notable scab like lesion to distal medial right 3rd toe with slight erythema to the dorsum of the right foot. VASC: Palpable pedal pulsed b/l with warm to cool tibia to toes b/l NEURO: Gross sensation intact digits 1-10 and b/l feet ORTHO: +5/5 DF/PF/IN/EV right, +5/5 DF/PF/IN/EV left. 20 degrees inversion and 10 degrees eversion STJ b/l. Ankle ROM less than 10 degrees b/l. Positive pain on palpation to distal humberto of right 2nd digit XRAY: XR foot 3+ views right Imaging Result: Notable degenerative changes to the midfoot right with associated osteoporotic changes and osteopenia to the foot and ankle and lateral right 5th metatarsal as suspected possible small avulsion type fracture with minimal displacement and accessory cuboid bone noted. No gross fractures visualized on plain films Of note on further preview notable medial aspect of the distal phalanx and middle phalanx have whatappeared to be a small occult fracture US: ASSESSMENT 1. Foot pain, right 2. Cellulitis of right foot 3. Closed nondisplaced fracture of middle phalanx of lesser toe of right foot, initial encounter PLAN Patient placed on oral antibiotics Continue with walking boot and placed on oral antibiotic Patient may elevate foot when nonweightbearing Reviewed x-rays today with patient Follow up in 2 weeks Boone Ramirez DPM documented in this encounterFreeman Cancer [id number] Hospital Discharge instructions Patient Education 05/21/2024 13:10:39 Foot Pain Foot Pain Many things can cause foot pain. Common causes include injuries to the foot. The injuries include sprains or broken bones, or injuries that affect the nerves in the feet. Other causes of foot pain include arthritis, blisters, and bunions. To know what causes your foot pain, your health care provider will take a detailed history of your symptoms. They will also do a physical exam as well as imaging tests, such as X-ray or MRI. Follow these instructions at home: Managing pain, stiffness, and swelling If told, put ice on the painful area. ?Put ice in a plastic bag. ?Place a towel between your skin and the bag. ?Leave the ice on for 20 minutes, 2 3 times a day. If your skin turns bright red, remove the ice right away to prevent skin damage. The risk of damageis higher if you cannot feel pain, heat, or cold. Activity Do not stand or walk for long periods. Do stretches to relieve foot pain and stiffness as told by your provider. Do not lift anything that is heavier than 10 lb (4.5 kg), or the limit that you are told, until your provider says that it is safe. Lifting a lot of weight can put added pressure on your feet. Return to your normal activities as told by your provider. Ask your provider what activities are safe for you. Lifestyle Wear comfortable, supportive shoes that fit you well. Do not wear high heels. Keep your feet clean and dry. General instructions Take [id number] and prescription medicines only as told by your provider. Rub your foot gently. Pay attention to any changes in your symptoms. Let your provider know if symptoms become worse. Keep all follow-up visits. Your provider will want to monitor your progress. Contact a health care provider if: Your pain does not get better after a few days of treatment at home. Your pain gets worse. You cannot stand on your foot. Your foot or toes are swollen. Your foot is numb or tingling. Get help right away if: Your foot or toes turn white or blue. You have warmth and redness along your foot. This information is not intended to replace advice given to you by your health care provider. Make sure you discuss any questions you have with your health care provider. Document Revised: 05/06/2023 Document Reviewed: 01/12/2023 InterviewBest Patient Education 2023 Apple[employer]. Follow Up Care 05/21/2024 10:28:17 With:Erik Keane Address: [facility] [place] [address] [place] [address]- [facility]: c/o [address] [place] [address]- When:05/24/2024 12:56:44 Comments:Call Dr for diagnosis based follow up With:Luiz Costello Address:Unknown When:Within 3 Day(s) [facility] 01-26-2025 Evaluation + Plan noteExtracted from:Title: ED NoteAuthor:Molly DUBOIS StudentAdy CDate:05/21/24 Bilateral foot pain (M79.671 : Pain in right foot) Pain in left foot (M79.672: Pain in left foot) Orders: acetaminophen-oxycodone, 1 tab(s), Oral, q6hr for pain for 3 day(s), 12 tab(s), Refill(s) 0, [id number], 159, cm, 05/21/24 10:41:00 EST, Height/Length Dosing, 84.5, kg, 05/21/24 10:41:00 EST,Weight Dosing acetaminophen-oxycodone, 1 tab(s), Tab, Oral, Once, Stop date 05/21/24 12:24:00 EST, STAT, Start date 05/21/24 12:24:00 EST XR Foot 3+ Views Left XR Foot 3+ Views Right Future Appointments Appointment Date:08/15/2024 10:00:00 AM Scheduled Provider:Luiz Costello MD Location:[facility] Appointment Type: Open Appointment Date:09/26/2024 10:30:00 AM Scheduled Provider: [facility] Appointment Type:BD Bone Density () Appointment Date:09/28/2024 02:30:00 PM Scheduled Provider: Location:[facility] Appointment Type: Medicare Wellness Subsequent Future Scheduled Tests Laboratory* UA with Cult Rflx 11/25/23 Radiology* BD Bone Density DEXA 09/26/24 [facility] 01-26-2025 NoteED Patient Education Note Orthopedics Foot Pain Many things can cause foot pain. Common causes include injuries to the foot. The injuries include sprains or broken bones, or injuries that affect the nerves in the feet. Other causes of foot pain include arthritis, blisters, and bunions. To know what causes your foot pain, your health care provider will take a detailed history of your symptoms. They will also do a physical exam as well as imaging tests, such as X-ray or MRI. Follow these instructions at home: Managing pain, stiffness, and swelling ??? If told, put ice on the painful area. ? Put ice in a plastic bag. ? Place a towel between your skin and the bag. ? Leave the ice on for 20 minutes, 2?3 times a day. ??? If your skin turns bright red, remove the ice right away to prevent skin damage. The risk of damage is higher if you cannot feel pain, heat, or cold. Activity ??? Do not stand or walk for long periods. ??? Do stretches to relieve foot pain and stiffness as told by your provider. ??? Do not lift anything that is heavier than 10 lb (4.5 kg), or the limit that you are told, untilyour provider says that it is safe. Lifting a lot of weight can put added pressure on your feet. ??? Return to your normal activities as told by your provider. Ask your provider what activities are safe for you. Lifestyle ??? Wear comfortable, supportive shoes that fit you well. Do not wear high heels. ??? Keep your feet clean and dry. General instructions ??? Take rltr-hvw-jnzxinq and prescription medicines only as told by your provider. ??? Rub your foot gently. ??? Pay attention to any changes in your symptoms. Let your provider know if symptoms become worse. ??? Keep all follow-up visits. Your provider will want to monitor your progress. Contact a health care provider if: ??? Your pain does not get better after a few days of treatment at home. ??? Your pain gets worse. ??? You cannot stand on your foot. ??? Your foot or toes are swollen. ??? Your foot is numb or tingling. Get help right away if: ??? Your foot or toes turn white or blue. ??? You have warmth and redness along your foot. This information is not intended to replace advice given to you by your health care provider. Make sure you discuss any questions you have with your health care provider. Document Revised: 05/06/2023 Document Reviewed: 01/12/2023 InterviewBest Patient Education ? 2023 AppleTreeBook.[facility] 05-10-2024 History of Present illness Narrative* SHERLY Mercado - 05/10/2024 9:45 AM EST GENERAL HISTORY AND PHYSICAL: NAME: Arley Ashraf : 1940 HISTORY OF PRESENT ILLNESS: Arley Ashraf is an 83 y.o. female is here for orthopedic evaluation Dr. Chappell on May 20 and appointment was moved up due to severe pain in right lower gluteal and leg pain. Her daughter is here with her. Patient is ambulating with a cane he has extensive medical history from an orthopedic standpoint she has had left hip done years ago which then required revision done in [facility] in 2018 she has also had supracondylar fracture of the left distal femur which [facility] [place] and subsequently developed severe osteoarthritis of both knees. She wastold several years ago by Dr. Jorge that it would be very difficult to perform total knee due to all the hardware which would need to be removed and then allowed to heal for a year prior to implanting a new joint. She is actually here more for sciatic pain down the right leg which has been off and on an intermittent for the last 6 weeks or so and last couple days she states she has got significant improvement with no change in her treatment or daily activity. No recent fall injury. PAST MEDICAL HISTORY: Past Medical History: Diagnosis Date Actinic keratosis Arthritis Arthritis of joint of toe 01/07/2023 Basal cell carcinoma Coronavirus infection 01/07/2023 Fatigue 01/07/2023 Frequency of urination 01/07/2023 Hyperlipidemia (CMS/HCC) 01/07/2023 Osteopenia 01/07/2023 Other microscopic hematuria 01/07/2023 Raynaud's disease without gangrene 01/07/2023 Small vessel disease (CMS/HCC) 01/07/2023 CASSIE (stress urinary incontinence, female) 01/07/2023 TIA (transient ischemic attack) 01/07/2023 Urge incontinence 01/07/2023 Urgency of urination 01/07/2023 Weight gain 01/07/2023 PAST SURGICAL HISTORY: Past Surgical History: Procedure Laterality Date FEMUR FRACTURE SURGERY Left 1992 hardware JOINT REPLACEMENT Left 2007 hip KNEE SURGERY Right 1957 knee cap TONSILLECTOMY TUBAL LIGATION WOUND DEBRIDEMENT 01/08/2023 Reconstruction Nasal Wound SOCIAL HISTORY: Social History Occupational History Not on file Tobacco Use Smoking status: Never Smokeless tobacco: Never Vaping Use Vaping status: Never Used Substance and Sexual Activity Alcohol use: Never Comment: Caffeine: 2-3 cups/day coffee, tea, soda Drug use: Never Sexual activity: Not on file ALLERGIES: Allergies Allergen Reactions Phenytoin Unknown Sulfa Antibiotics Unknown MEDICATIONS: Current Outpatient Medications Medication Instructions ASPIRIN 81 PO Take by mouth calcium carbonate 1500 (600 Ca) MG tablet Every 12 hours etodolac (LODINE) 500 mg, 2 times daily Multiple Vitamins-Minerals (CENTRUM SILVER PO) Take by mouth pravastatin (PRAVACHOL) 20 mg, Nightly Probiotic Product (PROBIOTIC PO) Take by mouth traMADol (Ultram) 50 MG tablet TAKE 1 TO 2 TABLETS BY MOUTH TWICE DAILY NEEDED FOR KNEE PAIN Ubiquinol (Qunol CoQ10/Ubiquinol/Brandon) 100 MG capsule as directed Orally REVIEW OF SYSTEMS: Review of Systems General: Denies appetite or significant weight change. Denies fever, chills or night sweats. Denies lightheadedness. ENT: Denies dry mouth, sore throat or swollen glands. Denies difficulty swallowing. Denies ear pain. Respiratory: Denies chest pain, SOB, cough or wheezing. Denies asthma or pneumonia symptoms. Cardiovascular: Denies CP or palpitations. No syncope or dyspnea on exertion. Gastrointestinal: Denies nausea or vomiting. Denies heartburn or abdominal pain. Denies diarrhea. Genitourinary: Denies frequent or painful urination. Musculoskeletal: See HPI for comments. Integumentary: Denies rash, lesion or skin infection. Neurologic: Denies dizziness, headache or seizure history. Vitals: Body mass index is 35.94 kg/m . PHYSICAL EXAM: Physical Exam Patient has limited mobility of her left knee she is able to go from 7 degrees to about 80 and right knee has 5 degrees with valgus appearance flexing to about 95 degrees. She has limited internal external rotation of the right hip and maintains better mobility of the left hip today. Patient has negative straight leg raise bilaterally she does feel some pull or tightness in the right sacrum and gluteal region but no radicular symptoms and no pain below the knee. XR knee 3 views right Imaging Result: Bilateral standing PA, bilateral sunrise, and lateral of the affected knee were imaged today in theoffice. Patient has mostly valgus deformity of the right knee associated with tricompartmental sllc-wz-hyrx osteoarthritis. Left knee is more varus with tricompartmental osteoarthritis and bilateral distal femur hardware from ORIF of supracondylar fracture done years ago. 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 Patient's bone appears osteoporotic with relatively thin cortex. No acute fracture bony tumor seen. She does have tibial reaction to the proximal 3rd which maybe evidence of stress response but appears well-healed. XR knee 3 views left Imaging Result: Bilateral standing PA, bilateral sunrise, and lateral of the affected knee were imaged today in theoffice. Patient has mostly valgus deformity of the right knee associated with tricompartmental qpfu-ig-tjnz osteoarthritis. Left knee is more varus with tricompartmental osteoarthritis and bilateral distal femur hardware from ORIF of supracondylar fracture done years ago. 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 Patient's bone appears osteoporotic with relatively thin cortex. No acute fracture bony tumor seen. She does have tibial reaction to the proximal 3rd which maybe evidence of stress response but appears well-healed. XR hip right 2 or 3 views Imaging Result: AP pelvis and frog view of the right hip taken in the office today demonstrating severe pprz-pd-nrli osteoarthritis of the hip joint. No evidence of acute fracture seen. Evidence of prior revision ofleft hip arthroplasty with additional reconstruction of the acetabulum. XR lumbar spine 2 or 3 views Imaging Result: AP and lateral of the lumbar spine demonstrates mostly facet hypertrophy and moderate degenerative disc disease at multiple levels with no evidence of spondylolisthesis or acute fracture no evidence of bony tumor seen. Orders Placed This Encounter Procedures XR knee 3 views right Order Specific Question: Reason for exam: Answer: pain XR knee 3 views left Order Specific Question: Reason for exam: Answer: pain XR hip right 2 or 3 views Order Specific Question: Reason for exam: Answer: pain XR lumbar spine 2 or 3 views Order Specific Question: Reason for exam: Answer: pain ASSESSMENT: Tricompartment osteoarthritis of knees, bilateral Primary osteoarthritis of right hip Lumbosacral radiculopathy due to degenerative joint disease of spine PLAN: Would consider getting MRI in the future if your sciatic nerve continues to bother you and refer you to pain management for injections under x-ray guidance. He may follow up in future with Dr. Muñoz you wish to talk about right hip surgery and total arthroplasty however I do not feel that the symptoms your demonstrating are related to the severe arthritis of the hip. You would need to go to [facility] for any consideration of knee replacement particularly of the left knee due to all the hardware would need to be removed and then allow for bony healing with concerns of osteoporosis.We will follow up as needed. Continue use cane and or Rollator or walker for support and mobilization. Tylenol for breakthrough discomfort during the daytime. Cold pack to the lower back and gluteal region 20 minutes several times a day and before bedtime. SHERLY Mercado documented in this [facility]01-15-2025 Instructions* Patient Instructions* SHERLY Mercado - 05/10/2024 9:45 AM EST Would consider getting MRI in the future if your sciatic nerve continues to bother you and refer you to pain management for injections under x-ray guidance. He may follow up in future with Dr. Chappellif you wish to talk about right hip surgery and total arthroplasty however I do not feel that the symptoms your demonstrating are related to the severe arthritis of the hip. You would need to go to [facility] for any consideration of knee replacement particularly of the left knee due to all the hardware would need to be removed and then allow for bony healing with concerns of osteoporosis.We will follow up as needed. Continue use cane and or Rollator or walker for support and mobilization. Tylenol for breakthrough discomfort during the daytime. Cold pack to the lower back and gluteal region 20 minutes several times a day and before bedtime. documented in this [facility]10-22-2024 NotePatient Education Nutrition BMI for Adults Body mass index (BMI) is a number found using a person's weight and height. BMI can help tell how much of a person's weight is made up of fat. BMI does not measure body fat directly. It is used instead of tests that directly measure body fat, which can be difficult and expensive. What are BMI measurements used for? BMI is useful to: ? Find out if your weight puts you at higher risk for medical problems. ? Help recommend changes, such as in diet and exercise. This can help you reach a healthy weight. BMI screening can be done again to see if these changes are working. How is BMI calculated? Your height and weight are measured. The BMI is found from those numbers. This can be done with U.S. or metric measurements. Note that charts and online BMI calculators are available to help you findyour BMI quickly and easily without doing these calculations. To calculate your BMI in U.S. measurements: 1. Measure your weight in pounds (lb). 2. Multiply the number of pounds by 703. ? So, for an adult who weighs 150 lb, multiply that number by 703: 150 x 703, which equals 105,450. 3. Measure your height in inches. Then multiply that number by itself to get a measurement called inches squared. ? So, for an adult who is 70 inches tall, the inches squared measurement is 70 inches x 70 inches, which equals 4,900 inches squared. 4. Divide the total from step 2 (number of lb x 703) by the total from step 3 (inches squared): 105,450 ? 4,900 = 21.5. This is your BMI. To calculate your BMI in metric measurements: 1. Measure your weight in kilograms (kg). ? For this example, the weight is 70 kg. 2. Measure your height in meters (m). Then multiply that number by itself to get a measurement called meters squared. ? So, for an adult who is 1.75 m tall, the meters squared measurement is 1.75 m x 1.75 m, which equals 3.1 meters squared. 3. Divide the number of kilograms (your weight) by the meters squared number. In this example: 70 ?3.1 = 22.6. This is your BMI. What do the results mean? BMI charts are used to see if you are underweight, normal weight, overweight, or obese. The following guidelines will be used: ? Underweight: BMI less than 18.5. ? Normal weight: BMI between 18.5 and 24.9. ? Overweight: BMI between 25 and 29.9. ? Obese: BMI of 30 or above. BMI is a tool and cannot diagnose a condition. Talk with your health care provider about what your BMI means for you. Keep these notes in mind: ? Weight includes fat and muscle. Someone with a muscular build, such as an athlete, may have a BMIthat is higher than 24.9. In cases like these, BMI is not a correct measure of body fat. ? If you have a BMI of 25 or higher, your provider may need to do more testing to find out if excess body fat is the cause. ? BMI is measured the same way for males and females. Females usually have more body fat than malesof the same height and weight. Where to find more information For more information about BMI, including tools to quickly find your BMI, go to: ? Centers for Disease Control and Prevention: cdc.gov ? [place] [employer] Association: heart.org ? National Heart, Lung, and Blood [place]: nhlbi.nih.gov This information is not intended to replace advice given to you by your health care provider. Make sure you discuss any questions you have with your health care provider. Document Revised: 12/31/2022 Document Reviewed: 12/24/2022 Elsevier Patient Education ? 2023 AppleTreeBook.[facility] 11-25-2023 NotePatient Education Nutrition BMI for Adults What is BMI? Body mass index (BMI) is a number that is calculated from a person's weight and height. BMI can help estimate how much of a person's weight is composed of fat. BMI does not measure body fat directly.Rather, it is an alternative to procedures that directly measure body fat, which can be difficult and expensive. BMI can help identify people who may be at higher risk for certain medical problems. What are BMI measurements used for? BMI is used as a screening tool to identify possible weight problems. It helps determine whether a person is obese, overweight, a healthy weight, or underweight. BMI is useful for: ? Identifying a weight problem that may be related to a medical condition or may increase the risk for medical problems. ? Promoting changes, such as changes in diet and exercise, to help reach a healthy weight. BMI screening can be repeated to see if these changes are working. How is BMI calculated? BMI involves measuring your weight in relation to your height. Both height and weight are measured,and the BMI is calculated from those numbers. This can be done either in French (U.S.) or metric measurements. Note that charts and online BMI calculators are available to help you find your BMI quickly and easily without having to do these calculations yourself. To calculate your BMI in French (U.S.) measurements: 1. Measure your weight in pounds (lb). 2. Multiply the number of pounds by 703. ? For example, for a person who weighs 180 lb, multiply that number by 703, which equals 126,540. 3. Measure your height in inches. Then multiply that number by itself to get a measurement called inches squared. ? For example, for a person who is 70 inches tall, the inches squared measurement is 70 inches x 70 inches, which equals 4,900 inches squared. 4. Divide the total from step 2 (number of lb x 703) by the total from step 3 (inches squared): 126,540 ? 4,900 = 25.8. This is your BMI. To calculate your BMI in metric measurements: 1. Measure your weight in kilograms (kg). 2. Measure your height in meters (m). Then multiply that number by itself to get a measurement called meters squared. ? For example, for a person who is 1.75 m tall, the meters squared measurement is 1.75 m x 1.75 m, which is equal to 3.1 meters squared. 3. Divide the number of kilograms (your weight) by the meters squared number. In this example: 70 ?3.1 = 22.6. This is your BMI. What do the results mean? BMI charts are used to identify whether you are underweight, normal weight, overweight, or obese. The following guidelines will be used: ? Underweight: BMI less than 18.5. ? Normal weight: BMI between 18.5 and 24.9. ? Overweight: BMI between 25 and 29.9. ? Obese: BMI of 30 or above. Keep these notes in mind: ? Weight includes both fat and muscle, so someone with a muscular build, such as an athlete, may have a BMI that is higher than 24.9. In cases like these, BMI is not an accurate measure of body fat. ? To determine if excess body fat is the cause of a BMI of 25 or higher, further assessments may need to be done by a health care provider. ? BMI is usually interpreted in the same way for men and women. Where to find more information For more information about BMI, including tools to quickly calculate your BMI, go to these websites: ? Centers for Disease Control and Prevention: www.cdc.gov ? [place] Heart Association: www.heart.org ? National Heart, Lung, and Blood [place]: www.nhlbi.nih.gov Summary ? Body mass index (BMI) is a number that is calculated from a person's weight and height. ? BMI may help estimate how much of a person's weight is composed of fat. BMI can help identify those who may be at higher risk for certain medical problems. ? BMI can be measured using French measurements or metric measurements. ? BMI charts are used to identify whether you are underweight, normal weight, overweight, or obese. This information is not intended to replace advice given to you by your health care provider. Make sure you discuss any questions you have with your health care provider. Document Revised: 01/03/2020 Document Reviewed: 11/10/2019 ElseMy [employer] Patient Education ? 2022 [employer].[facility] Evaluation + Plan note No data available for this section [facility] Future [facility]ments Appointment Date:09/22/2023 01:00:00 PM Scheduled Provider: Location:[facility] Appointment Type: Medicare Wellness Subsequent Future Scheduled Tests Laboratory* ALT 09/17/22 * AST 09/17/22 * Lipid Panel [facility]17[facility] Future Appointments Appointment Date:09/23/2023 02:00:00 PM Scheduled Provider: Location:[facility] Appointment Type: Medicare Wellness Subsequent Future Scheduled Tests Laboratory* ALT 09/17/22 * AST 09/17/22 * Lipid Panel 09/17/22 [facility] Future Appointments Appointment Date:09/23/2023 02:00:00 PM Scheduled Provider: Location:[facility] Appointment Type: Medicare Wellness Subsequent Appointment Date:11/18/2023 09:15:00 AM Scheduled Provider:Luiz Costello MD Location:[facility] Appointment Type: Open Diagnostic Tests Pending * Urine Culture 08/16/23 Future Scheduled Tests Laboratory* ALT 09/17/22 * AST 09/17/22 * Lipid Panel [facility]17/[facility] Future Appointments Appointment Date:09/23/2023 02:00:00 PM Scheduled Provider: Location:[facility] Appointment Type: Medicare Wellness Subsequent Appointment Date:11/18/2023 09:15:00 AM Scheduled Provider:Luiz Costello MD Location:[facility] Appointment Type: Open Future Scheduled Tests Laboratory* ALT 09/17/22 * AST 09/17/22 * Lipid Panel 09/17/22 [facility] Future Appointments Appointment Date:11/18/2023 09:15:00 AM Scheduled Provider:Luiz Costello MD Location:[facility] Appointment Type: Open Appointment Date:09/28/2024 02:30:00 PM Scheduled Provider: Location:[facility] Appointment Type: Medicare Wellness Subsequent [facility] Future Appointments Appointment Date:11/25/2023 10:00:00 AM Scheduled Provider:Luiz Costello MD Location:[facility] Appointment Type: Open Appointment Date:02/15/2024 09:30:00 AM Scheduled Provider:Luiz Costello MD Location:[facility] Appointment Type: Open Appointment Date:09/28/2024 02:30:00 PM Scheduled Provider: Location:[facility] Appointment Type: Medicare Wellness Subsequent [facility] [facility] Plan note Future Appointments Appointment Date:02/15/2024 09:30:00 AM Scheduled Provider:Luiz Costello MD Location:[facility] Appointment Type: Open Appointment Date:09/28/2024 02:30:00 PM Scheduled Provider: Location:[facility] Appointment Type:FM Medicare Wellness Subsequent Future Scheduled Tests Laboratory* UA with Cult Rflx 11/25/23 [facility] evaluation + Plan note Future Appointments Appointment Date:08/15/2024 10:00:00 AM Scheduled Provider:Luiz Costello MD Location:[facility] Appointment Type: Open Appointment Date:09/28/2024 02:30:00 PM Scheduled Provider: Location:[facility] Appointment Type: Medicare Wellness Subsequent Diagnostic Tests Pending * Urine Culture 03/17/24 Future Scheduled Tests Laboratory* UA with Cult Rflx 11/25/23 [facility] evQuotteation + Plan note Future Appointments Appointment Date:08/15/2024 10:00:00 AM Scheduled Provider:Luiz Costello MD Location:[facility] Appointment Type: Open Appointment Date:09/28/2024 02:30:00 PM Scheduled Provider: Location:[facility] Appointment Type: Medicare Wellness Subsequent Diagnostic Tests Pending * Urine Culture 03/27/24 Future Scheduled Tests Laboratory* UA with Cult Rflx 11/25/23 [facility] evaluation + Plan note Future Appointments Appointment Date:08/15/2024 10:00:00 AM Scheduled Provider:Luiz Costello MD Location:[facility] Appointment Type:FM Open Appointment Date:09/26/2024 10:30:00 AM Scheduled Provider: Location:[facility] Appointment Type:BD Bone Density (FT) Appointment Date:09/28/2024 02:30:00 PM Scheduled Provider: Location:[facility] Appointment Type: Medicare Wellness Subsequent Future Scheduled Tests Laboratory* UA with Cult Rflx 11/25/23 Radiology* BD Bone Density DEXA 09/26/24 [facility] evaluation + Plan note Future Appointments Appointment Date:09/14/2024 09:45:00 AM Scheduled Provider:Blake Grimes DO [facility] Type:Pain Management - Follow Up (FT) Appointment Date:09/26/2024 10:30:00 AM Scheduled Provider: Location:[facility] Appointment Type:BD Bone Density (FT) Appointment Date:09/28/2024 02:30:00 PM Scheduled Provider: Location:[facility] Appointment Type: Medicare Wellness Subsequent Appointment Date:10/17/2024 01:20:00 PM Scheduled Provider: Location:[facility] Appointment Type:FM Lab Draw Appointment Date:10/24/2024 01:40:00 PM Scheduled Provider:Luiz Costello MD Location:[facility] Appointment Type: Open Future Scheduled Tests Laboratory* UA with Cult Rflx 11/25/23 * Basic Metabolic Panel 07/25/24 * CBC w/ Auto Diff 07/25/24 Radiology* BD Bone Density DEXA 09/26/24 [facility] evaluation + Plan note Future Appointments Appointment Date:09/28/2024 02:30:00 PM Scheduled Provider: Location:[facility] Appointment Type: Medicare Wellness Subsequent Appointment Date:10/17/2024 01:20:00 PM Scheduled Provider: Location:[facility] Appointment Type:FM Lab Draw Appointment Date:10/24/2024 01:40:00 PM Scheduled Provider:Luiz Costello MD Location:[facility] Appointment Type: Open Appointment Date:11/09/2024 10:00:00 AM Scheduled Provider:Blake Grimes DO [facility] Type:Pain Management - Follow Up (FT) Future Scheduled Tests Laboratory* UA with Cult Rflx 11/25/23 * Basic Metabolic Panel 07/25/24 * CBC w/ Auto Diff 07/25/24 [facility] evaluation + Plan note Future Appointments Appointment Date:10/26/2024 01:40:00 PM Scheduled Provider:Micah Choi Location:[facility] Appointment Type: Open Appointment Date:11/09/2024 10:00:00 AM Scheduled Provider:Blake Grimes DO [facility] - Follow Up (FT) Appointment Date:10/04/2025 02:30:00 PM Scheduled Provider: Location:[facility] Appointment Type: Medicare Wellness Subsequent Future Scheduled Tests Laboratory* UA with Cult Rflx 11/25/23 * Basic Metabolic Panel 07/25/24 * CBC w/ Auto Diff 07/25/24 [facility] evaluation + Plan note Future Appointments Appointment Date:11/09/2024 10:00:00 AM Scheduled Provider:Blake Grimes DO [facility] Management - Follow Up (FT) Appointment Date:01/25/2025 02:20:00 PM Scheduled Provider:Micah Choi Location:[facility] Appointment Type: Open Appointment Date:10/04/2025 02:30:00 PM Scheduled Provider: Location:[facility] Appointment Type: Medicare Wellness Subsequent Future Scheduled Tests Laboratory* UA with Cult Rflx 11/25/23 * Basic Metabolic Panel 07/25/24 * CBC w/ Auto Diff 07/25/24 [facility] Evaluation noteNo assessment information available [facility] Work Phone: Evaluation note* Diagnosis Tricompartment osteoarthritis of knees, bilateral- Primary Primary osteoarthritis of right hip Lumbosacral radiculopathy due to degenerative joint disease of spine [facility] Diagnosis Foot pain, right- Primary Pain in soft tissues of limb Cellulitis of right foot Closed nondisplaced fracture of middle phalanx of lesser toe of right foot, initial encounter [facility] Diagnosis Cellulitis of right foot- Primary [facility]* Diagnosis Closed nondisplaced fracture of middle phalanx of lesser toe of right foot, initial encounter- Primary Cellulitis of right foot [facility]* Diagnosis Lumbosacral radiculopathy due to degenerative joint disease of spine- Primary [facility]* Diagnosis Melanocytic nevus of left upper extremity- Primary Actinic keratosis Lentigines History of basal cell carcinoma Personal history of other malignant neoplasm of skin Neoplasm of unspecified behavior of bone, soft tissue, and skin [facility] Diagnosis Actinic keratosis- Primary [facility]* Boone Ramirez, KELLI - 06/13/2024 8:50 AM EST Patient: Arley Ashraf : 1940 PCP: Luiz Costello MD SUBJECTIVE This is a 83 y.o. female that presents today for a 14 day follow up of right 3rd toe fracture with anti-inflammatories for pain as well as a walking boot Patient rates pain a 0-1/10. Patient denies n/f/v/c. Patient has also been taking oral antibiotics for slight cellulitis to the right foot on previous visit Allergies: Allergies Allergen Reactions Phenytoin Unknown Sulfa Antibiotics Unknown Past Medical History: Past Medical History: Diagnosis Date Actinic keratosis Arthritis Arthritis of joint of toe 01/07/2023 Basal cell carcinoma Coronavirus infection 01/07/2023 Fatigue 01/07/2023 Frequency of urination 01/07/2023 Hyperlipidemia (CMS/HCC) 01/07/2023 Osteopenia 01/07/2023 Other microscopic hematuria 01/07/2023 Raynaud's disease without gangrene 01/07/2023 Small vessel disease ([facility]) 01/07/2023 CASSIE (stress urinary incontinence, female) 01/07/2023 TIA (transient ischemic attack) 01/07/2023 Urge incontinence 01/07/2023 Urgency of urination 01/07/2023 Weight gain 01/07/2023 Medications: Current Outpatient Medications: ASPIRIN 81 PO, Take by mouth, Disp: , Rfl: calcium carbonate 1500 (600 Ca) MG tablet, every 12 (twelve) hours., Disp: , Rfl: etodolac (Lodine) 500 MG tablet, Take 500 mg by mouth in the morning and 500 mg before bedtime., Disp: , Rfl: Multiple Vitamins-Minerals (CENTRUM SILVER PO), Take by mouth, Disp: , Rfl: pravastatin (Pravachol) 20 MG tablet, Take 20 mg by mouth at bedtime., Disp: , Rfl: Probiotic Product (PROBIOTIC PO), Take by mouth, Disp: , Rfl: traMADol (Ultram) 50 MG tablet, TAKE 1 TO 2 TABLETS BY MOUTH TWICE DAILY NEEDED FOR KNEE PAIN, Disp: , Rfl: Ubiquinol (Qunol CoQ10/Ubiquinol/Brandon) 100 MG capsule, as directed Orally, Disp: , Rfl: Social History: Social History Socioeconomic History Marital status: Unmarried Spouse name: Not on file Number of children: Not on file Years of education: Not on file Highest education level: Not on file Occupational History Not on file Tobacco Use Smoking status: Never Smokeless tobacco: Never Vaping Use Vaping status: Never Used Substance and Sexual Activity Alcohol use: Never Comment: Caffeine: 2-3 cups/day coffee, tea, soda Drug use: Never Sexual activity: Not on file Other Topics Concern Not on file Social History Narrative Denies family history of melanoma Social Drivers of Health Financial Resource Strain: Not on file Food Insecurity: Not on file Transportation Needs: Not on file Physical Activity: Not on file Stress: Not on file Social Connections: Not on file Intimate Partner Violence: Not on file Housing Stability: Not on file ROS: Gastrointestinal: denies abdominal pain, ulcers, or changes in appetite or bowel habits Musculoskeletal: Positive generalized arthritis to joints and denies loss of strength. Positive history of left hip replacement Cardiovascular: denies CP, palpitations, irregular rhythms OBJECTIVE LE EXAM: DERM: Diminished hair growth to b/l feet with good skin turgor noted. Negative openings in skin. Negative erythema and notable scab like lesion to distal medial right 3rd toe with negative erythema to the dorsum of the right foot. VASC: Palpable pedal pulsed b/l with warm to cool tibia to toes b/l NEURO: Gross sensation intact digits 1-10 and b/l feet ORTHO: +5/5 DF/PF/IN/EV right, +5/5 DF/PF/IN/EV left. 20 degrees inversion and 10 degrees eversion STJ b/l. Ankle ROM less than 10 degrees b/l. Positive pain on palpation to distal humberto of right 2nd digit XRAY: PASt XR foot 3+ views right Imaging Result: Notable degenerative changes to the midfoot right with associated osteoporotic changes and osteopenia to the foot and ankle and lateral right 5th metatarsal as suspected possible small avulsion type fracture with minimal displacement and accessory cuboid bone noted. No gross fractures visualized on plain films Of note on further preview notable medial aspect of the distal phalanx and middle phalanx of the right 3rd toe have what appeared to be a small occult fracture US: ASSESSMENT 1. Closed nondisplaced fracture of middle phalanx of lesser toe of right foot, initial encounter 2. Cellulitis of right foot PLAN Continue with walking boot Patient to continue with oral anti - inflammatories as needed for pain and recommended OTC medications such as tylenol or Ibuprofen Patient to follow up in 2 weeks and possible x-ray may remove boot at that time Boone Ramirez DPM [facility] No data available for this section [facility] Discharge instructionsAdditional Instructions Joint Replacement Discharge Instructions Your safety during your recovery process is important to us. Please seek immediate emergency care if you have sudden chest pain or shortness of breath. Additionally, please call our office at [phone] should any of the following occur: wound bleeding or an increase in bleeding, increased swelling, redness around the incision, fever over 101 F, excessive vomiting, nosebleeds, or bloody stool. Discharge Medications (scheduled) indicated with an X: Senokot-S 8.6-50mg tablet. Take 2 tablets by mouth daily for 30 days or as long as you are taking a narcotic pain medication (tramadol, oxycodone, or morphine). Begin the day of surgery. Miralax 17g packet. Drink 1 packet mixed with 8 ounces of water daily for 7 days. Begin the morning after surgery. Begin your home anticoagulation medication, the morning after surgery. Take as prescribed like you were before surgery. Ecotrin (coated aspirin) 81mg tablet by mouth twice daily for 35 days. Begin the morning after surgery. Protonix (pantoprazole) 20mg tablet by mouth daily for 35 days. Begin the morning after surgery. Xarelto (rivaroxaban) 10mg table by mouth daily for 35 days. Begin the morning after surgery. Celebrex (celecoxib) 200mg tablet by mouth twice daily for 30 days. Take with food. Begin the morning after surgery. Duricef (cefadroxil) 500mg tablet by mouth twice daily for 7 days. Take with food. Begin the morning after surgery. Bactrim-DS (sulfamethoxazole & trimethoprim) 800mg-160mg tablet by mouth twice daily for 7 days. Take with food. Begin the morning after surgery. Cleocin (clindamycin) 300mg tablet by mouth 3 times (every 8 hours) a day for 7 days. Take with food. Begin the morning after surgery. Tylenol (acetaminophen) 500mg tablet. Take 2 tablets 3 times (every 8 hours) a day for 30 days. Begin the night of surgery if necessary. Prednisone 10mg tablet. Take 1 tablet daily for 10 days. Begin the morning after surgery. *If you have a patch behind your ear remove it the morning after surgery, discard, and thoroughly wash your hands. Discharge Medications (as needed) indicated with an X: Zofran (Ondansetron) 4mg tablet by mouth 3 times (every 8 hours) a day as needed for nausea. Begin the night of surgery if necessary. Tramadol (Ultram) 50mg tablet. Take 1 tablet by mouth every 6 hours as needed for pain. Do not take at the same time as oxycodone, MS Contin (morphine extended release), or Dilaudid (hydromorphone). Take with food. Begin the night of surgery. Take around the clock for 24 hours after surgery and then utilize if necessary. Oxycodone 5mg tablet. Take 1 tablet by mouth every 4 hours as needed for pain. If pain unrelenting 30 minutes after taking 1 tablet, then take another 1 tablet. Do not take at the same time as MS Contin (morphine extended release), Dilaudid (hydromorphone), or Tramadol (Ultram). Take with food. Begin the night of surgery. Take around the clock for 24 hours after surgery and then utilize if necessary. MS Contin (morphine extended release) 15mg tablet. Take 1 tablet by mouth every 12 hours as needed for BREAKTHROUGH pain only. If pain unrelenting 30 minutes after you have taken the second oxycodone 5mg tablet, then take 1 MS Contin tablet. Do not take at the same time as oxycodone or Tramadol (Ultram); this is a time-released medication and can only be taken once every 12 hours. Resume oxycodone at next scheduled time (4 hours after the MS Contin tablet). Begin the night of surgery if necessary. Dilaudid (hydromorphone) 2mg tablet. Take 1 tablet by mouth every 8 hours as needed for BREAKTHROUGH pain only. If pain unrelenting 30 minutes after oxycodone, then take 1 Dilaudid tablet. Do not take at the same time as oxycodone or Tramadol (Ultram). Resume oxycodone at next scheduled time (4 hours after the Dilaudid tablet). Begin the night of surgery if necessary. Discharge Instructions: BE SURE YOU HAVE READ THE BOOKLET YOU RECEIVED IN THE OFFICE. Home Health: Home health is a valuable partner in the joint replacement process; they will be your first step to your road of recovery. A therapist will see you the day after your surgery; they will be at your home before noon. They will see you the first three days after surgery and continue working with you until I see you in the office for your 2-week post-op appointment. Follow their instructions. Exercises are to be done several times a day, including the days the therapist does not come to your house! Wound Care: Your surgical incision may be covered with a few different dressings. Your home health physical therapist will remove the gauze dressing the first day after surgery, but they will leave one of the following in place until you see me in the office. Zipline This is a no contact dressing that will stay in place until you are seen in the office for your 2-week post-op appointment. Do not place any ointments, creams, or lotions on your wound. Avoid getting outside on hot days; excessive sweating can increase the risk of wound infection. If there is drainage, place a gauze dressing over the wound, secure with paper tape, and call your therapist. A small amount of drainage is expected. When you do bathe, allow soapy water to run over the dressing site, but do not scrub the incision or the dressing. Pat the dressing site dry with a towel after you shower. DO NOT take a bath, enter a pool, guillaume/pond,or ocean until we discuss this at your post-op appointments. Aquacel This is a silver-impregnated dressing with antibiotic properties that will stay in place until you are seen in the office for your 2-week post-op appointment. Do not place any ointments, creams, or lotions around your wound or on the dressing. Avoid getting outside on hot days; excessive sweating can increase the risk of wound infection. If there is drainage, place a gauze dressing over the wound, secure with paper tape, and call your therapist. A small amount of drainage is expected. When you do bathe, allow soapy water to run over the dressing site, but do not scrub the incision or the dressing. Pat the dressing site dry with a towel after you shower. DO NOT take a bath, enter a pool, guillaume pond, or ocean until we discuss this at your post-op appointments. Prevena This is a negative pressure wound therapy device with a collection container for any drainage. If this becomes completely full, call your therapist to discuss changing the collection container. This device also has a 14-day battery. Your home health physical therapist will remove the dressing 14 days after your surgery; it will be removed prior to your initial follow up appointment. Do not place any ointments, creams, or lotions around your wound or on the dressing. Avoid getting outside on hot days; excessive sweating can increase the risk of wound infection. When you do bathe, allow soapy water to run over the dressing site, but do not scrub the device or the surrounding skin. DO NOT get the device wet! Pat the dressing site dry with a towel after you shower. DO NOT take a bath, enter a pool, guillaume/pond, or ocean until we discuss this at your post-op appointments. What to expect: SWELLING: Ice frequently, a minimum of 4 times a day for 20 minutes at a time for the first 2-3 weeks after surgery, especially after doing your exercises. While icing, elevate your foot above the level of your heart with several pillows under your ankle. DO NOT put pillows under your knee. (KNEE REPLACEMENT ONLY) Avoid prolonged periods of sitting over the first 7 to 10 days after surgery. We recommend that you not sit for more than 45 to 60 minutes at a time. You should get up and move around or lie down and elevate your leg. BRUISING: You will have bruising to some degree; possibly the thigh, calf, ankle, foot, and in some cases the genitalia. Do not be alarmed. The bruising will eventually go away on its own as the body reabsorbs the blood. BLISTERS: Some patients may develop blisters around the knee/hip and/or the incision. Although they can be alarming in appearance, they pose no significant risk to your joint replacement. Leave the blisters alone and allow them to heal on their own. NUMBNESS: Usually normal around the incision. For knee replacements, the outside of the knee may be involved as well. The area of numbness may shrink over time or it could last forever. For hip replacements, you may notice numbness on the outside of the thigh extending down the outside of the knee. The area of numbness may shrink over time or it could last forever. GIL hose (stockinette): Wear them for 4 weeks on the operative side and 2 weeks on the nonoperative side. Try to wear these as 24/ as possible to help decrease swelling. Weight Bearing, Walkers, and Canes: Do not remove your knee immobilizer. Do not walk without this until your therapist has removed it either on the first day after surgery or the second day after surgery. Do not attempt to walk without your walker and your care giver until the therapist checks you the following day after surgery and gives you further instruction. Typically, you will start out on a walker, then progress to a cane, and eventually walk without any device. Some of our patients do this within 2 weeks of surgery, while others can take 6 weeks. Pain Medications: You may experience significant pain. Our goal is to make your pain manageable (not absent, since this is usually not realistic) and to allow you to progress with your therapy for your hip or knee. Take your pain medication scheduled for the first 24 hours, then take it as needed. Always take your pain medication with food to decrease nausea and vomiting. Be sure to take stool softeners and/or laxatives as directed. You may take [id number]-[id number] Benadryl if itching occurs without a rash or hives. Icing and elevation will help relieve pain as well, do not underestimate the power of ice and elevation. We do recommend that you stop taking narcotic pain medications by 4-6 weeks after surgery and if necessary, continue to use anti-inflammatory medications such as Mobic (meloxicam), Celebrex (celecoxib), or an [id number] medication (Aleve, Motrin, Ibuprofen, etc). Driving an automobile: You must be off all narcotic pain medications. If your right leg is involved, that is your braking leg. Your physical therapist needs to help you determine that you can actively and firmly hit the brake and sustain it as this could be a life or situation for you or someone else. You will not be cleared to drive by me or anyone else. It is up to you to know when you feel safe to drive. We do recommend utilizing an empty parking lot to practice and ensure you are able to slam on the brakes if necessary during an emergency. Low Grade Fever (less than 101 F): Low-grade fevers can be treated, but make sure you do not exceed the daily limit of Tylenol. The daily limit on Tylenol (acetaminophen) is 3000 mg in a 24-hour period. If you have procedures done after your joint replacement: Dental procedures (including routine cleaning), prostate surgery, colonoscopy, and other invasive procedures could increase your risk for a total joint infection. During a postoperative visit, be sure to discuss the use of prophylactic antibiotic therapy prior to and sometimes after these invasive procedures. The decision to utilize antibiotics before and/or after these invasive procedures is a shared decision process between you and myself. Constipation: If you develop constipation in spite of taking stool softeners and/or laxatives, follow the protocol below: Day 2 of constipation if no results, use a Dulcolax suppository Day 3 of constipation if no results, use a fleet s enema. If no results by the afternoon, notify our office. Bladder Habits: If you have difficulty urinating or are unable to urinate within 12 hours after arriving home following your surgery, please notify our office immediately. Expectations for Pain Relief after Joint Replacement: Patients predictably improve for up to a year after a hip or knee replacement. It is normal for you to still have some pain in your hip or knee for as much as 3 to 9 months after surgery. The pain relief will come, but you should not expect great relief of pain in less than this time. High demand activities (such as going up and down stairs) frequently take 3 to 9 months before patients feel comfortable doing them. It is permissible to go up and down stairs whenever you can safely navigate them, but it will take much longer to do them normally and with great confidence. Questions or Problems: If you have any questions, problems, or confusion about your recovery after your hip or knee replacement, please feel free to call our office at [phone]. You are a priority of ours and we will not be upset with you if you call. We would much rather you call to confirm aspects of your recovery process as opposed to possibly hindering your recovery with inappropriate care. We are committed to providing you with the best care possible. Deepak Marshall II, MD Updated 05/17/23[facility] Work Phone: Progress note No data available for this section [facility] CenterReason for referral (narrative)No reason for referral information availableFirelands Regional Med Center Work Phone: Summary Purpose Family History No Family History Records Found Relationship Condition Age at Onset Recorded Date/T krista father Myocardial infarction Unknown motherCerebrovascular accident (CVA)UnknownbrotherMalignant neoplasm of lung Unknown Relationship Condition Age at Onset Recorded Date/T krista father Myocardial infarction Unknown motherCerebrovascular accident (CVA)UnknownType 2 diabetes mellitusUnknown HypertensionUnknownbrotherMalignant neoplasm of lungUnknownbrotherChronic obstructive pulmonary diseaseUnknownsisterMalignant neoplasm of stomachUnknown Advance Directives No Advanced Directives Records Found Advance Directive Response Recorded Date/ Time Advance Directives No December 5:01pm Chief Complaint and Reason for Visit Chief Complaint M95.0 Z98.890 Chief Complaint Admit Date M25.551 - Pain in right hip November 09 7:52am NEW RT HIP PAIN WX NOMS November 09, 2024 12:28pm Chief Complaint Admit Date M25.551 - Pain in right hip November 09 025 7:52am NEW RT HIP PAIN WX NOMS November 09, 2024 12:28pm M25.551 M16.11 November 20, 2024 1:39 pm Chief Complaint Admit Date M25.551 - Pain in right hip November 09 025 7:52am NEW RT HIP PAIN WX NOMS November 09, 2024 12:28pm M25.551 M16.11 November 20, 2024 1:39 pm Z01.810 sob January 09, 2025 10:37am Chief Complaint Admit Date M25.551 - Pain in right hip November 09 025 7:52am NEW RT HIP PAIN WX NOMS November 09, 2024 12:28pm M25.551 M16.11 November 20, 2024 1:39 pm Z01.810 sob January 09, 2025 10:37am Hip pain January 10, 2025 9:58am Chief Complaint Admit Date M25.551 - Pain in right hip November 09 025 7:52am NEW RT HIP PAIN WX NOMS November 09, 2024 12:28pm M25.551 M16.11 November 20, 2024 1:39 pm Z01.810 sob January 09, 2025 10:37am Hip pain January 10, 2025 9:58am Pre Op RTH January 18, 2025 11:02am H&P RTHA -INPT/REHAB January 18 11:55am Chief Complaint Admit Date M25.551 - Pain in right hip November 09, 025 7:52am NEW RT HIP PAIN WX NOMS November 09, 2024 12:28pm M25.551 M16.11 November 20, 2024 1:39 pm Z01.810 sob January 09, 2025 10:37am Hip pain January 10, 2025 9:58am Pre Op RTH January 18, 2025 11:02am H&P RTHA -INPT/REHAB January 18 11:55am Prolonged January 19, 2025 6:00am Reason for Visit Admit Date Primary osteoarthritis of right hip Dec 11:55am Chief Complaint Admit Date M25.551 - Pain in right hip November 09, 025 7:52am NEW RT HIP PAIN WX NOMS November 09, 2024 12:28pm M25.551 M16.11 November 20, 2024 1:39 pm Z01.810 sob January 09, 2025 10:37am Hip pain January 10, 2025 9:58am Pre Op RTH January 18, 2025 11:02am H&P RTHA -INPT/REHAB January 18 11:55am Prolonged January 19, 2025 6:00am Hip pain January 29, 2025 10 :48am right hip osteoarthritis s/p volodymyr January 30, 2025 4:21pm Reason for Visit Admit Date Primary osteoarthritis of right hip Dec 11:55am Other skilled nursing (current) drug therapy O ctober 2024 10:48am Status post total replacement of right h ip January 29, 2025 10:48am Reason for Visit Admit Date Primary osteoarthritis of right hip Dec 11:55am Other skilled nursing (current) drug therapy O ctober 2024 10:48am Primary osteoarthritis of right hip Octo 2024 10:48am Status post total replacement of right h ip January 29, 2025 10:48am Age-related osteoporosis wit [...] Postoperative anemia January 30, 2025 4 :21pm Primary osteoarthritis of right hip Jano 2024 4:21pm Status post total replacement of right h ip January 30, 2025 4:21pm Chief Complaint Admit Date M25.551 M16.11 November 20, 2024 1:39 pm Z01.810 sob January 09, 2025 10:37am Hip [...] hx hip replacement Octob er 2024 4:06pm Chief Complaint Admit Date M25.551 M16.11 November 20, 2024 1:39 pm Z01.810 sob January 09, 2025 10:37am Hip [...] :43pm standing February 14, 2025 2 :10pm Reason for Visit Admit Date Primary osteoarthritis of right hip Sept 2024 11:55am Other oil heaterman (current) drug therapy O ctober 2024 10:48am Primary osteoarthritis of right hip Jano 2024 10:48am Status post total replacement of right h ip January 29, 2025 10:48am Age-related osteoporosis wit [...] Postoperative anemia January 30, 2025 4 :21pm Primary osteoarthritis of right hip Jano 2024 4:21pm Status post total replacement of right h ip January 30, 2025 4:21pm Aftercare following right hip joint repl acement surgery February 14, 2025 1:43pm Chief Complaint Admit Date Z01.810 sob January [...] Right hip pain, hx hip replacement Octob 2024 4:06pm 2 WK POST OP RTHA February 14, 2025 1 :43pm standing February 14, 2025 2 :10pm GROIN PAIN February 21, 2025 8 :56am Z47.1 - Aftercare following joint replac ement surg February 21, 2025 9:01am Reason for Visit Admit Date Primary osteoarthritis of right hip Sept 2024 11:55am Other oil heaterman (current) drug therapy O ctober 2024 10:48am Primary osteoarthritis of right hip Jano 2024 10:48am Status post total replacement of right h ip January 29, 2025 10:48am Age-related osteoporosis wit [...] Postoperative anemia January 30, 2025 4 :21pm Primary osteoarthritis of right hip Jano 2024 4:21pm Status post total replacement of right h ip January 30, 2025 4:21pm Aftercare following right hip joint repl acement surgery February 14, 2025 1:43pm Aftercare following right hip joint repl acement surgery February 21, 2025 8:56am Status post total replacement of right h ip February 21, 2025 8:56am Chief Complaint Admit Date Z01.810 sob January [...] Hip Jimmie ion February 21, 2025 10:54am Reason for Visit Admit Date Primary osteoarthritis of right hip Sept ember 2024 11:55am Other skilled nursing (current) drug therapy O ctober 2024 10:48am Primary osteoarthritis of right hip Jano 2024 10:48am Status post total replacement of right h ip January 29, 2025 10:48am Age-related osteoporosis wit [...] Postoperative anemia January 30, 2025 4 :21pm Primary osteoarthritis of right hip Jano 2024 4:21pm Status post total replacement of right h ip January 30, 2025 4:21pm Aftercare following right hip joint repl acement surgery February 14, 2025 1:43pm Aftercare following right hip joint repl acement surgery February 21, 2025 8:56am Status post total replacement of right h ip February 21, 2025 8:56am Aftercare following right hip joint repl acement surgery February 21, 2025 10:54am Impaired mobility and activities of mohamud y living February 21, 2025 10:54am Reason for Visit Admit Date Primary osteoarthritis of right hip Dec 11:55am Other skilled nursing (current) drug therapy O ctober 2024 10:48am Primary osteoarthritis of right hip Jano 2024 10:48am Status post total replacement of right h ip January 29, 2025 10:48am Age-related osteoporosis wit [...] Postoperative anemia January 30, 2025 4 :21pm Primary osteoarthritis of right hip Jano 2024 4:21pm Status post total replacement of right h ip January 30, 2025 4:21pm Aftercare following right hip joint repl [...] mohamud y living February 21, 2025 10:54am Periprosthetic fracture arou nd internal prosthetic right hip joint February 21, 2025 10:54am Postoperative anemia February 21, 2025 10:54am Primary osteoarthritis of right hip Octo 2024 10:54am Status post total replacement of right h ip February 21, 2025 10:54am Additional Source Comments INFORMATION SOURCE (unrecogn ized section and content) DATE CREATED AUTHOR 04/15/2022 [facility] DATE CREATED AUTHOR AUTHOR'S ORGANIZ ATION 09/11/2023 [facility] DATE CREATED AUTHOR AUTHOR'S ORGANIZ ATION 11/28/2023 [facility] DATE CREATED AUTHOR AUTHOR'S ORGANIZ ATION 03/20/2024 [facility] DATE CREATED AUTHOR AUTHOR'S ORGANIZ ATION 03/21/2024 [facility] DATE CREATED AUTHOR AUTHOR'S ORGANIZ ATION 03/28/2024 [facility] DATE CREATED AUTHOR AUTHOR'S ORGANIZ ATION 07/17/2024 [facility] DATE CREATED AUTHOR AUTHOR'S ORGANIZ ATION 08/29/2024 [facility] DATE CREATED AUTHOR AUTHOR'S ORGANIZ ATION 09/01/2024 [facility] DATE CREATED AUTHOR AUTHOR'S ORGANIZ ATION 10/08/2024 [facility] DATE CREATED AUTHOR AUTHOR'S ORGANIZ ATION 10/27/2024 [facility] DATE CREATED AUTHOR AUTHOR'S ORGANIZ ATION 10/29/2024 [facility] DATE CREATED AUTHOR AUTHOR'S ORGANIZ ATION 11/25/2024 [facility] DATE CREATED AUTHOR AUTHOR'S ORGANIZ ATION 12/16/2024 [facility] DATE CREATED AUTHOR AUTHOR'S ORGANIZ ATION 01/29/2025 [facility] DATE CREATED AUTHOR AUTHOR'S ORGANIZ ATION 01/30/2025 [facility] DATE CREATED AUTHOR AUTHOR'S ORGANIZ ATION 03/07/2025 [facility] Patient Care team informatio n (unrecognized section and content) Team Status: Active Member Role Status Dates Luiz Costello MD Primary Care Provider Active Team Status: Inactive Member Role Status Dates Deepak Marshall II, MD Attending Provider Active Start: November 09, 2024 End: November 09, 2024Harpreet Del Cid Care ProviderActiveStart: November 09, 2024 End: November 09, 2024 Team Status: Inactive Member Role Status Dates Luiz Costello MD Primary Care Provider Active Start: November 09, 2024 End: November 09, 2024Deepak Marshall II, MDAttnick ProviderActiveStart: November 09, 2024 End: November 09, 2024 Team Status: Active Member Role Status Dates Deepak Marshall II, MD Attending Provider Active Start: November 09, 2024 Harpreet eDl Cid Care ProviderActiveStart: November 09, 2024 Team Status: Inactive Member Role Status Dates Luiz Costello MD Primary Care Provider Active Hilda Jasso ProviderActiveTeam MemberRelationshipSpecialty Start DateEnd Date Luiz Costello MD [address] [place] [address] [facility] - [facility] Oeodqdxm91/20/24Team MemberRelationshipSpecialtyStart Date End Date Luiz Costello MD [address] [place] [address] PCP - Generalmi Hommpxdi60/20/24Team MemberRelationshipSpecialtyStart Date End Date Luiz Costello MD [address] [place] [address] PCP - Generalmi Hmldhwxw36/20/24Team MemberRelationshipSpecialtyStart Date End Date Luiz Costello MD [address] [facility] [place] [address] PCP - [facility]04/14/24Team MemberRelationshipSpecialtyStart Date End Date Luiz Costello MD [address] [facility] [place] [address] PCP - [facility]04/14/24Team MemberRelationshipSpecialtyStart Date End Date Luiz Costello MD [address] [facility] [place] [address] PCP - [facility]04/14/24Team MemberRelationshipSpecialtyStart Date End Date Luiz Costello MD [address] [facility] [place] [address] PCP - [facility]04/14/24 Team Status: Active Member Role Status Dates PHYSICIAN NO FAMILY Primary Care Provider Active Team Status: Inactive Member Role Status Dates Deepak Marshall II, MD Attending Provider Active Start: November 20, 2024 End: November 20, 2024PHYSICIAN NO FAMILYPrimary Care ProviderActiveStart: November 20, 2024 End: November 20, 2024 Team Status: Active Member Role Status Dates Micah Cooney NP-C Primary Care Provider Active Team Status: Inactive Member Role Status Dates Elbert Clifford MD Other Provider Active Start: January 09, 2025 End: January 09, 2025Mahmdorie Linton , MDAttending ProviderActiveStart: January 09, 2025 End: January 09, 2025Mahmkanud Otninoska , MDReferring ProviderActiveStart: January 09, 2025 End: January 09, 2025Micah Cooney PROBATION AND PATROL AGENT-CPrimary Care ProviderActive Start: January 09, 2025 End: January 09, 2025 Team Status: Inactive Member Role Status Dates Deepak Marshall II, MD Attending Provider Active Start: January 10, 2025 End: January 10, 2025Micah Cooney , PROBATION AND PATROL AGENT-CPrimary Care ProviderActive Start: January 10, 2025 End: January 10, 2025 Team Status: Active Member Role Status Dates Deepak Marshall II, MD Attending Provider Active Start: January 18, 2025 Micah Cooney , PROBATION AND PATROL AGENT-CPrimary Care ProviderActiveStart: January 18, 2025 Team Status: Inactive Member Role Status Dates PHYSICIAN NO FAMILY Primary Care Provider Active Start: January 18, 2025 End: January 18, 2025Robfam Marshall II, MDAttending ProviderActiveStart: January 18, 2025 End: January 18, 2025 Team Status: Inactive Member Role Status Dates PHYSICIAN NO FAMILY Primary Care Provider Active Start: January 19, 2025 End: January 19, 2025Robfam Marshall II, MDAttending ProviderActiveStart: January 19, 2025 End: January 19, 2025 Team Status: Active Member Role Status Dates Deepak Marshall II, MD Attending Provider Active Start: January 29, 2025 Deepak Marshall II, MDOther ProviderActiveStart: January 29, 2025 PHYSICIAN NO FAMILYPrimary Care ProviderActiveStart: January 29, 2025 Merlene Wiley , RNOther ProviderActiveStart: January 29, 2025 Misty Merino , RNOther ProviderActiveStart: January 29, 2025 Helen De La Cruz , ANTONIOOther ProviderActiveStart: January 29, 2025 Nicole Ball , ANTONIOOther ProviderActiveStart: January 29, 2025 Liliana Costello , RNOther ProviderActiveStart: January 29, 2025 Monse Nunes , ANTONIOOther ProviderActiveStart: January 29, 2025 Maame Renee MDOther ProviderActiveStart: January 29, 2025 Gianna Veloz , DOOther ProviderActiveStart: January 29, 2025 Ismael Merchant MDOther ProviderActiveStart: January 29, 2025 Jose Garcia , DOOther ProviderActiveStart: January 29, 2025 Yovanny Boss MDOther ProviderActiveStart: January 29, 2025 Clarisa Omer MDOther ProviderActiveStart: January 29, 2025 Angie Valdez , DOOther ProviderActiveStart: January 29, 2025 Paxton Parker MDOther ProviderActiveStart: January 29, 2025 Fela Mi , APRNOther ProviderActiveStart: January 29, 2025 Lydia Shipley MDOther ProviderActiveStart: January 29, 2025 Gail Gutiérrez MDOther ProviderActiveStart: January 29, 2025 Jennifer Rodriguez MDOther ProviderActiveStart: January 29, 2025 Angie Gutierrez , DOOther ProviderActiveStart: January 29, 2025 Darell Nobles MDOther ProviderActiveStart: January 29, 2025 Nic Garcia MDOther ProviderActiveStart: January 29, 2025 Annika Espinal , PROBATION AND PATROL AGENT-COther ProviderActiveStart: January 29, 2025 Chaya Muñoz , [...] Alli Nunes MDOther ProviderActiveStart: January 29, 2025 Team Status: Active Member Role Status Dates PHYSICIAN NO FAMILY Primary Care Provider Active Start: January 30, 2025 Alli Nunes MDAdmit ProviderActiveStart: January 30, 2025 Alli Nunes MDAttending ProviderActiveStart: January 30, 2025 Merlene Wiley , ANTONIOOther ProviderActiveStart: January 30, 2025 Misty Merino , ANTONIOOther ProviderActiveStart: January 30, 2025 Helen De La Cruz , ANTONIOOther ProviderActiveStart: January 30, 2025 Nicole Ball RNOther ProviderActiveStart: January 30, 2025 Liliana Costello RNOther ProviderActiveStart: January 30, 2025 Monse Nunes , ANTONIOOther ProviderActiveStart: January 30, 2025 Maame Renee MDOther ProviderActiveStart: January 30, 2025 Gianna Veloz , DOOther ProviderActiveStart: January 30, 2025 Ismael Mercahnt MDOther ProviderActiveStart: January 30, 2025 Jose Garcia , DOOther ProviderActiveStart: January 30, 2025 Yovanny Boss MDOther ProviderActiveStart: January 30, 2025 Clarisa Omer MDOther ProviderActiveStart: January 30, 2025 Angie Valdez DOOther ProviderActiveStart: January 30, 2025 Paxton Parker MDOther ProviderActiveStart: January 30, 2025 Fela Mi , APRNOther ProviderActiveStart: January 30, 2025 Lydia Shipley MDOther ProviderActiveStart: January 30, 2025 Gail Gutiérrez MDOther ProviderActiveStart: January 30, 2025 Jennifer Rodriguez MDOther ProviderActiveStart: January 30, 2025 Angie Gutierrez , DOOther ProviderActiveStart: January 30, 2025 Darell Nobles MDOther ProviderActiveStart: January 30, 2025 Nic Garcia MDOther ProviderActiveStart: January 30, 2025 Annika Espinal , PROBATION AND PATROL AGENT-COther ProviderActiveStart: January 30, 2025 Chaya Muñoz , [...] MDOther ProviderActiveStart: January 30, 2025 Tina Wang , ANTONIOOther ProviderActiveStart: January 30, 2025 Team Status: Active Member Role Status Dates Deepak Marshall II, MD Other Provider Active S tart: January 29, 2025 PHYSICIAN NO [facility] Care ProviderActiveStart: January 29, 2025 Merlene Wiley , RNOther ProviderActiveStart: January 29, 2025 Misty Merino , ANTONIOOther ProviderActiveStart: January 29, 2025 Helen De La Cruz , ANTONIOOther ProviderActiveStart: January 29, 2025 Nicole Ball , ANTONIOOther ProviderActiveStart: January 29, 2025 Liliana Costello , ANTONIOOther ProviderActiveStart: January 29, 2025 Monse Nunes RNOther ProviderActiveStart: January 29, 2025 Maame Renee MDOther ProviderActiveStart: January 29, 2025 Gianna Veloz , DOOther ProviderActiveStart: January 29, 2025 Ismael Merchant MDOther ProviderActiveStart: January 29, 2025 Jose Garcia , DOOther ProviderActiveStart: January 29, 2025 Yovanny Boss MDOther ProviderActiveStart: January 29, 2025 Clarisa Omer MDOther ProviderActiveStart: January 29, 2025 Angie Valdez DOOther ProviderActiveStart: January 29, 2025 Paxton Parker MDOther ProviderActiveStart: January 29, 2025 Fela Mi , APRNOther ProviderActiveStart: January 29, 2025 Lydia Shipley MDOther ProviderActiveStart: January 29, 2025 Gail Gutiérrez MDOther ProviderActiveStart: January 29, 2025 Jennifer Rodriguez MDOther ProviderActiveStart: January 29, 2025 Angie Gutierrez DOOther ProviderActiveStart: January 29, 2025 Darell Nobles MDOther ProviderActiveStart: January 29, 2025 Nic Garcia MDOther ProviderActiveStart: January 29, 2025 Annika Espinal , PROBATION AND PATROL AGENT-COther ProviderActiveStart: January 29, 2025 Chaya Muñoz , [...] MDOther ProviderActiveStart: January 29, 2025 Tina Wang RNOther ProviderActiveStart: January 29, 2025 Alli Nunes MDOther ProviderActiveStart: January 29, 2025 Ildefonso Lawrence MDAttending ProviderActiveStart: January 29, 2025 Team Status: Active Member Role Status Dates PHYSICIAN NO FAMILY Primary Care Provider Active Start: January 30, 2025 Patience Courtney ProviderActiveStart: January 30, 2025 Alli Nunes MDOther ProviderActiveStart: January 30, 2025 Merlene Wiley , ANTONIOOther ProviderActiveStart: January 30, 2025 Misty Merino , ANTONIOOther ProviderActiveStart: January 30, 2025 Helen De La Cruz , ANTONIOOther ProviderActiveStart: January 30, 2025 Nicole Ball , ANTONIOOther ProviderActiveStart: January 30, 2025 Liliana Costello , ANTONIOOther ProviderActiveStart: January 30, 2025 Monse Nunes , ANTONIOOther ProviderActiveStart: January 30, 2025 Maame Renee MDOther ProviderActiveStart: January 30, 2025 Gianna Veloz , DOOther ProviderActiveStart: January 30, 2025 Ismael Merchant MDOther ProviderActiveStart: January 30, 2025 Jose Garcia DOOther ProviderActiveStart: January 30, 2025 Yovanny Boss MDOther ProviderActiveStart: January 30, 2025 Clarisa Omer MDOther ProviderActiveStart: January 30, 2025 Angie Valdez DOOther ProviderActiveStart: January 30, 2025 Paxton Parker MDOther ProviderActiveStart: January 30, 2025 Fela Mi APRNOther ProviderActiveStart: January 30, 2025 Lydia Shipley MDOther ProviderActiveStart: January 30, 2025 Gail Gutiérrez MDOther ProviderActiveStart: January 30, 2025 Jennifer Rodriguez MDOther ProviderActiveStart: January 30, 2025 Angie Gutierrez DOOther ProviderActiveStart: January 30, 2025 Darell Nobles MDOther ProviderActiveStart: January 30, 2025 Nic Garcia MDOther ProviderActiveStart: January 30, 2025 Annika Espinal , PROBATION AND PATROL AGENT-COther ProviderActiveStart: January 30, 2025 Chaya Muñoz , [...] Candace Potter APRNAttending ProviderActiveStart: January 30, 2025 Team Status: Active Member Role/Relationship Status Dates NON STAFF Primary Care Provider Active Team Status: Inactive Member Role/Relationship Status Dates Deepak Marshall II, MD Attending Provider Active Start: November 20, 2024 End: November 20, 2024PHYSICIAN NO FAMILYPrimary Care ProviderActiveStart: November 20, 2024 End: November 20, 2024 Team Status: Inactive Member Role/Relationship Status Dates Elbert Clifford MD Other Provider Active Start: January 09, 2025 End: January 09, 2025Mahmoubandar Linton , MDAttending ProviderActiveStart: January 09, 2025 End: January 09, 2025Mahmkanud Shaila , MDReferring ProviderActiveStart: January 09, 2025 End: January 09, 2025Jocordelia Cooney , PROBATION AND PATROL AGENT-CPrimary Care ProviderActive Start: January 09, 2025 End: January 09, 2025 Team Status: Inactive Member Role/Relationship Status Dates Deepak Marshall II, MD Attending Provider Active Start: January 10, 2025 End: January 10, 2025Jocordelia Cooney , PROBATION AND PATROL AGENT-CPrimary Care ProviderActive Start: January 10, 2025 End: January 10, 2025 Team Status: Active Member Role/Relationship Status Dates Deepak Marshall II, MD Attending Provider Active Start: January 18, 2025 Micah Cooney , PROBATION AND PATROL AGENT-CPrimary Care ProviderActiveStart: January 18, 2025 Team Status: Inactive Member Role/Relationship Status Dates PHYSICIAN NO FAMILY Primary Care Provider Active Start: January 18, 2025 End: January 18, 2025Robfam Marshall II, MDAttending ProviderActiveStart: January 18, 2025 End: January 18, 2025 Team Status: Inactive Member Role/Relationship Status Dates PHYSICIAN NO FAMILY Primary Care Provider Active Start: January 19, 2025 End: January 19, 2025Robfam Marshall II MDAttending ProviderActiveStart: January 19, 2025 End: January 19, 2025 Team Status: Active Member Role/Relationship Status Dates Deepak Marshall II, MD Other Provider Active S tart: January 29, 2025 PHYSICIAN NO FAMILYPrimary Care ProviderActiveStart: January 29, 2025 Merlene Wiley RNOther ProviderActiveStart: January 29, 2025 Misty Merino RNOther ProviderActiveStart: January 29, 2025 Helen De La Cruz RNOther ProviderActiveStart: January 29, 2025 Nicole Ball , ANTONIOOther ProviderActiveStart: January 29, 2025 Liliana Costello , ANTONIOOther ProviderActiveStart: January 29, 2025 Monse Nunes , ANTONIOOther ProviderActiveStart: January 29, 2025 Maame Renee MDOther ProviderActiveStart: January 29, 2025 Timnakia Veloz , DOOther ProviderActiveStart: January 29, 2025 Ismael Merchant MDOther ProviderActiveStart: January 29, 2025 Jose Garcia , DOOther ProviderActiveStart: January 29, 2025 Yovanny Boss MDOther ProviderActiveStart: January 29, 2025 Clarisa Omer MDOther ProviderActiveStart: January 29, 2025 Angie Valdez DOOther ProviderActiveStart: January 29, 2025 Paxton Parker MDOther ProviderActiveStart: January 29, 2025 Fela Mi , APRNOther ProviderActiveStart: January 29, 2025 Lydia Shipley MDOther ProviderActiveStart: January 29, 2025 Gail Gutiérrez MDOther ProviderActiveStart: January 29, 2025 Jennifer Rodriguez MDOther ProviderActiveStart: January 29, 2025 Angie Gutierrez DOOther ProviderActiveStart: January 29, 2025 Darell Nobles MDOther ProviderActiveStart: January 29, 2025 Nic Garcia MDOther ProviderActiveStart: January 29, 2025 Annika Espinal PROBATION AND PATROL AGENT-COther ProviderActiveStart: January 29, 2025 Chaya Muñoz , APRNOther ProviderActiveStart: January 29, 2025 Ashkan Mcbride MDOther ProviderActiveStart: January 29, 2025 sAhwin Gamboa MDOther ProviderActiveStart: January 29, 2025 Shamika Jaimes MDOther ProviderActiveStart: January 29, 2025 Warren Novoa DOOther ProviderActiveStart: January 29, 2025 Smiley Nance , APRNOther ProviderActiveStart: January 29, 2025 Dennis Rao DOOther ProviderActiveStart: January 29, 2025 Zelda Bejarano [...] MDOther ProviderActiveStart: January 29, 2025 Tina Wang RNOther ProviderActiveStart: January 29, 2025 Alli Nunes MDOther ProviderActiveStart: January 29, 2025 Ildefonso Lawrence MDAttending ProviderActiveStart: January 29, 2025 Team Status: Active Member Role/Relationship Status Dates [...] Clarisa Omer MDOther ProviderActiveStart: January 30, 2025 Angie Valdez DOOther ProviderActiveStart: January 30, 2025 Paxton Parker MDOther ProviderActiveStart: January 30, 2025 Fela Mi , APRNOther ProviderActiveStart: January 30, 2025 Lydia Shipley MDOther ProviderActiveStart: January 30, 2025 Gail Gutiérrez MDOther ProviderActiveStart: January 30, 2025 Jennifer Rodriguez MDOther ProviderActiveStart: January 30, 2025 Angie Gutierrez , DOOther ProviderActiveStart: January 30, 2025 Darell Nobles MDOther ProviderActiveStart: January 30, 2025 Nic Garcia MDOther ProviderActiveStart: January 30, 2025 Annika Espinal PROBATION AND PATROL AGENT-COther ProviderActiveStart: January 30, 2025 Chaya Muñoz , APRNOther ProviderActiveStart: January 30, 2025 Ashkan Mcbride MDOther ProviderActiveStart: January 30, 2025 Ashwin Gamboa MDOther ProviderActiveStart: January 30, 2025 Shamika Jaimes MDOther ProviderActiveStart: January 30, 2025 Warren Novoa , DOOther ProviderActiveStart: January 30, 2025 Smiley Nance , APRNOther ProviderActiveStart: January 30, 2025 Dennis Rao DOOther ProviderActiveStart: January 30, 2025 Zelda Bejarano [...] RNOther ProviderActiveStart: January 30, 2025 Candace Potter , APRNAttending ProviderActiveStart: January 30, 2025 Team Status: Active Member Role/Relationship Status Dates PHYSICIAN NO FAMILY Primary Care Provider Active Start: February 06, 2025 Patience Courtney ProviderActiveStart: February 06, 2025 Johnie Courtneyending ProviderActiveStart: February 06, 2025 Alli Nunes MDOther ProviderActiveStart: February 06, 2025 Merlene Wiley RNOther ProviderActiveStart: February 06, 2025 Misty Merino , ANTONIOOther ProviderActiveStart: February 06, 2025 Helen De La Cruz , ANTONIOOther ProviderActiveStart: February 06, 2025 Nicole Ball RNOther ProviderActiveStart: February 06, 2025 Liliana Costello RNOther ProviderActiveStart: February 06, 2025 Monse Nunes , ANTONIOOther ProviderActiveStart: February 06, 2025 Maame Renee MDOther ProviderActiveStart: February 06, 2025 Gianna Veloz DOOther ProviderActiveStart: February 06, 2025 Ismael Merchant MDOther ProviderActiveStart: February 06, 2025 Jose Garcia , DOOther ProviderActiveStart: February 06, 2025 Yovanny Boss MDOther ProviderActiveStart: February 06, 2025 Clarisa Omer MDOther ProviderActiveStart: February 06, 2025 Angie Valdez , DOOther ProviderActiveStart: February 06, 2025 Paxton Parker MDOther ProviderActiveStart: February 06, 2025 Fela Mi , APRNOther ProviderActiveStart: February 06, 2025 Lydia Shipley MDOther ProviderActiveStart: February 06, 2025 Gail Gutiérrez MDOther ProviderActiveStart: February 06, 2025 Jennifer Rodriguez MDOther ProviderActiveStart: February 06, 2025 Angie Gutierrez , DOOther ProviderActiveStart: February 06, 2025 Darell Nobles MDOther ProviderActiveStart: February 06, 2025 Nic Garcia MDOther ProviderActiveStart: February 06, 2025 Annika Espinal , PROBATION AND PATROL AGENT-COther ProviderActiveStart: February 06, 2025 Chaya Muñoz , [...] Tina Wang RNOther ProviderActiveStart: February 06, 2025 Team Status: Inactive Member Role/Relationship Status Dates NON STAFF Primary Care Provider Active Start: February 11, 2025 End: February 11, 2025Lui Bruner MDEmergency ProviderActiveStart: February 11, 2025 End: February 11, 2025 Team Status: Inactive Member Role/Relationship Status Dates Deepak Marshall II, MD Attending Provider Active Start: February 14, 2025 End: February 14, 2025NON STAFFPrimary Care ProviderActiveStart: February 14, 2025 End: February 14, 2025 Team Status: Active Member Role/Relationship Status Dates NON STAFF Primary Care Provider Active Start: February 14, 2025 Johnie Saldivar IIending ProviderActiveStart: February 14, 2025 Team Status: Inactive Member Role/Relationship Status Dates NON STAFF Primary Care Provider Active Start: February 14, 2025 End: February 14, 2025Apolonia Saldivar II ProviderActiveStart: February 14, 2025 End: February 14, 2025 Team Status: Active Member Role/Relationship Status Dates Micah Cooney , PROBATION AND PATROL AGENT-C Primary Care Provider Active Team Status: Inactive Member Role/Relationship Status Dates Elbert Clifford MD Other Provider Active Start: January 09, 2025 End: January 09, 2025Mahmdorie Linton , MDAttending ProviderActiveStart: January 09, 2025 End: January 09, 2025Mahmdorie Linton , MDReferring ProviderActiveStart: January 09, 2025 End: January 09, 2025Jocordelia Cooney , PROBATION AND PATROL AGENT-CPrimary Care ProviderActive Start: January 09, 2025 End: January 09, 2025 Team Status: Inactive Member Role/Relationship Status Dates Deepak Marshall II, MD Attending Provider Active Start: January 10, 2025 End: January 10, 2025Jocordelia Cooney , PROBATION AND PATROL AGENT-CPrimary Care ProviderActive Start: January 10, 2025 End: January 10, 2025 Team Status: Active Member Role/Relationship Status Dates Deepak Marshall II, MD Attending Provider Active Start: January 18, 2025 Micah Cooney , PROBATION AND PATROL AGENT-CPrimary Care ProviderActiveStart: January 18, 2025 Team Status: Inactive Member Role/Relationship Status Dates PHYSICIAN NO FAMILY Primary Care Provider Active Start: January 18, 2025 End: January 18, 2025Robfam Marshall II, MDAttending ProviderActiveStart: January 18, 2025 End: January 18, 2025 Team Status: Inactive Member Role/Relationship Status Dates PHYSICIAN NO FAMILY Primary Care Provider Active Start: January 19, 2025 End: January 19, 2025Robfam Marshall II, MDAttending ProviderActiveStart: January 19, 2025 End: January 19, 2025 Team Status: Active Member Role/Relationship Status Dates Deepak Marshall II, MD Other Provider Active S tart: January 29, 2025 PHYSICIAN NO FAMILYPrimary Care ProviderActiveStart: January 29, 2025 Merlene Wiley , ANTONIOOther ProviderActiveStart: January 29, 2025 Misty Merino , ANTONIOOther ProviderActiveStart: January 29, 2025 Helen De La Cruz , ANTONIOOther ProviderActiveStart: January 29, 2025 Nicole Ball RNOther ProviderActiveStart: January 29, 2025 Liliana Costello ANTONIOOther ProviderActiveStart: January 29, 2025 Monse Nunes , ANTONIOOther ProviderActiveStart: January 29, 2025 Maame Renee MDOther ProviderActiveStart: January 29, 2025 Gianna Veloz , DOOther ProviderActiveStart: January 29, 2025 Ismael Merchant MDOther ProviderActiveStart: January 29, 2025 Jose Garcia , DOOther ProviderActiveStart: January 29, 2025 Yovanny Boss MDOther ProviderActiveStart: January 29, 2025 Clarisa Omer MDOther ProviderActiveStart: January 29, 2025 Angie Valdez , DOOther ProviderActiveStart: January 29, 2025 Paxton Parker MDOther ProviderActiveStart: January 29, 2025 Fela Mi , APRNOther ProviderActiveStart: January 29, 2025 Lydia Shipley MDOther ProviderActiveStart: January 29, 2025 Gail Gutiérrez MDOther ProviderActiveStart: January 29, 2025 Jennifer Rodriguez MDOther ProviderActiveStart: January 29, 2025 Angie Gutierrez , DOOther ProviderActiveStart: January 29, 2025 Darell Nobles MDOther ProviderActiveStart: January 29, 2025 Nic Garcia MDOther ProviderActiveStart: January 29, 2025 Aninka sEpinal , PROBATION AND PATROL AGENT-COther ProviderActiveStart: January 29, 2025 Chaya Muñoz , APRNOther ProviderActiveStart: January 29, 2025 Ashkan Mcbride MDOther ProviderActiveStart: January 29, 2025 Ashwin Gamboa MDOther ProviderActiveStart: January 29, 2025 Shamika Jaimes MDOther ProviderActiveStart: January 29, 2025 Warren Novoa DOOther ProviderActiveStart: January 29, 2025 Smiley aNnce , APRNOther ProviderActiveStart: January 29, 2025 Dennis Rao DOOther ProviderActiveStart: January 29, 2025 Zelda Bejarano [...] Bojorquez MDOther ProviderActiveStart: January 29, 2025 Tina Wnag RNOther ProviderActiveStart: January 29, 2025 Alli Nunes MDOther ProviderActiveStart: January 29, 2025 Ildefonso Lawrence MDAttending ProviderActiveStart: January 29, 2025 Team Status: Active Member Role/Relationship Status Dates PHYSICIAN NO FAMILY Primary Care Provider Active Start: January 30, 2025 Patience Courtney ProviderActiveStart: January 30, 2025 Alli Nunes MDOther ProviderActiveStart: January 30, 2025 Merlene Wiley RNOther ProviderActiveStart: January 30, 2025 Misty Merino , ANTONIOOther ProviderActiveStart: January 30, 2025 Helen De La Cruz , ANTONIOOther ProviderActiveStart: January 30, 2025 Nicole Ball , ANTONIOOther ProviderActiveStart: January 30, 2025 Liliana Costello RNOther ProviderActiveStart: January 30, 2025 Monse Nnues RNOther ProviderActiveStart: January 30, 2025 Maame Renee MDOther ProviderActiveStart: January 30, 2025 Gianna Veloz , DOOther ProviderActiveStart: January 30, 2025 Ismael Merchant MDOther ProviderActiveStart: January 30, 2025 Jose Garcia , DOOther ProviderActiveStart: January 30, 2025 Yovanny Boss MDOther ProviderActiveStart: January 30, 2025 Clarisa Omer MDOther ProviderActiveStart: January 30, 2025 Angie Valdez DOOther ProviderActiveStart: January 30, 2025 Paxton Parker MDOther ProviderActiveStart: January 30, 2025 Fela Mi , APRNOther ProviderActiveStart: January 30, 2025 Lydia Shipley MDOther ProviderActiveStart: January 30, 2025 Gail Gutiérrez MDOther ProviderActiveStart: January 30, 2025 Jennifer Rodriguez MDOther ProviderActiveStart: January 30, 2025 Angie Gutierrez , DOOther ProviderActiveStart: January 30, 2025 Darell Nobles MDOther ProviderActiveStart: January 30, 2025 Nic Garcia MDOther ProviderActiveStart: January 30, 2025 Annika Espinal , PROBATION AND PATROL AGENT-COther ProviderActiveStart: January 30, 2025 Chaya Muñoz , [...] RNOther ProviderActiveStart: January 30, 2025 Candace Potter , APRNAttending ProviderActiveStart: January 30, 2025 Team Status: Active Member Role/Relationship Status Dates [...] MDOther ProviderActiveStart: February 06, 2025 Jose Garcia , DOOther ProviderActiveStart: February 06, 2025 Yovanny Boss MDOther ProviderActiveStart: February 06, 2025 Clarisa Omer MDOther ProviderActiveStart: February 06, 2025 Angie Valdez , DOOther ProviderActiveStart: February 06, 2025 Paxton Parker MDOther ProviderActiveStart: February 06, 2025 Fela Mi , APRNOther ProviderActiveStart: February 06, 2025 Lydia Shipley MDOther ProviderActiveStart: February 06, 2025 Gail Gutiérrez MDOther ProviderActiveStart: February 06, 2025 Jennifer Rodriguez MDOther ProviderActiveStart: February 06, 2025 Angie Gutierrez , DOOther ProviderActiveStart: February 06, 2025 Darell Nobles MDOther ProviderActiveStart: February 06, 2025 Nic Garcia MDOther ProviderActiveStart: February 06, 2025 Annika Espinal , PROBATION AND PATROL AGENT-COther ProviderActiveStart: February 06, 2025 Chaya Muñoz , [...] Uli Robertson MDOther ProviderActiveStart: February 06, 2025 Yazid Enrique , DOOther ProviderActiveStart: February 06, 2025 Jerry [...] Tina Wang RNOther ProviderActiveStart: February 06, 2025 Team Status: Inactive Member Role/Relationship Status Dates NON STAFF Primary Care Provider Active Start: February 11, 2025 End: February 11, 2025Lui Bruner MDEmergency ProviderActiveStart: February 11, 2025 End: February 11, 2025 Team Status: Inactive Member Role/Relationship Status Dates Deepak Marshall II, MD Attending Provider Active Start: February 14, 2025 End: February 14, 2025NON STAFFPrimary Care ProviderActiveStart: February 14, 2025 End: February 14, 2025 Team Status: Inactive Member Role/Relationship Status Dates NON STAFF Primary Care Provider Active Start: February 14, 2025 End: February 14, 2025Deepak Marshall II, MDAttending ProviderActiveStart: February 14, 2025 End: February 14, 2025 Team Status: Inactive Member Role/Relationship Status Dates Deepak Marshall II, MD Attending Provider Active Start: February 21, 2025 End: February 21, 2025Micah Cooney NP-CPrimary Care ProviderActiveStart: February 21, 2025 End: February 21, 2025 Team Status: Active Member Role/Relationship Status Dates Deepak Marshall II, MD Attending Provider Active Start: February 21, 2025 Micah Cooney , PROBATION AND PATROL AGENT-CPrimary Care ProviderActiveStart: February 21, 2025 Team Status: Inactive Member Role/Relationship Status Dates Deepak Marshall II, MD Attending Provider Active Start: February 21, 2025 End: February 21, 2025Micah Cooney , PROBATION AND PATROL AGENT-CPrimary Care ProviderActiveStart: February 21, 2025 End: February 21, 2025 Team Status: Active Member Role/Relationship Status Dates Micah Cooney , PROBATION AND PATROL AGENT-C Primary Care Provider Active Start: February 21, 2025 Deepak Marshall II, MDAdmit ProviderActiveStart: February 21, 2025 Deepak Marshall II, MDAttending ProviderActiveStart: February 21, 2025 Merlene Wiley , ANTONIOOther ProviderActiveStart: February 21, 2025 Misty Merino , [...] MDOther ProviderActiveStart: February 21, 2025 Jose Garcia DOOther ProviderActiveStart: February 21, 2025 Yovanny Boss MDOther ProviderActiveStart: February 21, 2025 Clarisa Omer MDOther ProviderActiveStart: February 21, 2025 Angie Valdez , DOOther ProviderActiveStart: February 21, 2025 Paxton Parker MDOther ProviderActiveStart: February 21, 2025 Fela Mi , APRNOther ProviderActiveStart: February 21, 2025 Lydia Shipley MDOther ProviderActiveStart: February 21, 2025 Gail Gutiérrez MDOther ProviderActiveStart: February 21, 2025 Jennifer Rodriguez MDOther ProviderActiveStart: February 21, 2025 Angie Gutierrez , DOOther ProviderActiveStart: February 21, 2025 Darell Nobles MDOther ProviderActiveStart: February 21, 2025 Nic Garcia MDOther ProviderActiveStart: February 21, 2025 Annika Espinal , PROBATION AND PATROL AGENT-COther ProviderActiveStart: February 21, 2025 Chaya Muñoz , APRNOther ProviderActiveStart: February 21, 2025 Ashkan Mcbride MDOther ProviderActiveStart: February 21, 2025 Ashwin Gamboa MDOther ProviderActiveStart: February 21, 2025 Shamika Jaimes MDOther ProviderActiveStart: February 21, 2025 Warren Novoa , DOOther ProviderActiveStart: February 21, 2025 Smiley Nance , APRNOther ProviderActiveStart: February 21, 2025 Dennis Rao , DOOther ProviderActiveStart: February 21, 2025 Zelda Bejarano [...] MDOther ProviderActiveStart: February 21, 2025 Tina Wang , ANTONIOOther ProviderActiveStart: February 21, 2025 Team Status: Active Member Role/Relationship Status Dates Micah Cooney , PROBATION AND PATROL AGENT-C Primary Care Provider Active Start: February 21, 2025 Deepak Marshall II, MDAdmit ProviderActiveStart: February 21, 2025 Deepak Marshall II MDAttending ProviderActiveStart: February 21, 2025 Deepak Marshall II, MDOther ProviderActiveStart: February 21, 2025 Merlene Wiley , ANTONIOOther ProviderActiveStart: February 21, 2025 Misty Merino , ANTONIOOther ProviderActiveStart: February 21, 2025 Helen De La Cruz , ANTONIOOther ProviderActiveStart: February 21, 2025 Nicole Ball , ANTONIOOther ProviderActiveStart: February 21, 2025 Liliana Costello RNOther ProviderActiveStart: February 21, 2025 Monse Nunes , ANTONIOOther ProviderActiveStart: February 21, 2025 Maame Renee MDOther ProviderActiveStart: February 21, 2025 Gianna Veloz , DOOther ProviderActiveStart: February 21, 2025 Ismael Merchant MDOther ProviderActiveStart: February 21, 2025 Jose Garcia DOOther ProviderActiveStart: February 21, 2025 Yovanny Boss MDOther ProviderActiveStart: February 21, 2025 Clarisa Omer MDOther ProviderActiveStart: February 21, 2025 Angie Valdez DOOther ProviderActiveStart: February 21, 2025 Paxton Parker MDOther ProviderActiveStart: February 21, 2025 Fela Mi , APRNOther ProviderActiveStart: February 21, 2025 Lydia Shipley MDOther ProviderActiveStart: February 21, 2025 Gail Gutiérrez MDOther ProviderActiveStart: February 21, 2025 Jennifer Rodriguez MDOther ProviderActiveStart: February 21, 2025 Angie Gutierrez , DOOther ProviderActiveStart: February 21, 2025 Darell Nobles MDOther ProviderActiveStart: February 21, 2025 Nic Garcia MDOther ProviderActiveStart: February 21, 2025 Annika Espinal , PROBATION AND PATROL AGENT-COther ProviderActiveStart: February 21, 2025 Chaya Muñoz , APRNOther ProviderActiveStart: February 21, 2025 Ashkan Mcbride MDOther ProviderActiveStart: February 21, 2025 Ashwin Gamboa MDOther ProviderActiveStart: February 21, 2025 Shamika Jaimes MDOther ProviderActiveStart: February 21, 2025 Warren Novoa , DOOther ProviderActiveStart: February 21, 2025 Smiley Nance , APRNOther ProviderActiveStart: February 21, 2025 Dennis Rao , DOOther ProviderActiveStart: February 21, 2025 Zelda Bejarano [...] MDOther ProviderActiveStart: February 21, 2025 Marta Fried APRNOt ProviderActiveStart: February 21, 2025 Sveta Cerrato APRNOt ProviderActiveStart: February 21, 2025 Eliza Bojorquez MDOther ProviderActiveStart: February 21, 2025 Tina Wang RNOther ProviderActiveStart: February 21, 2025 Goals (unrecognized section and content) Type Treatment Intervention Code Status: Full Code Goals may be documented in an alternate section Reason for Visit (unrecogniz ed section and content) ReasonCommentsPainReasonCommentsFoot PainPoss foot fxReasonOnset DateCommentsRx 05/24/2024ReasonCommentsFollow-upRt 2nd toe fxReasonCommentsFollow-upMRI [facility] [place]ReasonCommentsSkin CheckReasonCommentsFollow-up FOR RECORDS PERTAINING TO PATIENTS WHO ARE OR HAVE BEEN ENROLLED IN A CHEMICAL DEPENDENCY/SUBSTANCEABUSE PROGRAM, SOME INFORMATION MAY BE OMITTED. This clinical summary was aggregated from multiple sources. Caution should be exercised in using it in the provision of clinical care. This summary normalizes information from multiple sources, and as a consequence, information in this document may materially change the coding, format and clinical context of patient data. In addition, data may be omitted in some cases. CLINICAL DECISIONS SHOULD BE BASED ON THE PRIMARY CLINICAL RECORDS. [facility] [employer] provides no warranty or guarantee of the accuracy or completeness of information in this document.
[2025-03-12 16:32] LABS: Hematocrit 30.9 % (36.0-48.0); Hemoglobin 9.6 g/dL (12.0-16.0); Immature Granulocytes Abs Auto 0.05 10^3/uL (0.00-0.03); Immature Granulocytes Pct Auto 0.5 % (0.0-0.5); Lymphocytes Absolute Auto 2.2 10^3/uL (1.2-3.8); Mean Corpuscular HGB Conc 31.1 g/dL (29.9-35.2); Mean Corpuscular Hemoglobin 28.0 pg (26.7-34.0); Mean Corpuscular Volume 90.1 fL (81.0-99.0); Platelet Count 590 10^3/uL (150-450); Red Blood Count 3.43 10^6/uL (4.20-5.40); White Blood Count 10.6 10^3/uL (4.0-11.0)
[2025-03-12 16:44] LABS: Anion Gap 15.7; Blood Urea Nitrogen 20.0 mg/dL (7.0-18.0); Calcium 8.7 mg/dL (8.5-10.1); Carbon Dioxide 27.6 mmol/L (21.0-32.0); Chloride 102 mmol/L (98-107); Estimated GFR (African America >60 (>=60 mL/min/1.73m^2); Estimated GFR (Non-African Ame 58 (>=60 mL/min/1.73m^2); Glucose 101 mg/dL (74-106); Potassium 4.3 mmol/L (3.5-5.1); Sodium 141 mmol/L (136-145)
== END 2025-03-12 14:32 | disposition home or self-care (01) ==
LOC: LAB 14:31
PROVIDERS: PCP Family Medicine; Visit Provider Nurse Practitioner
DX: D64.9 Anemia, unspecified (principal); N18.9 Chronic kidney disease, unspecified
CPT/HCPCS: 36415; 80048; 85025